=== PATIENT | female | born 1935 | race Caucasian/White ===

== ENCOUNTER → 2018-02-01 09:54 | Outpatient (CLI) | payer MEDICARE, SELFPAY ==
[2018-02-01 12:18] LABS: Absolute Lymphocyte Count 1.26 X10^3/ul (0.83-4.51); Absolute Neutrophil Count 5.6 X10^3/uL (2.0-7.7); Basophil# 0.04 X10^3/uL; Basophil% 0.5 % (0-1); Eosinophil# 0.16 X10^3/uL; Eosinophils% 2.1 % (0-5); Hematocrit 34.8 % (37-47); Hemoglobin 11.1 g/dl (12.0-15.0); Lymphocyte # 1.26 X10^3/ul (4.0); Lymphocyte % 16.5 % (19-41); Mean Corp Hgb Conc 31.9 g/gl (32-36); Mean Corpuscular Hgb 28.1 pg (27.0-32.0); Mean Corpuscular Volume 88.1 fL (81-99); Mean Platelet Vol. 11.4 fl (6.2-12.0); Monocyte# 0.61 X10^3/uL; Neutrophil # 5.56 X10^3/uL (2.7-7.7); Neutrophil % 72.8 % (47-70); Platelet Count 260 K/mm3 (150-450); RBC Distribution Width CV 15.4 % (11.6-14.6); RBC Distribution Width SD 49.4 fl (35.1-43.9); Red Blood Count 3.95 M/mm3 (4.2-5.4); White Blood Count 7.6 K/mm3 (4.4-11.0)
[2018-02-01 12:28] LABS: Hemoglobin A1c 6.8 % (4.2-6.3)
[2018-02-01 12:30] LABS: POSITIVE COUNT NO; POSITIVE DIFFERENTIAL NO; POSITIVE MORPHOLOGY NO
[2018-02-01 12:32] LABS: ALB/GLOB Ratio 0.7 RATIO (0.9-2.4); AST(SGOT) 15 U/L (15-37); Alanine Aminotransfer ALT/SGPT 14 U/L (13-56); Albumin, Serum 2.9 g/dL (3.2-5.0); Alkaline Phosphatase 54 U/L (45-117); Anion Gap 12 (5-15); BUN 26 mg/dL (7-18); BUN/Creat Ratio 14.4 RATIO (10-20); Calcium,Total 10.1 mg/dL (8.5-10.1); Chloride 107 mmol/L (98-107); Cholesterol 421 mg/dL (200); Creatinine, Serum 1.81 mg/dL (0.55-1.02); EST Glomerular Filtration Rate 28 mL/min (>60); Est Glom Filt Rate - Afr Amer 34 mL/min (>60); Globulin 4.2 g/dL (2.2-4.2); Glucose 172 mg/dL (74-106); High Density Lipoprotein 38 mg/dL; Potassium 4.7 mmol/L (3.5-5.1); Protein, Total 7.1 g/dL (6.4-8.2); Sodium Level 140 mmol/L (136-145); T4 Free Direct 1.21 ng/dL (0.76-1.46); Thyroid Stim Hormone (TSH) 1.32 uIU/mL (0.358-3.74); Triglycerides 917 mg/dL
[2018-02-02 12:20] LABS: Vitamin B12 401 pg/mL (211-911); Vitamin D,25 Hydroxy 10.2 ng/mL (29.95-100.01)
[2018-02-02 14:07] LABS: Thyroid Peroxidase AB 25 IU/mL (0-34)
[2018-02-03 14:57] LABS: Thyroglobulin Antibody < 1.0 IU/mL (0.0-0.9)
== END ==
PROVIDERS: Family Provider Family Medicine; PCP Family Medicine; Visit Provider Family Medicine
DX: E01.0 Iodine-deficiency related diffuse (endemic) goiter (principal); E83.52 Hypercalcemia; N18.3 Chronic kidney disease, stage 3 (moderate); E55.9 Vitamin D deficiency, unspecified; E11.9 Type 2 diabetes mellitus without complications; R53.83 Other fatigue
CPT/HCPCS: 36415; 80053; 80061; 82306; 82607; 83036; 84439; 84443; 85025; 86376; 86800

== ENCOUNTER 2018-07-28 16:58 | Inpatient (IN) | payer MEDICARE, SELFPAY ==
[2018-07-28] VITALS (11 sets, daily range): BP systolic 153–193; BP diastolic 59–82; PULSE 71–80; RESP 17–27; TEMP 36.4–37.1; O2SAT 92–98; BMI 23.6; BMI 23.7
--- NOTE | 2018-07-28 18:00 | EKG12_ITS ---
Test Reason : SOB Blood Pressure : / mmHG Vent. Rate : 073 BPM Atrial Rate : 073 BPM P-R Int : 158 ms QRS Dur : 088 ms QT Int : 370 ms P-R-T Axes : 063 036 113 degrees QTc Int : 407 ms Normal sinus rhythm ST & T wave abnormality, consider lateral ischemia Abnormal ECG Confirmed by JASON CLOUD, KISHOR ([id number]), social media editor MARCY PAYTON ([id number]) on 07/30/2018 2:18:32 PM Referred By: CHADWICK Confirmed By:KISHOR GOMEZ MD
--- NOTE | 2018-07-28 18:01 | ED.VISSUMM ---
- ER Visit Summary Date of Service: 07/28/18 Chief Complaint: Dyspnea History of Present Illness: The patient is a 83 F who presents for 4 days of shortness of breath and bilateral ankle swelling. Patient states she has had a moist cough for the last 2 weeks, and took part of an amoxicillin prescription prescribed by her primary care doctor. She then became short of breath worse with exertion, laying flat and keeping her from sleeping. She denies any history of congestive heart failure, COPD or any other lung disease, smoking, coronary artery disease, or DVT/PE. Patient denies any chest pain currently but states she did have some chest discomfort one day during this period of time. Physical Examination: Vital signs: afebrile, hemodynamically stable, 92% on room air, 96% on nasal cannula General: well nourished, well developed, in no distress Skin: warm, dry, no rash, no pallor HEENT: normocephalic and atraumatic; PERRL, EOMI, moist mucous membranes Cardiovascular: regular rate and rhythm without murmurs, symmetric nonpitting peripheral edema, 2+ pulses all distal extremities Respiratory: Mild increased work of breathing, lungs are clear to auscultation bilaterally, no rales, rhonchi or wheezing Abdominal: Abdomen is soft, nontender with normoactive bowel sounds, no guarding or rebound, no masses MSK: Moves all extremities, no deformities, normal strength Neuro: Awake and alert, oriented ?4. No facial droop, sensation and motor function intact and symmetric Test Results: Abnormal Lab Results 07/28/18 07/28/18 07/28/18 16:19 16:19 16:19 WBC 10.0 RBC 3.30 L Hgb 9.4 L Hct 29.2 L MCV 88.5 MCH 28.5 MCHC 32.2 RDW 15.5 H RDW Differential 49.9 H Plt Count 262 MPV 9.8 Immature Gran % (Auto) 0.400 Neut % (Auto) 78.0 H Lymph % (Auto) 11.7 L [place] % (Auto) 7.7 Eos % (Auto) 1.9 Baso % (Auto) 0.3 Absolute Neuts (auto) 7.8 H Absolute Lymphs (auto) 1.17 Total Counted Not Reportable PT 14.0 INR 1.1 APTT 35.6 Sodium 140 Potassium 5.3 H Chloride 112 H Carbon Dioxide 19.0 L Anion Gap 9 BUN 40 H Creatinine 1.76 H Estim Creat Clear Calc 17.09 Est GFR (MDRD) Af Amer 35 L Est GFR (MDRD) Non-Af 29 L BUN/Creatinine Ratio 22.7 H Glucose 247 H Calcium 10.5 H Troponin I 0.082 H B-Natriuretic Peptide 07/28/18 16:19 WBC RBC Hgb Hct MCV MCH MCHC RDW RDW Differential Plt Count MPV Immature Gran % (Auto) Neut % (Auto) Lymph % (Auto) [place] % (Auto) Eos % (Auto) Baso % (Auto) Absolute Neuts (auto) Absolute Lymphs (auto) Total Counted PT INR APTT Sodium Potassium Chloride Carbon Dioxide Anion Gap BUN Creatinine Estim Creat Clear Calc Est GFR (MDRD) Af Amer Est GFR (MDRD) Non-Af BUN/Creatinine Ratio Glucose Calcium Troponin I B-Natriuretic Peptide 2071.7 H Clinical Impression(s) from Imaging Studies Chest X-Ray 07/28/18 19:25 IMPRESSION: Bilateral pleural effusion and pneumonia. Electronically Signed: Wendy Castro MD at 20:25 EST Tel , Service support , Medications Given Discontinued Medications Azithromycin 500 mg/ Dextrose 255 mls @ 250 mls/hr IV X1 ONE Stop: 07/28/18 21:28 Last Admin: 07/28/18 21:48 Dose: 250 mls/hr Ceftriaxone Sodium (Rocephin) 1 gm in 50 mls @ 100 mls/hr IV X1 ONE Stop: 07/28/18 20:56 Last Admin: 07/28/18 20:42 Dose: 100 mls/hr Nitroglycerin (Nitrostat) 0.4 mg SUBLINGUAL X1 ONE Stop: 07/28/18 19:28 Last Admin: 07/28/18 19:33 Dose: 0.4 mg Emergency Department Course and Treatment: Patient presents with history and exam concerning for just of heart failure. Workup was performed, with an EKG showing a sinus rhythm with no ischemic changes. Patient had no leukocytosis. Potassium was mildly elevated at 5.3 without any associated EKG changes. Creatinine elevated at 1.76, consistent with patient's baseline. Troponin was elevated at 0.08, also consistent with prior readings. BNP elevated at 2071, with no baseline for comparison. Patient has no diagnosed history of CHF. Chest x-ray showed a left lobe infiltrate and bilateral pleural effusions. It did not show any sign of vascular congestion or pulmonary edema. Patient had an oxygen requirement in the emergency department and was on nasal cannula. Because of the concern for CHF and patient being consistently hypertensive, she was given sublingual nitroglycerin to reduce afterload. After determining patient had pneumonia, she was started on Rocephin and azithromycin. Lasix held in the emergency department due to no evidence of pulmonary vascular congestion at this time. Patient admitted for further workup and management of her dyspnea, hypoxia on room air, and pneumonia. Treatment Plan: [] Disposition: [] Impression: Pneumonia, hypoxia on room air, dyspnea This note was generated with [employer] dictation software. It may contain incorrect words, spelling, and punctuation that were not noted in review of the chart prior to signing ED Disposition - Plan for ED Patient: Disposition: Acute Care Hospital [facility] Chief Complaint: Shortness of Breath
[2018-07-28 18:45] LABS: Absolute Lymphocyte Count 1.17 X10^3/ul (0.83-4.51); Absolute Neutrophil Count 7.8 X10^3/uL (2.0-7.7); Basophil# 0.03 X10^3/uL; Basophil% 0.3 % (0-1); Eosinophil# 0.19 X10^3/uL; Eosinophils% 1.9 % (0-5); Hematocrit 29.2 % (37-47); Hemoglobin 9.4 g/dl (12.0-15.0); Lymphocyte # 1.17 X10^3/ul (4.0); Lymphocyte % 11.7 % (19-41); Mean Corp Hgb Conc 32.2 g/gl (32-36); Mean Corpuscular Hgb 28.5 pg (27.0-32.0); Mean Corpuscular Volume 88.5 fL (81-99); Mean Platelet Vol. 9.8 fl (6.2-12.0); Monocyte# 0.77 X10^3/uL; Monocyte% 7.7 % (0-10); Neutrophil # 7.81 X10^3/uL (2.7-7.7); Platelet Count 262 K/mm3 (150-450); RBC Distribution Width CV 15.5 % (11.6-14.6); RBC Distribution Width SD 49.9 fl (35.1-43.9)
[2018-07-28 18:49] LABS: International Normalized Ratio 1.1
[2018-07-28 18:50] LABS: POSITIVE COUNT NO; POSITIVE DIFFERENTIAL NO; POSITIVE MORPHOLOGY NO; Partial Thromboplast Time 35.6 Seconds (24.1-36.2)
[2018-07-28 18:59] LABS: Anion Gap 9 (5-15); BUN 40 mg/dL (7-18); BUN/Creat Ratio 22.7 RATIO (10-20); Calcium,Total 10.5 mg/dL (8.5-10.1); Chloride 112 mmol/L (98-107); Creatinine, Serum 1.76 mg/dL (0.55-1.02); EST Glomerular Filtration Rate 29 mL/min (>60); Est Glom Filt Rate - Afr Amer 35 mL/min (>60); Estimated Creatinine Clearance 17.09 ml/min; Glucose 247 mg/dL (74-106); Potassium 5.3 mmol/L (3.5-5.1); Sodium Level 140 mmol/L (136-145)
--- NOTE | 2018-07-28 19:25 | RAD_ITS ---
STUDY: X-RAY CHEST REASON FOR EXAM: Female, 83 years old. Unproductive cough SOB. TECHNIQUE: PA and lateral. COMPARISON:11/24/15 FINDINGS: Small bilateral pleural effusions. Bilateral opacities in the lung bases. Airspace disease on the left. Findings consistent with pneumonia. Upper lung zones are clear. Normal size heart. Normal mediastinum and vilma. Normal visualized pulmonary arteries. Atherosclerotic calcification of the aortic arch. Normal visualized thoracic spine. Normal visualized ribs, clavicles, and shoulders. There is no demonstrated abnormality of the visualized soft tissue structures of the upper abdomen. RAD/Chest PA and Lateral IMPRESSION: Bilateral pleural effusion and pneumonia. Electronically Signed: Wendy Castro MD at 20:25 EST Tel , Service support ,
--- NOTE | 2018-07-28 20:31 | PCM.HP.STD ---
Problem List (1) Acute respiratory failure with hypoxia Status: Acute (2) PNA (pneumonia) Status: Acute Qualifiers: Pneumonia type: due to unspecified organism Laterality: bilateral Lung location: unspecified part of lung Qualified Code(s): J18.9 - Pneumonia, unspecified organism (3) TIA (transient ischemic attack) Status: Chronic (4) Cardiac enzymes elevated Status: Chronic (5) Carotid disease, bilateral Status: Chronic Qualifiers: Carotid artery disease type: unspecified Qualified Code(s): I77.9 - Disorder of arteries and arterioles, unspecified (6) CKD (chronic kidney disease) stage 3, GFR 30-59 ml/min Status: Chronic (7) Hypertension Status: Chronic Qualifiers: Hypertension type: essential hypertension Qualified Code(s): I10 - Essential (primary) hypertension (8) Hyperlipidemia Status: Chronic Qualifiers: Hyperlipidemia type: unspecified Qualified Code(s): E78.5 - Hyperlipidemia, unspecified (9) Type II diabetes mellitus Status: Chronic Qualifiers: Diabetes mellitus penitentiary insulin use: without roadway engineer use Diabetes mellitus complication status: with unspecified complications Qualified Code(s): E11.8 - Type 2 diabetes mellitus with unspecified complications History of Present Illness Date of Admission: 07/28/18 Chief Complaint: Dysnea, cough The patient is a 83 y/o F w/ PMHx: Diabetes mellitus type II, TIA, HTN, HLD, Carotid disease, PVD, History of Tobacco use, Chronic Normocytic anemia (baseline Hgb 11), 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 She noted needing to transition to arm chair for sleeping from bed secondary to worsened dyspnea with laying flat attempts. In the ED work-up included CBC with WBC 10, hemoglobin 9.4, platelet 262 with left shift, unremarkable coags, BMP with potassium 5.3, chloride 112, carbon dioxide 19, BUN/creatinine 40/1.76, glucose 247, calcium 10.5, troponin 0.082, BNP 2071.7 chest x-ray with bilateral pleural effusions and evidence of pneumonia bilateral opacities in the lung bases. In the ED patient administered Rocephin, ceftriaxone, nitroglycerin sublingual x1. 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 Carotid artery stenosis I65.29 Contact dermatitis L25.9 Diabetes type 2, controlled E11.9 Fatigue R53.83 Hemangioma D18.00 Hyperlipidemia E78.5 Peripheral vascular disease I73.9 Postmenopausal state Z78.0 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 TIA (transient ischemic attack) G45.9 Vertigo R42 Allergies metformin Allergy (Verified 07/28/18 17:03) Other BODY ACHES epinephrine Adverse Reaction (Verified 07/28/18 17:03) Other SHAKING Gadolinium-MRI Contrast Medium [CONTRAST] Adverse Reaction (Verified 07/28/18 17:03) Other SHAKING Home Medications: Ambulatory Orders Medication Instructions Recorded Benazepril HCl 40 mg PO DAILY 11/24/15 Glimepiride [Amaryl] 4 mg PO DAILY 11/24/15 Metoprolol(XL)Succ [Toprol Xl 50 mg PO DAILY 11/24/15 (Beta Bobby)] Pioglitazone [Actos] 30 mg PO DAILY 11/24/15 Amlodipine [Norvasc] 10 mg PO DAILY #0 11/26/15 lactobacillus combination no.8 3 3,000 mmu cells PO QDAY 10/10/17 billion cell capsule Doxazosin Mesylate [Cardura] 2 mg PO BID 07/28/18 Surgical History: Surgical History (Last Updated 10/10/17 @ 14:28 by Taryn Galindo) H/O total hysterectomy Z98.890, Z90.710 Status post carotid surgery Z98.890 Surgical History: - - BL carotid artery surgery x 2, hysterectemy, rectal surgery for benign growth. Psychiatric History: No pertinent psych hx BILLPOSTER History: No pertinent BILLPOSTER history Lives: Spouse/ Significant Other Smoking Status: Former smoker - Quit 40 years prior, smoked for 40 years, 1 ppd prior to cessation. Tobacco Use: Non-smoker Alcohol: None Drugs: None - *Family History Maternal Family History: Family History (Last Updated 10/10/17 @ 14:30 by Taryn Galindo) Mother Diabetes Hypertension CVA (cerebral vascular accident) Cancer Brother Diabetes Hypertension Sister Diabetes Hypertension History Items: Diabetes, High Cholesterol Paternal Family History: Family History (Last Updated 10/10/17 @ 14:30 by Taryn Galindo) Mother Diabetes Hypertension CVA (cerebral vascular accident) Cancer Brother Diabetes Hypertension Sister Diabetes Hypertension History Items: Unknown Sibling Family History: Family History (Last Updated 10/10/17 @ 14:30 by Taryn Galindo) Mother Diabetes Hypertension CVA (cerebral vascular accident) Cancer Brother Diabetes Hypertension Sister Diabetes Hypertension History Items: Diabetes, Hypertension Review of Systems Constitutional: Reports: Anorexia, Malaise, Weakness, Fatigue. Denies: Chills, Fever, Weight Change HEENT: Reports: Nasal Congestion, Post Nasal Drip, Sinus Congestion, Sinus Drainage. Denies: Head Aches Cardiovascular: Reports: Edema, Orthopnea. Denies: Chest Pain, Palpitations Respiratory: Reports: Cough, Shortness of Breath, Shortness of breath at rest, Shortness of breath upon exertion. Denies: Sputum production, Wheezing Gastrointestinal: Denies: Abdominal Pain, Nausea, Vomiting Genitourinary: Denies: Dysuria Musculoskeletal: Reports: Back Pain. Denies: Joint Pain, Joint Tenderness Skin: Denies: Rash, Wounds Neurological: Denies: Numbness, Tingling, Focal weakness Psychiatric: Denies: Anxiety, Depression, Homicidal Ideations, Suicidal Ideations Hematologic/ Lymphatic: Reports: Anemia. Denies: Easy Bruising, Easy Bleeding VTE Information - Inpt Only VTE Present on Admission: No VTE Mechan Device Prophylaxis: SCD's VTE Pharm Prophylaxis ordered?: Yes Patient Problems: Active and Suspected Problems (Last Updated 10/10/17 @ 14:27 by Taryn Galindo) Acute respiratory failure with hypoxia (Acute) PNA (pneumonia) (Acute) Subjective: Seated upright in the ED bed, fatigued appearance, conversational dyspnea present, increased work of breathing. Objective: Physical Examination: General: awake, alert, oriented x 3 and cooperative, seated upright in the ED bed, fatigued appearance, obvious conversational dyspnea and increased work of breathing with some accessory muscle usage noted. Skin: normal color, turgor, no icterus, cyanosis. HEENT: AT/NC, EOMI, PERRLA, MMM, no carotid bruits, no market JVD noted. Lungs: Bilaterally diminished, greater bases, rales noted, no wheezing, increased work of breathing, accessory muscle usage and conversational dyspnea noted. Heart: Regular rate and rhythm; no gallop, rub audible. Abdomen: soft, NTTP, ND, normal BS, no HSM. Extremities: no cyanosis, clubbing, BL ankle edema. Neurological: patient awake, alert, oriented x 3; cognitive function intact; pupils equally reactive to light and accomodation; cranial nerves II-XII grossly normal, moving all 4 extremities, no focal deficits, strength severely globally decreased secondary to acute presentation. Psychiatric: affect appears fatigued, mildly flat, no acute evidence of depressive or anxiety feelings. - Physical Exam Vital Signs Temp Pulse Resp BP Pulse Ox 98.8 F 78 27 H 174/62 H 98 07/28/18 16:59 07/28/18 19:33 07/28/18 19:02 07/28/18 19:33 07/28/18 19:03 Oxygen Delivery Method Room Air Weight: 121 lb Body Mass Index (BMI) 23.6 Finger Stick Blood Glucose 252 Laboratory Tests Past 24 Hrs 07/28/18 07/28/18 07/28/18 16:19 16:19 16:19 WBC 10.0 RBC 3.30 L Hgb 9.4 L Hct 29.2 L MCV 88.5 MCH 28.5 MCHC 32.2 RDW 15.5 H RDW Differential 49.9 H Plt Count 262 MPV 9.8 Immature Gran % (Auto) 0.400 Neut % (Auto) 78.0 H Lymph % (Auto) 11.[address] [place] % (Auto) 7.7 Eos % (Auto) 1.9 Baso % (Auto) 0.3 Absolute Neuts (auto) 7.8 H Absolute Lymphs (auto) 1.17 Total Counted Not Reportable PT 14.0 INR 1.1 APTT 35.6 Sodium 140 Potassium 5.3 H Chloride 112 H Carbon Dioxide 19.0 L Anion Gap 9 BUN 40 H Creatinine 1.76 H Estim Creat Clear Calc 17.09 Est GFR (MDRD) Af Amer 35 L Est GFR (MDRD) Non-Af 29 L BUN/Creatinine Ratio 22.7 H Glucose 247 H Calcium 10.5 H Troponin I 0.082 H B-Natriuretic Peptide 07/28/18 16:19 WBC RBC Hgb Hct MCV MCH MCHC RDW RDW Differential Plt Count MPV Immature Gran % (Auto) Neut % (Auto) Lymph % (Auto) [place] % (Auto) Eos % (Auto) Baso % (Auto) Absolute Neuts (auto) Absolute Lymphs (auto) Total Counted PT INR APTT Sodium Potassium Chloride Carbon Dioxide Anion Gap BUN Creatinine Estim Creat Clear Calc Est GFR (MDRD) Af Amer Est GFR (MDRD) Non-Af BUN/Creatinine Ratio Glucose Calcium Troponin I B-Natriuretic Peptide 2071.7 H Assessment/Plan All Active Problems (Last Updated 10/10/17 @ 14:27 by Taryn Galindo) Acute respiratory failure with hypoxia (Acute) PNA (pneumonia) (Acute) Left sided numbness (Acute) The patient is a 83 y/o F w/ PMHx: Diabetes mellitus type II, TIA, HTN, HLD, Carotid disease, PVD, History of Tobacco use, Chronic Normocytic anemia (baseline Hgb 11), 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 She noted needing to transition to arm chair for sleeping from bed secondary to worsened dyspnea with laying flat attempts. (1) Acute Hypoxic Respiratory Failure secondary to Community Acquired Pneumonia: ED work-up included CBC with WBC 10, hemoglobin 9.4, platelet 262 with left shift, unremarkable coags, BMP with potassium 5.3, chloride 112, carbon dioxide 19, BUN/creatinine 40/1.76, glucose 247, calcium 10.5, troponin 0.082, BNP 2071.7 chest x-ray with bilateral pleural effusions and evidence of pneumonia bilateral opacities in the lung bases. Increased work of breathing, accessory muscle usage, some conversational dyspnea, noted hypoxia with any exertion while in the ED. Will admit to PCU, maintain on oxygen with wean as tolerated to room air, continue ATC duonebs, PRN albuterol, maintained on Rocephin and Azithromycin, HOB, IS parameters w/ pending sputum cultures and urine antigens. (2) ? Possibility of Concurrent Underlying CHF: Lower suspicion, feel likely her BL LE edema secondary to transitioning to chair w/ dependent edema, not marked on examination. CXR w/ small effusions, no marked congestion, BNP elevated, chronically elevated trop. History is also notable for lower extremity edema, orthopnea, dyspnea on exertion; however, in the setting of concurrent PNA, will defer lasix aggressive administration given acute presentation #1 initially, will administer lasix 40 mg IV x 1 only, defer IVFs given this concern, will repeat ECHO, last noted 2015, cycle cardiac enzymes, obtain mag, repeat AM EKG, BL snug UNIQUE wraps, was previously on plavix secondary to GI upset with ASA, will restart, obtain AM FLP, maintain on home regimen metoprolol, ACEI. (3) Chronic Elevated Cardiac Enzyme: ED EKG without acute evidence of ischemia, trop 0.082, similar to prior, maintain on telemetry, cycle cardiac enzymes to assure not increasing, repeat EKG in AM. 2015 ECHO noted w/ mild concentric LVH, EF 65%, stage I diastolic dysfunction. (4) Hypertension: Continue home regimen including metoprolol, doxazosin, Benzapril, Norvasc, PRN hydralazine. (5) Hyperlipidemia: Not on agent, FLP in AM. (6) Diabetes mellitus type II: Hold oral home regimen, ADA diet, accu checks w/ ISS. (7) Carotid artery disease: Status post endarterectomy bilaterally x 2. (8) Chronic normocytic anemia: Admission hemoglobin 9.4, prior baseline noted 11, repeat CBC in a.m. (9) Chronic Kidney Disease Stage III/IV: Admission BUN/Cr 40/1.76, baseline renal function 1.4-1.8, appears baseline, repeat BMP in AM. (10) DVT Prophylaxis: SCDs, heparin. (11) CODE status: Discussed CODE status at length including difference between FULL code, DNR-CCA and DNR-CC status. Following discussions about the differences in these status, requested Full Code Status. Notes primarily HCPOA and Daughter 2nd. She does have living will in place. Advanced Care Planning Face to Face Time: 16 minutes. Code Visit Inpatient E&M: 63347 Init Hosp L3 Procedures: 10384 Advncd Care Plan 30 Min
--- NOTE | 2018-07-28 20:36 | HP.PCM_ITS ---
Problem List (1) Acute respiratory failure with hypoxia Status: Acute (2) PNA (pneumonia) Status: Acute Qualifiers: Pneumonia type: due to unspecified organism Laterality: bilateral Lung location: unspecified part of lung Qualified Code(s): J18.9 - Pneumonia, unspecified organism (3) TIA (transient ischemic attack) Status: Chronic (4) Cardiac enzymes elevated Status: Chronic (5) Carotid disease, bilateral Status: Chronic Qualifiers: Carotid artery disease type: unspecified Qualified Code(s): I77.9 - Disorder of arteries and arterioles, unspecified (6) CKD (chronic kidney disease) stage 3, GFR 30-59 ml/min Status: Chronic (7) Hypertension Status: Chronic Qualifiers: Hypertension type: essential hypertension Qualified Code(s): I10 - Essential (primary) hypertension (8) Hyperlipidemia Status: Chronic Qualifiers: Hyperlipidemia type: unspecified Qualified Code(s): E78.5 - Hyperlipidemia, unspecified (9) Type II diabetes mellitus Status: Chronic Qualifiers: Diabetes mellitus long-term insulin use: without oysterman use Diabetes mellitus complication status: with unspecified complications Qualified Code(s): E11.8 - Type 2 diabetes mellitus with unspecified complications History of Present Illness Date of Admission: 07/28/18 Chief Complaint: Dysnea, cough The patient is a 83 y/o F w/ PMHx: Diabetes mellitus type II, TIA, HTN, HLD, Carotid disease, PVD, History of Tobacco use, Chronic Normocytic anemia (baseline Hgb 11), CKD stage III/IV (baseline Cr 1.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 She noted needing to transition to arm chair for sleeping from bed secondary to worsened dyspnea with laying flat attempts. In the ED work-up included CBC with WBC 10, hemoglobin 9.4, platelet 262 with left shift, unremarkable coags, BMP with potassium 5.3, chloride 112, carbon dioxide 19, BUN/creatinine 40/1.76, glucose 247, calcium 10.5, troponin 0.082, BNP 2071.7 chest x-ray with bilateral pleural effusions and evidence of pneumonia bilateral opacities in the lung bases. In the ED patient administered Rocephin, ceftriaxone, nitroglycerin sublingual x1. 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 Carotid artery stenosis I65.29 Contact dermatitis L25.9 Diabetes type 2, controlled E11.9 Fatigue R53.83 Hemangioma D18.00 Hyperlipidemia E78.5 Peripheral vascular disease I73.9 Postmenopausal state Z78.0 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 TIA (transient ischemic attack) G45.9 Vertigo R42 Allergies metformin Allergy (Verified 07/28/18 17:03) Other BODY ACHES epinephrine Adverse Reaction (Verified 07/28/18 17:03) Other SHAKING Gadolinium-MRI Contrast Medium [CONTRAST] Adverse Reaction (Verified 07/28/18 17:03) Other SHAKING Home Medications: Ambulatory Orders Medication Instructions Recorded Benazepril HCl 40 mg PO DAILY 11/24/15 Glimepiride [Amaryl] 4 mg PO DAILY 11/24/15 Metoprolol(XL)Succ [Toprol Xl 50 mg PO DAILY 11/24/15 (Beta Bobby)] Pioglitazone [Actos] 30 mg PO DAILY 11/24/15 Amlodipine [Norvasc] 10 mg PO DAILY #0 11/26/15 lactobacillus combination no.8 3 3,000 mmu cells PO QDAY 10/10/17 billion cell capsule Doxazosin Mesylate [Cardura] 2 mg PO BID 07/28/18 Surgical History: Surgical History (Last Updated 10/10/17 @ 14:28 by Taryn Galindo) H/O total hysterectomy Z98.890, Z90.710 Status post carotid surgery Z98.890 Surgical History: - - BL carotid artery surgery x 2, hysterectemy, rectal surgery for benign growth. Psychiatric History: No pertinent psych hx HATCHERY MAN History: No pertinent HATCHERY MAN history Lives: Spouse/ Significant Other Smoking Status: Former smoker - Quit 40 years prior, smoked for 40 years, 1 ppd prior to cessation. Tobacco Use: Non-smoker Alcohol: None Drugs: None - *Family History Maternal Family History: Family History (Last Updated 10/10/17 @ 14:30 by Taryn Galindo) Mother Diabetes Hypertension CVA (cerebral vascular accident) Cancer Brother Diabetes Hypertension Sister Diabetes Hypertension History Items: Diabetes, High Cholesterol Paternal Family History: Family History (Last Updated 10/10/17 @ 14:30 by Taryn Galindo) Mother Diabetes Hypertension CVA (cerebral vascular accident) Cancer Brother Diabetes Hypertension Sister Diabetes Hypertension History Items: Unknown Sibling Family History: Family History (Last Updated 10/10/17 @ 14:30 by Taryn Galindo) Mother Diabetes Hypertension CVA (cerebral vascular accident) Cancer Brother Diabetes Hypertension Sister Diabetes Hypertension History Items: Diabetes, Hypertension Review of Systems Constitutional: Reports: Anorexia, Malaise, Weakness, Fatigue. Denies: Chills, Fever, Weight Change HEENT: Reports: Nasal Congestion, Post Nasal Drip, Sinus Congestion, Sinus Drainage. Denies: Head Aches Cardiovascular: Reports: Edema, Orthopnea. Denies: Chest Pain, Palpitations Respiratory: Reports: Cough, Shortness of Breath, Shortness of breath at rest, Shortness of breath upon exertion. Denies: Sputum production, Wheezing Gastrointestinal: Denies: Abdominal Pain, Nausea, Vomiting Genitourinary: Denies: Dysuria Musculoskeletal: Reports: Back Pain. Denies: Joint Pain, Joint Tenderness Skin: Denies: Rash, Wounds Neurological: Denies: Numbness, Tingling, Focal weakness Psychiatric: Denies: Anxiety, Depression, Homicidal Ideations, Suicidal Ideations Hematologic/ Lymphatic: Reports: Anemia. Denies: Easy Bruising, Easy Bleeding VTE Information - Inpt Only VTE Present on Admission: No VTE Mechan Device Prophylaxis: SCD's VTE Pharm Prophylaxis ordered?: Yes Patient Problems: Active and Suspected Problems (Last Updated 10/10/17 @ 14:27 by Taryn Galindo) Acute respiratory failure with hypoxia (Acute) PNA (pneumonia) (Acute) Subjective: Seated upright in the ED bed, fatigued appearance, conversational dyspnea present, increased work of breathing. Objective: Physical Examination: General: awake, alert, oriented x 3 and cooperative, seated upright in the ED bed, fatigued appearance, obvious conversational dyspnea and increased work of breathing with some accessory muscle usage noted. Skin: normal color, turgor, no icterus, cyanosis. HEENT: AT/NC, EOMI, PERRLA, MMM, no carotid bruits, no market JVD noted. Lungs: Bilaterally diminished, greater bases, rales noted, no wheezing, increased work of breathing, accessory muscle usage and conversational dyspnea noted. Heart: Regular rate and rhythm; no gallop, rub audible. Abdomen: soft, NTTP, ND, normal BS, no HSM. Extremities: no cyanosis, clubbing, BL ankle edema. Neurological: patient awake, alert, oriented x 3; cognitive function intact; pupils equally reactive to light and accomodation; cranial nerves II-XII grossly normal, moving all 4 extremities, no focal deficits, strength severely globally decreased secondary to acute presentation. Psychiatric: affect appears fatigued, mildly flat, no acute evidence of depressive or anxiety feelings. - Physical Exam Vital Signs Temp Pulse Resp BP Pulse Ox 98.8 F 78 27 H 174/62 H 98 07/28/18 16:59 07/28/18 19:33 07/28/18 19:02 07/28/18 19:33 07/28/18 19:03 Oxygen Delivery Method Room Air Weight: 121 lb Body Mass Index (BMI) 23.6 Finger Stick Blood Glucose 252 Laboratory Tests Past 24 Hrs 07/28/18 07/28/18 07/28/18 16:19 16:19 16:19 WBC 10.0 RBC 3.30 L Hgb 9.4 L Hct 29.2 L MCV 88.5 MCH 28.5 MCHC 32.2 RDW 15.5 H RDW Differential 49.9 H Plt Count 262 MPV 9.8 Immature Gran % (Auto) 0.400 Neut % (Auto) 78.0 H Lymph % (Auto) 11.7 L [place] % (Auto) 7.7 Eos % (Auto) 1.9 Baso % (Auto) 0.3 Absolute Neuts (auto) 7.8 H Absolute Lymphs (auto) 1.17 Total Counted Not Reportable PT 14.0 INR 1.1 APTT 35.6 Sodium 140 Potassium 5.3 H Chloride 112 H Carbon Dioxide 19.0 L Anion Gap 9 BUN 40 H Creatinine 1.76 H Estim Creat Clear Calc 17.09 Est GFR (MDRD) Af Amer 35 L Est GFR (MDRD) Non-Af 29 L BUN/Creatinine Ratio 22.7 H Glucose 247 H Calcium 10.5 H Troponin I 0.082 H B-Natriuretic Peptide 07/28/18 16:19 WBC RBC Hgb Hct MCV MCH MCHC RDW RDW Differential Plt Count MPV Immature Gran % (Auto) Neut % (Auto) Lymph % (Auto) [place] % (Auto) Eos % (Auto) Baso % (Auto) Absolute Neuts (auto) Absolute Lymphs (auto) Total Counted PT INR APTT Sodium Potassium Chloride Carbon Dioxide Anion Gap BUN Creatinine Estim Creat Clear Calc Est GFR (MDRD) Af Amer Est GFR (MDRD) Non-Af BUN/Creatinine Ratio Glucose Calcium Troponin I B-Natriuretic Peptide 2071.7 H Assessment/Plan All Active Problems (Last Updated 10/10/17 @ 14:27 by Taryn Galindo) Acute respiratory failure with hypoxia (Acute) PNA (pneumonia) (Acute) Left sided numbness (Acute) The patient is a 83 y/o F w/ PMHx: Diabetes mellitus type II, TIA, HTN, HLD, Carotid disease, PVD, History of Tobacco use, Chronic Normocytic anemia (baseline Hgb 11), CKD stage III/IV (baseline Cr 1.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 She noted needing to transition to arm chair for sleeping from bed secondary to worsened dyspnea with laying flat attempts. (1) Acute Hypoxic Respiratory Failure secondary to Community Acquired Pneumonia: ED work-up included CBC with WBC 10, hemoglobin 9.4, platelet 262 with left shift, unremarkable coags, BMP with potassium 5.3, chloride 112, carbon dioxide 19, BUN/creatinine 40/1.76, glucose 247, calcium 10.5, troponin 0.082, BNP 2071 .7 chest x-ray with bilateral pleural effusions and evidence of pneumonia bilateral opacities in the lung bases. Increased work of breathing, accessory muscle usage, some conversational dyspnea, noted hypoxia with any exertion while in the ED. Will admit to PCU, maintain on oxygen with wean as tolerated to room air, continue ATC duonebs, PRN albuterol, maintained on Rocephin and Azithromycin, HOB, IS parameters w/ pending sputum cultures and urine antigens. (2) ? Possibility of Concurrent Underlying CHF: Lower suspicion, feel likely her BL LE edema secondary to transitioning to chair w/ dependent edema, not marked on examination. CXR w/ small effusions, no marked congestion, BNP elevated, chronically elevated trop. History is also notable for lower extremity edema, orthopnea, dyspnea on exertion; however, in the setting of concurrent PNA, will defer lasix aggressive administration given acute presentation #1 initially, will administer lasix 40 mg IV x 1 only, defer IVFs given this concern, will repeat ECHO, last noted 2015, cycle cardiac enzymes, obtain mag, repeat AM EKG, BL snug UNIQUE wraps, was previously on plavix secondary to GI upset with ASA, will restart, obtain AM FLP, maintain on home regimen metoprolol, ACEI. (3) Chronic Elevated Cardiac Enzyme: ED EKG without acute evidence of ischemia, trop 0.082, similar to prior, maintain on telemetry, cycle cardiac enzymes to a ssure not increasing, repeat EKG in AM. 2015 ECHO noted w/ mild concentric LVH, EF 65%, stage I diastolic dysfunction. (4) Hypertension: Continue home regimen including metoprolol, doxazosin, Benzapr il, Norvasc, PRN hydralazine. (5) Hyperlipidemia: Not on agent, FLP in AM. (6) Diabetes mellitus type II: Hold oral home regimen, ADA diet, accu checks w/ ISS. (7) Carotid artery disease: Status post endarterectomy bilaterally x 2. (8) Chronic normocytic anemia: Admission hemoglobin 9.4, prior baseline noted 11, repeat CBC in a.m. (9) Chronic Kidney Disease Stage III/IV: Admission BUN/Cr 40/1.76, baseline renal function 1.4-1.8, appears baseline, repeat BMP in AM. (10) DVT Prophylaxis: SCDs, heparin. (11) CODE status: Discussed CODE status at length including difference between FULL code, DNR-CCA and DNR-CC status. Following discussions about the differences in these status, requested Full Code Status. Notes primarily HCPOA and Daughter 2nd. She does have living will in place. Advanced Care Planning Face to Face Time: 16 minutes. Code Visit Inpatient E&M: 87249 Init Hosp L3 Procedures: 25548 Advncd Care Plan 30 Min
[2018-07-28] MEDS: Ceftriaxone 1 GM/50 ML BAG IV (20:42)
--- NOTE | 2018-07-28 21:13 | ED.RN ---
second antibiotic sent to floor with patient. first antibiotic infusing during transport. josé manuel li rn [id number]
--- NOTE | 2018-07-28 21:15 | ECHOD_ITS ---
Reason For Study: CHF Procedure This was a 2D Doppler, Color Flow transthoracic echocardiogram. Exam performed portable in patient room. Left Ventricle Normal LV size. Left ventricular systolic function is normal. The estimated ejection fraction is 55 %. Stage 2 diastolic dysfunction. No regional wall motion abnormalities noted. Right Ventricle Normal RV size. Normal systolic function. Atria Normal left atrium. Normal right atrium. Mitral Valve Normal mitral valve. Mild-Moderate (1-2+) eccentric mitral valve insufficiency. Tricuspid Valve Normal tricuspid valve. Mild tricuspid valve insufficiency. Pulmonary artery systolic pressure is 26 mmHg. Aortic Valve Trisinus/trileaflet aortic valve. Mild focal aortic valve calcification. Mild focal aortic valve thickening. Pulmonic Valve Normal pulmonic valve. Great Vessels Normal aortic root. The pulmonary artery is normal size. Inferior vena cava collapse with respiration. Pericardium/Pleural No pericardial effusion. MMode/2D Measurements & Calculations LVIDd: 5.1 cm IVSd: 1.2 cm Ao root diam: 2.8 cm LVIDs: 3.7 cm LVPWd: 0.72 cm RVDd: 2.7 cm FS: 28.2 % LAV(MOD-bp): 53.2 ml EDV(MOD-sp4): 98.6 ml SV(MOD-sp4): 51.8 ml LAV(MOD-bp) Indexed: 35.3 ml/m2 ESV(MOD-sp4): 46.7 ml LAV(MOD-sp2): 41.2 ml EF(MOD-sp4): 52.6 % LAV(MOD-sp4): 61.5 ml LA dimension(2D): 4.2 cm LA A4 area: 20.1 cm2 RA A4 area: 10.9 cm2 Time Measurements MV dec time: 0.12 sec Doppler Measurements & Calculations MV E max harvey: 132.9 cm/sec Lat Peak E' Harvey: 6.5 cm/sec Med Peak E' Harvey: 3.4 cm/sec MV A max harvey: 97.9 cm/sec E/E' lat: 20.4 E/E' med: 38.8 MV E/A: 1.4 Ao V2 max: 142.8 cm/sec LV V1 max: 100.5 cm/sec PA V2 max: 96.1 cm/sec Ao max P.2 mmHg LV V1 max P.0 mmHg PI end-d harvey: 148.9 cm/sec TR max harvey: 239.5 cm/sec TR max P.9 mmHg Interpretation Summary Normal LV size. Left ventricular systolic function is normal. The estimated ejection fraction is 55 %. Stage 2 diastolic dysfunction. Mild-Moderate (1-2+) eccentric mitral valve insufficiency. Mild tricuspid valve insufficiency. Ordering Physician: Clara Nguyen Referring Physician: Jenni Cornell Performed By: Franchesca Grullon, RENEE, RVT
--- NOTE | 2018-07-28 21:22 | EKG12_ITS ---
Test Reason : [facility] Blood Pressure : / mmHG Vent. Rate : 078 BPM Atrial Rate : 078 BPM P-R Int : 158 ms QRS Dur : 088 ms QT Int : 368 ms P-R-T Axes : 057 017 112 degrees QTc Int : 419 ms Normal sinus rhythm ST & T wave abnormality, consider lateral ischemia Abnormal ECG When compared with ECG of 28-JUL-2018 18:10, MANUAL COMPARISON REQUIRED, DATA IS UNCONFIRMED Confirmed by JASON CLOUD, KISHOR ([id number]), index editor MARCY PAYTON ([id number]) on 07/31/2018 4:08:14 PM Referred By: AJAY Confirmed By:KISHOR GOMEZ MD
[2018-07-28] MEDS: Furosemide 40 MG/4 ML Vial IV (21:48)
[2018-07-28] MEDS: Heparin Injection (Vial) 5,000 UNIT/ML VIAL 5000 UNIT SC (21:48)
[2018-07-28] MEDS: Insulin Lispro 100 UNIT/ML INSULN.PEN SC (21:49)
[2018-07-28] MEDS: Doxazosin 1 MG Tablet 2 MG PO (21:50)
[2018-07-28] MEDS: guaiFENesin 1,200 MG Tablet 1200 MG PO (21:50)
[2018-07-28] MEDS: 0.9% NaCl Peripheral Flush Adult/Peds IV (21:55)
[2018-07-28] MEDS: Ipratropium/Albuterol Sulfate 3 ML AMPUL.NEB INHALATION (22:00)
[2018-07-28 22:14] LABS: Thyroid Stim Hormone (TSH) 1.26 uIU/mL (0.358-3.74)
[2018-07-28 22:46] LABS: Bedside Glucose 220 mg/dL (70-110)
[2018-07-28 22:46] LABS: Bedside Glucose 278 mg/dL (70-110)
[2018-07-29] VITALS (20 sets, daily range): BP systolic 142–169; BP diastolic 44–69; PULSE 80–105; RESP 14–28; TEMP 36.3–36.7; O2SAT 93–97
[2018-07-29] MEDS: hydrALAZINE 20 MG/ML Vial 10 MG IV (02:23)
[2018-07-29] MEDS: 0.9% NaCl Peripheral Flush Adult/Peds IV (02:23)
[2018-07-29] MEDS: Ipratropium/Albuterol Sulfate 3 ML AMPUL.NEB INHALATION (02:34)
--- NOTE | 2018-07-29 03:52 | NURSING ---
Addendum entered by Patsy Noguera 07/29/18 04:05: ~0330: Patient called out d/t SOB and shakiness. Scheduled breathing treatment last given around 0300. States symptoms are similar to how she describes her shakiness reaction to some medications she claims an allergy to. Vitals taken, HR 105. Satting 91% on 3L, increased NC to 5L/m, satting 95%. BP 162/63. BGT 213. Lung sounds are similar to previous assessments, diminished with crackles to posterior bases. Denies taking any medications for anxiety. RT called to assess. AM EKG taken. Similar to previous. Patient calmed down after awhile and claims to feel better, returned NC to original setting of 3L/m, satting 97%. A similar episode occurred after a breathing treatment earlier in this shift. Original Note: Patient called out d/t SOB and shakiness. Scheduled breathing treatment last given around 0300. States symptoms are similar to how she describes her shakiness reaction to some medications she claims an allergy to. Vitals taken, HR 105. Increased NC to 5L/m, satting 95%. BP 162/63. BGT 213. Lung sounds are similar to previous assessments, diminished with crackles to posterior bases. RT called to assess. AM EKG taken.
[2018-07-29 04:06] LABS: Bedside Glucose 213 mg/dL (70-110)
--- NOTE | 2018-07-29 04:08 | CPS ---
RT CALLED TO PATIENTS ROOM DUE TO SOB AND SHAKINESS. AT TIME OF ARRIVAL NURSING INFORMED RT THAT PATIENT WAS INCREASED TO 5 LPM DUE TO SOB. PATIENT WEANED BACK TO 3 LPM VIA NURSING. LUNG SOUNDS WERE DISTANT WITH FAINT CRACKLES NOTED IN BASES. PATIENT SITTING UP TALKING. RT OBTAINED AM EKG AND PATIENTS NURSE REVIEWED.
[2018-07-29 04:39] LABS: Absolute Lymphocyte Count 1.31 X10^3/ul (0.83-4.51); Absolute Neutrophil Count 7.5 X10^3/uL (2.0-7.7); Basophil# 0.02 X10^3/uL; Basophil% 0.2 % (0-1); Eosinophil# 0.14 X10^3/uL; Eosinophils% 1.4 % (0-5); Hematocrit 26.7 % (37-47); Hemoglobin 8.9 g/dl (12.0-15.0); Lymphocyte # 1.31 X10^3/ul (4.0); Lymphocyte % 13.4 % (19-41); Mean Corp Hgb Conc 33.3 g/gl (32-36); Mean Corpuscular Hgb 29.8 pg (27.0-32.0); Mean Corpuscular Volume 89.3 fL (81-99); Mean Platelet Vol. 10.6 fl (6.2-12.0); Monocyte# 0.73 X10^3/uL; Monocyte% 7.5 % (0-10); Neutrophil # 7.53 X10^3/uL (2.7-7.7); POSITIVE COUNT NO; POSITIVE DIFFERENTIAL NO; POSITIVE MORPHOLOGY NO; Platelet Count 230 K/mm3 (150-450); RBC Distribution Width SD 47.5 fl (35.1-43.9); Red Blood Count 2.99 M/mm3 (4.2-5.4); White Blood Count 9.8 K/mm3 (4.4-11.0)
[2018-07-29 05:19] LABS: Anion Gap 14 (5-15); BUN 40 mg/dL (7-18); BUN/Creat Ratio 22.9 RATIO (10-20); Calcium,Total 10.2 mg/dL (8.5-10.1); Chloride 110 mmol/L (98-107); Cholesterol 270 mg/dL (200); Creatinine, Serum 1.75 mg/dL (0.55-1.02); EST Glomerular Filtration Rate 29 mL/min (>60); Est Glom Filt Rate - Afr Amer 36 mL/min (>60); Estimated Creatinine Clearance 17.19 ml/min; Glucose 214 mg/dL (74-106); High Density Lipoprotein 49 mg/dL; Potassium 4.4 mmol/L (3.5-5.1); Sodium Level 139 mmol/L (136-145); Triglycerides 410 mg/dL
--- NOTE | 2018-07-29 05:55 | EKG12_ITS ---
Test Reason : AM EKG Blood Pressure : / mmHG Vent. Rate : 102 BPM Atrial Rate : 102 BPM P-R Int : 142 ms QRS Dur : 096 ms QT Int : 338 ms P-R-T Axes : 065 009 096 degrees QTc Int : [address] & T wave abnormality, consider lateral ischemia Abnormal ECG When compared with ECG of 28-JUL-2018 21:51, MANUAL COMPARISON REQUIRED, DATA IS UNCONFIRMED Confirmed by JASON CLOUD, KISHOR ([id number]), society editor MARCY PAYTON ([id number]) on 07/31/2018 4:08:24 PM Referred By: AJAY Confirmed By:KISHOR GOMEZ MD
[2018-07-29 07:01] LABS: Bedside Glucose 207 mg/dL (70-110)
[2018-07-29] MEDS: Insulin Lispro 100 UNIT/ML INSULN.PEN SC ×3 (08:25→22:08)
[2018-07-29] MEDS: Doxazosin 1 MG Tablet 2 MG PO ×2 (08:26→22:07)
[2018-07-29] MEDS: Heparin Injection (Vial) 5,000 UNIT/ML VIAL 5000 UNIT SC ×2 (08:26→22:08)
[2018-07-29] MEDS: Clopidogrel Bisulfate 75 MG Tablet PO (08:27)
[2018-07-29] MEDS: amLODIPine 10 MG Tablet PO (08:27)
[2018-07-29] MEDS: Lisinopril 40 MG Tablet PO (08:27)
[2018-07-29] MEDS: guaiFENesin 1,200 MG Tablet 1200 MG PO ×2 (08:27→22:07)
[2018-07-29] MEDS: Metoprolol(XL)Succ 50 MG Tablet PO (08:27)
--- NOTE | 2018-07-29 09:30 | EKG12_ITS ---
Test Reason : CP Blood Pressure : / mmHG Vent. Rate : 107 BPM Atrial Rate : 107 BPM P-R Int : 154 ms QRS Dur : 094 ms QT Int : 336 ms P-R-T Axes : 076 018 140 degrees QTc Int : [address] & T wave abnormality, consider lateral ischemia Abnormal ECG When compared with ECG of 29-JUL-2018 03:56, MANUAL COMPARISON REQUIRED, DATA IS UNCONFIRMED Confirmed by JASON CLOUD, KISHOR ([id number]), field map editor MARCY PAYTON ([id number]) on 07/31/2018 4:07:48 PM Referred By: CHRISTA Confirmed By:KISHOR GOMEZ MD
[2018-07-29] MEDS: Ceftriaxone 1 GM/50 ML BAG IV (10:01)
[2018-07-29 11:46] LABS: Bedside Glucose 292 mg/dL (70-110)
--- NOTE | 2018-07-29 12:33 | PCM.PROGNOTE ---
<Sangeeta Araujo - Last Filed: 07/29/18 12:51> Patient Problems: Active and Suspected Problems (Last Updated 10/10/17 @ 14:27 by Taryn Galindo) Acute respiratory failure with hypoxia (Acute) PNA (pneumonia) (Acute) Subjective: Patient seen and examined. Complains of increased shortness of breath this morning and chest discomfort which resolved quickly. Patient feels she may be anxious. EKG completed which showed no acute changes. She denies fever, chills. - Physical Exam General: Alert, Oriented x3, Cooperative HEENT: Atraumatic, PERRLA, EOMI, Normocephalic Oral: Moist Mucosa Neck: Supple, No JVD, Negative Carotid Bruits Lungs: Diminished, Rales Cardiovascular: Regular Rhythm, Normal S1, Normal S2, No murmurs, Tachycardic Abdomen: Bowel Sounds Present, Soft, Non Tender, Non-Distended Extremities: No clubbing, No cyanosis, No edema, Capillary Refill Less than 3 Seconds Skin: No rashes, No breakdown Musculoskeletal: No Tenderness to Palpation of Joints or Extremities Neurological: Cranial nerves II-XII grossly intact, Neuro grossly intact Psych/Mental Status: Anxious Vital Signs Temp Pulse Resp BP Pulse Ox 97.4 F L 90 20 H 142/59 H 96 07/29/18 10:03 07/29/18 10:58 07/29/18 10:33 07/29/18 10:03 07/29/18 10:03 Oxygen Flow Rate (L/min) 4 Oxygen Delivery Method Nasal Cannula Weight: 121 lb 0.54 oz Body Mass Index (BMI) 23.7 Finger Stick Blood Glucose 252 Intake and Output for Last 24 Hours 07/27/18 07/28/18 07/29/18 23:59 23:59 23:59 Intake Total 384 / 384 905 / 905 Balance 384 / 384 905 / 905 Microbiology Past 72 Hours 07/28/18 22:20 Streptococcus pneumoniae Antigen (M - Final Urine, Clean Catch 07/28/18 22:20 Legionella Antigen - Final Urine, Clean Catch Laboratory Tests Past 24 Hrs 07/28/18 07/28/18 07/28/18 16:19 16:19 16:19 WBC 10.0 RBC 3.30 L Hgb 9.4 L Hct 29.2 L MCV 88.5 MCH 28.5 MCHC 32.2 RDW 15.5 H RDW Differential 49.9 H Plt Count 262 MPV 9.8 Immature Gran % (Auto) 0.400 Neut % (Auto) 78.0 H Lymph % (Auto) 11.7 L [place] % (Auto) 7.7 Eos % (Auto) 1.9 Baso % (Auto) 0.3 Absolute Neuts (auto) 7.8 H Absolute Lymphs (auto) 1.17 Total Counted Not Reportable PT 14.0 INR 1.1 APTT 35.6 Sodium 140 Potassium 5.3 H Chloride 112 H Carbon Dioxide 19.0 L Anion Gap 9 BUN 40 H Creatinine 1.76 H Estim Creat Clear Calc 17.09 Est GFR (MDRD) Af Amer 35 L Est GFR (MDRD) Non-Af 29 L BUN/Creatinine Ratio 22.7 H Glucose 247 H Calcium 10.5 H Magnesium Troponin I 0.082 H B-Natriuretic Peptide Triglycerides Cholesterol LDL Cholesterol VLDL Cholesterol HDL Cholesterol TSH 07/28/18 07/28/18 07/29/18 16:19 21:40 00:31 WBC RBC Hgb Hct MCV MCH MCHC RDW RDW Differential Plt Count MPV Immature Gran % (Auto) Neut % (Auto) Lymph % (Auto) [place] % (Auto) Eos % (Auto) Baso % (Auto) Absolute Neuts (auto) Absolute Lymphs (auto) Total Counted PT INR APTT Sodium Potassium Chloride Carbon Dioxide Anion Gap BUN Creatinine Estim Creat Clear Calc Est GFR (MDRD) Af Amer Est GFR (MDRD) Non-Af BUN/Creatinine Ratio Glucose Calcium Magnesium 2.0 Troponin I 0.082 H 0.078 H B-Natriuretic Peptide 2071.7 H Triglycerides Cholesterol LDL Cholesterol VLDL Cholesterol HDL Cholesterol TSH 1.26 07/29/18 07/29/18 07/29/18 04:31 04:31 04:31 WBC 9.8 RBC 2.99 L Hgb 8.9 L Hct 26.7 L MCV 89.3 MCH 29.8 MCHC 33.3 RDW 15.0 H RDW Differential 47.5 H Plt Count 230 MPV 10.6 Immature Gran % (Auto) 0.500 Neut % (Auto) 77.0 H Lymph % (Auto) 13.4 L [place] % (Auto) 7.5 Eos % (Auto) 1.4 Baso % (Auto) 0.2 Absolute Neuts (auto) 7.5 Absolute Lymphs (auto) 1.31 Total Counted Not Reportable PT INR APTT Sodium 139 Potassium 4.4 Chloride 110 H Carbon Dioxide 15.0 L Anion Gap 14 BUN 40 H Creatinine 1.75 H Estim Creat Clear Calc 17.19 Est GFR (MDRD) Af Amer 36 L Est GFR (MDRD) Non-Af 29 L BUN/Creatinine Ratio 22.9 H Glucose 214 H Calcium 10.2 H Magnesium Troponin I 0.059 H B-Natriuretic Peptide Triglycerides 410 H Cholesterol 270 H LDL Cholesterol TNP VLDL Cholesterol TNP HDL Cholesterol 49 TSH POC Glucose 07/29/18 07/29/18 07/29/18 11:36 06:45 03:52 POC Glucose 292 H 207 H 213 H 07/28/18 07/28/18 22:22 21:41 POC Glucose 278 H 220 H Medical Necessity - Tobacco Use Smoking Status: Former smoker - Quit 40 years prior, smoked for 40 years, 1 ppd prior to cessation. Tobacco Use: Non-smoker Assessment/Plan All Active Problems (Last Updated 10/10/17 @ 14:27 by Taryn Galindo) Acute respiratory failure with hypoxia (Acute) PNA (pneumonia) (Acute) Left sided numbness (Acute) 1. Acute hypoxic respiratory failure secondary to community-acquired pneumonia and acute on chronic diastolic CHF-chest x-ray on admission with evidence of pneumonia. Urine negative for strep and Legionella. Continue IV azithromycin and IV Rocephin. Mucinex. Albuterol and DuoNeb aerosols. Send sputum for culture. Continue supplement oxygen to maintain O2 at or above 90%. 2. Acute on chronic diastolic CHF-Echo in 2015 with EF 65%, stage I diastolic dysfunction. BNP on admission 2070. Chest x-ray with pleural effusion and pneumonia. Repeat echocardiogram pending. Patient received IV Lasix x1. Will continue IV Lasix 40 mg daily. Repeat echocardiogram pending. Strict I&O. Daily weight. Continue home UNIQUE inhibitor regimen. 3. Chronic elevated troponin-stable, troponin did not trend. Repeat EKG without ST-T changes. 4. Hypertension-mildly elevated. Continue home amlodipine, UNIQUE inhibitor, metoprolol, doxazosin regimen. PRN hydralazine. 5. Hyperlipidemia-not on statin. Lipid panel with elevated triglycerides and total cholesterol. Add atorvastatin nightly. 6. Type 2 diabetes mellitus-hold home oral regimen. Accu-Cheks before meals at bedtime with sliding scale insulin. Increase sliding scale to high dose. 7. Carotid artery disease status post endarterectomy bilaterally x2 8. Chronic normocytic anemia-Baseline hemoglobin appears to be 11. Hemoglobin currently 8.9. Trend CBC. Check stool for occult blood. 9. Chronic kidney disease stage III-stable, trend BMP. DVT prophylaxis-heparin subcu This patient was seen by VARUN Doshi under the supervision of Dr. Nichols. <Miquel Nichols - Last Filed: 07/29/18 13:50> - Physical Exam Vital Signs Temp Pulse Resp BP Pulse Ox 97.4 F L 90 20 H 142/59 H 96 07/29/18 10:03 07/29/18 10:58 07/29/18 10:33 07/29/18 10:03 07/29/18 10:03 Oxygen Flow Rate (L/min) 4 Oxygen Delivery Method Nasal Cannula Weight: 54.9 kg Body Mass Index (BMI) 23.7 Finger Stick Blood Glucose 252 Intake and Output for Last 24 Hours 07/27/18 07/28/18 07/29/18 23:59 23:59 23:59 Intake Total 384 / 384 905 / 905 Balance 384 / 384 905 / 905 Microbiology Past 72 Hours 07/28/18 22:20 Streptococcus pneumoniae Antigen (M - Final Urine, Clean Catch 07/28/18 22:20 Legionella Antigen - Final Urine, Clean Catch Laboratory Tests Past 24 Hrs 07/28/18 07/28/18 07/28/18 16:19 16:19 16:19 WBC 10.0 RBC 3.30 L Hgb 9.4 L Hct 29.2 L MCV 88.5 MCH 28.5 MCHC 32.2 RDW 15.5 H RDW Differential 49.9 H Plt Count 262 MPV 9.8 Immature Gran % (Auto) 0.400 Neut % (Auto) 78.0 H Lymph % (Auto) 11.7 L [place] % (Auto) 7.7 Eos % (Auto) 1.9 Baso % (Auto) 0.3 Absolute Neuts (auto) 7.8 H Absolute Lymphs (auto) 1.17 Total Counted Not Reportable PT 14.0 INR 1.1 APTT 35.6 Sodium 140 Potassium 5.3 H Chloride 112 H Carbon Dioxide 19.0 L Anion Gap 9 BUN 40 H Creatinine 1.76 H Estim Creat Clear Calc 17.09 Est GFR (MDRD) Af Amer 35 L Est GFR (MDRD) Non-Af 29 L BUN/Creatinine Ratio 22.7 H Glucose 247 H Calcium 10.5 H Magnesium Troponin I 0.082 H B-Natriuretic Peptide Triglycerides Cholesterol LDL Cholesterol VLDL Cholesterol HDL Cholesterol TSH 07/28/18 07/28/18 07/29/18 16:19 21:40 00:31 WBC RBC Hgb Hct MCV MCH MCHC RDW RDW Differential Plt Count MPV Immature Gran % (Auto) Neut % (Auto) Lymph % (Auto) [place] % (Auto) Eos % (Auto) Baso % (Auto) Absolute Neuts (auto) Absolute Lymphs (auto) Total Counted PT INR APTT Sodium Potassium Chloride Carbon Dioxide Anion Gap BUN Creatinine Estim Creat Clear Calc Est GFR (MDRD) Af Amer Est GFR (MDRD) Non-Af BUN/Creatinine Ratio Glucose Calcium Magnesium 2.0 Troponin I 0.082 H 0.078 H B-Natriuretic Peptide 2071.7 H Triglycerides Cholesterol LDL Cholesterol VLDL Cholesterol HDL Cholesterol TSH 1.26 07/29/18 07/29/18 07/29/18 04:31 04:31 04:31 WBC 9.8 RBC 2.99 L Hgb 8.9 L Hct 26.7 L MCV 89.3 MCH 29.8 MCHC 33.3 RDW 15.0 H RDW Differential 47.5 H Plt Count 230 MPV 10.6 Immature Gran % (Auto) 0.500 Neut % (Auto) 77.0 H Lymph % (Auto) 13.4 L [place] % (Auto) 7.5 Eos % (Auto) 1.4 Baso % (Auto) 0.2 Absolute Neuts (auto) 7.5 Absolute Lymphs (auto) 1.31 Total Counted Not Reportable PT INR APTT Sodium 139 Potassium 4.4 Chloride 110 H Carbon Dioxide 15.0 L Anion Gap 14 BUN 40 H Creatinine 1.75 H Estim Creat Clear Calc 17.19 Est GFR (MDRD) Af Amer 36 L Est GFR (MDRD) Non-Af 29 L BUN/Creatinine Ratio 22.9 H Glucose 214 H Calcium 10.2 H Magnesium Troponin I 0.059 H B-Natriuretic Peptide Triglycerides 410 H Cholesterol 270 H LDL Cholesterol TNP VLDL Cholesterol TNP HDL Cholesterol 49 TSH POC Glucose 07/29/18 07/29/18 07/29/18 11:36 06:45 03:52 POC Glucose 292 H 207 H 213 H 07/28/18 07/28/18 22:22 21:41 POC Glucose 278 H 220 H Assessment/Plan This patient was seen in conjunction with VARUN Doshi . I have independently interviewed and examined the patient and reviewed pertinent historical, laboratory, and other data. Please refer to VARUN Doshi note for details of this patient's presentation, findings, and recommendations. I have reviewed VARUN Doshi note and concur with documented findings. In brief, patient is a 83-year-old lady with multiple comorbidities including hypertension, diabetes mellitus type 2 chronic diastolic congestive heart failure who presented with progressive shortness of breath and assessment of acute hypoxic respiratory failure secondary to combination of community-acquired pneumonia as well as acute on chronic CHF made admitted to a monitored bed for subsequent management Physical Examination: GENERAL: cooperative HEENT: Atraumatic; EYES; Anicteric, Normal Conjunctiva NECK; supple, normal thyroid, RESPIRATORY: Diminished to auscultation bilaterally, CARDIOVASCULAR: Regular S1 S2, no audible murmurs GI: soft, non-tender, normoactive bowel sounds, : No Renal angle tenderness; EXTREMITIES: No clubbing, no cyanosis. NEURO: Awake; no lateralizing signs. SKIN: No Rash PSYCH; Normal affect Assessment: 1. Acute hypoxic respiratory failure 2. Community-acquired pneumonia 3. Acute on chronic CHF 4. Essential hypertension 5. Diabetes mellitus type II 6. Chronic kidney disease stage III . DVT prophylaxis SC heparin Recommendations: 1. I have discussed the results of my overview and impressions with the patient 2. Options for management were reviewed Code Visit Inpatient E&M: 68791 Subs Hosp L3
[2018-07-29 16:30] LABS: Bedside Glucose 93 mg/dL (70-110)
[2018-07-29] MEDS: Atorvastatin Calcium 40 MG Tablet PO (22:08)
[2018-07-29 22:20] LABS: Bedside Glucose 206 mg/dL (70-110)
[2018-07-30] VITALS (12 sets, daily range): BP systolic 136–157; BP diastolic 45–63; PULSE 80–95; RESP 16–18; TEMP 36.4–36.8; O2SAT 94–100
[2018-07-30] MEDS: Albuterol 2.5 MG/3 ML VIAL.NEB. INHALATION (00:52)
--- NOTE | 2018-07-30 00:55 | NURSING ---
Called in to pts room by conveyor line battery charger as patient was calling out and tossing and turning in bed c/o SOB. She was disoriented and did not allow RN to obtain Pox and she was flailing her arms and hands. RN turned up O2 from 2L to 5L, pt began to calm down, blood glucose was checked as she felt diaphoretic, was disoriented and stuporous. BG=69, obtained orders from physician to give 1amp D50. After patient received amp she began to awaken and become more oriented/cooperative. Blood glucose was rechecked 15min later and was 235. Pt now sating 95% on 3L NC, sitting up in bed, calm and cooperative now just c/o productive cough.
[2018-07-30 00:56] LABS: Bedside Glucose 69 mg/dL (70-110)
[2018-07-30] MEDS: Dextrose 50%-Water 25 GM/50 ML DISP.SYRIN IV (01:09)
[2018-07-30] MEDS: 0.9% NaCl Peripheral Flush Adult/Peds IV ×2 (01:22→09:05)
[2018-07-30 01:40] LABS: Bedside Glucose 235 mg/dL (70-110)
[2018-07-30 05:58] LABS: Hematocrit 24.9 % (37-47); Hemoglobin 8.2 g/dl (12.0-15.0); Mean Corp Hgb Conc 32.9 g/gl (32-36); Mean Corpuscular Hgb 29.2 pg (27.0-32.0); Mean Corpuscular Volume 88.6 fL (81-99); Mean Platelet Vol. 10.3 fl (6.2-12.0); Platelet Count 234 K/mm3 (150-450); RBC Distribution Width CV 15.6 % (11.6-14.6); RBC Distribution Width SD 50.7 fl (35.1-43.9); Red Blood Count 2.81 M/mm3 (4.2-5.4); White Blood Count 8.5 K/mm3 (4.4-11.0)
[2018-07-30 06:33] LABS: Anion Gap 12 (5-15); BUN 44 mg/dL (7-18); BUN/Creat Ratio 22.3 RATIO (10-20); Calcium,Total 10.2 mg/dL (8.5-10.1); Chloride 112 mmol/L (98-107); Creatinine, Serum 1.97 mg/dL (0.55-1.02); EST Glomerular Filtration Rate 26 mL/min (>60); Est Glom Filt Rate - Afr Amer 31 mL/min (>60); Estimated Creatinine Clearance 15.27 ml/min; Glucose 171 mg/dL (74-106); Scan Indicated on CBC? Y/N NO; Sodium Level 142 mmol/L (136-145)
[2018-07-30 07:01] LABS: Bedside Glucose 159 mg/dL (70-110)
[2018-07-30] MEDS: Ceftriaxone 1 GM/50 ML BAG IV (08:54)
[2018-07-30] MEDS: guaiFENesin 1,200 MG Tablet 1200 MG PO ×2 (09:03→20:37)
[2018-07-30] MEDS: Metoprolol(XL)Succ 50 MG Tablet PO (09:03)
[2018-07-30] MEDS: Lisinopril 40 MG Tablet PO (09:03)
[2018-07-30] MEDS: Heparin Injection (Vial) 5,000 UNIT/ML VIAL 5000 UNIT SC ×2 (09:04→20:36)
[2018-07-30] MEDS: amLODIPine 10 MG Tablet PO (09:04)
[2018-07-30] MEDS: Doxazosin 1 MG Tablet 2 MG PO ×2 (09:04→20:37)
[2018-07-30] MEDS: Furosemide 40 MG/4 ML Vial IV (09:05)
--- NOTE | 2018-07-30 11:21 | CASEMGMT ---
Face to Face with patient for initial transition planning/care coordination assessment. RN CM introduced self and role at [facility], voices understanding. Care providers, pharmacy, and demographics verified. PCP: Dr. Cornell Preferred Pharmacy: [facility] Insurance: [facility] Living Will/HPOA: Yes, has both at home. Pt's states her sAa is listed as her HPOA. Living Arrangements: Pt states she lives in a one story condo without entry steps. States there is a ramp into the home from the garage. Pt states she is independent with her ADLS, was driving without difficulty, and able to cook and complete laundry independently prior to admission. Transportation: Pt driving prior to admission. DME/HHC: Currently has a shower chair, raised toilet seat and grab bars. Ambulates without assistive devices. Plan: Pt plans to return home at discharge. States she has her and children available to assist her as needed. PT/OT therapies pending. Pt currently on O2 (does not wear O2 at home). Will continue to monitor to identify any discharge needs.
[2018-07-30] MEDS: Insulin Lispro 100 UNIT/ML INSULN.PEN SC (11:39)
[2018-07-30 11:51] LABS: Bedside Glucose 342 mg/dL (70-110)
--- NOTE | 2018-07-30 12:36 | PN_ITS ---
<Sangeeta Araujo - Last Filed: 07/30/18 12:36> Patient Problems: Active and Suspected Problems (Last Updated 10/10/17 @ 14:27 by Taryn Galindo) Acute respiratory failure with hypoxia (Acute) PNA (pneumonia) (Acute) Subjective: Patient seen and examined. Notes improvement in breathing. Denies fever, chills. Denies significant cough. Overall feeling improved from yesterday. - Physical Exam General: Alert, Oriented x3, Cooperative HEENT: Atraumatic, PERRLA, EOMI, Normocephalic Oral: Moist Mucosa Neck: Supple, No JVD, Negative Carotid Bruits Lungs: Diminished, - - Few crackles bases Cardiovascular: Regular rate, Regular Rhythm, Normal S1, Normal S2, No murmurs Abdomen: Bowel Sounds Present, Soft, Non Tender, Non-Distended Extremities: No clubbing, No cyanosis, No edema, Capillary Refill Less than 3 Seconds Skin: No rashes, No breakdown Musculoskeletal: No Tenderness to Palpation of Joints or Extremities Neurological: Cranial nerves II-XII grossly intact, Neuro grossly intact Psych/Mental Status: Normal Affect, Appropriate Vital Signs Temp Pulse Resp BP Pulse Ox 98.3 F 87 18 152/63 H 96 07/30/18 08:00 07/30/18 09:03 07/30/18 08:00 07/30/18 09:03 07/30/18 08:00 Oxygen Flow Rate (L/min) 3 Oxygen Delivery Method Nasal Cannula Weight: 121 lb 11.123 oz Body Mass Index (BMI) 23.7 Finger Stick Blood Glucose 252 Intake and Output for Last 24 Hours 07/28/18 07/29/18 07/30/18 23:59 23:59 23:59 Intake Total 384 / 384 1505 / 1505 100 / 100 Output Total 400 / 400 Balance 384 / 384 1105 / 1105 100 / 100 Microbiology Past 72 Hours 07/28/18 22:20 Streptococcus pneumoniae Antigen (M - Final Urine, Clean Catch 07/28/18 22:20 Legionella Antigen - Final Urine, Clean Catch Laboratory Tests Past 24 Hrs 07/30/18 07/30/18 05:25 05:25 WBC 8.5 RBC 2.81 L Hgb 8.2 L Hct 24.9 L MCV 88.6 MCH 29.2 MCHC 32.9 RDW 15.6 H RDW Differential 50.7 H Plt Count 234 MPV 10.3 Sodium 142 Potassium 5.0 Chloride 112 H Carbon Dioxide 18.0 L Anion Gap 12 BUN 44 H Creatinine 1.97 H Estim Creat Clear Calc 15.27 Est GFR (MDRD) Af Amer 31 L Est GFR (MDRD) Non-Af 26 L BUN/Creatinine Ratio 22.3 H Glucose 171 H Calcium 10.2 H POC Glucose 07/30/18 07/30/18 07/30/18 11:36 06:50 01:34 POC Glucose 342 H 159 H 235 H 07/30/18 07/29/18 07/29/18 00:50 22:04 16:18 POC Glucose 69 L 206 H 93 Medical Necessity - Tobacco Use Smoking Status: Former smoker - Quit 40 years prior, smoked for 40 years, 1 ppd prior to cessation. Tobacco Use: Non-smoker Assessment/Plan All Active Problems (Last Updated 10/10/17 @ 14:27 by Taryn Galindo) Acute respiratory failure with hypoxia (Acute) PNA (pneumonia) (Acute) Left sided numbness (Acute) 1. Acute hypoxic respiratory failure secondary to community-acquired pneumonia and acute on chronic diastolic CHF-chest x-ray on admission with evidence of pneumonia. Urine negative for strep and Legionella. Continue IV azithromycin and IV Rocephin. Mucinex. Albuterol and DuoNeb aerosols. Send sputum for culture. Continue supplement oxygen to maintain O2 at or above 90%. 2. Acute on chronic diastolic CHF-Echo in 2015 with EF 65%, stage I diastolic dysfunction. BNP on admission 2070. Chest x-ray with pleural effusion and pneumonia. Repeat echocardiogram pending. Patient received IV Lasix x1. Will continue IV Lasix 40 mg daily. Repeat echocardiogram pending. Strict I&O. Daily weight. Continue home UNIQUE inhibitor regimen. 3. Chronic elevated troponin-stable, troponin did not trend. Repeat EKG without ST-T changes. 4. Hypertension-mildly elevated. Continue home amlodipine, UNIQUE inhibitor, metoprolol, doxazosin regimen. PRN hydralazine. 5. Hyperlipidemia-not on statin. Lipid panel with elevated triglycerides and total cholesterol. Add atorvastatin nightly. 6. Type 2 diabetes mellitus-hold home oral regimen. Accu-Cheks before meals at bedtime with sliding scale insulin. Increase sliding scale to high dose. 7. Carotid artery disease status post endarterectomy bilaterally x2 8. Chronic normocytic anemia-Baseline hemoglobin appears to be 11. Hemoglobin currently 8.9. Trend CBC. Check stool for occult blood. Check iron studies. 9. Chronic kidney disease stage III-stable, trend BMP. DVT prophylaxis-heparin subcu This patient was seen by VARUN Doshi under the supervision of Dr. Gan. <MalikCastillo E - Last Filed: 07/30/18 14:04> - Physical Exam Vital Signs Temp Pulse Resp BP Pulse Ox 98.3 F 87 18 152/63 H 96 07/30/18 08:00 07/30/18 09:03 07/30/18 08:00 07/30/18 09:03 07/30/18 08:00 Oxygen Flow Rate (L/min) 3 Oxygen Delivery Method Nasal Cannula Weight: 121 lb 11.123 oz Body Mass Index (BMI) 23.7 Finger Stick Blood Glucose 252 Intake and Output for Last 24 Hours 07/28/18 07/29/18 07/30/18 23:59 23:59 23:59 Intake Total 384 / 384 1505 / 1505 100 / 100 Output Total 400 / 400 Balance 384 / 384 1105 / 1105 100 / 100 Microbiology Past 72 Hours 07/28/18 22:20 Streptococcus pneumoniae Antigen (M - Final Urine, Clean Catch 07/28/18 22:20 Legionella Antigen - Final Urine, Clean Catch Laboratory Tests Past 24 Hrs 07/30/18 07/30/18 07/30/18 05:25 05:25 05:25 WBC 8.5 RBC 2.81 L Hgb 8.2 L Hct 24.9 L MCV 88.6 MCH 29.2 MCHC 32.9 RDW 15.6 H RDW Differential 50.7 H Plt Count 234 MPV 10.3 Sodium 142 Potassium 5.0 Chloride 112 H Carbon Dioxide 18.0 L Anion Gap 12 BUN 44 H Creatinine 1.97 H Estim Creat Clear Calc 15.27 Est GFR (MDRD) Af Amer 31 L Est GFR (MDRD) Non-Af 26 L BUN/Creatinine Ratio 22.3 H Glucose 171 H Calcium 10.2 H Iron Pending TIBC Pending Iron Saturation Pending Ferritin Pending POC Glucose 07/30/18 07/30/18 07/30/18 11:36 06:50 01:34 POC Glucose 342 H 159 H 235 H 11/26/18 11/25/18 11/25/18 00:50 22:04 16:18 POC Glucose 69 L 206 H 93 Assessment/Plan Hospitalist note: I am seeing this patient in conjunction with Sangeeta Araujo. I independently seen and examined the patient. Progress note above, laboratory data and imaging studies reviewed and I concur with the above treatment plan. Patient seen and examined. She is just that her breathing is getting better, still complaining of mild dry cough. Denies chest pain or palpitations. She has been afebrile, blood pressure and heart rate are stable, pulse ox is 96% on 3 L. - Physical Exam General: Alert, Oriented x3, Cooperative, No apparent distress. HEENT: Atraumatic, PERRLA, EOMI. Neck: Supple, No JVD, Negative Carotid Bruits, Trachea Midline, Thyroid Normal. Lungs: Decreased breath sounds bilateral, more at the bases, no rhonchi, No wheeze, No rales. Cardiovascular: Regular rate, Regular Rhythm, Normal S1, Normal S2, PMI Normal. Abdomen: Bowel Sounds Present, Soft, Non Tender, Non-Distended, No Hepato- splenomegaly. Extremities: No clubbing, No cyanosis, No edema Skin: No rashes, No breakdown Neurological: Neuro grossly intact Vital Signs are stable. Assessment and plan: #1 community-acquired pneumonia: On IV Rocephin and Zithromax. Symptoms are improving, still requiring oxygen. Pneumococcal and Legionella antigen were negative. Plan to continue same treatment, wean off oxygen as tolerated. #2 acute on chronic diastolic CHF: On IV Lasix. Chest x-ray revealed bilateral pleural effusion with pneumonia. 2D echocardiogram revealed ejection fraction 55%, stage II diastolic dysfunction. Plan to continue same treatment. #3 acute hypoxic respiratory failure: Secondary to above both pneumonia and CHF. Patient never been oxygen at home. She is on IV antibiotics and IV diuretics. Plan to potassium treatment, encourage incentive spirometer, chest physiotherap y. #4 other chronic medical problems: Stable, continue current medications as above. This note was generated with [employer] software. It may contain incorrect words, spelling, and punctuation that were not noted in checking the note before signing. Code Visit Inpatient E&M: 28580 Subs Hosp L2
[2018-07-30 14:15] LABS: Ferritin 159 ng/mL (8-252); Iron 71 ug/dL (50-170); Iron Binding Capacity,Total 229 ug/dL (250-450)
[2018-07-30 17:26] LABS: Bedside Glucose 138 mg/dL (70-110)
[2018-07-30] MEDS: Atorvastatin Calcium 40 MG Tablet PO (20:37)
[2018-07-30 20:46] LABS: Bedside Glucose 220 mg/dL (70-110)
[2018-07-31] VITALS (8 sets, daily range): BP systolic 136–155; BP diastolic 41–58; PULSE 81–86; RESP 14–16; TEMP 36.6; O2SAT 94–97
[2018-07-31 06:28] LABS: Hematocrit 25.8 % (37-47); Hemoglobin 8.3 g/dl (12.0-15.0); Mean Corp Hgb Conc 32.2 g/gl (32-36); Mean Corpuscular Hgb 28.7 pg (27.0-32.0); Mean Corpuscular Volume 89.3 fL (81-99); Mean Platelet Vol. 10.5 fl (6.2-12.0); Platelet Count 233 K/mm3 (150-450); RBC Distribution Width SD 51.8 fl (35.1-43.9); Red Blood Count 2.89 M/mm3 (4.2-5.4); White Blood Count 7.8 K/mm3 (4.4-11.0)
[2018-07-31 06:46] LABS: Anion Gap 12 (5-15); BUN 50 mg/dL (7-18); BUN/Creat Ratio 22.5 RATIO (10-20); Chloride 112 mmol/L (98-107); Creatinine, Serum 2.22 mg/dL (0.55-1.02); EST Glomerular Filtration Rate 22 mL/min (>60); Est Glom Filt Rate - Afr Amer 27 mL/min (>60); Estimated Creatinine Clearance 13.55 ml/min; Glucose 138 mg/dL (74-106); Potassium 4.6 mmol/L (3.5-5.1); Sodium Level 142 mmol/L (136-145)
[2018-07-31 07:02] LABS: Scan Indicated on CBC? Y/N NO
[2018-07-31 07:06] LABS: Bedside Glucose 160 mg/dL (70-110)
--- NOTE | 2018-07-31 10:16 | DCINST_ITS ---
- Discharge Diagnoses Current Active Problems: Current Active and Chronic Problems (Last Updated 10/10/17 @ 14:27 by Taryn Galindo) Acute respiratory failure with hypoxia (Acute) PNA (pneumonia) (Acute) Cardiac enzymes elevated (Chronic) Carotid disease, bilateral (Chronic) CKD (chronic kidney disease) stage 3, GFR 30-59 ml/min (Chronic) You will use the following diet at home:: Cardiac Discharge Activity: Return to Normal Activity Call your doctor if you observe: Shortness of breath, Dizziness, Fainting spells Allergies/Adverse Reactions: Allergies metformin Allergy (Verified 07/28/18 17:03) Other BODY ACHES epinephrine Adverse Reaction (Verified 07/28/18 17:03) Other SHAKING Gadolinium-MRI Contrast Medium [CONTRAST] Adverse Reaction (Verified 07/28/18 17:03) Other SHAKING Medications to take at Discharge Benazepril HCl 40 mg PO BID 11/24/15 Glimepiride [Amaryl] 2 mg PO DAILY PRN 11/24/15 Pioglitazone [Actos] 30 mg PO DAILY PRN 11/24/15 Amlodipine [Norvasc] 10 mg PO DAILY #0 11/26/15 lactobacillus combination no.8 3 billion cell capsule 3,000 mmu cells PO QDAY 10/10/17 Doxazosin Mesylate [Cardura] 2 mg PO DAILY 07/28/18 Gemfibrozil [Lopid] 600 mg PO DAILY 07/29/18 Lorazepam [Ativan] 0.5 mg PO QHS PRN PRN 07/29/18 Metoprolol Tartrate 50 mg PO BID 07/29/18 Amox/Clavulanate Tablet [Augmentin Tablet] 875 mg PO Q12H #10 tablet 07/31/18 Atorvastatin Calcium [Lipitor] 40 mg PO QHS #30 tablet 07/31/18 The following prescriptions were given: Amox/Clavulanate Tablet [Augmentin Tablet] 875 mg PO Q12H #10 tablet Atorvastatin Calcium [Lipitor] 40 mg PO QHS #30 tablet Orders to be completed after discharge: Basic Metabolic Profile (BMP) Time Frame: 3 Days, Location: Laboratory Primary Care Physician: Jenni Cornell DO [Primary Care Provider] - Please follow up with your Primary Care Physician in: 3-5 Days Test Results: Test results from this visit will be discussed in further detail at your follow- up appointment, if applicable. Proposed Discharge Date: 07/31/18
--- NOTE | 2018-07-31 10:23 | DS.PCM_ITS ---
<Sangeeta Araujo - Last Filed: 07/31/18 10:33> Discharge Date and Diagnosis Date of Admission: 07/28/18 Date of Discharge: 07/31/18 - Primary Discharge Diagnosis Active and Suspected Problems (Last Updated 10/10/17 @ 14:27 by Taryn Galindo) 1. Acute hypoxic respiratory failure secondary to community-acquired pneumonia and acute on chronic diastolic CHF 2. Acute on chronic diastolic CHF 3. Chronic elevated troponin 4. Acute kidney injury on chronic kidney disease stage III, secondary to diuretic 5. Chronic normocytic anemia 6. Type 2 diabetes mellitus 7. Hyperlipidemia 8. Hypertension 9. Carotid artery disease status post endarterectomy bilaterally x2 - Secondary Discharge Diagnosis Chronic Problems (Last Updated 10/10/17 @ 14:27 by Taryn Galindo) TIA (transient ischemic attack) (Chronic) Cardiac enzymes elevated (Chronic) Carotid disease, bilateral (Chronic) CKD (chronic kidney disease) stage 3, GFR 30-59 ml/min (Chronic) Hypertension (Chronic) Hyperlipidemia (Chronic) Type II diabetes mellitus (Chronic) Hospital Course and Treatment Imaging Results: Diagnostic Data Chest X-Ray 07/28/18 19:25 IMPRESSION: Bilateral pleural effusion and pneumonia. Electronically Signed: Wendy Castro MD at 20:25 EST Tel , Service support , Operations: None Procedures: 2-D Echocardiogram Summary of Care Provided: The patient is a 83 year old F admitted 07/24/2014 due to dyspnea, cough. 1. Acute hypoxic respiratory failure secondary to community-acquired pneumonia and acute on chronic diastolic CHF-chest x-ray on admission with evidence of pneumonia. Urine negative for strep and Legionella. Patient received IV azithromycin and IV Rocephin. Patient stable on room air. Discharge on oral Augmentin twice daily for 5 days. 2. Acute on chronic diastolic CHF-Echo in 2015 with EF 65%, stage I diastolic dysfunction. BNP on admission 2070. Chest x-ray with pleural effusion and pneumonia. Repeat echocardiogram showed an EF of 55%, stage II diastolic dysfunction, mild to moderate mitral valve insufficiency, mild tricuspid valve insufficiency. Patient received IV Lasix during admission with significant improvement in breathing. No further Lasix at discharge due to acute kidney injury. Continue home UNIQUE inhibitor regimen. 3. Chronic elevated troponin-stable, troponin did not trend. Repeat EKG without ST-T changes. 4. Hypertension-Continue home amlodipine, UNIQUE inhibitor, metoprolol, doxazosin regimen. 5. Hyperlipidemia-not on statin. Lipid panel with elevated triglycerides and total cholesterol. Add atorvastatin 40mg nightly. 6. Type 2 diabetes mellitus-continue home oral regimen. 7. Carotid artery disease status post endarterectomy bilaterally x2 8. Chronic normocytic anemia-Baseline hemoglobin appears to be 11. Hemoglobin currently 8.3. Iron studies within normal limits. Stool for occult blood ordered, not able to be completed during admission due to no bowel movement. Repeat CBC in 3 days. Further evaluation by primary care physician. 9. Acute kidney injury on chronic kidney disease stage III-JUVENTINO due to IV diuretic. Lasix discontinued. Repeat BMP in 3 days, to be followed by primary care physician. General: Alert, Oriented x3, Cooperative HEENT: Atraumatic, PERRLA, EOMI, Normocephalic Oral: Moist Mucosa Neck: Supple, No JVD, Negative Carotid Bruits Lungs: Diminished, clear to auscultation Cardiovascular: Regular rate, Regular Rhythm, Normal S1, Normal S2, No murmurs Abdomen: Bowel Sounds Present, Soft, Non Tender, Non-Distended Extremities: No clubbing, No cyanosis, No edema, Capillary Refill Less than 3 Se conds Skin: No rashes, No breakdown Musculoskeletal: No Tenderness to Palpation of Joints or Extremities Neurological: Cranial nerves II-XII grossly intact, Neuro grossly intact Psych/Mental Status: Normal Affect, Appropriate Patient seen and examined prior to discharge. Physical assessment as noted above. Patient is stable for discharge home with a follow-up recommendations as noted above. This patient was seen by VARUN Doshi under the supervision of Dr. Gan. - Physical Exam Vital Signs Temp Pulse Resp BP Pulse Ox 97.8 F 86 16 155/58 H 94 07/31/18 08:30 07/31/18 08:30 07/31/18 08:30 07/31/18 08:30 07/31/18 08:30 Oxygen Flow Rate (L/min) 2 Oxygen Delivery Method Room Air Weight: 123 lb 3.814 oz Body Mass Index (BMI) 23.7 Finger Stick Blood Glucose 252 Intake and Output for Last 24 Hours 07/29/18 07/30/18 07/31/18 23:59 23:59 23:59 Intake Total 1505 / 1505 100 / 100 Output Total 400 / 400 250 / 250 200 / 200 Balance 1105 / 1105 -150 / -150 -200 / -200 Microbiology Past 72 Hours 07/30/18 18:30 Gram Stain - Final Sputum, Expectorated/Coughed 07/28/18 22:20 Streptococcus pneumoniae Antigen (M - Final Urine, Clean Catch 07/28/18 22:20 Legionella Antigen - Final Urine, Clean Catch Laboratory Tests Past 24 Hrs 07/30/18 07/31/18 07/31/18 05:25 05:10 05:10 WBC 7.8 RBC 2.89 L Hgb 8.3 L Hct 25.8 L MCV 89.3 MCH 28.7 MCHC 32.2 RDW 16.0 H RDW Differential 51.8 H Plt Count 233 MPV 10.5 Sodium 142 Potassium 4.6 Chloride 112 H Carbon Dioxide 18.0 L Anion Gap 12 BUN 50 H Creatinine 2.22 H Estim Creat Clear Calc 13.55 Est GFR (MDRD) Af Amer 27 L Est GFR (MDRD) Non-Af 22 L BUN/Creatinine Ratio 22.5 H Glucose 138 H Calcium 10.0 Iron 71 TIBC 229 L Iron Saturation 31.0 Ferritin 159 POC Glucose 07/31/18 07/30/18 07/30/18 06:52 20:35 17:13 POC Glucose 160 H 220 H 138 H 07/30/18 11:36 POC Glucose 342 H Discharge Diet: Low fat/ Low Cholesterol Discharge Activity: Return to Normal Activity Call your doctor if you observe: Shortness of breath, Dizziness, Fainting spells Home Medications: Medications to take at Discharge Benazepril HCl 40 mg PO BID 11/24/15 Glimepiride [Amaryl] 2 mg PO DAILY PRN 11/24/15 Pioglitazone [Actos] 30 mg PO DAILY PRN 11/24/15 Amlodipine [Norvasc] 10 mg PO DAILY #0 11/26/15 lactobacillus combination no.8 3 billion cell capsule 3,000 mmu cells PO QDAY 10/10/17 Doxazosin Mesylate [Cardura] 2 mg PO DAILY 07/28/18 Gemfibrozil [Lopid] 600 mg PO DAILY 07/29/18 Lorazepam [Ativan] 0.5 mg PO QHS PRN PRN 07/29/18 Metoprolol Tartrate 50 mg PO BID 07/29/18 Amox/Clavulanate Tablet [Augmentin Tablet] 875 mg PO Q12H #10 tablet 07/31/18 Atorvastatin Calcium [Lipitor] 40 mg PO QHS #30 tablet 07/31/18 Following Prescrptions Were Given to Patient: Amox/Clavulanate Tablet [Augmentin Tablet] 875 mg PO Q12H #10 tablet Atorvastatin Calcium [Lipitor] 40 mg PO QHS #30 tablet Other Amb Orders: Basic Metabolic Profile (BMP) Time Frame: 3 Days, Location: Laboratory CBC-Complete Blood Cnt No Diff Time Frame: 3 Days, Location: Laboratory Primary Care Physician: Jenni Cornell DO [Primary Care Provider] - Please follow up with your Primary Care Physician in: 3-5 Days Disposition: Home Minutes spent on discharge:: 35 Patient Condition:: Stable Medical Necessity - Tobacco Use Smoking Status: Former smoker - Quit 40 years prior, smoked for 40 years, 1 ppd prior to cessation. Tobacco Use: Non-smoker Meaningful Use Info Meaningful Use Diagnoses (Choose all that apply): CHF - CHF UNIQUE/ARB ordered at discharge?: Yes Documented LVEF (%): 55 <Castillo Gan E - Last Filed: 07/31/18 16:33> Discharge Date and Diagnosis - Secondary Discharge Diagnosis Chronic Problems (Last Updated 10/10/17 @ 14:27 by Taryn Galindo) TIA (transient ischemic attack) (Chronic) Cardiac enzymes elevated (Chronic) Carotid disease, bilateral (Chronic) CKD (chronic kidney disease) stage 3, GFR 30-59 ml/min (Chronic) Hypertension (Chronic) Hyperlipidemia (Chronic) Type II diabetes mellitus (Chronic) Hospital Course and Treatment Summary of Care Provided: Hospitalist note: Discharge summary above as well as physical examination reviewed and I concur with the above discharge and treatment plan. Patient was admitted for shortness of breath and dry cough and she was found to have findings consistent with community-acquired pneumonia complicated by acute hypoxic respiratory failure. Also, she was found to have acute on chronic diastolic CHF. She was treated with IV Rocephin and Zithromax for pneumonia as well as IV Lasix for diuresis for congestive heart failure. Her pneumococcal and Legionella antigen were negative. Initially, patient requiring up to 4 L of oxygen and with IV antibiotic therapy, bronchodilators and IV Lasix, she was able to come off oxygen and on the day of discharge, she maintained her pulse ox at 95% on room air. She remained afebrile for more than 48 hours. Her other vital signs were stable. She did have chronic anemia and chronic kidney disease and her kidney function and hemoglobin was stable at her baseline. 2D echocardiogram revealed normal LV size and function, ejection fraction was 55%, showed stage II diastolic dysfunction and mild tricuspid insufficiency. She had chronically elevated troponin and has been stable. Her EKG revealed no evidence of acute ischemic changes. Patient discharged home in a stable medical condition, she did not require oxygen upon discharge, discharged on Augmentin to complete 7 days of treatment, continued on her other chronic home medications without any changes, recommended follow-up with PCP in 3-5 days. - Physical Exam General: Alert, Oriented x3, Cooperative, No apparent distress. HEENT: Atraumatic, PERRLA, EOMI. Neck: Supple, No JVD, Negative Carotid Bruits, Trachea Midline, Thyroid Normal. Lungs: Diminished breath sounds bilateral, otherwise clear, No rhonchi, No wheeze, No rales. Cardiovascular: Regular rate, Regular Rhythm, Normal S1, Normal S2, PMI Normal. Abdomen: Bowel Sounds Present, Soft, Non Tender, Non-Distended, No Hepato- splenomegaly. Extremities: No clubbing, No cyanosis, No edema Skin: No rashes, No breakdown Neurological: Neuro grossly intact Vital Signs are stable. This note was generated with [employer] dictation software. It may contain incorrect words, spelling, and punctuation that were not noted in checking the note before signing. - Physical Exam Vital Signs Temp Pulse Resp BP Pulse Ox 97.8 F 86 16 155/58 H 94 07/31/18 10:30 07/31/18 10:36 07/31/18 10:30 07/31/18 10:36 07/31/18 10:30 Oxygen Flow Rate (L/min) 2 Oxygen Delivery Method Room Air Weight: 123 lb 3.814 oz Body Mass Index (BMI) 23.7 Finger Stick Blood Glucose 252 Intake and Output for Last 24 Hours 07/29/18 07/30/18 07/31/18 23:59 23:59 23:59 Intake Total 1505 / 1505 100 / 100 Output Total 400 / 400 250 / 250 200 / 200 Balance 1105 / 1105 -150 / -150 -200 / -200 Microbiology Past 72 Hours 07/30/18 18:30 Gram Stain - Final Sputum, Expectorated/Coughed 07/28/18 22:20 Streptococcus pneumoniae Antigen (M - Final Urine, Clean Catch 07/28/18 22:20 Legionella Antigen - Final Urine, Clean Catch Laboratory Tests Past 24 Hrs 07/31/18 07/31/18 05:10 05:10 WBC 7.8 RBC 2.89 L Hgb 8.3 L Hct 25.8 L MCV 89.3 MCH 28.7 MCHC 32.2 RDW 16.0 H RDW Differential 51.8 H Plt Count 233 MPV 10.5 Sodium 142 Potassium 4.6 Chloride 112 H Carbon Dioxide 18.0 L Anion Gap 12 BUN 50 H Creatinine 2.22 H Estim Creat Clear Calc 13.55 Est GFR (MDRD) Af Amer 27 L Est GFR (MDRD) Non-Af 22 L BUN/Creatinine Ratio 22.5 H Glucose 138 H Calcium 10.0 POC Glucose 07/31/18 07/30/18 07/30/18 06:52 20:35 17:13 POC Glucose 160 H 220 H 138 H Disposition: Home Minutes spent on discharge:: 32 Patient Condition:: Stable Meaningful Use Info Meaningful Use Diagnoses (Choose all that apply): CHF - CHF UNIQUE/ARB ordered at discharge?: Yes Documented LVEF (%): 55 Code Visit Inpatient E&M: 95527 Disch Hosp
[2018-07-31] MEDS: Doxazosin 1 MG Tablet 2 MG PO (10:35)
[2018-07-31] MEDS: amLODIPine 10 MG Tablet PO (10:36)
[2018-07-31] MEDS: Metoprolol(XL)Succ 50 MG Tablet PO (10:36)
[2018-07-31] MEDS: Lisinopril 40 MG Tablet PO (10:36)
[2018-07-31] MEDS: guaiFENesin 1,200 MG Tablet 1200 MG PO (10:36)
--- NOTE | 2018-08-01 16:52 | CASEMGMT ---
CECELIA ALEGRE Discharge Follow-up Phone Call: FOREST: Deuce Strata: 3 Call Date: 08/01/18 Discharge Date: 07/31/18 Time of Call: 1650 Duration: 5 minutes ? Admitting Diagnosis: Acute respiratory failure secondary to pneumonia and a/c CHF This CECELIA ALEGRE contacted pt via telephone in regard to discharge follow-up. Pt stated that she has not been feeling well and remains short of breath. Pt was audibly short of breath with conversation but able to speak in full sentences. Pt states she does not feel her SOB has not gotten worse since discharge but her SOB has not improved. Pt states she was SOB at discharge. Pt states she did obtain her antibiotic and has been taking it. Also states she has an appointment with her PCP tomorrow at 1:30pm if I can make it. This RN encouraged patient to return to the ED if she begins to feel worse or if she is unable to make her PCP appointment. Pt states her is able to assist her and stated her children also visited today. Leanne Ramirez RN
--- NOTE | 2018-08-02 17:46 | CASEMGMT ---
This RN CM attempted to follow-up with pt after her appointment with her PCP this afternoon. Voicemail received and message left to contact me if pt needed any additional assistance or had further concerns. Leanne Ramirez RN
== END 2018-07-31 11:00 | disposition home or self-care (01) | DRG 291 ==
LOC: ED 18:31 → PCU 20:48
PROVIDERS: Internal Medicine; Nurse Practitioner Family; Admitting Provider Family Medicine; Emergency Provider Emergency Medicine; Family Provider Family Medicine; PCP Family Medicine; Visit Provider Hospitalist
DX: I13.0 Hypertensive heart and chronic kidney disease with heart failure and stage 1 through stage 4 chronic kidney disease, or unspecified chronic kidney disease (principal); J96.01 Acute respiratory failure with hypoxia; I50.33 Acute on chronic diastolic (congestive) heart failure; J18.9 Pneumonia, unspecified organism; N17.9 Acute kidney failure, unspecified; Z79.899 Other long term (current) drug therapy; Z79.84 Long term (current) use of oral hypoglycemic drugs; Z87.891 Personal history of nicotine dependence; E11.22 Type 2 diabetes mellitus with diabetic chronic kidney disease; D64.9 Anemia, unspecified; R74.8 Abnormal levels of other serum enzymes; N18.3 Chronic kidney disease, stage 3 (moderate); T50.2X5A Adverse effect of carbonic-anhydrase inhibitors, benzothiadiazides and other diuretics, initial encounter; E78.5 Hyperlipidemia, unspecified; Z86.73 Personal history of transient ischemic attack (TIA), and cerebral infarction without residual deficits
CPT/HCPCS: 36415; 71046; 80048; 80061; 82728; 82962; 83540; 83550; 83735; 83880; 84443; 84484; 85025; 85027; 85610; 85730; 87070; 87205; 87449; 93005; 93306; 94640; 94667; 97110; 97116; 97162; 97165; 97802; 99283; J7030; A4216; J1940

== ENCOUNTER → 2018-08-02 14:22 | Outpatient (CLI) | payer MEDICARE, SELFPAY ==
[2018-07-28 21:28] VITALS: BMI 23.7
[2018-08-02 15:32] LABS: Absolute Lymphocyte Count 0.97 X10^3/ul (0.83-4.51); Basophil# 0.02 X10^3/uL; Basophil% 0.2 % (0-1); Hematocrit 28.7 % (37-47); Hemoglobin 9.4 g/dl (12.0-15.0); Lymphocyte # 0.97 X10^3/ul (4.0); Lymphocyte % 10.1 % (19-41); Mean Corp Hgb Conc 32.8 g/gl (32-36); Mean Corpuscular Hgb 29.9 pg (27.0-32.0); Mean Corpuscular Volume 91.4 fL (81-99); Mean Platelet Vol. 11.6 fl (6.2-12.0); Monocyte% 5.2 % (0-10); Neutrophil # 7.98 X10^3/uL (2.7-7.7); Neutrophil % 82.8 % (47-70); Platelet Count 267 K/mm3 (150-450); RBC Distribution Width CV 15.9 % (11.6-14.6); RBC Distribution Width SD 51.3 fl (35.1-43.9); Red Blood Count 3.14 M/mm3 (4.2-5.4); White Blood Count 9.6 K/mm3 (4.4-11.0)
[2018-08-02 15:34] LABS: POSITIVE COUNT NO; POSITIVE DIFFERENTIAL NO; POSITIVE MORPHOLOGY NO; Scan Indicated on CBC? Y/N NO
[2018-08-02 17:54] LABS: Anion Gap 9 (5-15); BUN 52 mg/dL (7-18); BUN/Creat Ratio 25.5 RATIO (10-20); Calcium,Total 10.7 mg/dL (8.5-10.1); Chloride 112 mmol/L (98-107); Creatinine, Serum 2.04 mg/dL (0.55-1.02); EST Glomerular Filtration Rate 25 mL/min (>60); Est Glom Filt Rate - Afr Amer 30 mL/min (>60); Glucose 245 mg/dL (74-106); Potassium 5.6 mmol/L (3.5-5.1); Sodium Level 139 mmol/L (136-145)
--- OUTSIDE RECORDS SUMMARY | 2018-09-27 19:55 | XMS RPT_ITS ---
:1935 Author Organization OHIP Support Name Relationship Address Phone JAREDANDRIA SUAREZ Unavailable [address] + [place] [address] R Unavailable Unavailable Unavailable STARCHER, FELIPE Unavailable [address] + [place] [address] ANDRIA COLEMAN Unavailable [address] + [place] [address] R Unavailable Unavailable Unavailable STARCHER, FELIPE Unavailable [address] + [place] [address] ANDRIA COLEMAN Unavailable [address] + [place] [address] R Unavailable Unavailable Unavailable STARCHER, FELIPE Unavailable [address] + [place] [address] ANDRIA COLEMAN Unavailable [address] + [place] [address] R Unavailable Unavailable Unavailable STARCHER, FELIPE Unavailable [address] + [place] [address] ANDRIA COLEMAN Unavailable [address] + [place] [address] R Unavailable Unavailable Unavailable STARCHER, FELIPE Unavailable [address] + [place] [address] ANDRIA COLEMAN Unavailable [address] + [place] [address] R Unavailable Unavailable Unavailable STARCHER, FELIPE Unavailable [address] + [place] [address] ANDRIA COLEMAN Unavailable [address] + [place] [address] R Unavailable Unavailable Unavailable STARCHER, FELIPE Unavailable [address] + [place] [address] JARED, ANDRIA Unavailable [address] + [place] [address] R Unavailable Unavailable Unavailable STARCHER, FELIPE Unavailable [address] + [place] [address] JARED NADRIA Unavailable [address] + [place] [address] R Unavailable Unavailable Unavailable STARCHER, FELIPE Unavailable [address] + [place] [address] JARED ANDRIA Unavailable [address] + [place] [address] R Unavailable Unavailable Unavailable STARCHER, FELIPE Unavailable [address] + [place] [address] JARED ANDRIA Unavailable [address] + [place] [address] R Unavailable Unavailable Unavailable STARCHER, FELIPE Unavailable [address] + [place] [address] JARED ANDRIA Unavailable [address] + [place] [address] R Unavailable Unavailable Unavailable STARCHER, FELIPE Unavailable [address] + [place] [address] JARED ANDRIA Unavailable [address] + [place] [address] R Unavailable Unavailable Unavailable STARCHER, FELIPE Unavailable [address] + [place] [address] Care Team Providers Name Role Phone Rolando Beyer Attending Unavailable White, Clara Referring Unavailable Rolando Beyer Attending Unavailable White, Clara Referring Unavailable Jose Manuel Vera Attending Unavailable Malys, Jenni Primary Care Unavailable Flora Gary TURN SEWER-C Attending Unavailable Malys, Jenni Referring Unavailable Taryn Galindo Attending Unavailable Kb Redmond Attending Unavailable Malys, Jenni Primary Care Unavailable Malys, Jenni Primary Care Unavailable White, Clara Admitting Unavailable Castillo Gan Attending Unavailable White, Clara Admitting Unavailable White, Clara Attending Unavailable Malys, Jenni Primary Care Unavailable White, Clara Consulting Unavailable White, Clara Admitting Unavailable Malys, Jenni Primary Care Unavailable Miquel Nichols Consulting Unavailable Miquel Nichols Attending Unavailable White, Clara Admitting Unavailable Malys, Jenni Primary Care Unavailable Ashelfah, Ghasem Consulting Unavailable Ashelfah, Ghasem Attending Unavailable White, Clara Admitting Unavailable Malys, Jenni Primary Care Unavailable Ashelfah, Ghasem Consulting Unavailable Ashelfah, Ghasem Attending Unavailable Malys, Jenni Attending Unavailable Malys, Jenni Primary Care Unavailable Malys, Jenni Attending Unavailable Malys, Jenni Primary Care Unavailable PROBLEMS PROBLEMS DATE TYPE CONDITION / CODE ATTENDING STATUS SOURCE Unknown N18.4 - Chronic kidney Malys, Jenni Active [facility] disease, stage 4 Community (severe) / Hospital N18.4(ICD-10) Repository Unknown E87.5 - Hyperkalemia / Malys, Jenni Active [facility] E87.5(ICD-10) [facility] Repository Unknown I50.9 - Heart failure, Malys, Jenni Active [place] [facility] unspecified / Community I50.9(ICD-10) Hospital Repository Unknown N17.9 - Acute kidney Malys, Jenni Active [facility] failure, unspecified / Community N17.9(ICD-10) Hospital Repository Unknown R06.00 - Dyspnea, Malys, Jenni Active [facility] unspecified / Community R06.00(ICD-10) Hospital Repository Unknown R06.02 - Shortness of Kayleen, Rolando Active [facility] breath / Community R06.02(ICD-10) Hospital Repository Unknown R00.0 - Tachycardia, Kayleen, Rolando Active [place] [facility] unspecified / Community R00.0(ICD-10) Hospital Repository Unknown R94.31 - Abnormal Kayleen, Rolando Active [place] 8 electrocardiogram Community [ECG] [EKG] / Hospital R94.31(ICD-10) Repository Unknown I13.0 - Hypertensive Kayleen, Rolando Active [facility] 8 heart and chronic Community kidney disease with Hospital heart failure and Repository stage 1 through stage 4 chronic kidney disease, or unspecified chronic kidney disease / I13.0(ICD-10) Unknown R53.83 - Other fatigue Kb Redmond Active [facility] / R53.83(ICD-10) [facility] Repository Unknown 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 / Repository E01.0(ICD-10) Unknown E83.52 - Hypercalcemia Kb Redmond Active [facility] / E83.52(ICD-10) [facility] Repository Unknown N18.3 - Chronic kidney Kb Redmond Active [place] 8 disease, stage 3 [facility] (moderate) / Hospital N18.3(ICD-10) Repository Unknown E55.9 - Vitamin D Kb Redmond Active [facility] 8 deficiency, [facility] unspecified / Hospital E55.9(ICD-10) Repository Unknown E11.9 - Type 2 Kb Redmond Active [place] 8 diabetes mellitus [facility] without complications Hospital / E11.9(ICD-10) Repository Unknown I10 - Essential Chuy, Active [place] [facility] (primary) hypertension [facility] / I10(ICD-10) Hospital Repository PROCEDURES PROCEDURES No Procedure Records FoundRESULTS RESULTS CBC W/DIFF, AUTOMATED Collected: 08/07/2018 Status: F Source: [place] 10:40 AM [facility] HOSPITAL REPOSITORY TYPE CODE TESTS RESULT OUT OF RANGE REFERENCE UNITS LAB L100.1000 4.4-11.0 K/mm3 Normal WBC 6.3 LAB L100.1200 4.2-5.4 M/mm3 Low RBC 3.46 LAB L100.1300 12.0-15.0 g/dl Low HGB 10.0 LAB L100.1400 37-47 % Low HCT 31.7 LAB L100.1500 81-99 fL Normal MCV 91.6 LAB L100.1600 27.0-32.0 pg Normal MCH 28.9 LAB L100.1700 32-36 g/gl Low MCHC 31.5 LAB L100.1810 11.6-14.6 % High RDW CV 16.6 LAB L100.1820 35.1-43.9 fl High RDW SD 55.3 LAB L100.1900 150-450 K/mm3 Normal PLT 277 LAB L100.2000 6.2-12.0 fl Normal MPV 11.5 LAB L100.2100 47-70 % Normal NEUT% 64.4 LAB L100.2200 19-41 % Normal LY% 23.4 LAB L100.2300 0-10 % Normal MONO% 8.6 LAB L100.2400 0-5 % Normal EO% 2.9 LAB L100.2500 0-1 % Normal BASO% 0.5 LAB L100.2550 0.0-0.9 % Normal IM GRAN % 0.200 Result Comment: IG% - Immature Granulocytes (promyelocytes, myelocytes and metamyelocytes) > 1% indicates that a LEFT SHIFT is Present. LAB L100.2620 2.0-7.7 X10 3/uL Normal Absolute Neut 4.1 LAB L100.2720 0.83-4.51 X10 3/ul Normal Absolute Lymph 1.47 Performed By: #### L100.0100 #### [facility] [address] [place], [address] BASIC METABOLIC Collected: 08/07/2018 Status: F Source: [place] PROFILE (BMP) 10:40 AM [facility] REPOSITORY TYPE CODE TESTS RESULT OUT OF RANGE REFERENCE UNITS LAB L501.0100 74-106 mg/dL High GLU 168 Result Comment: Fasting Glucose result greater than or equal to 126 mg/dL suggests DIABETES MELLITUS per A.D.A. criteria. Please note revised GLUCOSE reference range effective 2017. LAB L501.1000 7-18 mg/dL High BUN 46 LAB L501.1100 0.55-1.02 mg/dL High CREAT,SERUM 2.02 Result Comment: The validity of the calculated GFR AND GFRAA in patients over 70 years has not been determined. Clinical correlation is essential. LAB L501.1110 >60 mL/min Low EST GFR 25 Result Comment: Non- GFR Calc LAB L501.1115 >60 mL/min Low EST GFR - AA 30 Result Comment: GFR Calc LAB L501.1300 10-20 RATIO High BUN/CRE 22.8 LAB L501.2200 8.5-10.1 mg/dL High CA 10.4 LAB L501.5300 136-145 mmol/L NA Normal 143 LAB L501.5600 3.5-5.1 mmol/L K Normal 4.9 LAB L501.5900 98-107 mmol/L High CL 113 LAB L501.6100 21.0-32.0 mmol/L Low CO2 18.0 LAB L501.6200 5-15 Normal GAP 12 Performed By: #### L500.2500 #### [facility] [address] [place], [address] BNP,B-TYPE NATRIURETIC Collected: 08/07/2018 Status: F Source: [place] 10:40 AM [facility] REPOSITORY TYPE CODE TESTS RESULT OUT OF RANGE REFERENCE UNITS LAB L503.6620 0-100 pg/mL High B-TYPE 1696.9 DONNA PEP Performed By: #### L503.6620 #### [facility] [address] [place], [address] 12 LEAD ELECTROCARDIOGRAM Observed: 08/03/2018 Status: F Source: [place] 9:24 AM [facility] REPOSITORY [facility] Cardiovascular Services [address] [place] [address] 12 Lead EKG 07/29/18 0943 MR#: [id number] Acct: [id number] Name: DEMETRIS COLEMAN Rep #: [id number] : 1935 83 From: Rolando Beyer MD Attending Dr: Castillo Gan Status: DIS IN Ordering Dr: Miquel Nichols MD Date: 07/29/18 Location: [facility] Sex: F C Admitted: 07/28/18 Test Reason : CP Blood Pressure : / mmHG Vent. Rate : 107 BPM Atrial Rate : 107 BPM P-R Int : 154 ms QRS Dur : 094 ms QT Int : 336 ms P-R-T Axes : 076 018 140 degrees QTc Int : [address] AND T wave abnormality, consider lateral ischemia Abnormal ECG When compared with ECG of 29-JUL-2018 03:56, MANUAL COMPARISON REQUIRED, DATA IS UNCONFIRMED Confirmed by KAYLEEN CLOUD, ROLANDO ([id number]), staff editor MARCY PAYTON ([id number]) on 07/31/2018 4:07:48 PM Referred By: CHRISTA Confirmed By:ROLANDO BEYER MD 07/31/18 1602 Date Rolando Beyer MD CC: Miquel Nichols MD; Castillo Cornell DO Signed 12 LEAD ELECTROCARDIOGRAM Observed: 08/03/2018 Status: F Source: [place] 9:24 AM [facility] REPOSITORY [facility] [address] [place] [address] 12 Lead EKG 07/28/18 2151 MR#: [id number] Acct: [id number] Name: DEMETRIS COLEMAN Rep #: [id number] : 1935 83 From: Rolando Beyer MD Attending Dr: Castillo Gan Status: DIS IN Ordering Dr: Clara Nguyen Date: 07/28/18 Location: [facility] Sex: F C Admitted: 07/28/18 Test Reason : [facility] Blood Pressure : / mmHG Vent. Rate : 078 BPM Atrial Rate : 078 BPM P-R Int : 158 ms QRS Dur : 088 ms QT Int : 368 ms P-R-T Axes : 057 017 112 degrees QTc Int : 419 ms Normal sinus rhythm ST AND T wave abnormality, consider lateral ischemia Abnormal ECG When compared with ECG of 28-JUL-2018 18:10, MANUAL COMPARISON REQUIRED, DATA IS UNCONFIRMED Confirmed by KAYLEEN CLOUD, ROLANDO ([id number]), staff editor MARCY PAYTON ([id number]) on 07/31/2018 4:08:14 PM Referred By: AJAY Confirmed By:ROLANDO BEYER MD 07/31/18 1608 Date Rolando Beyer MD CC: Clara Cornell DO Signed 12 LEAD ELECTROCARDIOGRAM Observed: 08/03/2018 Status: F Source: [place] 9:24 AM [facility] REPOSITORY [facility] [address] [place] [address] 12 Lead EKG 07/29/18 0356 MR#: [id number] Acct: [id number] Name: DEMETRIS COLEMAN Rep #: [id number] : 1935 83 From: Rolando Beyer MD Attending Dr: Castillo Gan Status: DIS IN Ordering Dr: Clara Nguyen Date: 07/29/18 Location: [facility] Sex: F C Admitted: 07/28/18 Test Reason : AM EKG Blood Pressure : / mmHG Vent. Rate : 102 BPM Atrial Rate : 102 BPM P-R Int : 142 ms QRS Dur : 096 ms QT Int : 338 ms P-R-T Axes : 065 009 096 degrees QTc Int : [address] AND T wave abnormality, consider lateral ischemia Abnormal ECG When compared with ECG of 28-JUL-2018 21:51, MANUAL COMPARISON REQUIRED, DATA IS UNCONFIRMED Confirmed by KAYLEEN CLOUD, ROLANDO ([id number]), staff editor MARCY PAYTON ([id number]) on 07/31/2018 4:08:24 PM Referred By: AJAY Confirmed By:ROLANDO BEYER MD 07/31/18 1608 Date Rolando Beyer MD CC: Clara Nguyen; Castillo Gan; Jenni Cornell DO Signed 12 LEAD ELECTROCARDIOGRAM Observed: 08/03/2018 Status: F Source: [place] 9:23 AM [facility] REPOSITORY [facility] Cardi[facility] Services [address] [place] [address] 12 Lead EKG 07/28/18 1810 MR#: [id number] Acct: [id number] Name: DEMETRIS COLEMAN Rep #: [id number] : 1935 83 From: Rolando Beyer MD Attending Dr: Castillo Gan Status: DIS IN Ordering Dr: Jenni Olivo MD Date: 07/28/18 Location: [facility] Sex: F C Admitted: 07/28/18 Test Reason : SOB Blood Pressure : / mmHG Vent. Rate : 073 BPM Atrial Rate : 073 BPM P-R Int : 158 ms QRS Dur : 088 ms QT Int : 370 ms P-R-T Axes : 063 036 113 degrees QTc Int : 407 ms Normal sinus rhythm ST AND T wave abnormality, consider lateral ischemia Abnormal ECG Confirmed by ROLANDO BEYER MD ([id number]), staff editor MARCY PAYTON ([id number]) on 07/30/2018 2:18:32 PM Referred By: CHADWICK Confirmed By:ROLANDO BEYER MD 07/30/18 1418 Date Rolando Beyer MD CC: Castillo Gan; Jenni Olivo MD; Jenni Cornell DO Signed BNP,B-TYPE NATRIURETIC Collected: 08/02/2018 Status: F Source: [place] 2:35 PM [facility] REPOSITORY TYPE CODE TESTS RESULT OUT OF RANGE REFERENCE UNITS LAB L503.6620 0-100 pg/mL High B-TYPE 1799.6 DONNA PEP Performed By: #### L503.6620 #### [facility] [address] [place], [address] CBC W/DIFF, AUTOMATED Collected: 08/02/2018 Status: F Source: [place] 2:24 PM [facility] REPOSITORY Order Comment: Send Results To: Dr. Jenni Cornell Reason for Laboratory Test Anemia TYPE CODE TESTS RESULT OUT OF RANGE REFERENCE UNITS LAB L100.1000 4.4-11.0 K/mm3 Normal WBC 9.6 LAB L100.1200 4.2-5.4 M/mm3 Low RBC 3.14 LAB L100.1300 12.0-15.0 g/dl Low HGB 9.4 LAB L100.1400 37-47 % Low HCT 28.7 LAB L100.1500 81-99 fL Normal MCV 91.4 LAB L100.1600 27.0-32.0 pg Normal MCH 29.9 LAB L100.1700 32-36 g/gl Normal MCHC 32.8 LAB L100.1810 11.6-14.6 % High RDW CV 15.9 LAB L100.1820 35.1-43.9 fl High RDW SD 51.3 LAB L100.1900 150-450 K/mm3 Normal PLT 267 LAB L100.2000 6.2-12.0 fl Normal MPV 11.6 LAB L100.2100 47-70 % High NEUT% 82.8 LAB L100.2200 19-41 % Low LY% 10.1 LAB L100.2300 0-10 % Normal MONO% 5.2 LAB L100.2400 0-5 % Normal EO% 1.0 LAB L100.2500 0-1 % Normal BASO% 0.2 LAB L100.2550 0.0-0.9 % Normal IM GRAN % 0.700 Result Comment: IG% - Immature Granulocytes (promyelocytes, myelocytes and metamyelocytes) > 1% indicates that a LEFT SHIFT is Present. LAB L100.2620 2.0-7.7 X10 3/uL High Absolute Neut 8.0 LAB L100.2720 0.83-4.51 X10 3/ul Normal Absolute Lymph 0.97 Performed By: #### L100.0100 #### [facility] [address] [place], [address] BASIC METABOLIC Collected: 08/02/2018 Status: F Source: [place] PROFILE (BMP) 2:24 PM [facility] REPOSITORY Order Comment: Send Results To: Dr. Jenni Cornell Reason for Laboratory Test Acute Kidney Injury TYPE CODE TESTS RESULT OUT OF RANGE REFERENCE UNITS LAB L501.0100 74-106 mg/dL High GLU 245 Result Comment: Glucose result greater than or equal to 200 mg/dL suggests DIABETES MELLITUS per A.D.A. criteria. Please note revised GLUCOSE reference range effective 2017. LAB L501.1000 7-18 mg/dL High BUN 52 LAB L501.1100 0.55-1.02 mg/dL High CREAT,SERUM 2.04 Result Comment: The validity of the calculated GFR AND GFRAA in patients over 70 years has not been determined. Clinical correlation is essential. LAB L501.1110 >60 mL/min Low EST GFR 25 Result Comment: Non- GFR Calc LAB L501.1115 >60 mL/min Low EST GFR - AA 30 Result Comment: GFR Calc LAB L501.1300 10-20 RATIO High BUN/CRE 25.5 LAB L501.2200 8.5-10.1 mg/dL High CA 10.7 LAB L501.5300 136-145 mmol/L NA Normal 139 LAB L501.5600 3.5-5.1 mmol/L High K 5.6 LAB L501.5900 98-107 mmol/L High CL 112 LAB L501.6100 21.0-32.0 mmol/L Low CO2 18.0 LAB L501.6200 5-15 Normal GAP 9 Performed By: #### L500.2500 #### [facility] [address] [facility] [place], [address] DISCHARGE SUMMARY Observed: 07/31/2018 Status: F Source: [place] 4:33 PM [facility] REPOSITORY [facility] Medical Records Department [address] [place] [address] Discharge Summary 07/31/18 1019 MR#: [id number] Acct: [id number] Name: DEMETRIS COLEMAN Rep #: [id number] : 1935 83 From: Sangeeta Araujo TURN SEWERBladimir PCP: Jenni Cornell DO Status: DIS IN Y Location: [place] [address]-1 <Sangeeta Araujo - Last Filed: 07/31/18 10:33> Discharge Date and Diagnosis Date of Admission: 07/28/18 Date of Discharge: 07/31/18 - Primary Discharge Diagnosis Active and Suspected Problems (Last Updated 10/10/17 @ 14:27 by Taryn Galindo) 1. Acute hypoxic respiratory failure secondary to community- acquired pneumonia and acute on chronic diastolic CHF 2. Acute on chronic diastolic CHF 3. Chronic elevated troponin 4. Acute kidney injury on chronic kidney disease stage III, secondary to diuretic 5. Chronic normocytic anemia 6. Type 2 diabetes mellitus 7. Hyperlipidemia 8. Hypertension 9. Carotid artery disease status post endarterectomy bilaterally x2 - Secondary Discharge Diagnosis Chronic Problems (Last Updated 10/10/17 @ 14:27 by Taryn Galindo) TIA (transient ischemic attack) (Chronic) Cardiac enzymes elevated (Chronic) Carotid disease, bilateral (Chronic) CKD (chronic kidney disease) stage 3, GFR 30-59 ml/min (Chronic) Hypertension (Chronic) Hyperlipidemia (Chronic) Type II diabetes mellitus (Chronic) Hospital Course and Treatment Imaging Results: Diagnostic Data Chest X-Ray 07/28/18 19:25 IMPRESSION: Bilateral pleural effusion and pneumonia. Electronically Signed: Wendy Castro MD at 20:25 EST Tel , Service support , Operations: None Procedures: 2-D Echocardiogram Summary of Care Provided: The patient is a 83 year old F admitted 07/24/2014 due to dyspnea, cough. 1. Acute hypoxic respiratory failure secondary to community- acquired pneumonia and acute on chronic diastolic CHF-chest x-ray on admission with evidence of pneumonia. Urine negative for strep and Legionella. Patient received IV azithromycin and IV Rocephin. Patient stable on room air. Discharge on oral Augmentin twice daily for 5 days. 2. Acute on chronic diastolic CHF-Echo in 2015 with EF 65%, stage I diastolic dysfunction. BNP on admission 2070. Chest x-ray with pleural effusion and pneumonia. Repeat echocardiogram showed an EF of 55%, stage II diastolic dysfunction, mild to moderate mitral valve insufficiency, mild tricuspid valve insufficiency. Patient received IV Lasix during admission with significant improvement in breathing. No further Lasix at discharge due to acute kidney injury. Continue home UNIQUE inhibitor regimen. 3. Chronic elevated troponin-stable, troponin did not trend. Repeat EKG without ST-T changes. 4. Hypertension-Continue home amlodipine, UNIQUE inhibitor, metoprolol, doxazosin regimen. 5. Hyperlipidemia-not on statin. Lipid panel with elevated triglycerides and total cholesterol. Add atorvastatin 40mg nightly. 6. Type 2 diabetes mellitus-continue home oral regimen. 7. Carotid artery disease status post endarterectomy bilaterally x2 8. Chronic normocytic anemia-Baseline hemoglobin appears to be 11. Hemoglobin currently 8.3. Iron studies within normal limits. Stool for occult blood ordered, not able to be completed during admission due to no bowel movement. Repeat CBC in 3 days. Further evaluation by primary care physician. 9. Acute kidney injury on chronic kidney disease stage III- JUVENTINO due to IV diuretic. Lasix discontinued. Repeat BMP in 3 days, to be followed by primary care physician. General: Alert, Oriented x3, Cooperative HEENT: Atraumatic, PERRLA, EOMI, Normocephalic Oral: Moist Mucosa Neck: Supple, No JVD, Negative Carotid Bruits Lungs: Diminished, clear to auscultation Cardiovascular: Regular rate, Regular Rhythm, Normal S1, Normal S2, No murmurs Abdomen: Bowel Sounds Present, Soft, Non Tender, Non-Distended Extremities: No clubbing, No cyanosis, No edema, Capillary Refill Less than 3 Seconds Skin: No rashes, No breakdown Musculoskeletal: No Tenderness to Palpation of Joints or Extremities Neurological: Cranial nerves II-XII grossly intact, Neuro grossly intact Psych/Mental Status: Normal Affect, Appropriate Patient seen and examined prior to discharge. Physical assessment as noted above. Patient is stable for discharge home with a follow-up recommendations as noted above. This patient was seen by VARUN Doshi under the supervision of Dr. Gan. - Physical Exam Vital Signs Temp Pulse Resp BP Pulse Ox 97.8 F 86 16 155/58 H 94 07/31/18 08:30 07/31/18 08:30 07/31/18 08:30 07/31/18 08:30 07/31/18 08:30 Oxygen Flow Rate (L/min) 2 Oxygen Delivery Method Room Air Weight: 123 lb 3.814 oz Body Mass Index (BMI) 23.7 Finger Stick Blood Glucose 252 Intake and Output for Last 24 Hours Intake Total 1505 / 1505 100 / 100 Output Total 400 / 400 250 / 250 200 / 200 Balance 1105 / 1105 -150 / -150 -200 / -200 Microbiology Past 72 Hours 07/30/18 18:30 Gram Stain - Final Laboratory Tests Past 24 Hrs POC Glucose POC Glucose 160 H 220 H 138 H POC Glucose 342 H Discharge Diet: Low fat/ Low Cholesterol Discharge Activity: Return to Normal Activity Call your doctor if you observe: Shortness of breath, Dizziness, Fainting spells Home Medications: Medications to take at Discharge Benazepril HCl 40 mg PO BID 11/24/15 Glimepiride [Amaryl] 2 mg PO DAILY PRN 11/24/15 Pioglitazone [Actos] 30 mg PO DAILY PRN 11/24/15 Amlodipine [Norvasc] 10 mg PO DAILY #0 11/26/15 lactobacillus combination no.8 3 billion cell capsule 3,000 mmu cells PO QDAY 10/10/17 Doxazosin Mesylate [Cardura] 2 mg PO DAILY 07/28/18 Gemfibrozil [Lopid] 600 mg PO DAILY 07/29/18 Lorazepam [Ativan] 0.5 mg PO QHS PRN PRN 07/29/18 Metoprolol Tartrate 50 mg PO BID 07/29/18 Amox/Clavulanate Tablet [Augmentin Tablet] 875 mg PO Q12H #10 tablet 07/31/18 Atorvastatin Calcium [Lipitor] 40 mg PO QHS #30 tablet 07/31/18 Following Prescrptions Were Given to Patient: Amox/Clavulanate Tablet [Augmentin Tablet] 875 mg PO Q12H #10 tablet Atorvastatin Calcium [Lipitor] 40 mg PO QHS #30 tablet Other Amb Orders: Basic Metabolic Profile (BMP) Time Frame: 3 Days, Location: Laboratory CBC-Complete Blood Cnt No Diff Time Frame: 3 Days, Location: Laboratory Primary Care Physician: Jenni Cornell DO [Primary Care Provider] - Please follow up with your Primary Care Physician in: 3-5 Days Disposition: Home Minutes spent on discharge:: 35 Patient Condition:: Stable Medical Necessity - Tobacco Use Smoking Status: Former smoker - Quit 40 years prior, smoked for 40 years, 1 ppd prior to cessation. Tobacco Use: Non-smoker Meaningful Use Info Meaningful Use Diagnoses (Choose all that apply): CHF - CHF UNIQUE/ARB ordered at discharge?: Yes Documented LVEF (%): 55 <Castillo Gan E - Last Filed: 07/31/18 16:33> Discharge Date and Diagnosis - Secondary Discharge Diagnosis Chronic Problems (Last Updated 10/10/17 @ 14:27 by Taryn Galindo) TIA (transient ischemic attack) (Chronic) Cardiac enzymes elevated (Chronic) Carotid disease, bilateral (Chronic) CKD (chronic kidney disease) stage 3, GFR 30-59 ml/min (Chronic) Hypertension (Chronic) Hyperlipidemia (Chronic) Type II diabetes mellitus (Chronic) Hospital Course and Treatment Summary of Care Provided: Hospitalist note: Discharge summary above as well as physical examination reviewed and I concur with the above discharge and treatment plan. Patient was admitted for shortness of breath and dry cough and she was found to have findings consistent with community-acquired pneumonia complicated by acute hypoxic respiratory failure. Also, she was found to have acute on chronic diastolic CHF. She was treated with IV Rocephin and Zithromax for pneumonia as well as IV Lasix for diuresis for congestive heart failure. Her pneumococcal and Legionella antigen were negative. Initially, patient requiring up to 4 L of oxygen and with IV antibiotic therapy, bronchodilators and IV Lasix, she was able to come off oxygen and on the day of discharge, she maintained her pulse ox at 95% on room air. She remained afebrile for more than 48 hours. Her other vital signs were stable. She did have chronic anemia and chronic kidney disease and her kidney function and hemoglobin was stable at her baseline. 2D echocardiogram revealed normal LV size and function, ejection fraction was 55%, showed stage II diastolic dysfunction and mild tricuspid insufficiency. She had chronically elevated troponin and has been stable. Her EKG revealed no evidence of acute ischemic changes. Patient discharged home in a stable medical condition, she did not require oxygen upon discharge, discharged on Augmentin to complete 7 days of treatment, continued on her other chronic home medications without any changes, recommended follow-up with PCP in 3-5 days. - Physical Exam General: Alert, Oriented x3, Cooperative, No apparent distress. HEENT: Atraumatic, PERRLA, EOMI. Neck: Supple, No JVD, Negative Carotid Bruits, Trachea Midline, Thyroid Normal. Lungs: Diminished breath sounds bilateral, otherwise clear, No rhonchi, No wheeze, No rales. Cardiovascular: Regular rate, Regular Rhythm, Normal S1, Normal S2, PMI Normal. Abdomen: Bowel Sounds Present, Soft, Non Tender, Non-Distended, No Hepato-splenomegaly. Extremities: No clubbing, No cyanosis, No edema Skin: No rashes, No breakdown Neurological: Neuro grossly intact Vital Signs are stable. This note was generated with [employer] dictation software. It may contain incorrect words, spelling, and punctuation that were not noted in checking the note before signing. - Physical Exam Vital Signs Temp Pulse Resp BP Pulse Ox 97.8 F 86 16 155/58 H 94 07/31/18 10:30 07/31/18 10:36 07/31/18 10:30 07/31/18 10:36 07/31/18 10:30 Oxygen Flow Rate (L/min) 2 Oxygen Delivery Method Room Air Weight: 123 lb 3.814 oz Body Mass Index (BMI) 23.7 Finger Stick Blood Glucose 252 Intake and Output for Last 24 Hours Intake Total 1505 / 1505 100 / 100 Output Total 400 / 400 250 / 250 200 / 200 Balance 1105 / 1105 -150 / -150 -200 / -200 Microbiology Past 72 Hours 07/30/18 18:30 Gram Stain - Final Laboratory Tests Past 24 Hrs WBC 7.8 RBC 2.89 L Hgb 8.3 L Hct 25.8 L MCV 89.3 POC Glucose POC Glucose 160 H 220 H 138 H Disposition: Home Minutes spent on discharge:: 32 Patient Condition:: Stable Meaningful Use Info Meaningful Use Diagnoses (Choose all that apply): CHF - CHF UNIQUE/ARB ordered at discharge?: Yes Documented LVEF (%): 55 Code Visit Inpatient E AND M: 25364 Disch Hosp 07/31/18 1033 <Electronically signed by Sangeeta CLARKC> Date Sangeeta CLARKC 07/31/18 1633<Electronically signed by Castillo Gan MD> Cosigner Signature (if applicable): Date Castillo Gan MD CC: VARUN Araujo; Castillo Gan; Jenni Cornell DO Signed DISCHARGE INSTRUCTION Observed: 07/31/2018 Status: F Source: [place] 10:18 AM [facility] REPOSITORY [facility] Medical Records Department [address] [place] [id number] Instructions for Home/Discharge Instructions 07/31/18 1012 MR#: [id number] Acct: [id number] Name: DEMETRIS COLEMAN Rep #: [id number] : 1935 83 From: Sangeeta BOND PCP: Jenni Cornell DO Status: ADM IN - Discharge Diagnoses Current Active Problems: Current Active and Chronic Problems (Last Updated 10/10/17 @ 14:27 by Taryn Galindo) Acute respiratory failure with hypoxia (Acute) PNA (pneumonia) (Acute) Cardiac enzymes elevated (Chronic) Carotid disease, bilateral (Chronic) CKD (chronic kidney disease) stage 3, GFR 30-59 ml/min (Chronic) You will use the following diet at home:: Cardiac Discharge Activity: Return to Normal Activity Call your doctor if you observe: Shortness of breath, Dizziness, Fainting spells Allergies/Adverse Reactions: Allergies metformin Allergy (Verified 07/28/18 17:03) Other BODY ACHES epinephrine Adverse Reaction (Verified 07/28/18 17:03) Other SHAKING Gadolinium-MRI Contrast Medium [CONTRAST] Adverse Reaction (Verified 07/28/18 17:03) Other SHAKING Medications to take at Discharge Benazepril HCl 40 mg PO BID 11/24/15 Glimepiride [Amaryl] 2 mg PO DAILY PRN 11/24/15 Pioglitazone [Actos] 30 mg PO DAILY PRN 11/24/15 Amlodipine [Norvasc] 10 mg PO DAILY #0 11/26/15 lactobacillus combination no.8 3 billion cell capsule 3,000 mmu cells PO QDAY 10/10/17 Doxazosin Mesylate [Cardura] 2 mg PO DAILY 07/28/18 Gemfibrozil [Lopid] 600 mg PO DAILY 07/29/18 Lorazepam [Ativan] 0.5 mg PO QHS PRN PRN 07/29/18 Metoprolol Tartrate 50 mg PO BID 07/29/18 Amox/Clavulanate Tablet [Augmentin Tablet] 875 mg PO Q12H #10 tablet 07/31/18 Atorvastatin Calcium [Lipitor] 40 mg PO QHS #30 tablet 07/31/18 The following prescriptions were given: Amox/Clavulanate Tablet [Augmentin Tablet] 875 mg PO Q12H #10 tablet Atorvastatin Calcium [Lipitor] 40 mg PO QHS #30 tablet Orders to be completed after discharge: Basic Metabolic Profile (BMP) Time Frame: 3 Days, Location: Laboratory Primary Care Physician: Jenni Cornell DO [Primary Care Provider] - Please follow up with your Primary Care Physician in: 3-5 Days Test Results: Test results from this visit will be discussed in further detail at your follow-up appointment, if applicable. Proposed Discharge Date: 07/31/18 07/31/18 1018 <Electronically signed by Sangeeta BOND> Date Sangeeta BOND CC: Jenni Cornell DO BEDSIDE GLUCOSE Collected: 07/31/2018 Status: F Source: [place] 6:52 AM [facility] REPOSITORY TYPE CODE TESTS RESULT OUT OF REFERENCE UNITS RANGE LAB L501.080 70-110 mg/dL High BEDSIDE GLU 160 Result Comment: MANAGEMENT OF PATIENT CARE PER NURSING PROTOCOL Performed By: #### L501.080 #### [facility] Point of Care [address] [place] [address] BASIC METABOLIC Collected: 07/31/2018 Status: F Source: [place] PRO[place] (BMP) 5:10 AM [facility] REPOSITORY TYPE CODE TESTS RESULT OUT OF RANGE REFERENCE UNITS LAB L501.0100 74-106 mg/dL High GLU 138 Result Comment: Fasting Glucose result greater than or equal to 126 mg/dL suggests DIABETES MELLITUS per A.D.A. criteria. Please note revised GLUCOSE reference range effective 2017. LAB L501.1000 7-18 mg/dL High BUN 50 LAB L501.1100 0.55-1.02 mg/dL High CREAT,SERUM 2.22 Result Comment: The validity of the calculated GFR AND GFRAA in patients over 70 years has not been determined. Clinical correlation is essential. LAB L501.1110 >60 mL/min Low EST GFR 22 Result Comment: Non- GFR Calc LAB L501.1115 >60 mL/min Low EST GFR - AA 27 Result Comment: GFR Calc LAB L501.1255 ml/min Normal Estimated CRCL 13.55 LAB L501.1300 10-20 RATIO High BUN/CRE 22.5 LAB L501.2200 8.5-10 mg/dL Normal .1 CA 10.0 LAB L501.5300 136-14 mmol/L Normal 5 NA 142 LAB L501.5600 3.5-5. mmol/L Normal 1 K 4.6 LAB L501.5900 98-107 mmol/L High CL 112 LAB L501.6100 21.0-3 mmol/L Low 2.0 CO2 18.0 LAB L501.6200 5-15 Normal GAP 12 Performed By: #### L500.2500 #### [facility] [address] [place], [address] CBC-COMPLETE BLOOD CNT Collected: 07/31/2018 Status: F Source: [place] NO DIFF 5:10 AM [facility] REPOSITORY TYPE CODE TESTS RESULT OUT OF RANGE REFERENCE UNITS LAB L100.1000 4.4-11.0 K/mm3 Normal WBC 7.8 LAB L100.1200 4.2-5.4 M/mm3 Low RBC 2.89 LAB L100.1300 12.0-15.0 g/dl Low HGB 8.3 LAB L100.1400 37-47 % Low HCT 25.8 LAB L100.1500 81-99 fL Normal MCV 89.3 LAB L100.1600 27.0-32.0 pg Normal MCH 28.7 LAB L100.1700 32-36 g/gl Normal MCHC 32.2 LAB L100.1810 11.6-14.6 % High RDW CV 16.0 LAB L100.1820 35.1-43.9 fl High RDW SD 51.8 LAB L100.1900 150-450 K/mm3 Normal PLT 233 LAB L100.2000 6.2-12.0 fl Normal MPV 10.5 Performed By: #### L100.0500 #### [facility] [address] [place], [address] BEDSIDE GLUCOSE Collected: 07/30/2018 Status: F Source: [place] 8:35 PM [facility] REPOSITORY TYPE CODE TESTS RESULT OUT OF REFERENCE UNITS RANGE LAB L501.080 70-110 mg/dL High BEDSIDE GLU 220 Result Comment: MANAGEMENT OF PATIENT CARE PER NURSING PROTOCOL Performed By: #### L501.080 #### [facility] Point of Care [address] [place], [place] [address] Observed: 07/30/2018 Status: F Source: [place] CULTURE, [place]UT[place] 6:30 PM [facility] REPOSITORY Order Date: 07/30/18 Gram Stain Acceptable Specimen? Yes (<25 Epithelial cells per/lpf) Gram Stain 2+ White Blood Cells Rare Gram positive cocci Resp. Culture Mixed normal respiratory mina. No Streptococcus pneumoniae, beta-hemolytic Streptococcus or Staphylococcus aureus isolated. Performed By: #### M100.0800 #### [facility] [address] [facility] [place], [address] BEDSIDE GLUCOSE Collected: 07/30/2018 Status: F Source: [place] 5:13 PM [facility] REPOSITORY TYPE CODE TESTS RESULT OUT OF REFERENCE UNITS RANGE LAB L501.080 70-110 mg/dL High BEDSIDE GLU 138 Result Comment: MANAGEMENT OF PATIENT CARE PER NURSING PROTOCOL Performed By: #### L501.080 #### [facility] Point of Care [address] [place] [address] ECHOCARDIOGRAM COMPLETE Observed: 07/30/2018 Status: F Source: [place] 1:49 PM [facility] REPOSITORY [facility] Cardiovascular Services [address] [place] [address] Echo Complete 07/30/18 0911 MR#: [id number] Acct: [id number] Name: DEMETRIS COLEMAN Rep #: [id number] : 1935 83 From: Rolando Beyer MD Attending Dr: Castillo Gan Status: ADM IN Ordering Dr: Clara Nguyen Date: 07/28/18 Location: PCU Sex: F C Admitted: 07/28/18 Reason For Study: CHF Procedure This was a 2D Doppler, Color Flow transthoracic echocardiogram. Exam performed portable in patient room. Left Ventricle Normal LV size. Left ventricular systolic function is normal. The estimated ejection fraction is 55 %. Stage 2 diastolic dysfunction. No regional wall motion abnormalities noted. Right Ventricle Normal RV size. Normal systolic function. Atria Normal left atrium. Normal right atrium. Mitral Valve Normal mitral valve. Mild-Moderate (1-2+) eccentric mitral valve insufficiency. Tricuspid Valve Normal tricuspid valve. Mild tricuspid valve insufficiency. Pulmonary artery systolic pressure is 26 mmHg. Aortic Valve Trisinus/trileaflet aortic valve. Mild focal aortic valve calcification. Mild focal aortic valve thickening. Pulmonic Valve Normal pulmonic valve. Great Vessels Normal aortic root. The pulmonary artery is normal size. Inferior vena cava collapse with respiration. Pericardium/Pleural No pericardial effusion. MMode/2D Measurements AND Calculations LVIDd: 5.1 cm IVSd: 1.2 cm Ao root diam: 2.8 cm LVIDs: 3.7 cm LVPWd: 0.72 cm RVDd: 2.7 cm FS: 28.2 % LAV(MOD-bp): 53.2 ml EDV(MOD-sp4): 98.6 ml SV(MOD-sp4): 51.8 ml LAV(MOD-bp) Indexed: 35.3 ml/m2 ESV(MOD-sp4): 46.7 ml LAV(MOD-sp2): 41.2 ml EF(MOD-sp4): 52.6 % LAV(MOD-sp4): 61.5 ml LA dimension(2D): 4.2 cm LA A4 area: 20.1 cm2 RA A4 area: 10.9 cm2 Time Measurements MV dec time: 0.12 sec Doppler Measurements AND Calculations MV E max harvey: 132.9 cm/sec Lat Peak E' Harvey: 6.5 cm/sec Med Peak E' Harvey: 3.4 cm/sec MV A max harvey: 97.9 cm/sec E/E' lat: 20.4 E/E' med: 38.8 MV E/A: 1.4 Ao V2 max: 142.8 cm/sec LV V1 max: 100.5 cm/sec PA V2 max: 96.1 cm/sec Ao max P.2 mmHg LV V1 max P.0 mmHg PI end-d harvey: 148.9 cm/sec TR max harvey: 239.5 cm/sec TR max P.9 mmHg Interpretation Summary Normal LV size. Left ventricular systolic function is normal. The estimated ejection fraction is 55 %. Stage 2 diastolic dysfunction. Mild-Moderate (1-2+) eccentric mitral valve insufficiency. Mild tricuspid valve insufficiency. Ordering Physician: Clara Nguyen Referring Physician: Jenni Cornell Performed By: Franchesca Grullon, RENEE, RVT 07/30/18 1348 Date Rolando Beyer MD CC: Clara Nguyen; Castillo Cornell DO Date Dictated: 07/30/1811 Date Transcribed: 07/30/181347 Labor Relations Consultant: Signed BEDSIDE GLUCOSE Collected: 07/30/2018 Status: F Source: [place] 11:36 AM [facility] REPOSITORY TYPE CODE TESTS RESULT OUT OF REFERENCE UNITS RANGE LAB L501.080 70-110 mg/dL High BEDSIDE GLU 342 Result Comment: MANAGEMENT OF PATIENT CARE PER NURSING PROTOCOL Performed By: #### L501.080 #### [facility] Point of Care [address] [place] [address] BEDSIDE GLUCOSE Collected: 07/30/2018 Status: F Source: [place] 6:50 AM [facility] REPOSITORY TYPE CODE TESTS RESULT OUT OF REFERENCE UNITS RANGE LAB L501.080 70-110 mg/dL High BEDSIDE GLU 159 Result Comment: MANAGEMENT OF PATIENT CARE PER NURSING PROTOCOL Performed By: #### L501.080 #### [facility] Point of Care [address] [place] [address] CBC-COMPLETE BLOOD CNT Collected: 07/30/2018 Status: F Source: [place] NO DIFF 5:25 AM [facility] REPOSITORY TYPE CODE TESTS RESULT OUT OF RANGE REFERENCE UNITS LAB L100.1000 4.4-11.0 K/mm3 Normal WBC 8.5 LAB L100.1200 4.2-5.4 M/mm3 Low RBC 2.81 LAB L100.1300 12.0-15.0 g/dl Low HGB 8.2 LAB L100.1400 37-47 % Low HCT 24.9 LAB L100.1500 81-99 fL Normal MCV 88.6 LAB L100.1600 27.0-32.0 pg Normal MCH 29.2 LAB L100.1700 32-36 g/gl Normal MCHC 32.9 LAB L100.1810 11.6-14.6 % High RDW CV 15.6 LAB L100.1820 35.1-43.9 fl High RDW SD 50.7 LAB L100.1900 150-450 K/mm3 Normal PLT 234 LAB L100.2000 6.2-12.0 fl Normal MPV 10.3 Performed By: #### L100.0500 #### [facility] [address] [place], [place], [address] BASIC METABOLIC Collected: 07/30/2018 Status: F Source: [place] PROFILE (BMP) 5:25 AM [facility] REPOSITORY TYPE CODE TESTS RESULT OUT OF RANGE REFERENCE UNITS LAB L501.0100 74-106 mg/dL High GLU 171 Result Comment: Fasting Glucose result greater than or equal to 126 mg/dL suggests DIABETES MELLITUS per A.D.A. criteria. Please note revised GLUCOSE reference range effective 2017. LAB L501.1000 7-18 mg/dL High BUN 44 LAB L501.1100 0.55-1.02 mg/dL High CREAT,SERUM 1.97 Result Comment: The validity of the calculated GFR AND GFRAA in patients over 70 years has not been determined. Clinical correlation is essential. LAB L501.1110 >60 mL/min Low EST GFR 26 Result Comment: Non- GFR Calc LAB L501.1115 >60 mL/min Low EST GFR - AA 31 Result Comment: GFR Calc LAB L501.1255 ml/min Normal Estimated CRCL 15.27 LAB L501.1300 10-20 RATIO High BUN/CRE 22.3 LAB L501.2200 8.5-10 mg/dL High .1 CA 10.2 LAB L501.5300 136-14 mmol/L Normal 5 NA 142 LAB L501.5600 3.5-5. mmol/L Normal 1 K 5.0 Result Comment: Moderate Hemolysis, Result may be falsely increased. LAB L501.5900 98-107 mmol/L High CL 112 LAB L501.6100 21.0-32.0 mmol/L Low CO2 18.0 LAB L501.6200 5-15 Normal GAP 12 Performed By: #### L500.2500 #### [facility] [address] [facility] [id number] IRON+IRON BINDING Collected: 07/30/2018 Status: F Source: [facility] 5:25 AM [facility] REPOSITORY TYPE CODE TESTS RESULT OUT OF RANGE REFERENCE UNITS LAB L503.6075 250-450 ug/dL Low TIBC 229 Result Comment: Moderate Hemolysis, Result may be falsely increased. LAB L503.6150 50-170 ug/dL Normal IRON 71 Result Comment: Moderate Hemolysis, Result may be falsely increased. LAB L503.6250 15.0-55.0 % IRON Normal SATURATION 31.0 Performed By: #### L503.6030, L503.6550 #### [facility] [address] [facility] [place], [place], [address] FERRITIN Collected: 07/30/2018 Status: F Source: [place] 5:25 AM [facility] REPOSITORY TYPE CODE TESTS RESULT OUT OF RANGE REFERENCE UNITS LAB L503.6550 8-252 ng/mL Normal FERRITIN 159 Performed By: #### L503.6030, L503.6550 #### [facility] [address] [place], [address] BEDSIDE GLUCOSE Collected: 07/30/2018 Status: F Source: [place] 1:34 AM [facility] REPOSITORY TYPE CODE TESTS RESULT OUT OF REFERENCE UNITS RANGE LAB L501.080 70-110 mg/dL High BEDSIDE GLU 235 Result Comment: MANAGEMENT OF PATIENT CARE PER NURSING PROTOCOL Performed By: #### L501.080 #### [facility] Point of Care [address] [place] [address] BEDSIDE GLUCOSE Collected: 07/30/2018 Status: F Source: [place] 12:50 AM [facility] REPOSITORY TYPE CODE TESTS RESULT OUT OF REFERENCE UNITS RANGE LAB L501.080 70-110 mg/dL Low BEDSIDE GLU 69 Result Comment: MANAGEMENT OF PATIENT CARE PER NURSING PROTOCOL Performed By: #### L501.080 #### [facility] Point of Care [address] [place] [address] BEDSIDE GLUCOSE Collected: 07/29/2018 Status: F Source: [place] 10:04 PM [facility] REPOSITORY TYPE CODE TESTS RESULT OUT OF REFERENCE UNITS RANGE LAB L501.080 70-110 mg/dL High BEDSIDE GLU 206 Result Comment: MANAGEMENT OF PATIENT CARE PER NURSING PROTOCOL Performed By: #### L501.080 #### [facility] Point of Care [address] [place] [address] BEDSIDE GLUCOSE Collected: 07/29/2018 Status: F Source: [place] 4:18 PM [facility] REPOSITORY TYPE CODE TESTS RESULT OUT OF RANGE REFERENCE UNITS LAB L501.080 70-110 mg/dL Normal BEDSIDE GLU 93 Result Comment: MANAGEMENT OF PATIENT CARE PER NURSING PROTOCOL Performed By: #### L501.080 #### [facility] Point of Care [address] [place] [address] BEDSIDE GLUCOSE Collected: 07/29/2018 Status: F Source: [place] 11:36 AM [facility] REPOSITORY TYPE CODE TESTS RESULT OUT OF REFERENCE UNITS RANGE LAB L501.080 70-110 mg/dL High BEDSIDE GLU 292 Result Comment: MANAGEMENT OF PATIENT CARE PER NURSING PROTOCOL Performed By: #### L501.080 #### [facility] Point of Care [address] [place], [place] [address] BEDSIDE GLUCOSE Collected: 07/29/2018 Status: F Source: [place] 6:45 AM [facility] REPOSITORY TYPE CODE TESTS RESULT OUT OF REFERENCE UNITS RANGE LAB L501.080 70-110 mg/dL High BEDSIDE GLU 207 Result Comment: MANAGEMENT OF PATIENT CARE PER NURSING PROTOCOL Performed By: #### L501.080 #### [facility] Point of Care [address] [place] [address] TROPONIN-I Collected: 07/29/2018 Status: F Source: [place] 4:31 AM [facility] REPOSITORY Order Comment: 'TROP' Serial specimen #1, #2 or #3: 3 WENT TO DRAW SPECIMEN AND PT WAS ANXIOUS/SHORT OF BREATH. WAS ASKED TO COME BACK PER JAYNA RAI, WILL CALL WHEN READY TYPE CODE TESTS RESULT OUT OF RANGE REFERENCE UNITS LAB L501.4010 <0.045 ng/mL High 0.059 TROPONIN-I Result Comment: TROPONIN-I EXPECTED VALUES <0.045 Negative 0.045 - 0.590 Consistent with Cardiac Damage > OR = 0.600 Critical Value Not every elevated troponin is indicative of IL. These values should be used with clinical judgement in examining the patient's clinical picture for diagnosis. To establish a diagnosis of IL versus myocardial injury, there must be a demonstrated rise and/or fall in the troponin values, in addition to ischemic symptoms, EKG changes, new regional wall motion abnormality, and/or angiographical evidence. PLEASE NOTE: REFERENCE RANGES EDITED 18 Performed By: #### L501.4010 #### [facility] [address] [facility] [address] [place], [place], [address] CBC W/DIFF, AUTOMATED Collected: 07/29/2018 Status: F Source: [place] 4:31 AM [facility] REPOSITORY TYPE CODE TESTS RESULT OUT OF RANGE REFERENCE UNITS LAB L100.1000 4.4-11.0 K/mm3 Normal WBC 9.8 LAB L100.1200 4.2-5.4 M/mm3 Low RBC 2.99 LAB L100.1300 12.0-15.0 g/dl Low HGB 8.9 LAB L100.1400 37-47 % Low HCT 26.7 LAB L100.1500 81-99 fL Normal MCV 89.3 LAB L100.1600 27.0-32.0 pg Normal MCH 29.8 LAB L100.1700 32-36 g/gl Normal MCHC 33.3 LAB L100.1810 11.6-14.6 % High RDW CV 15.0 LAB L100.1820 35.1-43.9 fl High RDW SD 47.5 LAB L100.1900 150-450 K/mm3 Normal PLT 230 LAB L100.2000 6.2-12.0 fl Normal MPV 10.6 LAB L100.2100 47-70 % High NEUT% 77.0 LAB L100.2200 19-41 % Low LY% 13.4 LAB L100.2300 0-10 % Normal MONO% 7.5 LAB L100.2400 0-5 % Normal EO% 1.4 LAB L100.2500 0-1 % Normal BASO% 0.2 LAB L100.2550 0.0-0.9 % Normal IM GRAN % 0.500 Result Comment: IG% - Immature Granulocytes (promyelocytes, myelocytes and metamyelocytes) > 1% indicates that a LEFT SHIFT is Present. LAB L100.2620 2.0-7.7 X10 3/uL Normal Absolute Neut 7.5 LAB L100.2720 0.83-4.51 X10 3/ul Normal Absolute Lymph 1.31 Performed By: #### L100.0100 #### [facility] [address] [place], [address] BASIC METABOLIC Collected: 07/29/2018 Status: F Source: [place] PROFILE ([facility]) 4:31 AM [facility] REPOSITORY TYPE CODE TESTS RESULT OUT OF RANGE REFERENCE UNITS LAB L501.0100 74-106 mg/dL High GLU 214 Result Comment: Glucose result greater than or equal to 200 mg/dL suggests DIABETES MELLITUS per A.D.A. criteria. Please note revised GLUCOSE reference range effective 2017. LAB L501.1000 7-18 mg/dL High BUN 40 LAB L501.1100 0.55-1.02 mg/dL High CREAT,SERUM 1.75 Result Comment: The validity of the calculated GFR AND GFRAA in patients over 70 years has not been determined. Clinical correlation is essential. LAB L501.1110 >60 mL/min Low EST GFR 29 Result Comment: Non- GFR Calc LAB L501.1115 >60 mL/min Low EST GFR - AA 36 Result Comment: GFR Calc LAB L501.1255 ml/min Normal Estimated CRCL 17.19 LAB L501.1300 10-20 RATIO High BUN/CRE 22.9 LAB L501.2200 8.5-10 mg/dL High .1 CA 10.2 LAB L501.5300 136-14 mmol/L Normal 5 NA 139 LAB L501.5600 3.5-5. mmol/L Normal 1 K 4.4 LAB L501.5900 98-107 mmol/L High CL 110 LAB L501.6100 21.0-3 mmol/L Low 2.0 CO2 15.0 LAB L501.6200 5-15 Normal GAP 14 Performed By: #### L500.2500, L500.4100 #### [facility] [address] [place], [address] LIPID PROFILE Collected: 07/29/2018 Status: F Source: [place] 4:31 AM [facility] REPOSITORY TYPE CODE TESTS RESULT OUT OF RANGE REFERENCE UNITS LAB L501.4900 200 mg/dL High CHOL 270 Result Comment: <200 mg/dL Desirable 200-240 mg/dL Borderline >240 mg/dL High Risk LAB L501.5000 mg/dL High TRIG 410 Result Comment: The drugs N-Acetylcysteine and Metamizole may falsely depress this assay. TRIGLYCERIDE IS GREATER THAN 400 mg/dL. LDL RESULT IS INVALID AND WILL NOT BE REPORTED. Serum Triglycerides Reference Interval Normal <150 mg/dL Borderline high 150 - 199 mg/dL High 200 - 499 mg/dL Very High > or = 500 mg/dL LAB L501.6400 mg/dL Normal HDL 49 Result Comment: The drugs N-Acetylcysteine and Metamizole may falsely depress this assay. Reference Range HDL <40 mg/dL Low HDL Cholesterol HDL >or= 60 mg/dL High HDL Cholesterol LAB L501.6500 0-130 mg/dL Test Normal not performed LDL LAB L501.6600 5-40 mg/dL Test Normal not performed VLDL Performed By: #### L500.2500, L500.4100 #### [facility] [address] [place], [address] BEDSIDE GLUCOSE Collected: 07/29/2018 Status: F Source: [place] 3:52 AM [facility] REPOSITORY TYPE CODE TESTS RESULT OUT OF REFERENCE UNITS RANGE LAB L501.080 70-110 mg/dL High BEDSIDE GLU 213 Result Comment: MANAGEMENT OF PATIENT CARE PER NURSING PROTOCOL Performed By: #### L501.080 #### [facility] Point of Care [address] [facility] [place] [address] EMERGENCY DEPARTMENT Observed: 07/29/2018 Status: F Source: [place] SUMMARY 1:52 AM [facility] REPOSITORY [facility] Medical Records Department [address] [facility] [place] [address] Emergency Department Summary 07/28/18 1801 MR#: [id number] Acct: [id number] Name: DEMETRIS COLEMAN Rep #: [id number] : 1935 83 From: Jenni Olivo MD PCP: Jenni Cornell DO Status: ADM IN - ER Visit Summary Date of Service: 07/28/18 Chief Complaint: Dyspnea History of Present Illness: The patient is a 83 F who presents for 4 days of shortness of breath and bilateral ankle swelling. Patient states she has had a moist cough for the last 2 weeks, and took part of an amoxicillin prescription prescribed by her primary care doctor. She then became short of breath worse with exertion, laying flat and keeping her from sleeping. She denies any history of congestive heart failure, COPD or any other lung disease, smoking, coronary artery disease, or DVT/PE. Patient denies any chest pain currently but states she did have some chest discomfort one day during this period of time. Physical Examination: Vital signs: afebrile, hemodynamically stable, 92% on room air, 96% on nasal cannula General: well nourished, well developed, in no distress Skin: warm, dry, no rash, no pallor HEENT: normocephalic and atraumatic; PERRL, EOMI, moist mucous membranes Cardiovascular: regular rate and rhythm without murmurs, symmetric nonpitting peripheral edema, 2+ pulses all distal extremities Respiratory: Mild increased work of breathing, lungs are clear to auscultation bilaterally, no rales, rhonchi or wheezing Abdominal: Abdomen is soft, nontender with normoactive bowel sounds, no guarding or rebound, no masses MSK: Moves all extremities, no deformities, normal strength Neuro: Awake and alert, oriented 4. No facial droop, sensation and motor function intact and symmetric Test Results: Abnormal Lab Results WBC 10.0 RBC 3.30 L Hgb 9.4 L WBC RBC Hgb Hct MCV MCH MCHC RDW RDW Differential Plt Count MPV Immature Gran % (Auto) Neut % (Auto) Lymph % (Auto) Clinical Impression(s) from Imaging Studies Chest X-Ray 07/28/18 19:25 IMPRESSION: Bilateral pleural effusion and pneumonia. Electronically Signed: Wendy Castro MD at 20:25 EST Tel , Service support , Medications Given Discontinued Medications Azithromycin 500 mg/ Dextrose 255 mls @ 250 mls/hr IV X1 ONE Stop: 07/28/18 21:28 Last Admin: 07/28/18 21:48 Dose: 250 mls/hr Ceftriaxone Sodium (Rocephin) 1 gm in 50 mls @ 100 mls/hr IV X1 ONE Stop: 07/28/18 20:56 Last Admin: 07/28/18 20:42 Dose: 100 mls/hr Nitroglycerin (Nitrostat) 0.4 mg SUBLINGUAL X1 ONE Stop: 07/28/18 19:28 Last Admin: 07/28/18 19:33 Dose: 0.4 mg Emergency Department Course and Treatment: Patient presents with history and exam concerning for just of heart failure. Workup was performed, with an EKG showing a sinus rhythm with no ischemic changes. Patient had no leukocytosis. Potassium was mildly elevated at 5.3 without any associated EKG changes. Creatinine elevated at 1.76, consistent with patient's baseline. Troponin was elevated at 0.08, also consistent with prior readings. BNP elevated at 2071, with no baseline for comparison. Patient has no diagnosed history of CHF. Chest x-ray showed a left lobe infiltrate and bilateral pleural effusions. It did not show any sign of vascular congestion or pulmonary edema. Patient had an oxygen requirement in the emergency department and was on nasal cannula. Because of the concern for CHF and patient being consistently hypertensive, she was given sublingual nitroglycerin to reduce afterload. After determining patient had pneumonia, she was started on Rocephin and azithromycin. Lasix held in the emergency department due to no evidence of pulmonary vascular congestion at this time. Patient admitted for further workup and management of her dyspnea, hypoxia on room air, and pneumonia. Treatment Plan: [] Disposition: [] Impression: Pneumonia, hypoxia on room air, dyspnea This note was generated with [employer] dictation software. It may contain incorrect words, spelling, and punctuation that were not noted in review of the chart prior to signing ED Disposition - Plan for ED Patient: Disposition: Acute Care [facility] Chief Complaint: Shortness of Breath What to do if you have Problems For any increased pain, shortness of breath, bleeding, nausea or vomiting, chest pain, or any unexpected problems, contact your Primary Care Provider. Call [facility] ([phone]) or report to the closest Emergency Room. Call 911 if necessary. 07/29/18 0152 <Electronically signed by Jenni Olivo MD> Date Jenni Olivo MD Cosigner Signature (If Indicated): Date CC: Jenni Cornell DO BEDSIDE GLUCOSE Collected: 07/28/2018 Status: F Source: [place] 10:22 PM [facility] REPOSITORY TYPE CODE TESTS RESULT OUT OF REFERENCE UNITS RANGE LAB L501.080 70-110 mg/dL High BEDSIDE GLU 278 Result Comment: MANAGEMENT OF PATIENT CARE PER NURSING PROTOCOL Performed By: #### L501.080 #### [facility] Point of Care [address] [place] [address] Observed: 07/28/2018 Status: F Source: [place] LEGIONELLA ANTIGEN 10:20 PM [facility] URINE REPOSITORY Order Date: 07/28/18 Specimen Source: URINE, CLEAN CATCH Legionella, UR Legionella Antigen result interpretation: Negative Presumptive negative for Legionella pneumophila serogroup 1 antigen in urine, suggesting no recent or current infection. Legionella Ag, Urine Negative (See interpretation below) Performed By: #### M300.4500 #### [facility] [address] [place], [address] STREP Observed: 07/28/2018 Status: F Source: [place] PNEUMONIAE ANTIG(UR,CSF) 10:20 PM [facility] REPOSITORY Order Date: 07/28/18 S pneumo Ag [] Negative Urine Presumptive negative for pneumococcal pneumonia, suggesting no current or recent pneumococcal infection. Infection due to S pneumoniae cannot be ruled out since the antigen present in the sample may be below the detection limit of the test. Strep pneumo Test Negative URINE (See interpretation below) Performed By: #### M300.4600 #### [facility] [address] [place], [address] BEDSIDE GLUCOSE Collected: 07/28/2018 Status: F Source: [place] 9:41 PM [facility] REPOSITORY TYPE CODE TESTS RESULT OUT OF REFERENCE UNITS RANGE LAB L501.080 70-110 mg/dL High BEDSIDE GLU 220 Result Comment: MANAGEMENT OF PATIENT CARE PER NURSING PROTOCOL Performed By: #### L501.080 #### [facility] Point of Care [address] [facility] [place] [address] TROPONIN-I Collected: 07/28/2018 Status: F Source: [place] 9:40 PM [facility] REPOSITORY Order Comment: 'TROP' Serial specimen #1, #2 or #3: 1 TYPE CODE TESTS RESULT OUT OF RANGE REFERENCE UNITS LAB L501.4010 <0.045 ng/mL High 0.082 TROPONIN-I Result Comment: TROPONIN-I EXPECTED VALUES <0.045 Negative 0.045 - 0.590 Consistent with Cardiac Damage > OR = 0.600 Critical Value Not every elevated troponin is indicative of IL. These values should be used with clinical judgement in examining the patient's clinical picture for diagnosis. To establish a diagnosis of IL versus myocardial injury, there must be a demonstrated rise and/or fall in the troponin values, in addition to ischemic symptoms, EKG changes, new regional wall motion abnormality, and/or angiographical evidence. PLEASE NOTE: REFERENCE RANGES EDITED 18 Performed By: #### L501.4010, L501.5200, L501.9520 #### [facility] [address] [place], [address] MAGNESIUM Collected: 07/28/2018 Status: F Source: [place] 9:40 PM [facility] REPOSITORY Order Comment: 'TROP' Serial specimen #1, #2 or #3: 1 TYPE CODE TESTS RESULT OUT OF RANGE REFERENCE UNITS LAB L501.5200 1.6-2.6 mg/dL Normal MG 2.0 Performed By: #### L501.4010, L501.5200, L501.9520 #### [facility] [address] [place], [address] THYROID STIM HORMONE Collected: 07/28/2018 Status: F Source: [place] (TSH) 9:40 PM [facility] REPOSITORY Order Comment: 'TROP' Serial specimen #1, #2 or #3: 1 TYPE CODE TESTS RESULT OUT OF RANGE REFERENCE UNITS LAB L501.9520 0.358-3.74 uIU/mL Normal TSH 1.26 Performed By: #### L501.4010, L501.5200, L501.9520 #### [facility] [address] [place], [address] HISTORY AND PHYSICAL Observed: 07/28/2018 Status: F Source: [place] EXAM 9:35 PM [facility] REPOSITORY [facility] Medical Records Department [address] [place] [address] History and Physical 07/28/182030 MR#: [id number] Acct: [id number] Name: DEMETRIS COLEMAN Rep #: [id number] : 1935 83 From: Clara Nguyen PCP: Jenni Cornell DO Status: ADM IN Location: [address] Problem List (1) Acute respiratory failure with hypoxia Status: Acute (2) PNA (pneumonia) Status: Acute Qualifiers: Pneumonia type: due to unspecified organism Laterality: bilateral Lung location: unspecified part of lung Qualified Code(s): J18.9 - Pneumonia, unspecified organism (3) TIA (transient ischemic attack) Status: Chronic (4) Cardiac enzymes elevated Status: Chronic (5) Carotid disease, bilateral Status: Chronic Qualifiers: Carotid artery disease type: unspecified Qualified Code(s): I77.9 - Disorder of arteries and arterioles, unspecified (6) CKD (chronic kidney disease) stage 3, GFR 30-59 ml/min Status: Chronic (7) Hypertension Status: Chronic Qualifiers: Hypertension type: essential hypertension Qualified Code(s): I10 - Essential (primary) hypertension (8) Hyperlipidemia Status: Chronic Qualifiers: Hyperlipidemia type: unspecified Qualified Code(s): E78.5 - Hyperlipidemia, unspecified (9) Type II diabetes mellitus Status: Chronic Qualifiers: Diabetes mellitus retirement insulin use: without termite technician use Diabetes mellitus complication status: with unspecified complications Qualified Code(s): E11.8 - Type 2 diabetes mellitus with unspecified complications History of Present Illness Date of Admission: 07/28/18 Chief Complaint: Dysnea, cough The patient is a 83 y/o F w/ PMHx: Diabetes mellitus type II, TIA, HTN, HLD, Carotid disease, PVD, History of Tobacco use, Chronic Normocytic anemia (baseline Hgb 11), 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 She noted needing to transition to arm chair for sleeping from bed secondary to worsened dyspnea with laying flat attempts. In the ED work-up included CBC with WBC 10, hemoglobin 9.4, platelet 262 with left shift, unremarkable coags, BMP with potassium 5.3, chloride 112, carbon dioxide 19, BUN/creatinine 40/1.76, glucose 247, calcium 10.5, troponin 0.082, BNP 2071.7 chest x-ray with bilateral pleural effusions and evidence of pneumonia bilateral opacities in the lung bases. In the ED patient administered Rocephin, ceftriaxone, nitroglycerin sublingual x1. 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 Carotid artery stenosis I65.29 Contact dermatitis L25.9 Diabetes type 2, controlled E11.9 Fatigue R53.83 Hemangioma D18.00 Hyperlipidemia E78.5 Peripheral vascular disease I73.9 Postmenopausal state Z78.0 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 TIA (transient ischemic attack) G45.9 Vertigo R42 Allergies metformin Allergy (Verified 07/28/18 17:03) Other BODY ACHES epinephrine Adverse Reaction (Verified 07/28/18 17:03) Other SHAKING Gadolinium-MRI Contrast Medium [CONTRAST] Adverse Reaction (Verified 07/28/18 17:03) Other SHAKING Home Medications: Ambulatory Orders Medication Instructions Recorded Benazepril HCl 40 mg PO DAILY 11/24/15 Surgical History: Surgical History (Last Updated 10/10/17 @ 14:28 by Taryn Galindo) H/O total hysterectomy Z98.890, Z90.710 Status post carotid surgery Z98.890 Surgical History: - - BL carotid artery surgery x 2, hysterectemy, rectal surgery for benign growth. Psychiatric History: No pertinent psych hx SOLUTION CONSULTANT History: No pertinent SOLUTION CONSULTANT history Lives: Spouse/ Significant Other Smoking Status: Former smoker - Quit 40 years prior, smoked for 40 years, 1 ppd prior to cessation. Tobacco Use: Non-smoker Alcohol: None Drugs: None - *Family History Maternal Family History: Family History (Last Updated 10/10/17 @ 14:30 by Taryn Galindo) Mother Diabetes Hypertension CVA (cerebral vascular accident) Cancer Brother Diabetes Hypertension Sister Diabetes Hypertension History Items: Diabetes, High Cholesterol Paternal Family History: Family History (Last Updated 10/10/17 @ 14:30 by Taryn Galindo) Mother Diabetes Hypertension CVA (cerebral vascular accident) Cancer Brother Diabetes Hypertension Sister Diabetes Hypertension History Items: Unknown Sibling Family History: Family History (Last Updated 10/10/17 @ 14:30 by Taryn aGlindo) Mother Diabetes Hypertension CVA (cerebral vascular accident) Cancer Brother Diabetes Hypertension Sister Diabetes Hypertension History Items: Diabetes, Hypertension Review of Systems Constitutional: Reports: Anorexia, Malaise, Weakness, Fatigue. Denies: Chills, Fever, Weight Change HEENT: Reports: Nasal Congestion, Post Nasal Drip, Sinus Congestion, Sinus Drainage. Denies: Head Aches Cardiovascular: Reports: Edema, Orthopnea. Denies: Chest Pain, Palpitations Respiratory: Reports: Cough, Shortness of Breath, Shortness of breath at rest, Shortness of breath upon exertion. Denies: Sputum production, Wheezing Gastrointestinal: Denies: Abdominal Pain, Nausea, Vomiting Genitourinary: Denies: Dysuria Musculoskeletal: Reports: Back Pain. Denies: Joint Pain, Joint Tenderness Skin: Denies: Rash, Wounds Neurological: Denies: Numbness, Tingling, Focal weakness Psychiatric: Denies: Anxiety, Depression, Homicidal Ideations, Suicidal Ideations Hematologic/ Lymphatic: Reports: Anemia. Denies: Easy Bruising, Easy Bleeding VTE Information - Inpt Only VTE Present on Admission: No VTE Mechan Device Prophylaxis: SCD's VTE Pharm Prophylaxis ordered?: Yes Patient Problems: Active and Suspected Problems (Last Updated 10/10/17 @ 14:27 by Taryn Galindo) Acute respiratory failure with hypoxia (Acute) PNA (pneumonia) (Acute) Subjective: Seated upright in the ED bed, fatigued appearance, conversational dyspnea present, increased work of breathing. Objective: Physical Examination: General: awake, alert, oriented x 3 and cooperative, seated upright in the ED bed, fatigued appearance, obvious conversational dyspnea and increased work of breathing with some accessory muscle usage noted. Skin: normal color, turgor, no icterus, cyanosis. HEENT: AT/NC, EOMI, PERRLA, MMM, no carotid bruits, no market JVD noted. Lungs: Bilaterally diminished, greater bases, rales noted, no wheezing, increased work of breathing, accessory muscle usage and conversational dyspnea noted. Heart: Regular rate and rhythm; no gallop, rub audible. Abdomen: soft, NTTP, ND, normal BS, no HSM. Extremities: no cyanosis, clubbing, BL ankle edema. Neurological: patient awake, alert, oriented x 3; cognitive function intact; pupils equally reactive to light and accomodation; cranial nerves II-XII grossly normal, moving all 4 extremities, no focal deficits, strength severely globally decreased secondary to acute presentation. Psychiatric: affect appears fatigued, mildly flat, no acute evidence of depressive or anxiety feelings. - Physical Exam Vital Signs Temp Pulse Resp BP Pulse Ox 98.8 F 78 27 H 174/62 H 98 07/28/18 16:59 07/28/18 19:33 07/28/18 19:02 07/28/18 19:33 07/28/18 19:03 Oxygen Delivery Method Room Air Weight: 121 lb Body Mass Index (BMI) 23.6 Finger Stick Blood Glucose 252 Laboratory Tests Past 24 Hrs WBC 10.0 RBC 3.30 L Hgb 9.4 L WBC RBC Hgb Hct MCV MCH MCHC RDW RDW Differential Plt Count MPV Immature Gran % (Auto) Neut % (Auto) Lymph % (Auto) Assessment/Plan All Active Problems (Last Updated 10/10/17 @ 14:27 by Taryn Galindo) Acute respiratory failure with hypoxia (Acute) PNA (pneumonia) (Acute) Left sided numbness (Acute) The patient is a 83 y/o F w/ PMHx: Diabetes mellitus type II, TIA, HTN, HLD, Carotid disease, PVD, History of Tobacco use, Chronic Normocytic anemia (baseline Hgb 11), 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 She noted needing to transition to arm chair for sleeping from bed secondary to worsened dyspnea with laying flat attempts. (1) Acute Hypoxic Respiratory Failure secondary to Community Acquired Pneumonia: ED work-up included CBC with WBC 10, hemoglobin 9.4, platelet 262 with left shift, unremarkable coags, BMP with potassium 5.3, chloride 112, carbon dioxide 19, BUN/creatinine 40/1.76, glucose 247, calcium 10.5, troponin 0.082, BNP 2071.7 chest x-ray with bilateral pleural effusions and evidence of pneumonia bilateral opacities in the lung bases. Increased work of breathing, accessory muscle usage, some conversational dyspnea, noted hypoxia with any exertion while in the ED. Will admit to PCU, maintain on oxygen with wean as tolerated to room air, continue ATC duonebs, PRN albuterol, maintained on Rocephin and Azithromycin, HOB, IS parameters w/ pending sputum cultures and urine antigens. (2) ? Possibility of Concurrent Underlying CHF: Lower suspicion, feel likely her BL LE edema secondary to transitioning to chair w/ dependent edema, not marked on examination. CXR w/ small effusions, no marked congestion, BNP elevated, chronically elevated trop. History is also notable for lower extremity edema, orthopnea, dyspnea on exertion; however, in the setting of concurrent PNA, will defer lasix aggressive administration given acute presentation #1 initially, will administer lasix 40 mg IV x 1 only, defer IVFs given this concern, will repeat ECHO, last noted 2015, cycle cardiac enzymes, obtain mag, repeat AM EKG, BL snug UNIQUE wraps, was previously on plavix secondary to GI upset with ASA, will restart, obtain AM FLP, maintain on home regimen metoprolol, ACEI. (3) Chronic Elevated Cardiac Enzyme: ED EKG without acute evidence of ischemia, trop 0.082, similar to prior, maintain on telemetry, cycle cardiac enzymes to assure not increasing, repeat EKG in AM. 2016 ECHO noted w/ mild concentric LVH, EF 65%, stage I diastolic dysfunction. (4) Hypertension: Continue home regimen including metoprolol, doxazosin, Benzapril, Norvasc, PRN hydralazine. (5) Hyperlipidemia: Not on agent, FLP in AM. (6) Diabetes mellitus type II: Hold oral home regimen, ADA diet, accu checks w/ ISS. (7) Carotid artery disease: Status post endarterectomy bilaterally x 2. (8) Chronic normocytic anemia: Admission hemoglobin 9.4, prior baseline noted 11, repeat CBC in a.m. (9) Chronic Kidney Disease Stage III/IV: Admission BUN/Cr 40/1.76, baseline renal function 1.4-1.8, appears baseline, repeat BMP in AM. (10) DVT Prophylaxis: SCDs, heparin. (11) CODE status: Discussed CODE status at length including difference between FULL code, DNR-CCA and DNR-CC status. Following discussions about the differences in these status, requested Full Code Status. Notes primarily HCPOA and Daughter 2nd. She does have living will in place. Advanced Care Planning Face to Face Time: 16 minutes. Code Visit Inpatient E AND M: 48532 Init Hosp L3 Procedures: 65740 Advncd Care Plan 30 Min 07/28/185 <Electronically signed by Clara Nguyen > Date Clara Nguyen Cosigner Signature: Date (if applicable) CC: Clara Nguyen; Jenni Cornell DO Signed CHEST PA AND LATERAL Observed: 07/28/2018 Status: F Source: [place] 6:01 PM [facility] REPOSITORY [facility] Imaging Services [address] [place] [address] Chest PA and Lateral MR#: [id number] Acct: [id number] Name: JAREDDEMETRIS Rep #: [id number] : 1935 F 83 From: Wendy Castro MD PCP: Jenni Cornell DO Status: REG ER Study: Chest PA and Lateral Date of Exam: 07/28/18 Exam# [id number] Ordering Dr: Jenni Olivo MD STUDY: X-RAY CHEST REASON FOR EXAM: Female, 83 years old. Unproductive cough SOB. TECHNIQUE: PA and lateral. COMPARISON:11/24/15 FINDINGS: Small bilateral pleural effusions. Bilateral opacities in the lung bases. Airspace disease on the left. Findings consistent with pneumonia. Upper lung zones are clear. Normal size heart. Normal mediastinum and vilma. Normal visualized pulmonary arteries. Atherosclerotic calcification of the aortic arch. Normal visualized thoracic spine. Normal visualized ribs, clavicles, and shoulders. There is no demonstrated abnormality of the visualized soft tissue structures of the upper abdomen. RAD/Chest PA and Lateral IMPRESSION: Bilateral pleural effusion and pneumonia. Electronically Signed: Wendy Castro MD at 20:25 EST Tel , Service support , CC: Jenni Olivo MD; Jenni Cornell DO Labor Relations Consultant: Signed PROTHROMBIN TIME W/INR Collected: 07/28/2018 Status: F Source: [place] 4:19 PM [facility] REPOSITORY TYPE CODE TESTS RESULT OUT OF RANGE REFERENCE UNITS LAB L300.4150 11.7-14.9 SECONDS Normal PROTIME 14.0 LAB L300.4200 Normal INR 1.1 Performed By: #### L300.3900, L300.4310 #### [facility] [address] [facility] [place], [place], [id number] PARTIAL THROMBOPLAST Collected: 07/28/2018 Status: F Source: [place] TIME 4:19 PM [facility] REPOSITORY TYPE CODE TESTS RESULT OUT OF RANGE REFERENCE UNITS LAB L300.4310 24.1-36.2 Seconds Normal PTT 35.6 Performed By: #### L300.3900, L300.4310 #### [facility] [address] [place], [place], [address] CBC W/DIFF, AUTOMATED Collected: 07/28/2018 Status: F Source: [place] 4:19 PM [facility] REPOSITORY TYPE CODE TESTS RESULT OUT OF RANGE REFERENCE UNITS LAB L100.1000 4.4-11.0 K/mm3 Normal WBC 10.0 LAB L100.1200 4.2-5.4 M/mm3 Low RBC 3.30 LAB L100.1300 12.0-15.0 g/dl Low HGB 9.4 LAB L100.1400 37-47 % Low HCT 29.2 LAB L100.1500 81-99 fL Normal MCV 88.5 LAB L100.1600 27.0-32.0 pg Normal MCH 28.5 LAB L100.1700 32-36 g/gl Normal MCHC 32.2 LAB L100.1810 11.6-14.6 % High RDW CV 15.5 LAB L100.1820 35.1-43.9 fl High RDW SD 49.9 LAB L100.1900 150-450 K/mm3 Normal PLT 262 LAB L100.2000 6.2-12.0 fl Normal MPV 9.8 LAB L100.2100 47-70 % High NEUT% 78.0 LAB L100.2200 19-41 % Low LY% 11.7 LAB L100.2300 0-10 % Normal MONO% 7.7 LAB L100.2400 0-5 % Normal EO% 1.9 LAB L100.2500 0-1 % Normal BASO% 0.3 LAB L100.2550 0.0-0.9 % Normal IM GRAN % 0.400 Result Comment: IG% - Immature Granulocytes (promyelocytes, myelocytes and metamyelocytes) > 1% indicates that a LEFT SHIFT is Present. LAB L100.2620 2.0-7.7 X10 3/uL High Absolute Neut 7.8 LAB L100.2720 0.83-4.51 X10 3/ul Normal Absolute Lymph 1.17 Performed By: #### L100.0100 #### [facility] [address] [place], [address] BASIC METABOLIC Collected: 07/28/2018 Status: F Source: [place] PROFILE ([facility]) 4:19 PM [facility] REPOSITORY TYPE CODE TESTS RESULT OUT OF RANGE REFERENCE UNITS LAB L501.0100 74-106 mg/dL High GLU 247 Result Comment: Glucose result greater than or equal to 200 mg/dL suggests DIABETES MELLITUS per A.D.A. criteria. Please note revised GLUCOSE reference range effective 2017. LAB L501.1000 7-18 mg/dL High BUN 40 LAB L501.1100 0.55-1.02 mg/dL High CREAT,SERUM 1.76 Result Comment: The validity of the calculated GFR AND GFRAA in patients over 70 years has not been determined. Clinical correlation is essential. LAB L501.1110 >60 mL/min Low EST GFR 29 Result Comment: Non- GFR Calc LAB L501.1115 >60 mL/min Low EST GFR - AA 35 Result Comment: GFR Calc LAB L501.1255 ml/min Normal Estimated CRCL 17.09 LAB L501.1300 10-20 RATIO High BUN/CRE 22.7 LAB L501.2200 8.5-10 mg/dL High .1 CA 10.5 LAB L501.5300 136-14 mmol/L Normal 5 NA 140 LAB L501.5600 3.5-5. mmol/L High 1 K 5.3 LAB L501.5900 98-107 mmol/L High CL 112 LAB L501.6100 21.0-3 mmol/L Low 2.0 CO2 19.0 LAB L501.6200 5-15 Normal GAP 9 Performed By: #### L500.2500, L501.4010 #### [facility] [address] [facility] [place], [place], [address] TROPONIN-I Collected: 07/28/2018 Status: F Source: [place] 4:19 PM [facility] REPOSITORY TYPE CODE TESTS RESULT OUT OF RANGE REFERENCE UNITS LAB L501.4010 <0.045 ng/mL High 0.082 TROPONIN-I Result Comment: TROPONIN-I EXPECTED VALUES <0.045 Negative 0.045 - 0.590 Consistent with Cardiac Damage > OR = 0.600 Critical Value Not every elevated troponin is indicative of IL. These values should be used with clinical judgement in examining the patient's clinical picture for diagnosis. To establish a diagnosis of IL versus myocardial injury, there must be a demonstrated rise and/or fall in the troponin values, in addition to ischemic symptoms, EKG changes, new regional wall motion abnormality, and/or angiographical evidence. PLEASE NOTE: REFERENCE RANGES EDITED 18 Performed By: #### L500.2500, L501.4010 #### [facility] [address] [place], [address] BNP,B-TYPE NATRIURETIC Collected: 07/28/2018 Status: F Source: [place] 4:19 PM [facility] REPOSITORY TYPE CODE TESTS RESULT OUT OF RANGE REFERENCE UNITS LAB L503.6620 0-100 pg/mL High B-TYPE 2071.7 DONNA PEP Performed By: #### L503.6620 #### [facility] [address] [place], [address] HEMOGLOBIN A1C Collected: 02/01/2018 Status: F Source: [place] 9:56 AM [facility] REPOSITORY TYPE CODE TESTS RESULT OUT OF RANGE REFERENCE UNITS LAB L501.9985 4.2-6.3 % High HGB A1C 6.8 Performed By: #### L501.9985 #### [facility] [address] [place] [place], [address] CBC W/DIFF, AUTOMATED Collected: 02/01/2018 Status: F Source: [place] 9:56 AM [facility] REPOSITORY TYPE CODE TESTS RESULT OUT OF RANGE REFERENCE UNITS LAB L100.1000 4.4-11.0 K/mm3 Normal WBC 7.6 LAB L100.1200 4.2-5.4 M/mm3 Low RBC 3.95 LAB L100.1300 12.0-15.0 g/dl Low HGB 11.1 LAB L100.1400 37-47 % Low HCT 34.8 LAB L100.1500 81-99 fL Normal MCV 88.1 LAB L100.1600 27.0-32.0 pg Normal MCH 28.1 LAB L100.1700 32-36 g/gl Low MCHC 31.9 LAB L100.1810 11.6-14.6 % High RDW CV 15.4 LAB L100.1820 35.1-43.9 fl High RDW SD 49.4 LAB L100.1900 150-450 K/mm3 Normal PLT 260 LAB L100.2000 6.2-12.0 fl Normal MPV 11.4 LAB L100.2100 47-70 % High NEUT% 72.8 LAB L100.2200 19-41 % Low LY% 16.5 LAB L100.2300 0-10 % Normal MONO% 8.0 LAB L100.2400 0-5 % Normal EO% 2.1 LAB L100.2500 0-1 % Normal BASO% 0.5 LAB L100.2550 0.0-0.9 % Normal IM GRAN % 0.100 Result Comment: IG% - Immature Granulocytes (promyelocytes, myelocytes and metamyelocytes) > 1% indicates that a LEFT SHIFT is Present. LAB L100.2620 2.0-7.7 X10 3/uL Normal Absolute Neut 5.6 LAB L100.2720 0.83-4.51 X10 3/ul Normal Absolute Lymph 1.26 Performed By: #### L100.0100 #### [facility] [address] [place], [place], [address] COMPREHENSIVE METABOLIC Collected: 02/01/2018 Status: F Source: [facility] 9:56 AM [facility] REPOSITORY TYPE CODE TESTS RESULT OUT OF RANGE REFERENCE UNITS LAB L501.0100 74-106 mg/dL High GLU 172 Result Comment: Fasting Glucose result greater than or equal to 126 mg/dL suggests DIABETES MELLITUS per A.D.A. criteria. Please note revised GLUCOSE reference range effective 2017. LAB L501.1000 7-18 mg/dL High BUN 26 LAB L501.1100 0.55-1.02 mg/dL High CREAT,SERUM 1.81 Result Comment: The validity of the calculated GFR AND GFRAA in patients over 70 years has not been determined. Clinical correlation is essential. LAB L501.1110 >60 mL/min Low EST GFR 28 Result Comment: Non- GFR Calc LAB L501.1115 >60 mL/min Low EST GFR - AA 34 Result Comment: GFR Calc LAB L501.1300 10-20 RATIO Normal BUN/CRE 14.4 LAB L501.1500 6.4-8.2 g/dL T Normal PROT 7.1 LAB L501.1800 3.2-5.0 g/dL Low ALB 2.9 LAB L501.1950 2.2-4.2 g/dL Normal GLOB 4.2 LAB L501.2000 0.9-2.4 RATIO Low A/G 0.7 LAB L501.2200 8.5-10.1 mg/dL CA Normal 10.1 LAB L501.4100 15-37 U/L Normal AST 15 LAB L501.4305 45-117 U/L Normal ALK P 54 LAB L501.4405 13-56 U/L Normal ALT 14 LAB L501.4600 0.20-1.00 mg/dL T Normal BILI 0.30 LAB L501.5300 136-145 mmol/L NA Normal 140 LAB L501.5600 3.5-5.1 mmol/L K Normal 4.7 LAB L501.5900 98-107 mmol/L CL Normal 107 LAB L501.6100 21.0-32.0 mmol/L Normal CO2 21.0 LAB L501.6200 5-15 Normal GAP 12 Performed By: #### L500.4050, L500.4100, L501.9520, L506.0400 #### [facility] [address] [facility] [place], [place], [id number] LIPID PROFILE Collected: 02/01/2018 Status: F Source: [place] 9:56 AM [facility] REPOSITORY TYPE CODE TESTS RESULT OUT OF RANGE REFERENCE UNITS LAB L501.4900 200 mg/dL High CHOL 421 Result Comment: <200 mg/dL Desirable 200-240 mg/dL Borderline >240 mg/dL High Risk LAB L501.5000 mg/dL High TRIG 917 Result Comment: The drugs N-Acetylcysteine and Metamizole may falsely depress this assay. TRIGLYCERIDE IS GREATER THAN 400 mg/dL. LDL RESULT IS INVALID AND WILL NOT BE REPORTED. Serum Triglycerides Reference Interval Normal <150 mg/dL Borderline high 150 - 199 mg/dL High 200 - 499 mg/dL Very High > or = 500 mg/dL LAB L501.6400 mg/dL Low HDL 38 Result Comment: The drugs N-Acetylcysteine and Metamizole may falsely depress this assay. Reference Range HDL <40 mg/dL Low HDL Cholesterol HDL >or= 60 mg/dL High HDL Cholesterol LAB L501.6500 0-130 mg/dL Test Normal not performed LDL LAB L501.6600 5-40 mg/dL Test Normal not performed VLDL Performed By: #### L500.4050, L500.4100, L501.9520, L506.0400 #### [facility] [address] [place], [place], [id number] THYROID STIM HORMONE Collected: 02/01/2018 Status: F Source: [place] (TSH) 9:56 AM [facility] REPOSITORY TYPE CODE TESTS RESULT OUT OF RANGE REFERENCE UNITS LAB L501.9520 0.358-3.74 uIU/mL Normal TSH 1.32 Performed By: #### L500.4050, L500.4100, L501.9520, L506.0400 #### [facility] [address] [place], [address] T4 FREE DIRECT Collected: 02/01/2018 Status: F Source: [place] 9:56 AM [facility] REPOSITORY TYPE CODE TESTS RESULT OUT OF RANGE REFERENCE UNITS LAB L506.0400 0.76-1.46 ng/dL Normal T4 FREE 1.21 DIRECT Performed By: #### L500.4050, L500.4100, L501.9520, L506.0400 #### [facility] [address] [place], [address] VITAMIN B12 Collected: 02/01/2018 Status: F Source: [place] 9:56 AM [facility] REPOSITORY TYPE CODE TESTS RESULT OUT OF RANGE REFERENCE UNITS LAB L503.0105 211-911 pg/mL Normal Vitamin B12 401 Performed By: #### L503.0105, L506.1000 #### [facility] [address] [place], [address] VITAMIN D,25 HYDROXY Collected: 02/01/2018 Status: F Source: [place] 9:56 AM [facility] REPOSITORY TYPE CODE TESTS RESULT OUT OF REFERENCE UNITS RANGE LAB L506.1000 29.95-100.01 ng/mL Low Vitamin D 10.2 25-OH Result Comment: Vitamin D 25(OH) Status Range Deficiency <20 ng/mL (50nmol/L) Insuffciency 20 - 30 ng/mL (50 - 75 nmol/L) Sufficiency 30 - 100 ng/mL (75 - 250 nmol/L) Toxicity >100 ng/mL (>250 nmol/L) Performed By: #### L503.0105, L506.1000 #### [facility] [address] [place], [address] THYROID ANTIBODIES Collected: 02/01/2018 Status: F Source: [place] 9:56 AM [facility] REPOSITORY TYPE CODE TESTS RESULT OUT OF RANGE REFERENCE UNITS LAB L3300.6900 0-34 IU/mL Normal TPO AB 25 6676 LAB L3300.7027 0.0-0.9 IU/mL Normal TG AB < 1.0 Result Comment: Thyroglobulin Antibody measured by nap- Naturally Attached Parents Methodology Performed at: - [facility] [id number] Shock Absorption Floor Layer: Gigi Umanzor PhD, Phone: [phone] Performed By: #### L3300.7011 #### [facility] (refer to report for specific site) refer to report for address and phone number BASIC METABOLIC Collected: 08/30/2017 Status: F Source: [place] PROFILE (BMP) 10:48 AM [facility] REPOSITORY TYPE CODE TESTS RESULT OUT OF RANGE REFERENCE UNITS LAB L501.0100 70-110 mg/dL High GLU 208 Result Comment: Glucose result greater than or equal to 200 mg/dL suggests DIABETES MELLITUS per A.D.A. criteria. LAB L501.1000 7-18 mg/dL High BUN 33 LAB L501.1100 0.55-1.02 mg/dL High CREAT,SERUM 1.60 Result Comment: The validity of the calculated GFR AND GFRAA in patients over 70 years has not been determined. Clinical correlation is essential. LAB L501.1110 >60 mL/min Low EST GFR 33 Result Comment: Non- GFR Calc LAB L501.1115 >60 mL/min Low EST GFR - AA 40 Result Comment: GFR Calc LAB L501.1300 10-20 RATIO High BUN/CRE 20.6 LAB L501.2200 8.5-10.1 mg/dL High CA 10.4 LAB L501.5300 136-145 mmol/L NA Normal 141 LAB L501.5600 3.5-5.1 mmol/L K Normal 5.0 LAB L501.5900 98-107 mmol/L High CL 112 LAB L501.6100 21.0-32.0 mmol/L Low CO2 19.0 LAB L501.6200 5-15 Normal GAP 10 Performed By: #### L500.2500 #### [facility] [address] [place], [address] PTHIN Collected: 08/30/2017 Status: F Source: [place] 10:48 AM [facility] REPOSITORY TYPE CODE TESTS RESULT OUT OF RANGE REFERENCE UNITS LAB L509.1000 18.4-80.1 pg/mL High PTHIN 250.0 Result Comment: Please Note: PTH INTACT METHOD AND REFERENCE RANGE CHANGE Effective 08/23/2017. Performed By: #### L509.1000 #### [place] [facility] [address] [place], [address] VITAMIN D 1,25-DIHYDROXY Collected: 08/30/2017 Status: F Source: [place] 10:48 AM [facility] REPOSITORY TYPE CODE TESTS RESULT OUT OF RANGE REFERENCE UNITS LAB L3300.0960 19.9-79.3 pg/mL Low VITD 1,25 10.6 63218 Result Comment: Performed at: [address] [id number] Shock Absorption Floor Layer: Chandan Rosario MD, Phone: [phone] Performed By: #### L3300.0960 #### [facility] ([facility]er to [facility] for specific site) refer to report for address and phone number MISCELLANEOUS LAB Collected: 08/30/2017 Status: F Source: [place] PROC[place]URE 10:48 AM [facility] REPOSITORY Order Comment: Test(s) Ordered: #[id number] TYPE CODE TESTS RESULT OUT OF RANGE REFERENCE UNITS LAB L801.1541 Normal [facility] TEST Result Comment: TEST RESULT LIMITS PTHrP (PTH-Related Peptide) <1.1 pmol/L Reference Range: All Ages: <2.0 The PTHrP assay should not be used to exclude cancer or screen tumor patients for humoral hypercalcemia of malignancy (HHM). The results should always be assessed in conjunction with the patient's medical history, clinical examination, and other findings. If test results are clinically discordant, please contact the laboratory. [facility] AT [facility]. ORIGINAL REPORT ON FILE IN LAB CONTAINS ADDITIONAL TEST SITE INFORMATION. Performed By: #### L801.1541 #### [facility] [address], [address] ALLERGIES ALLERGIES DATE TYPE / CODE NAME / CODE REACTION SEVERITY SOURCE 07/28/2018 Drug Gadolinium-MRI Other Unknown [place] Allergy/416 Contrast [facility] 457261([facility] Medium/[id number]([facility] ED CT) XNORM) Repository 07/28/2018 Drug epinephrine/[id number] Other Unknown [place] Allergy/416 774(RXNORM) [facility] 439178([facility] ED CT) Repository 07/28/2018 Drug metformin/[id number] Other Unknown [place] Allergy/416 4(RXNORM) [facility] 608044([facility] ED CT) Repository 11/25/2015 Drug atorvastatin Other Unknown [place] Allergy/416 calcium/[id number]( [facility] 606433([facility] RXNO) [facility] ED CT) Repository ENCOUNTERS ENCOUNTERS ADMIT/DISCHARGE ACCOUNT ADMITTING ENCOUNTER LOCATION SOURCE NUMBER CLASS 08/07/2018 [id number] Ambulatory [place] 0 [facility] ing:LAB.FUTUR Repository E 08/02/2018 [id number] Ambulatory [place] 1 [facility] ing:BFHLAB Repository 07/28/2018/ [id number] Ambulatory BMSBuilding:W [place] 8 6 [facility] Repository 07/28/2018 [id number] Ambulatory BMSBuilding:W [place] 4 [facility] Repository 07/28/2018/ [id number] Clara Nguyen Inpatient [place] 8 9 Encounter [facility] ing:PCURoom: Repository [id number]: 1 07/28/2018 [id number] Clara Nguyen Ambulatory BMSBuilding:B [place] 1 [facility] Repository 07/28/2018 [id number] Clara Nguyen Ambulatory BMSBuilding:B [place] 7 [facility] Repository 07/28/2018 [id number] White, Clara Ambulatory BMSBuilding:B [place] 4 [facility] Repository 07/28/2018 [id number] White, Clara Ambulatory BMSBuilding:B [place] 5 [facility] Repository 02/01/2018 [id number] Ambulatory [place] 6 [facility] ing:BFHLAB Repository 10/11/2017 [id number] Ambulatory BMSBuilding:B [place] 9 [facility] Repository 10/10/2017 [id number] Ambulatory BMSBuilding:B [place] 3 [facility] Repository 08/30/2017 [id number] Ambulatory [place] 9 [facility] ing:LAB.DUY Repository E PAYERS PAYERS ENCOUNTER GUARANTOR PAYER SUBSCRIBER SOURCE 08/07/2018 DEMETRIS A Primary DEMETRIS A [place] [id number] [facility] Community [place] MEDICARE[id number] Number: Repository [address]Mgq: 330 [id number] [phone] () Date:3918-97-97MB [address] [place] [address] 00891VY: 08/07/2018 Secondary NOT GIVENUNK [place] Insurance:SELF PAY [facility] Number: Effective Repository Date:2018-08-03 08/02/2018 DEMETRIS A Primary DEMETRIS A [place] [id number] Insurance:[employer] [employer] CARTERDOB: Community [place] [employer] MEDICAREPolicy [id number] Number: Repository [address]Ini: 330 [id number] [phone] () Date:2323-63-99AM [address] [place] [address] 46947VG: 08/02/2018 Secondary NOT GIVENUNK [place] Insurance:SELF PAY [facility] Number: Effective Repository Date:2018-08-02 07/28/2018 DEMETRIS A Primary DEMETRIS A [place] [id number] Insurance:[employer] CARTERDOB: Community [employer] MED[place] [id number] Number: Repository [phone]: (330) [id number] [phone] (HP) Date:1336-68-13AD [facility] [place] [address]MF: 07/28/2018 Secondary NOT GIVENUNK [place] Insurance:SELF PAY [facility] Number: Effective Repository Date:2018-07-28 07/28/2018 DEMETRIS A Primary DEMETRIS A [place] [id number] Insurance:[facility] Community [employer] MEDICAREPolicy [id number] Number: Repository [address]Mlo: (330) [id number] [phone] (HP) Date:7345-98-61TZ [address] [place] [address] 13196HF: 07/28/2018 Secondary NOT GIVENUNK [place] Insurance:SELF PAY [facility] Number: Effective Repository Date:2018-07-28 07/28/2018 DEMETRIS A Primary DEMETRIS A [place] [id number] Insurance:[facility] Community [employer] [employer]Policy [id number], [place] Number: Repository [phone]: (330) [id number] [phone] (HP) Date:4532-60-86BJ [address] [place] [address] 76184LK: 07/28/2018 Secondary NOT GIVENUNK [place] Insurance:SELF PAY [facility] Number: Effective Repository Date:2018-07-28 07/28/2018 Demetris A Primary Demetris A [place] [id number] Insurance:[facility]ARE [facility] Community [place] MEDIC[place] [id number] Number: Repository [address]Wvq: (330) [id number] [phone] (HP) Date:2450-99-21LL [address] [place] [address] 51490UV: 07/28/2018 Secondary NOT GIVENUNK [place] Insurance:SELF PAY [facility] Number: Effective Repository Date:2018-07-28 07/28/2018 DEMETRIS A Primary DEMETRIS A [place] [id number] Insurance:[facility] [employer] CARTERDOB: Community [employer] [employer] [id number] Number: Repository [address]Hlp: 330 [id number] [phone] (HP) Date:9993-54-50YY [address] [place] [address] 17815QO: 07/28/2018 Secondary NOT GIVENUNK [place] Insurance:SELF PAY [facility] Number: Effective Repository Date:2018-07-28 07/28/2018 DEMETRIS A Primary DEMETRIS A [place] [id number] Insurance:[facility] Community [place] [employer]Policy [id number] Number: Repository [phone]: (330 [id number] [phone] (HP) Date:5812-27-16UU [address] [place] [address] 69483EM: 07/28/2018 Secondary NOT GIVENUNK [place] Insurance:SELF PAY [facility] Number: Effective Repository Date:2018-07-28 07/28/2018 DEMETRIS A Primary DEMETRIS A [place] [id number] Insurance:[facility] CARE BASKINDOB: Community [employer] MEDIC[employer]Policy [id number], [place] Number: Repository [phone]: 330 [id number] [phone] (HP) Date:0029-55-12WT [address] [place] [address] 63173FG: 07/28/2018 Secondary NOT GIVENUNK [place] Insurance:SELF PAY [facility] Number: Effective Repository Date:2018-07-28 02/01/2018 Demetris A Primary Demetris A [place] [id number] Insurance:[employer] CartDOB: Community [place] MEDICARE[place] [id number], [place] Number: Repository [phone]: (330) [id number] [phone] (HP) Date:5193-57-63FR [address] [place] [address] 55993YN: 02/01/2018 Secondary NOT GIVENUNK [place] Insurance:SELF PAY [facility] Number: Effective Repository Date:2018-02-01 10/11/2017 Demetris A Primary Demetris A [place] [id number] Insurance:[facility] C[employer] CarterDOB: Community [place] MEDICARE[place] [id number], [place] Number: Repository [address]Bvi: (330) [id number] [phone] (HP) Date:7150-40-84YW [address] [address]EN: 10/11/2017 Secondary NOT GIVENUNK [place] Insurance:SELF PAY [facility] Number: Effective Repository Date:2017-09-14 10/10/2017 Demetris A Primary Demetris A [place] [id number] Insurance:[employer] CarterDOB: Community [place] MEDICARE[place] [id number], [place] Number: Repository [address]Wdl: (330) [id number] [phone] (HP) Date:8034-81-90YJ [address] [address]HI: 10/10/2017 Secondary NOT GIVENUNK [place] Insurance:SELF PAY [facility] Number: Effective Repository Date:2017-10-10 08/30/2017 Demetris A Primary Demetris A [place] [id number] Insurance:[facility] [employer] CarterDOB: Community [place] MEDICARE[place] [id number], [place] Number: Repository [address]Lqv: (330) [id number] [phone] (HP) Date:7976-43-85DR [address] [place] [address] 29947MS: 08/30/2017 Secondary NOT GIVENUNK [place] Insurance:SELF PAY [facility] Effective Repository Date:2017-08-24
== END ==
PROVIDERS: Family Provider Family Medicine; PCP Family Medicine; Visit Provider Family Medicine
DX: N18.4 Chronic kidney disease, stage 4 (severe) (principal); N17.9 Acute kidney failure, unspecified; R06.00 Dyspnea, unspecified
CPT/HCPCS: 36415; 80048; 83880; 85025; 85027

== ENCOUNTER → 2018-08-07 10:39 | Outpatient (CLI) | payer MEDICARE, SELFPAY ==
[2018-07-28 21:28] VITALS: BMI 23.7
[2018-08-07 12:04] LABS: Absolute Lymphocyte Count 1.47 X10^3/ul (0.83-4.51); Absolute Neutrophil Count 4.1 X10^3/uL (2.0-7.7); Basophil# 0.03 X10^3/uL; Basophil% 0.5 % (0-1); Eosinophil# 0.18 X10^3/uL; Eosinophils% 2.9 % (0-5); Hematocrit 31.7 % (37-47); Lymphocyte # 1.47 X10^3/ul (4.0); Lymphocyte % 23.4 % (19-41); Mean Corp Hgb Conc 31.5 g/gl (32-36); Mean Corpuscular Hgb 28.9 pg (27.0-32.0); Mean Corpuscular Volume 91.6 fL (81-99); Mean Platelet Vol. 11.5 fl (6.2-12.0); Monocyte# 0.54 X10^3/uL; Monocyte% 8.6 % (0-10); Neutrophil # 4.05 X10^3/uL (2.7-7.7); Neutrophil % 64.4 % (47-70); Platelet Count 277 K/mm3 (150-450); RBC Distribution Width CV 16.6 % (11.6-14.6); RBC Distribution Width SD 55.3 fl (35.1-43.9); Red Blood Count 3.46 M/mm3 (4.2-5.4); White Blood Count 6.3 K/mm3 (4.4-11.0)
[2018-08-07 12:06] LABS: POSITIVE COUNT NO; POSITIVE DIFFERENTIAL NO; POSITIVE MORPHOLOGY NO
[2018-08-07 12:48] LABS: Anion Gap 12 (5-15); BUN 46 mg/dL (7-18); BUN/Creat Ratio 22.8 RATIO (10-20); Calcium,Total 10.4 mg/dL (8.5-10.1); Chloride 113 mmol/L (98-107); Creatinine, Serum 2.02 mg/dL (0.55-1.02); EST Glomerular Filtration Rate 25 mL/min (>60); Est Glom Filt Rate - Afr Amer 30 mL/min (>60); Glucose 168 mg/dL (74-106); Potassium 4.9 mmol/L (3.5-5.1); Sodium Level 143 mmol/L (136-145)
[2018-08-07 12:51] LABS: BNP,B-Type NATRIURETIC PEPTIDE 1696.9 pg/mL (0-100)
== END ==
PROVIDERS: Family Provider Family Medicine; PCP Family Medicine; Visit Provider Family Medicine
DX: N18.4 Chronic kidney disease, stage 4 (severe) (principal); E87.5 Hyperkalemia; I50.9 Heart failure, unspecified
CPT/HCPCS: 36415; 80048; 83880; 85025

== ENCOUNTER → 2018-08-22 11:44 | Outpatient (CLI) | payer MEDICARE, SELFPAY ==
[2018-07-28 21:28] VITALS: BMI 23.7
[2018-08-22 15:57] LABS: Absolute Lymphocyte Count 0.92 X10^3/ul (0.83-4.51); Absolute Neutrophil Count 2.7 X10^3/uL (2.0-7.7); Basophil# 0.01 X10^3/uL; Basophil% 0.2 % (0-1); Eosinophil# 0.22 X10^3/uL; Eosinophils% 5.2 % (0-5); Hematocrit 32.8 % (37-47); Hemoglobin 10.5 g/dl (12.0-15.0); Lymphocyte # 0.92 X10^3/ul (4.0); Lymphocyte % 21.7 % (19-41); Mean Corpuscular Hgb 29.2 pg (27.0-32.0); Mean Corpuscular Volume 91.4 fL (81-99); Mean Platelet Vol. 11.5 fl (6.2-12.0); Monocyte% 9.4 % (0-10); Neutrophil # 2.68 X10^3/uL (2.7-7.7); Neutrophil % 63.3 % (47-70); Platelet Count 176 K/mm3 (150-450); RBC Distribution Width CV 16.1 % (11.6-14.6); RBC Distribution Width SD 54.1 fl (35.1-43.9); Red Blood Count 3.59 M/mm3 (4.2-5.4); White Blood Count 4.2 K/mm3 (4.4-11.0)
[2018-08-22 16:15] LABS: ALB/GLOB Ratio 0.8 RATIO (0.9-2.4); AST(SGOT) 13 U/L (15-37); Alanine Aminotransfer ALT/SGPT 11 U/L (13-56); Albumin, Serum 2.8 g/dL (3.2-5.0); Alkaline Phosphatase 44 U/L (45-117); Anion Gap 10 (5-15); BUN 41 mg/dL (7-18); BUN/Creat Ratio 21.6 RATIO (10-20); Calcium,Total 10.5 mg/dL (8.5-10.1); Chloride 114 mmol/L (98-107); EST Glomerular Filtration Rate 27 mL/min (>60); Est Glom Filt Rate - Afr Amer 32 mL/min (>60); Globulin 3.7 g/dL (2.2-4.2); Glucose 154 mg/dL (74-106); Potassium 4.5 mmol/L (3.5-5.1); Protein, Total 6.5 g/dL (6.4-8.2); Sodium Level 141 mmol/L (136-145)
[2018-08-22 16:17] LABS: POSITIVE COUNT NO; POSITIVE DIFFERENTIAL NO; POSITIVE MORPHOLOGY NO
[2018-08-22 16:45] LABS: BNP,B-Type NATRIURETIC PEPTIDE 1555.9 pg/mL (0-100)
--- OUTSIDE RECORDS SUMMARY | 2018-11-23 16:01 | XMS RPT_ITS ---
:1935 Author Organization OHIP Support Name Relationship Address Phone JAREDANDRIA SUAREZ Unavailable [address] + [place] [address] R Unavailable Unavailable Unavailable STARCHER, FELIPE Unavailable [address] + [place] [address] ANDRIA COLEMAN Unavailable [address] + [place] [address] R Unavailable Unavailable Unavailable STARCHER, FELIPE Unavailable [address] + [place] [address] ANDRIA COLEMAN Unavailable [address] + [place] [address] R Unavailable Unavailable Unavailable STARCHER, FELIPE Unavailable [address] + [place] [address] ANDRIA COLEMAN Unavailable [address] + [place] [address] R Unavailable Unavailable Unavailable STARCHER, FELIPE Unavailable [address] + [place] [address] ANDRIA COLEMAN Unavailable [address] + [place] [address] R Unavailable Unavailable Unavailable STARCHER, FELIPE Unavailable [address] + [place] [address] ANDRIA COLEMAN Unavailable [address] + [place] [address] R Unavailable Unavailable Unavailable STARCHER, FELIPE Unavailable [address] + [place] [address] ANDRIA COLEMAN Unavailable [address] + [place] [address] R Unavailable Unavailable Unavailable STARCHER, FELIPE Unavailable [address] + [place] [address] ANDRIA COLEMAN Unavailable [address] + [place] [address] R Unavailable Unavailable Unavailable STARCHER, FELIPE Unavailable [address] + [place] [address] JARED ANDRIA Unavailable [address] + [place] [address] R Unavailable Unavailable Unavailable STARCHER, FELIPE Unavailable [address] + [place] [address] ANDRIA COLEMAN Unavailable [address] + [place] [address] R Unavailable Unavailable Unavailable STARCHER, FELIPE Unavailable [address] + [place] [address] ANDRIA COLEMAN Unavailable [address] + [place] [address] R Unavailable Unavailable Unavailable STARCHER, FELIPE Unavailable [address] + [place] [address] ANDRIA COLEMAN Unavailable [facility] [address] + [place] [address] R Unavailable Unavailable Unavailable STARCHER, FELIPE Unavailable [address] + [place] [address] ANDRIA COLEMAN Unavailable [facility] + [place] [address] R Unavailable Unavailable Unavailable STARCHER, FELIPE Unavailable [address] + [place] [address] ANDRIA COLEMAN Unavailable [facility] + [place] [address] R Unavailable Unavailable Unavailable STARCHER, FELIPE Unavailable [address] + [place] [address] ANDRIA COLEMAN Unavailable [facility] [address] + [place] [address] R Unavailable Unavailable Unavailable STARCHER, FELIPE Unavailable [address] + [place] [address] Care Team Providers Name Role Phone Rolando Beyer Attending Unavailable Clara Nguyen Referring Unavailable Rolando Beyer Attending Unavailable Clara Nguyen Referring Unavailable Flora Gary SUPERVISOR ELECTRON[employer] COILS-C Attending Unavailable Malys, Jenni Referring Unavailable Malys, Jenni Attending Unavailable Malys, Jenni Primary Care Unavailable Malys, Jenni Attending Unavailable Malys, Jenni Referring Unavailable Malys, Jenni Primary Care Unavailable Malys, Jenni Attending Unavailable Malys, Jenni Primary Care Unavailable Taryn Galindo Attending Unavailable Kb Redmond Attending Unavailable Malys, Jenni Primary Care Unavailable Malys, Jenni Primary Care Unavailable White, Clara Admitting Unavailable Ashelfah, Ghasem Attending Unavailable White, Clara Admitting Unavailable White, Clara Attending Unavailable Malys, Jenni Primary Care Unavailable White, Clara Consulting Unavailable White, Clara Admitting Unavailable Malys, Jenni Primary Care Unavailable Kittoe, Miquel Consulting Unavailable Kittoe, Miquel Attending Unavailable White, Clara Admitting Unavailable Malys, [...] TYPE CONDITION / CODE ATTENDING STATUS SOURCE 09/18/2018 Unknown R06.00 - Dyspnea, Malys, Jenni Active [place] unspecified / Community R06.00(ICD-10) Hospital Repository 09/18/2018 Unknown J18.9 - Pneumonia, Malys, Jenni Active [place] unspecified organism / Community J18.9(ICD-10) Hospital Repository 09/07/2018 Unknown R19.7 - Diarrhea, Malys, Jenni Active [place] unspecified / Community R19.7(ICD-10) Hospital Repository 08/22/2018 Unknown N18.4 - Chronic kidney Malys, Jenni Active [place] disease, stage 4 Community (severe) / Hospital N18.4(ICD-10) Repository 08/22/2018 Unknown N17.9 - Acute kidney Malys, Jenni Active [place] failure, unspecified / Community N17.9(ICD-10) Hospital Repository 08/07/2018 Unknown E87.5 - Hyperkalemia / Malys, Jenni Active [place] E87.5(ICD-10) [facility] Repository 08/07/2018 Unknown I50.9 - Heart failure, Malys, Jenni Active [place] unspecified / Community I50.9(ICD-10) Hospital Repository 08/17/2018 Unknown R06.02 - Shortness of Kayleen, Rolando Active [place] breath / Community R06.02(ICD-10) Hospital Repository 08/17/2018 Unknown R00.0 - Tachycardia, Kayleen, Rolando Active [place] unspecified / Community R00.0(ICD-10) Hospital Repository 08/17/2018 Unknown R94.31 - Abnormal Kayleen, Rolando Active [place] electrocardiogram Community [ECG] [EKG] / Hospital R94.31(ICD-10) Repository 08/17/2018 Unknown I13.0 - Hypertensive Kayleen, Cuney Active [place] heart and chronic Community kidney disease with Hospital heart failure and Repository stage 1 through stage 4 chronic kidney disease, or unspecified chronic kidney disease / I13.0(ICD-10) 02/01/2018 Unknown R53.83 - Other fatigue Kb Redmond Active [place] / R53.83(ICD-10) [facility] Repository 02/01/2018 Unknown 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 / Repository E01.0(ICD-10) 02/01/2018 Unknown E83.52 - Hypercalcemia Kb Redmond Active [place] / E83.52(ICD-10) [facility] Repository 02/01/2018 Unknown N18.3 - Chronic kidney Kb Redmond Active [place] disease, stage 3 Community (moderate) / Hospital N18.3(ICD-10) Repository 02/01/2018 Unknown E55.9 - Vitamin D Kb Redmond Active [place] deficiency, Community unspecified / Hospital E55.9(ICD-10) Repository 02/01/2018 Unknown E11.9 - Type 2 RuyKb vargas Active [place] diabetes mellitus [facility] without complications Hospital / E11.9(ICD-10) Repository PROCEDURES PROCEDURES No Procedure Records FoundRESULTS RESULTS CHEST PA AND LATERAL Observed: 09/18/2018 Status: F Source: [place] 1:30 PM [facility] REPOSITORY [facility] Imaging Services [address] [place] [address] Chest PA and Lateral MR#: [id number] Acct: [id number] Name: DEMETRIS COLEMAN Rep #: [id number] : 1935 F 83 From: Jase Mralow MD PCP: Jenni Cornell DO Status: REG CLI Study: Chest PA and Lateral Date of Exam: 09/18/18 Exam# [id number] Ordering Dr: Jenni Cornell DO STUDY: X-RAY CHEST REASON FOR EXAM: Female, 83 years old. Pneumonia 6 weeks ago TECHNIQUE: 2 views COMPARISON: July 28, 2018. FINDINGS: The heart is normal in size. Small pleural effusions are noted bilaterally. No failure. No pneumonia. Normal visualized thoracic spine. Normal visualized ribs, clavicles, and shoulders. There is no demonstrated abnormality of the visualized soft tissue structures of the upper abdomen. RAD/Chest PA and Lateral IMPRESSION: Bilateral small pleural effusions. No acute findings in the lungs Electronically Signed: Jase Marlow MD at 7:30 EST Tel , Service support , CC: Jenni Cornell DO Steam Pan Sponger: Signed STOOL Observed: 09/07/2018 Status: F Source: [place] LACTOFERRIN/WBC 2:39 PM [facility] REPOSITORY Stool Lacto/WBC Normal Reference Range = Negative Fecal WBC Lactoferrin Negative: No Fecal WBC Lactoferrin present Performed By: #### M100.0605, M100.7900, M100.6796, M100.637 #### [facility] [address] [place], [place], [address] Observed: 09/07/2018 Status: F Source: [place] STOOL OCCULT BLOOD 2:39 PM [facility] IFOB REPOSITORY STOB iFOB Occult Blood Negative Performed By: #### M100.0605, M100.7900, M100.6796, M100.637 #### [facility] [address] [place], [address] Observed: 09/07/2018 Status: F Source: [place] CDIFF (MOLECULAR) 2:39 PM [facility] REPOSITORY Cdiff-Molecular Normal Reference Range = Negative C. Diff DNA Negative- No toxigenic C. Diff DNA Detected NAAT METHOD Testing was performed using nucleic acid amplification Performed By: #### M100.0605, M100.7900, M100.6796, M100.637 #### [facility] [address] [place], [address] Observed: 09/07/2018 Status: F Source: [place] ENTERIC PATHOGEN 2:39 PM [facility] PANEL STOOL REPOSITORY EP PANEL STOOL Not detected for Campylobacter group, Salmonella species, Shigella species, Vibrio Group, Yersinia enterocolitica, EHEC (Shiga Toxin 1, Shiga Toxin 2), Norovirus Gl/Gll, and Rotavirus A. Other common stool pathogens are not detected on this panel include: Aeromonas/Plesiomonas or parasites. Order testing for these organisms separately if suspected. This is an amplified DNA test which makes it both specific and sensitive. Normal Reference Range = Not Detected CAMPYLOBACTER Not Detected Salmonella Not Detected Shigella sp. Not Detected Shiga Toxin Not Detected Yersinia Not Detected VIBRIO Not Detected Norovirus Not Detected Rotavirus Not Detected Performed By: #### M100.0605, M100.7900, M100.6796, M100.637 #### [facility] [address] [facility] [place], [address] COMPREHENSIVE METABOLIC Collected: 08/22/2018 Status: F Source: [place] PROFIL 11:48 AM [facility] REPOSITORY TYPE CODE TESTS RESULT OUT OF RANGE REFERENCE UNITS LAB L501.0100 74-106 mg/dL High GLU 154 Result Comment: Fasting Glucose result greater than or equal to 126 mg/dL suggests DIABETES MELLITUS per A.D.A. criteria. Please note revised GLUCOSE reference range effective 2017. LAB L501.1000 7-18 mg/dL High BUN 41 LAB L501.1100 0.55-1.02 mg/dL High CREAT,SERUM 1.90 Result Comment: The validity of the calculated GFR AND GFRAA in patients over 70 years has not been determined. Clinical correlation is essential. LAB L501.1110 >60 mL/min Low EST GFR 27 Result Comment: Non- GFR Calc LAB L501.1115 >60 mL/min Low EST GFR - AA 32 Result Comment: GFR Calc LAB L501.1300 10-20 RATIO High BUN/CRE 21.6 LAB L501.1500 6.4-8.2 g/dL T Normal PROT 6.5 LAB L501.1800 3.2-5.0 g/dL Low ALB 2.8 LAB L501.1950 2.2-4.2 g/dL Normal GLOB 3.7 LAB L501.2000 0.9-2.4 RATIO Low A/G 0.8 LAB L501.2200 8.5-10.1 mg/dL High CA 10.5 LAB L501.4100 15-37 U/L Low AST 13 LAB L501.4305 45-117 U/L Low ALK P 44 LAB L501.4405 13-56 U/L Low ALT 11 LAB L501.4600 0.20-1.00 mg/dL T Normal BILI 0.30 LAB L501.5300 136-145 mmol/L NA Normal 141 LAB L501.5600 3.5-5.1 mmol/L K Normal 4.5 LAB L501.5900 98-107 mmol/L High CL 114 LAB L501.6100 21.0-32.0 mmol/L Low CO2 17.0 LAB L501.6200 5-15 Normal GAP 10 Performed By: #### L500.4050 #### [facility] [address] [place], [address] CBC W/DIFF, AUTOMATED Collected: 08/22/2018 Status: F Source: [place] 11:48 AM [facility] REPOSITORY TYPE CODE TESTS RESULT OUT OF RANGE REFERENCE UNITS LAB L100.1000 4.4-11.0 K/mm3 Low WBC 4.2 LAB L100.1200 4.2-5.4 M/mm3 Low RBC 3.59 LAB L100.1300 12.0-15.0 g/dl Low HGB 10.5 LAB L100.1400 37-47 % Low HCT 32.8 LAB L100.1500 81-99 fL Normal MCV 91.4 LAB L100.1600 27.0-32.0 pg Normal MCH 29.2 LAB L100.1700 32-36 g/gl Normal MCHC 32.0 LAB L100.1810 11.6-14.6 % High RDW CV 16.1 LAB L100.1820 35.1-43.9 fl High RDW SD 54.1 LAB L100.1900 150-450 K/mm3 Normal PLT 176 LAB L100.2000 6.2-12.0 fl Normal MPV 11.5 LAB L100.2100 47-70 % Normal NEUT% 63.3 LAB L100.2200 19-41 % Normal LY% 21.7 LAB L100.2300 0-10 % Normal MONO% 9.4 LAB L100.2400 0-5 % High EO% 5.2 LAB L100.2500 0-1 % Normal BASO% 0.2 LAB L100.2550 0.0-0.9 % Normal IM GRAN % 0.200 Result Comment: IG% - Immature Granulocytes (promyelocytes, myelocytes and metamyelocytes) > 1% indicates that a LEFT SHIFT is Present. LAB L100.2620 2.0-7.7 X10 3/uL Normal Absolute Neut 2.7 LAB L100.2720 0.83-4.51 X10 3/ul Normal Absolute Lymph 0.92 Performed By: #### L100.0100 #### [facility] [address] [place], [place], [address] BNP,B-TYPE NATRIURETIC Collected: 08/22/2018 Status: F Source: [place] PEPTIDE 11:48 AM [facility] REPOSITORY TYPE CODE TESTS RESULT OUT OF RANGE REFERENCE UNITS LAB L503.6620 0-100 pg/mL High B-TYPE 1555.9 DONNA PEP Performed By: #### L503.6620 #### [facility] [address] [place], [place], [address] CBC W/DIFF, AUTOMATED Collected: 08/07/2018 Status: F Source: [place] 10:40 AM [facility] REPOSITORY TYPE CODE TESTS RESULT OUT OF [...] Lymph 1.47 Performed By: #### L100.0100 #### [facility] [address] [place], [place], [address] BASIC METABOLIC Collected: 08/07/2018 Status: F Source: [place] PROFILE ([facility]) 10:40 AM [facility] REPOSITORY TYPE CODE TESTS RESULT OUT OF [...] GAP 12 Performed By: #### L500.2500 #### [facility] [address] [facility] [place], [address] BNP,B-TYPE NATRIURETIC Collected: 08/07/2018 Status: F Source: [place] PEPTIDE 10:40 AM [facility] REPOSITORY TYPE CODE TESTS RESULT OUT OF RANGE REFERENCE UNITS LAB L503.6620 0-100 pg/mL High B-TYPE 1696.9 DONNA PEP Performed By: #### L503.6620 #### [facility] [address] [facility] [place], [address] 12 LEAD ELECTROCARDIOGRAM Observed: 08/03/2018 Status: F Source: [place] 9:24 AM [facility] REPOSITORY [facility] Cardiovascular Services [address] [place] [address] 12 Lead EKG 07/29/18 0943 MR#: [id number] Acct: [id number] Name: DEMETRIS COLEMAN Rep #: [id number] : 1935 83 From: Rolando Beyer MD Attending Dr: Castillo Gan Status: DIS IN Ordering Dr: Miquel Nichols MD Date: 07/29/18 Location: [facility] Sex: F C Admitted: 07/28/18 Test Reason : Blood Pressure : / mmHG Vent. Rate [...] UNCONFIRMED Confirmed by KAYLEEN CLOUD, ROLANDO ([id number]), script editor MARCY PAYTON ([id number]) on 07/31/2018 4:07:48 PM Referred By: CHRISTA Confirmed By:ROLANDO BEYER MD 07/31/18 1607 Date Rolando Beyer MD CC: Miquel Nichols MD; Castillo Gan; Jenni Cornell DO Signed 12 LEAD ELECTROCARDIOGRAM Observed: 08/03/2018 Status: F Source: [place] 9:24 AM [facility] REPOSITORY [facility] Cardiovascular Services [address] [place] [address] 12 Lead EKG 07/28/18 2151 MR#: [id number] Acct: [id number] Name: DEMETRIS COLEMAN Rep #: [id number] : 1935 83 From: Rolando Beyer MD Attending Dr: Castillo Gan Status: DIS IN Ordering Dr: Clara Nguyen Date: 07/28/18 Location: [facility] Sex: F C Admitted: 07/28/18 Test Reason : [facility] Blood Pressure : / mmHG Vent. Rate [...] COMPARISON REQUIRED, DATA IS UNCONFIRMED Confirmed by ROLANDO BEYER MD ([id number]), script editor MARCY PAYTON ([id number]) on 07/31/2018 4:08:14 PM Referred By: AJAY Confirmed By:ROLANDO BEYER MD 07/31/18 1608 Date Rolando Beyer MD CC: Clara Cornell DO Signed 12 LEAD ELECTROCARDIOGRAM Observed: 08/03/2018 Status: F Source: [place] 9:24 AM [facility] REPOSITORY [facility] Cardiovascular Services [address] [place] [address] 12 Lead EKG 07/29/18 0356 MR#: [id number] Acct: [id number] Name: DEMETRIS COLEMAN Rep #: [id number] : 1935 83 From: Rolando Beyer MD Attending Dr: Castillo Gan Status: DIS IN Ordering Dr: Clara Nguyen Date: 07/29/18 Location: [facility] Sex: F C Admitted: 07/28/18 Test Reason [...] COMPARISON REQUIRED, DATA IS UNCONFIRMED Confirmed by ROLANDO BEYER MD ([id number]), script editor MARCY PAYTON ([id number]) on 07/31/2018 4:08:24 PM Referred By: AJAY Confirmed By:ROLANDO BEYER MD 07/31/18 0991 Date Rolando Beyer MD CC: Clara Cornell DO Signed 12 LEAD ELECTROCARDIOGRAM Observed: 08/03/2018 Status: F Source: [place] 9:23 AM [facility] REPOSITORY [facility] Cardiovascular Services [address] [place] [address] 12 Lead EKG 07/28/18 1810 MR#: [id number] Acct: [id number] Name: DEMETRIS COLEMAN Rep #: [id number] : 1935 83 From: Rolando Beyer MD Attending Dr: Castillo Gan Status: DIS IN Ordering Dr: Jenni Olivo MD Date: 07/28/18 Location: [facility] Sex: F C Admitted: 07/28/18 Test Reason [...] Abnormal ECG Confirmed by ROLANDO BEYER MD ([id number]), script editor MARCY PAYTON ([id number]) on 07/30/2018 2:18:32 PM Referred By: CHADWICK Confirmed By:ROLANDO BEYER MD 07/30/18 1418 Date Rolando Beyer MD CC: Castillo Gan; Jenni Olivo MD; Jenni Cornell DO Signed BNP,B-TYPE NATRIURETIC Collected: 08/02/2018 Status: F Source: [place] PEPTIDE 2:35 PM [facility] REPOSITORY TYPE CODE TESTS RESULT OUT OF RANGE REFERENCE UNITS LAB L503.6620 0-100 pg/mL High B-TYPE 1799.6 DONNA PEP Performed By: #### L503.6620 #### [facility] [address] [place], [address] CBC W/DIFF, AUTOMATED Collected: 08/02/2018 Status: F Source: [place] 2:24 PM [facility] REPOSITORY Order Comment: Send Results To: Dr. [...] Lymph 0.97 Performed By: #### L100.0100 #### [facility] [address] [place], [place], [address] BASIC METABOLIC Collected: 08/02/2018 Status: F Source: [place] PROFILE (BMP) 2:24 PM [facility] REPOSITORY Order Comment: Send Results To: Dr. [...] GAP 9 Performed By: #### L500.2500 #### [facility] [address] [facility] [place], [address] DISCHARGE SUMMARY Observed: 07/31/2018 Status: F Source: [place] 4:33 PM [facility] REPOSITORY [facility] Medical Records Department [address] [place] [address] Discharge Summary 07/31/18 1019 MR#: [id number] Acct: [id number] Name: DEMETRIS COLEMAN En Rep #: [id number] : 1935 83 From: Sangeeta BOND PCP: Jenni Cornell DO Status: DIS IN Y [id number] <Sangeeta Araujo - Last Filed: 07/31/18 10:33> [...] VARUN Doshi under the supervision of Dr. Gna. - Physical Exam Vital Signs Temp Pulse [...] are stable. This note was generated with Ramen dictation software. It may contain incorrect words, [...] 55 Code Visit Inpatient E AND M: 03840 Disch Hosp 07/31/18 1033 <Electronically signed by Sangeeta CLARKC> Date Sangeeta CLARKC 07/31/18 1633<Electronically signed by Castillo Gan MD> Cosigner Signature (if applicable): Date Castillo Gan MD CC: SUPERVISOR [employer]-Efren Araujo; Castillo Gan; Jenni Cornell DO Signed DISCHARGE INSTRUCTION Observed: 07/31/2018 Status: F Source: [place] 10:18 AM [facility] REPOSITORY [facility] Medical Records Department [address] [place] [address] Instructions for Home/Discharge Instructions 07/31/18 1012 MR#: [id number] Acct: [id number] Name: DEMETRIS COLEMAN Rep #: [id number] : 1935 83 From: Sangeeta Araujo SUPERVISOR ELECTRONIC COILSKourtneyC PCP: Jenni Cornell DO Status: ADM IN [...] BEDSIDE GLUCOSE Collected: 07/31/2018 Status: F Source: [place] 6:52 AM [facility] REPOSITORY TYPE CODE TESTS RESULT OUT OF REFERENCE UNITS RANGE LAB L501.080 70-110 mg/dL High BEDSIDE GLU 160 Result Comment: MANAGEMENT OF PATIENT CARE PER NURSING PROTOCOL Performed By: #### L501.080 #### [facility] Point of Care [facility] [place] [address] BASIC METABOLIC Collected: 07/31/2018 Status: F Source: [place] PROFILE (BMP) 5:10 AM [facility] REPOSITORY TYPE CODE TESTS RESULT OUT OF [...] GAP 12 Performed By: #### L500.2500 #### [facility] [address] [facility] [place], [place], [address] CBC-COMPLETE BLOOD CNT Collected: 07/31/2018 Status: F Source: [place] NO DIFF 5:10 AM [facility] REPOSITORY TYPE CODE TESTS RESULT OUT OF [...] MPV 10.5 Performed By: #### L100.0500 #### [facility] [address] [facility] [place], [place], [address] BEDSIDE GLUCOSE Collected: 07/30/2018 Status: F Source: [place] 8:35 PM [facility] REPOSITORY TYPE CODE TESTS RESULT OUT OF REFERENCE UNITS RANGE LAB L501.080 70-110 mg/dL High BEDSIDE GLU 220 Result Comment: MANAGEMENT OF PATIENT CARE PER NURSING PROTOCOL Performed By: #### L501.080 #### [facility] Point of Care [address] [place] [address] Observed: 07/30/2018 Status: F Source: [place] CULTURE, SPUTUM 6:30 PM [facility] REPOSITORY Order Date: 07/30/18 Gram Stain Acceptable Specimen? Yes (<25 Epithelial cells per/lpf) Gram Stain 2+ White Blood Cells Rare Gram positive cocci Resp. Culture Mixed normal respiratory mina. No Streptococcus pneumoniae, beta-hemolytic Streptococcus or Staphylococcus aureus isolated. Performed By: #### M100.0800 #### [facility] [address] [place], [address] BEDSIDE GLUCOSE Collected: 07/30/2018 Status: F Source: [place] 5:13 PM [facility] REPOSITORY TYPE CODE TESTS RESULT OUT OF REFERENCE UNITS RANGE LAB L501.080 70-110 mg/dL High BEDSIDE GLU 138 Result Comment: MANAGEMENT OF PATIENT CARE PER NURSING PROTOCOL Performed By: #### L501.080 #### [facility] Point of Care [address] [place] [address] ECHOCARDIOGRAM COMPLETE Observed: 07/30/2018 Status: F Source: [place] 1:49 PM [facility] REPOSITORY [facility] Cardiovascular Services [address] [place] [address] Echo Complete 07/30/18 0911 MR#: [id number] Acct: [id number] Name: DEMETRIS COLEMAN Rep #: [id number] : 1935 83 From: Rolando Beyer MD [...] Cornell Performed By: Franchesca Grullon, RENEE, RVT 07/30/181347 Date Rolando Beyer MD CC: Clara Nguyen; Castillo Gan; Jenni Cornell DO Date Dictated: 07/30/18910 Date Transcribed: 07/30/181347 Steam Pan Sponger: Signed BEDSIDE GLUCOSE Collected: 07/30/2018 Status: F Source: [place] 11:36 AM [facility] REPOSITORY TYPE CODE TESTS RESULT OUT OF REFERENCE UNITS RANGE LAB L501.080 70-110 mg/dL High BEDSIDE GLU 342 Result Comment: MANAGEMENT OF PATIENT CARE PER NURSING PROTOCOL Performed By: #### L501.080 #### [facility] Point of Care [address] [place], [place] [address] BEDSIDE GLUCOSE Collected: 07/30/2018 Status: F Source: [place] 6:50 AM [facility] REPOSITORY TYPE CODE TESTS RESULT OUT OF REFERENCE UNITS RANGE LAB L501.080 70-110 mg/dL High BEDSIDE GLU 159 Result Comment: MANAGEMENT OF PATIENT CARE PER NURSING PROTOCOL Performed By: #### L501.080 #### [facility] Point of Care [address] [place], [place] [address] CBC-COMPLETE BLOOD CNT Collected: 07/30/2018 Status: F Source: [place] NO DIFF 5:25 AM [facility] REPOSITORY TYPE CODE TESTS RESULT OUT OF [...] MPV 10.3 Performed By: #### L100.0500 #### [facility] [address] [place], [address] BASIC METABOLIC Collected: 07/30/2018 Status: F Source: [place] PROFILE (BMP) 5:25 AM [facility] REPOSITORY TYPE CODE TESTS RESULT OUT OF [...] GAP 12 Performed By: #### L500.2500 #### [facility] [facility] [address] [place], [place], [address] IRON+IRON BINDING Collected: 07/30/2018 Status: F Source: URMILA CAPACITY 5:25 AM [facility] REPOSITORY TYPE CODE TESTS RESULT OUT OF RANGE REFERENCE UNITS LAB L503.6075 250-450 ug/dL Low TIBC 229 Result Comment: Moderate Hemolysis, Result may be falsely increased. LAB L503.6150 50-170 ug/dL Normal IRON 71 Result Comment: Moderate Hemolysis, Result may be falsely increased. LAB L503.6250 15.0-55.0 % IRON Normal SATURATION 31.0 Performed By: #### L503.6030, L503.6550 #### [facility] [address] [facility] [address] FERRITIN Collected: 07/30/2018 Status: F Source: URMILA 5:25 AM [facility] REPOSITORY TYPE CODE TESTS RESULT OUT OF RANGE REFERENCE UNITS LAB L503.6550 8-252 ng/mL Normal FERRITIN 159 Performed By: #### L503.6030, L503.6550 #### [facility] [address] [facility] [address] BEDSIDE GLUCOSE Collected: 07/30/2018 Status: F Source: URM[place]A 1:34 AM [facility] REPOSITORY TYPE CODE TESTS RESULT OUT OF REFERENCE UNITS RANGE LAB L501.080 70-110 mg/dL High BEDSIDE GLU 235 Result Comment: MANAGEMENT OF PATIENT CARE PER NURSING PROTOCOL Performed By: #### L501.080 #### [facility] Point of Care [address] [place] [address] BEDSIDE GLUCOSE Collected: 07/30/2018 Status: F Source: U[place] 12:50 AM [facility] REPOSITORY TYPE CODE TESTS RESULT OUT OF REFERENCE UNITS RANGE LAB L501.080 70-110 mg/dL Low BEDSIDE GLU 69 Result Comment: MANAGEMENT OF PATIENT CARE PER NURSING PROTOCOL Performed By: #### L501.080 #### [facility] Point of Care [address] [place] [address] BEDSIDE GLUCOSE Collected: 07/29/2018 Status: F Source: URMILA 10:04 PM [facility] REPOSITORY TYPE CODE TESTS RESULT OUT OF REFERENCE UNITS RANGE LAB L501.080 70-110 mg/dL High BEDSIDE GLU 206 Result Comment: MANAGEMENT OF PATIENT CARE PER NURSING PROTOCOL Performed By: #### L501.080 #### [facility] Point of Care [address] [place] [address] BEDSIDE GLUCOSE Collected: 07/29/2018 Status: F Source: URM[place]A 4:18 PM [facility] REPOSITORY TYPE CODE TESTS RESULT OUT OF RANGE REFERENCE UNITS LAB L501.080 70-110 mg/dL Normal BEDSIDE GLU 93 Result Comment: MANAGEMENT OF PATIENT CARE PER NURSING PROTOCOL Performed By: #### L501.080 #### [facility] Point of Care [address] [place] [address] BEDSIDE GLUCOSE Collected: 07/29/2018 Status: F Source: [place] 11:36 AM [facility] REPOSITORY TYPE CODE TESTS RESULT OUT OF REFERENCE UNITS RANGE LAB L501.080 70-110 mg/dL High BEDSIDE GLU 292 Result Comment: MANAGEMENT OF PATIENT CARE PER NURSING PROTOCOL Performed By: #### L501.080 #### [facility] Point of Care [address] [place] [address] BEDSIDE GLUCOSE Collected: 07/29/2018 Status: F Source: [place] 6:45 AM [facility] REPOSITORY TYPE CODE TESTS RESULT OUT OF REFERENCE UNITS RANGE LAB L501.080 70-110 mg/dL High BEDSIDE GLU 207 Result Comment: MANAGEMENT OF PATIENT CARE PER NURSING PROTOCOL Performed By: #### L501.080 #### [facility] Point of Care [address] [place] [address] TROPONIN-I Collected: 07/29/2018 Status: F Source: U[place] 4:31 AM [facility] REPOSITORY Order Comment: 'TROP' Serial specimen #1, [...] Not every elevated troponin is indicative of MA. These values should be used with clinical judgement in examining the patient's clinical picture for diagnosis. To establish a diagnosis of MA versus myocardial injury, there must be a demonstrated rise and/or fall in the troponin values, in addition to ischemic symptoms, EKG changes, new regional wall motion abnormality, and/or angiographical evidence. PLEASE NOTE: REFERENCE RANGES EDITED 18 Performed By: #### L501.4010 #### [facility] [place], [address] CBC W/DIFF, AUTOMATED Collected: 07/29/2018 Status: F Source: [place] 4:31 AM [facility] REPOSITORY TYPE CODE TESTS RESULT OUT OF [...] Lymph 1.31 Performed By: #### L100.0100 #### [facility] [address] [place], [address] BASIC METABOLIC Collected: 07/29/2018 Status: F Source: [place] PROFILE (BMP) 4:31 AM [facility] REPOSITORY TYPE CODE TESTS RESULT OUT OF [...] 14 Performed By: #### L500.2500, L500.4100 #### [facility] [address] [facility] [address] [place], [place], [address] LIPID PROFILE Collected: 07/29/2018 Status: F Source: [place] 4:31 AM [facility] REPOSITORY TYPE CODE TESTS RESULT OUT OF [...] VLDL Performed By: #### L500.2500, L500.4100 #### [facility] [address] [facility] [place], [address] BEDSIDE GLUCOSE Collected: 07/29/2018 Status: F Source: [place] 3:52 AM [facility] REPOSITORY TYPE CODE TESTS RESULT OUT OF REFERENCE UNITS RANGE LAB L501.080 70-110 mg/dL High BEDSIDE GLU 213 Result Comment: MANAGEMENT OF PATIENT CARE PER NURSING PROTOCOL Performed By: #### L501.080 #### [facility] Point of Care [address] [facility] [place] [address] EMERGENCY DEPARTMENT Observed: 07/29/2018 Status: F Source: [place] SUMMARY 1:52 AM [facility] REPOSITORY [facility] Medical Records Department [address] [place] [address] Emergency Department Summary 07/28/18 1801 MR#: [id number] Acct: [id number] Name: DEMETRIS COLEMAN Rep #: [id number] : 1935 83 From: Jenni Olivo MD [...] air, dyspnea This note was generated with Ramen dictation software. It may contain incorrect words, spelling, and punctuation that were not noted in review of the chart prior to signing ED Disposition - Plan for ED Patient: Disposition: Acute Care Hospital [facility] Chief Complaint: Shortness of Breath What to do if you have Problems For any increased pain, shortness of breath, bleeding, nausea or vomiting, chest pain, or any unexpected problems, contact your Primary Care Provider. Call [facility] ([phone]) or report to the closest Emergency Room. Call 911 if necessary. 07/29/18 0152 <Electronically signed by Jenni Olivo MD> Date Jenni Bloom Signature (If Indicated): Date CC: Jenni Cornell DO BEDSIDE GLUCOSE Collected: 07/28/2018 Status: F Source: URM[place]A 10:22 PM [facility] REPOSITORY TYPE CODE TESTS RESULT OUT OF REFERENCE UNITS RANGE LAB L501.080 70-110 mg/dL High BEDSIDE GLU 278 Result Comment: MANAGEMENT OF PATIENT CARE PER NURSING PROTOCOL Performed By: #### L501.080 #### [facility] Point of Care [address] [place] [address]. [place], [place] [address] Observed: 07/28/2018 Status: F Source: U[place] LEGIONELLA ANTIGEN 10:20 PM [facility] URINE REPOSITORY Order Date: 07/28/18 Specimen Source: URINE, CLEAN CATCH Legionella, UR Legionella Antigen result interpretation: Negative Presumptive negative for Legionella pneumophila serogroup 1 antigen in urine, suggesting no recent or current infection. Legionella Ag, Urine Negative (See interpretation below) Performed By: #### M300.4500 #### [facility] [address] [place] [address]. [place], [place], [id number] STREP Observed: 07/28/2018 Status: F Source: [place] PNEUMONIAE ANTIG(UR,CSF) 10:20 PM [facility] REPOSITORY Order Date: 07/28/18 S pneumo Ag [] Negative Urine Presumptive negative for pneumococcal pneumonia, suggesting no current or recent pneumococcal infection. Infection due to S pneumoniae cannot be ruled out since the antigen present in the sample may be below the detection limit of the test. Strep pneumo Test Negative URINE (See interpretation below) Performed By: #### M300.4600 #### [facility] [address] [place] [address]. [place], [place], [id number] BEDSIDE GLUCOSE Collected: 07/28/2018 Status: F Source: U[place] 9:41 PM [facility] REPOSITORY TYPE CODE TESTS RESULT OUT OF REFERENCE UNITS RANGE LAB L501.080 70-110 mg/dL High BEDSIDE GLU 220 Result Comment: MANAGEMENT OF PATIENT CARE PER NURSING PROTOCOL Performed By: #### L501.080 #### [facility] Point of Care [address] [facility] [place], [place] [address] TROPONIN-I Collected: 07/28/2018 Status: F Source: U[place] 9:40 PM [facility] REPOSITORY Order Comment: 'TROP' Serial specimen #1, #2 or #3: 1 TYPE CODE TESTS RESULT OUT OF RANGE REFERENCE UNITS LAB L501.4010 <0.045 ng/mL High 0.082 TROPONIN-I Result Comment: TROPONIN-I EXPECTED VALUES <0.045 Negative 0.045 - 0.590 Consistent with Cardiac Damage > OR = 0.600 Critical Value Not every elevated troponin is indicative of MA. These values should be used with clinical judgement in examining the patient's clinical picture for diagnosis. To establish a diagnosis of MA versus myocardial injury, there must be a demonstrated rise and/or fall in the troponin values, in addition to ischemic symptoms, EKG changes, new regional wall motion abnormality, and/or angiographical evidence. PLEASE NOTE: REFERENCE RANGES EDITED 18 Performed By: #### L501.4010, L501.5200, L501.9520 #### [facility] [address] [facility] [place], [place], [id number] MAGNESIUM Collected: 07/28/2018 Status: F Source: URM[place] 9:40 PM [facility] REPOSITORY Order Comment: 'TROP' Serial specimen #1, #2 or #3: 1 TYPE CODE TESTS RESULT OUT OF RANGE REFERENCE UNITS LAB L501.5200 1.6-2.6 mg/dL Normal MG 2.0 Performed By: #### L501.4010, L501.5200, L501.9520 #### [facility] [address] [place], [address] THYROID STIM HORMONE Collected: 07/28/2018 Status: F Source: [place] (TSH) 9:40 PM [facility] REPOSITORY Order Comment: 'TROP' Serial specimen #1, #2 or #3: 1 TYPE CODE TESTS RESULT OUT OF RANGE REFERENCE UNITS LAB L501.9520 0.358-3.74 uIU/mL Normal TSH 1.26 Performed By: #### L501.4010, L501.5200, L501.9520 #### [facility] [address] [place], [address] HISTORY AND PHYSICAL Observed: 07/28/2018 Status: F Source: [place] EXAM 9:35 PM [facility] REPOSITORY [facility] Medical Records Department [address] [place] [address] History and Physical 07/28/182030 MR#: [id number] Acct: [id number] Name: DEMETRIS COLEMAN Rep #: [id number] : 1935 83 From: Clara Nguyen PCP: Jenni Cornell DO Status: ADM IN Y Location: [place] [id number] Problem List (1) Acute respiratory failure with [...] diabetes mellitus Status: Chronic Qualifiers: Diabetes mellitus intermediate teacher insulin use: without intermediate teacher use Diabetes mellitus complication status: with unspecified [...] Cardiac Enzymes (0.09-0.1) who presents to the [facility] ED on 07/28/18 with history of [...] growth. Psychiatric History: No pertinent psych hx TRAP SETTER History: No pertinent TRAP SETTER history Lives: Spouse/ Significant Other Smoking Status: [...] Cardiac Enzymes (0.09-0.1) who presents to the [facility] ED on 07/28/18 with history of [...] assure not increasing, repeat EKG in AM. 2015 ECHO noted w/ mild concentric LVH, EF [...] minutes. Code Visit Inpatient E AND M: 84858 Init Hosp L3 Procedures: 14502 Advncd Care Plan 30 Min 07/28/18 0344 <Electronically signed by Clara Nguyen > Date Clara Nguyen Cosigner Signature: Date (if applicable) CC: Clara Nguyen; Jenni Cornell DO Signed CHEST PA AND LATERAL Observed: 07/28/2018 Status: F Source: [place] 6:01 PM [facility] Imaging Services [address] [place] [address] Chest PA and Lateral MR#: [id number] Acct: [id number] Name: DEMETRIS COLEMAN Rep #: [id number] : 1935 F 83 From: Wendy Castro MD PCP: Jenni Cornell DO Status: REG ER Study: Chest PA and Lateral Date of Exam: 07/28/18 Exam# [id number] Ordering Dr: Jenni Olivo MD STUDY: X-RAY [...] CC: Jenni Olivo MD; Jenni Cornell DO Steam Pan Sponger: Signed PROTHROMBIN TIME W/INR Collected: 07/28/2018 Status: F Source: [place] 4:19 PM [facility] REPOSITORY TYPE CODE TESTS RESULT OUT OF RANGE REFERENCE UNITS LAB L300.4150 11.7-14.9 SECONDS Normal PROTIME 14.0 LAB L300.4200 Normal INR 1.1 Performed By: #### L300.3900, L300.4310 #### [facility] [address] [place], [address] PARTIAL THROMBOPLAST Collected: 07/28/2018 Status: F Source: [place] TIME 4:19 PM [facility] REPOSITORY TYPE CODE TESTS RESULT OUT OF RANGE REFERENCE UNITS LAB L300.4310 24.1-36.2 Seconds Normal PTT 35.6 Performed By: #### L300.3900, L300.4310 #### [facility] [address] [place], [address] CBC W/DIFF, AUTOMATED Collected: 07/28/2018 Status: F Source: [place] 4:19 PM [facility] REPOSITORY TYPE CODE TESTS RESULT OUT OF [...] Lymph 1.17 Performed By: #### L100.0100 #### [facility] [address] [facility] [place], [address] BASIC METABOLIC Collected: 07/28/2018 Status: F Source: [place] PROFILE ([facility]) 4:19 PM [facility] REPOSITORY TYPE CODE TESTS RESULT OUT OF [...] 9 Performed By: #### L500.2500, L501.4010 #### [facility] [address] [facility] [place], [place], [address] TROPONIN-I Collected: 07/28/2018 Status: F Source: [place] 4:19 PM [facility] REPOSITORY TYPE CODE TESTS RESULT OUT OF RANGE REFERENCE UNITS LAB L501.4010 <0.045 ng/mL High 0.082 TROPONIN-I Result Comment: TROPONIN-I EXPECTED VALUES <0.045 Negative 0.045 - 0.590 Consistent with Cardiac Damage > OR = 0.600 Critical Value Not every elevated troponin is indicative of MA. These values should be used with clinical judgement in examining the patient's clinical picture for diagnosis. To establish a diagnosis of MA versus myocardial injury, there must be a demonstrated rise and/or fall in the troponin values, in addition to ischemic symptoms, EKG changes, new regional wall motion abnormality, and/or angiographical evidence. PLEASE NOTE: REFERENCE RANGES EDITED 18 Performed By: #### L500.2500, L501.4010 #### [facility] [address] [facility] [place], [address] BNP,B-TYPE NATRIURETIC Collected: 07/28/2018 Status: F Source: [place] PEPTIDE 4:19 PM [facility] REPOSITORY TYPE CODE TESTS RESULT OUT OF RANGE REFERENCE UNITS LAB L503.6620 0-100 pg/mL High B-TYPE 2071.7 DONNA PEP Performed By: #### L503.6620 #### [facility] [address] [place], [address] HEMOGLOBIN A1C Collected: 02/01/2018 Status: F Source: [place] 9:56 AM [facility] REPOSITORY TYPE CODE TESTS RESULT OUT OF RANGE REFERENCE UNITS LAB L501.9985 4.2-6.3 % High HGB A1C 6.8 Performed By: #### L501.9985 #### [facility] [address] [place], [address] CBC W/DIFF, AUTOMATED Collected: 02/01/2018 Status: F Source: [place] 9:56 AM [facility] REPOSITORY TYPE CODE TESTS RESULT OUT OF [...] Lymph 1.26 Performed By: #### L100.0100 #### [facility] [address] [facility] [place], [address] COMPREHENSIVE METABOLIC Collected: 02/01/2018 Status: F Source: [facility] 9:56 AM [facility] REPOSITORY TYPE CODE TESTS RESULT OUT OF [...] By: #### L500.4050, L500.4100, L501.9520, L506.0400 #### [facility] [address] [place], [address] LIPID PROFILE Collected: 02/01/2018 Status: F Source: [place] 9:56 AM [facility] REPOSITORY TYPE CODE TESTS RESULT OUT OF [...] By: #### L500.4050, L500.4100, L501.9520, L506.0400 #### [facility] [address] [facility] [place], [address] THYROID STIM HORMONE Collected: 02/01/2018 Status: F Source: [place] (TSH) 9:56 AM [facility] REPOSITORY TYPE CODE TESTS RESULT OUT OF RANGE REFERENCE UNITS LAB L501.9520 0.358-3.74 uIU/mL Normal TSH 1.32 Performed By: #### L500.4050, L500.4100, L501.9520, L506.0400 #### [facility] [address] [facility] [place], [place], [address] T4 FREE DIRECT Collected: 02/01/2018 Status: F Source: [place] 9:56 AM [facility] REPOSITORY TYPE CODE TESTS RESULT OUT OF RANGE REFERENCE UNITS LAB L506.0400 0.76-1.46 ng/dL Normal T4 FREE 1.21 DIRECT Performed By: #### L500.4050, L500.4100, L501.9520, L506.0400 #### [facility] [address] [place], [address] VITAMIN B12 Collected: 02/01/2018 Status: F Source: [place] 9:56 AM [facility] REPOSITORY TYPE CODE TESTS RESULT OUT OF RANGE REFERENCE UNITS LAB L503.0105 211-911 pg/mL Normal Vitamin B12 401 Performed By: #### L503.0105, L506.1000 #### [facility] [address] [place], [address] VITAMIN D,25 HYDROXY Collected: 02/01/2018 Status: F Source: [place] 9:56 AM [facility] REPOSITORY TYPE CODE TESTS RESULT OUT OF REFERENCE UNITS RANGE LAB L506.1000 29.95-100.01 ng/mL Low Vitamin D 10.2 25-OH Result Comment: Vitamin D 25(OH) Status Range Deficiency <20 ng/mL (50nmol/L) Insuffciency 20 - 30 ng/mL (50 - 75 nmol/L) Sufficiency 30 - 100 ng/mL (75 - 250 nmol/L) Toxicity >100 ng/mL (>250 nmol/L) Performed By: #### L503.0105, L506.1000 #### [facility] [address] [place], [address] THYROID ANTIBODIES Collected: 02/01/2018 Status: F Source: [place] 9:56 AM [facility] REPOSITORY TYPE CODE TESTS RESULT OUT OF RANGE REFERENCE UNITS LAB L3300.6900 0-34 IU/mL Normal TPO AB 25 6676 LAB L3300.7027 0.0-0.9 IU/mL Normal TG AB < 1.0 Result Comment: Thyroglobulin Antibody measured by [employer] Methodology Performed at: - [facility] [address] [id number] Metal Casket Assembler: Gigi Umanzor PhD, Phone: [phone] Performed By: #### L3300.6750 #### [facility] (refer to report for specific site) refer to report for address and phone number ALLERGIES ALLERGIES DATE TYPE / CODE NAME / CODE REACTION SEVERITY SOURCE 07/28/2018 Drug Gadolinium-MRI Other Unknown [place] Allergy/416 Contrast [facility] 798294([facility] Medium/[id number]([facility] ED CT) XNORM) Repository 07/28/2018 Drug epinephrine/[id number] Other Unknown [place] Allergy/416 774(RXNORM) Community 473284([facility] ED CT) Repository 07/28/2018 Drug metformin/[id number] Other Unknown [place] Allergy/416 4(RXNORM) Community 140652([facility] ED CT) Repository 11/25/2015 Drug atorvastatin Other Unknown [place] Allergy/416 calcium/[id number]( [facility] 802144([facility]) Repository ENCOUNTERS ENCOUNTERS ADMIT/DISCHARGE ACCOUNT ADMITTING ENCOUNTER LOCATION SOURCE NUMBER CLASS 09/18/2018 [id number] Ambulatory [place]ora [place] 5 [facility] ing:MTRAD Repository 09/07/2018 [id number] Ambulatory [place] 0 [facility] ing:BFHLAB Repository 08/22/2018 [id number] Ambulatory [place] 4 [facility] ing:BFHLAB Repository 08/07/2018 [id number] Ambulatory [place] Nora 0 [facility] ing:LAB.FUTUR Repository E 08/02/2018 [id number] Ambulatory [place] 1 [facility] ing:BFHLAB Repository 07/28/2018/ [id number] Ambulatory BMSBuilding:W Nora 8 6 [facility] Repository 07/28/2018 [id number] Ambulatory BMSBuilding:W N[place] 4 [facility] Repository 07/28/2018/ [id number] White, Clara Inpatient [place] 8 9 Encounter [facility] ing:PCURoom: Repository [id number]: 1 07/28/2018 [id number] White, Clara Ambulatory BMSBuilding:B Nora 1 [facility] Repository 07/28/2018 [id number] White, Clara Ambulatory BMSBuilding:B [place] 7 [facility] Repository 07/28/2018 [id number] White, Clara Ambulatory BMSBuilding:B [place] 4 [facility] Repository 07/28/2018 [id number] White, Clara Ambulatory BMSBuilding:B [place] 5 [facility] Repository 02/01/2018 [id number] Ambulatory [place] Nora 6 [facility] ing:BFHLAB Repository 10/11/2017 [id number] Ambulatory BMSBuilding:B [place] 9 [facility] Repository 10/10/2017 [id number] Ambulatory BMSBuilding:B [place] 3 [facility] Repository PAYERS PAYERS ENCOUNTER GUARANTOR PAYER SUBSCRIBER SOURCE 09/18/2018 DEMETRIS A Primary DEMETRIS A [place] [id number] [facility] CARTER[facility]: Community [employer] MED[id number] Number: Repository [id number]: (330) [id number] [phone] (HP) Date:8456-15-88ZX [address] [facility] [address]TV: 09/18/2018 Secondary NOT GIVENUNK [place] Insurance:SELF PAY [facility] Number: Effective Repository Date:2018-08-24 09/07/2018 DEMETRIS A Primary DEMETRIS A [place] [id number] [facility] CARTERD[facility]: Community [employer] MED[employer]AREPolicy [id number] Number: Repository [id number]: (330) [id number] [phone] (HP) Date:8233-30-58KV [address] [place] [address]OJ: 09/07/2018 Secondary NOT GIVENUNK [place] Insurance:SELF PAY [facility] Number: Effective Repository Date:2018-09-07 08/22/2018 DEMETRIS A Primary DEMETRIS A [place] [id number] Insurance:[employer] CARE CARTERDOB: Community [employer] MED[employer] [id number] Number: Repository [id number]: (330 [id number] [phone] (HP) Date:1079-20-61CX [address] [place] [address]RW: 08/22/2018 Secondary NOT GIVENUNK [place] Insurance:SELF PAY [facility] Number: Effective Repository Date:2018-08-22 08/07/2018 DEMETRIS A Primary DEMETRIS A [place] [id number] [facility] CARTERD[facility]: Community [employer] [id number] Number: Repository [phone]: (330 [id number] [phone] (HP) Date:7882-85-27LL [address] [address]PF: 08/07/2018 Secondary NOT GIVENUNK [place] Insurance:SELF PAY [facility] Number: Effective Repository Date:2018-08-03 08/02/2018 DEMETRIS A Primary DEMETRIS A [place] [id number] [facility] CAR[facility]: Community [employer]Policy [id number], [place] Number: Repository [phone]: (330 [id number] [phone] (HP) Date:2965-79-33EZ [address] [place] [address]NE: 08/02/2018 Secondary NOT GIVENUNK [place] Insurance:SELF PAY [facility] Number: Effective Repository Date:2018-08-02 07/28/2018 DEMETRIS A Primary DEMETRIS A [place] [id number] Insurance:[employer] CARE CARTERDOB: Community [employer] MEDICARE[place] [id number] Number: Repository [phone]: (330 [id number] [phone] Date:7319-16-67HV [address] [address]KK: 07/28/2018 Secondary NOT GIVENUNK Nora Insurance:SELF PAY [facility] Number: Effective Repository Date:2018-07-28 07/28/2018 DEMETRIS A Primary DEMETRIS A Nora [id number] Insurance:[employer] CARE CARTERDOB: Community [place] MED[id number] Number: Repository [id number]: 330 [id number] [phone] (HP) Date:8442-82-37HJ [address] [facility] [address]ZH: 07/28/2018 Secondary NOT GIVENUNK Nora Insurance:SELF PAY [facility] Number: Effective Repository Date:2018-07-28 07/28/2018 DEMETRIS A Primary DEMETRIS A Nora [id number] Insurance:[employer] CARE CARTERDOB: Community [place] MED[place] [id number] Number: Repository [id number]: (330) [id number] [phone] (HP) Date:4039-71-10JY BOX [facility] Health[facility]AN[facility]EL de [address]KO: 07/28/2018 Secondary NOT GIVENUNK Urmila Insurance:SELF PAY [facility] Number: Effective Repository Date:2018-07-28 07/28/2018 Demetris A Primary Demetris A Urmila [id number] [facility] CarterDOB: Community [place] MED[place] [id number] Number: Repository [id number]: (330) [id number] [phone] (HP) Date:3908-22-46XR [address] [place] [address]CU: 07/28/2018 Secondary NOT GIVENUNK Urmila Insurance:SELF PAY [facility] Number: Effective Repository Date:2018-07-28 07/28/2018 DEMETRIS A Primary DEMETRIS A Nora [id number] Insurance:[employer] CARE CARTERDOB: Community [place] [id number] Number: Repository [id number]: (330) [id number] [phone] (HP) Date:4444-71-80IB [address] [facility], [place] [address]KA: 07/28/2018 Secondary NOT GIVENUNK Urmila Insurance:SELF PAY [facility] Number: Effective Repository Date:2018-07-28 07/28/2018 DEMETRIS A Primary DEMETRIS A Nora [id number] Insurance[facility] Community [place] [employer] [id number], [place] Number: Repository [id number]: (330) [id number] [phone] (HP) Date:6909-40-46HI [address] [place] [address]VI: 07/28/2018 Secondary NOT GIVENUNK Nora Insurance:SELF PAY [facility] Number: Effective Repository Date:2018-07-28 07/28/2018 DEMETRIS A Primary DEMETRIS A Nora [id number] Insurance:[employer] CARE CARTERDOB: Community [place] MED[place] [id number][place] Number: Repository [id number]: 330 [id number] [phone] (HP) Date:5302-78-77NB [address] [place] [address]AY: 07/28/2018 Secondary NOT GIVENUNK Nora Insurance:SELF PAY [facility] Number: Effective Repository Date:2018-07-28 02/01/2018 Demetris A Primary Demetris A Nora [id number] Insurance:SUMMA CARE CartTuba City Regional Health Care CorporationB: Community [place] MEDICAREPolicy [id number], [place] Number: Repository [id number]: (330 [id number] [phone] (HP) Date:5963-72-27UW [address] [place] [address] 19504RN: 02/01/2018 Secondary NOT GIVENUNK Nora Insurance:SELF PAY [facility] Number: Effective Repository Date:2018-02-01 10/11/2017 Demetris A Primary Demetris A Urmila [id number] Insurance:[employer] CARE CarterDOB: Community [place] MEDICARE[place] [id number], [place] Number: Repository [id number]: 330 [id number] [phone] (HP) Date:9405-21-54AK [address] [place] [address]PC: 10/11/2017 Secondary NOT GIVENUNK Urmila Insurance:SELF PAY [facility] Number: Effective Repository Date:2017-09-14 10/10/2017 Demetris A Primary Demetris A Nora [id number] Insurance:[employer] CARE CarterDOB: Community [place] MEDICAREPolicy [id number] Santa Fe Medical CenterAnkushoomackenzie de Number: Repository [id number]: (685) [id number] [phone] (HP) Date:7217-68-32MI [address] [place] [address] 418[address]NH: 10/10/2017 Secondary NOT GIVENUNK Nora Insurance:SELF PAY [facility] Number: Effective Repository Date:2017-10-10
== END ==
PROVIDERS: Family Provider Family Medicine; PCP Family Medicine; Visit Provider Family Medicine
DX: N18.4 Chronic kidney disease, stage 4 (severe) (principal); N17.9 Acute kidney failure, unspecified; R06.00 Dyspnea, unspecified
CPT/HCPCS: 36415; 80053; 83880; 85025

== ENCOUNTER → 2018-09-07 14:36 | Outpatient (CLI) | payer MEDICARE, SELFPAY ==
[2018-07-28 21:28] VITALS: BMI 23.7
== END ==
PROVIDERS: Family Provider Family Medicine; PCP Family Medicine; Visit Provider Family Medicine
DX: R19.7 Diarrhea, unspecified (principal)
CPT/HCPCS: 82274; 83630; 87070; 87205; 87493; 87506

== ENCOUNTER → 2018-09-18 13:27 | Outpatient (CLI) | payer MEDICARE, SELFPAY ==
[2018-07-28 21:28] VITALS: BMI 23.7
--- NOTE | 2018-09-18 13:30 | RAD_ITS ---
STUDY: X-RAY CHEST REASON FOR EXAM: Female, 83 years old. Pneumonia 6 weeks ago TECHNIQUE: 2 views COMPARISON: July 28, 2018. FINDINGS: The heart is normal in size. Small pleural effusions are noted bilaterally. No failure. No pneumonia. Normal visualized thoracic spine. Normal visualized ribs, clavicles, and shoulders. There is no demonstrated abnormality of the visualized soft tissue structures of the upper abdomen. RAD/Chest PA and Lateral IMPRESSION: Bilateral small pleural effusions. No acute findings in the lungs Electronically Signed: Jase Marlow MD at 7:30 EST Tel , Service support ,
== END ==
PROVIDERS: Family Provider Family Medicine; PCP Family Medicine; Referring Provider Family Medicine; Visit Provider Family Medicine
DX: J18.9 Pneumonia, unspecified organism (principal); R06.00 Dyspnea, unspecified
CPT/HCPCS: 71046

== ENCOUNTER → 2018-11-28 10:34 | Outpatient (CLI) | payer MEDICARE, SELFPAY ==
[2018-07-28 21:28] VITALS: BMI 23.7
[2018-11-28 12:55] LABS: Absolute Lymphocyte Count 2.01 X10^3/ul (0.83-4.51); Absolute Neutrophil Count 4.4 X10^3/uL (2.0-7.7); Basophil# 0.02 X10^3/uL; Basophil% 0.3 % (0-1); Eosinophil# 0.16 X10^3/uL; Eosinophils% 2.2 % (0-5); Hematocrit 37.9 % (37-47); Hemoglobin 12.5 g/dl (12.0-15.0); Lymphocyte # 2.01 X10^3/ul (4.0); Lymphocyte % 27.7 % (19-41); Mean Corpuscular Hgb 28.3 pg (27.0-32.0); Mean Corpuscular Volume 85.9 fL (81-99); Mean Platelet Vol. 11.6 fl (6.2-12.0); Monocyte# 0.64 X10^3/uL; Monocyte% 8.8 % (0-10); Neutrophil % 60.7 % (47-70); POSITIVE COUNT NO; POSITIVE DIFFERENTIAL NO; POSITIVE MORPHOLOGY NO; Platelet Count 199 K/mm3 (150-450); RBC Distribution Width CV 14.5 % (11.6-14.6); RBC Distribution Width SD 45.5 fl (35.1-43.9); Red Blood Count 4.41 M/mm3 (4.2-5.4); White Blood Count 7.3 K/mm3 (4.4-11.0)
[2018-11-28 13:13] LABS: T3 Total - Triiodothyronine 0.77 ng/mL (0.6-1.81); Vitamin D,25 Hydroxy 33.2 ng/mL (29.95-100.01)
[2018-11-28 13:38] LABS: ALB/GLOB Ratio 0.8 RATIO (0.9-2.4); AST(SGOT) 12 U/L (15-37); Alanine Aminotransfer ALT/SGPT 11 U/L (13-56); Albumin, Serum 3.3 g/dL (3.2-5.0); Alkaline Phosphatase 65 U/L (45-117); Anion Gap 10 (5-15); BUN 34 mg/dL (7-18); BUN/Creat Ratio 18.3 RATIO (10-20); Calcium,Total 11.1 mg/dL (8.5-10.1); Chloride 105 mmol/L (98-107); Cholesterol 479 mg/dL (200); Creatinine, Serum 1.86 mg/dL (0.55-1.02); EST Glomerular Filtration Rate 27 mL/min (>60); Est Glom Filt Rate - Afr Amer 33 mL/min (>60); Globulin 3.9 g/dL (2.2-4.2); Glucose 373 mg/dL (74-106); High Density Lipoprotein 59 mg/dL; Potassium 4.5 mmol/L (3.5-5.1); Protein, Total 7.2 g/dL (6.4-8.2); Sodium Level 135 mmol/L (136-145); T4 Free Direct 0.93 ng/dL (0.76-1.46); Thyroid Stim Hormone (TSH) 0.88 uIU/mL (0.358-3.74); Triglycerides 688 mg/dL
== END ==
PROVIDERS: Family Provider Family Medicine; PCP Family Medicine; Visit Provider Family Medicine
DX: E11.9 Type 2 diabetes mellitus without complications (principal); N18.4 Chronic kidney disease, stage 4 (severe); E78.5 Hyperlipidemia, unspecified; E87.5 Hyperkalemia; E55.9 Vitamin D deficiency, unspecified; R53.83 Other fatigue
CPT/HCPCS: 36415; 80053; 80061; 82306; 84439; 84443; 84480; 85025

== ENCOUNTER 2019-01-28 20:56 | Inpatient (IN) | payer MEDICARE, SELFPAY ==
[2018-07-28 21:28] VITALS: BMI 23.7
[2019-01-28 20:58] VITALS: BP 169/75; PULSE 110; RESP 20; TEMP 36.7; O2SAT 91; BMI 22.4
--- NOTE | 2019-01-28 21:13 | RAD_ITS ---
STUDY: X-RAY CHEST REASON FOR EXAM: Female, 83 years old. Chest pain TECHNIQUE: PA and lateral views of the chest. COMPARISON: 09/18/2018 FINDINGS: EKG leads overlie the chest Lungs are expanded with superimposed interstitial edema and bilateral pleural effusions. Findings are consistent with CHF Stable cardiomegaly. Normal mediastinum and vilma. Normal visualized pulmonary arteries. Normal visualized aortic arch and descending thoracic aorta. There are diffuse degenerative changes of the visualized thoracic spine. Normal visualized ribs, clavicles, and shoulders. There is no demonstrated abnormality of the visualized soft tissue structures of the upper abdomen. RAD/Chest PA and Lateral IMPRESSION: CHF with bilateral pleural effusions, follow-up recommended to assure resolution Electronically Signed: Sylvester Roberto MD at 22:07 EDT , Service support ,
--- NOTE | 2019-01-28 21:13 | EKG12_ITS ---
Test Reason : SOB Blood Pressure : / mmHG Vent. Rate : 103 BPM Atrial Rate : 103 BPM P-R Int : 152 ms QRS Dur : 092 ms QT Int : 312 ms P-R-T Axes : 047 018 139 degrees QTc Int : [address] & T wave abnormality, consider lateral ischemia Abnormal ECG Confirmed by JAYJAY CLOUD, DEVIN ([id number]), technical editor EZEKIEL ROE ([id number]) on 01/30/2019 10:38:55 AM Referred By: Kb Grider Confirmed By:DEVIN RO MD
--- NOTE | 2019-01-28 21:21 | ED.VISSUMM ---
- ER Visit Summary Date of Service: 01/28/19 Chief Complaint: Shortness of breath History of Present Illness: The patient is a [address] Cornell. She reports she has shortness of breath began 3 days ago. States that it is worsened by exertion. States that she is unable to lay flat for the past 6 months. Patient reports that she has an aching chest pain Zeta 10 hours and 5-10 currently. Is worsened by nothing exertion. Is also relieved by nothing. She has a chronic cough that is unchanged. She has had chills, but denies any fever. She does complain of generalized weakness. Physical Examination: Vitals: Stable. Afebrile. General: Well-nourished and well-developed. Head: Normocephalic atraumatic. Neck: Supple, no lymphadenopathy. No JVD. Nontender. Cardiovascular: Regular rate and rhythm. 2 out of 6 systolic murmur. Respiratory: Mild respiratory distress. Crackles at the left base. Abdominal: Soft, nontender, nondistended, normal bowel sounds. No guarding, rebound, or peritoneal signs. Back: Nontender. Extremities: Nontender, 2+ edema lower extremities bilaterally. Skin: Normal color, no rash. Neurologic: Alert and oriented ?3. Cranial nerves II through XII are intact. Normal strength and sensation. Psych: Normal affect. Test Results: EKG is sinus tachycardia 103 with T wave inversions laterally. This is unchanged from July 2018. Troponin is 0.147. However, her troponin has been 0.059-0.1 since 2016. Chem-7 shows a chloride of 109, CO2 17, BUN 41, creatinine 2.21, glucose 267, calcium 10.4. CBC shows an H&H 9.8 20.5, segmented for 71, monocytes 15, monocytes 12. Clinical Impression(s) from Imaging Studies Chest X-Ray 01/28/19 21:13 IMPRESSION: CHF with bilateral pleural effusions, follow-up recommended to assure resolution Electronically Signed: Sylvester Roberto MD at 22:07 EDT , Service support , Emergency Department Course and Treatment: Patient was given a dose of aspirin p.o. She was given Lasix IV. Her pulse ox is 96% on 2 L nasal cannula. Treatment Plan: Patient was discussed with Dr. Grider. She will be admitted to the hospital for further evaluation and treatment. Disposition: Admitted in improved condition. Impression: 1. CHF. 2. Elevated troponin. 3. Chronic renal insufficiency. This note was generated with Enpirion dictation software. It may contain incorrect words, spelling, and punctuation that were not noted in review of the chart prior to signing ED Disposition - Plan for ED Patient: Referrals: Jenni Cornell DO [Primary Care Provider] -
[2019-01-28 21:42] VITALS: BP 196/83; PULSE 102; RESP 20; O2SAT 96
[2019-01-28 21:48] LABS: Absolute Lymphocyte Count 1.44 X10^3/ul (0.83-4.51); Absolute Neutrophil Count 6.7 X10^3/uL (2.0-7.7); Basophil# 0.02 X10^3/uL; Basophil% 0.2 % (0-1); Eosinophil# 0.17 X10^3/uL; Eosinophils% 1.8 % (0-5); Hematocrit 28.5 % (37-47); Hemoglobin 9.5 g/dl (12.0-15.0); Lymphocyte # 1.44 X10^3/ul (4.0); Lymphocyte % 15.3 % (19-41); Mean Corp Hgb Conc 33.3 g/gl (32-36); Mean Corpuscular Hgb 28.9 pg (27.0-32.0); Mean Corpuscular Volume 86.6 fL (81-99); Mean Platelet Vol. 10.3 fl (6.2-12.0); Monocyte# 1.08 X10^3/uL; Monocyte% 11.5 % (0-10); Neutrophil # 6.69 X10^3/uL (2.7-7.7); POSITIVE COUNT NO; POSITIVE DIFFERENTIAL NO; POSITIVE MORPHOLOGY NO; Platelet Count 210 K/mm3 (150-450); RBC Distribution Width CV 15.3 % (11.6-14.6); RBC Distribution Width SD 48.8 fl (35.1-43.9); Red Blood Count 3.29 M/mm3 (4.2-5.4); White Blood Count 9.4 K/mm3 (4.4-11.0)
[2019-01-28 22:03] LABS: Anion Gap 10 (5-15); BUN 41 mg/dL (7-18); BUN/Creat Ratio 18.6 RATIO (10-20); Calcium,Total 10.4 mg/dL (8.5-10.1); Chloride 109 mmol/L (98-107); Creatinine, Serum 2.21 mg/dL (0.55-1.02); EST Glomerular Filtration Rate 23 mL/min (>60); Est Glom Filt Rate - Afr Amer 27 mL/min (>60); Estimated Creatinine Clearance 13.61 ml/min; Glucose 267 mg/dL (74-106); Potassium 4.8 mmol/L (3.5-5.1); Sodium Level 136 mmol/L (136-145)
[2019-01-28 22:09] LABS: Lactic Acid 0.9 mmol/L (0.4-2.0)
[2019-01-28] MEDS: Aspirin 81 MG TAB.CHEW 324 MG PO (22:15)
[2019-01-28] MEDS: Furosemide 40 MG/4 ML Vial IV (22:15)
[2019-01-28 23:15] VITALS: BMI 23.1
[2019-01-28 23:25] VITALS: BP 168/72; BP 197/72; PULSE 102; RESP 20; TEMP 36.5; O2SAT 97
--- NOTE | 2019-01-28 23:28 | PCM.HP.STD ---
Problem List (1) Shortness of breath Status: Acute History of Present Illness Date of Admission: 01/28/19 Chief Complaint: Shortness of breath The patient is a 83 year old F who was seen in the emergency room at [facility] after coming in for evaluation of increasing shortness of breath over the last 48 hours. Patient also complained of some chest discomfort which she was vague in describing, she denies any chest discomfort at this time. Patient had been admitted at this hospital in July 2018 for pneumonia and acute on chronic diastolic congestive heart failure, and talking with the patient, she was unaware that she was given a diagnosis of congestive heart failure in the past. Patient is accompanied by her daughter. Patient lives with her . Evaluation in the emergency room included a chest x-ray which showed bilateral pleural effusions with evidence of congestive heart failure, patient's pulse ox on room air was 91%, labs were remarkable for a creatinine of 2.21, BUN of 41, glucose of 267, a beta natruretic peptide of 3256, hemoglobin of 9.5, and a troponin of 0.147. EKG showed no evidence of ischemic changes. Patient was given IV Lasix in the emergency room, I had a long conversation with the patient and her daughter, it appears the patient has stopped going to her teamsite developer and has stopped her diuretics-she states she just ran out of the medications and did not get it refilled. Patient will be admitted to PCU for acute on chronic diastolic CHF, I will repeat her echocardiogram, she will be given IV Lasix, labs will be monitored, blood pressure medications will be adjusted, I will get iron studies on the patient. Patient had a stress test done last year which was negative for reversible ischemia. 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 Carotid artery stenosis I65.29 Contact dermatitis L25.9 Diabetes type 2, controlled E11.9 Fatigue R53.83 Hemangioma D18.00 Hyperlipidemia E78.5 Peripheral vascular disease I73.9 Postmenopausal state Z78.0 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 TIA (transient ischemic attack) G45.9 Vertigo R42 Allergies metformin Allergy (Verified 01/28/19 21:00) Other BODY ACHES epinephrine Adverse Reaction (Verified 01/28/19 21:00) Other SHAKING Gadolinium-MRI Contrast Medium [CONTRAST] Adverse Reaction (Verified 01/28/19 21:00) Other SHAKING Home Medications: Ambulatory Orders Medication Instructions Recorded Benazepril HCl 40 mg PO BID 11/24/15 Glimepiride [Amaryl] 2 mg PO DAILY PRN 11/24/15 Pioglitazone [Actos] 30 mg PO DAILY PRN 11/24/15 Amlodipine [Norvasc] 10 mg PO DAILY #0 11/26/15 lactobacillus combination no.8 3 3,000 mmu cells PO QDAY 10/10/17 billion cell capsule Doxazosin Mesylate [Cardura] 2 mg PO DAILY 07/28/18 Gemfibrozil [Lopid] 600 mg PO DAILY 07/29/18 Lorazepam [Ativan] 0.5 mg PO QHS PRN PRN 07/29/18 Metoprolol Tartrate 50 mg PO BID 07/29/18 Amox/Clavulanate Tablet [Augmentin 875 mg PO Q12H #10 tablet 07/31/18 Tablet] Atorvastatin Calcium [Lipitor] 40 mg PO QHS #30 tablet 07/31/18 Surgical History: Surgical History (Last Updated 10/10/17 @ 14:28 by Taryn Galindo) H/O total hysterectomy Z98.890, Z90.710 Status post carotid surgery Z98.890 Surgical History: cataract, - - BL carotid artery surgery x 2, hysterectemy, rectal surgery for benign growth. Psychiatric History: No pertinent psych hx PERSONAL FINANCIAL COUNSELOR History: No pertinent PERSONAL FINANCIAL COUNSELOR history Lives: Spouse/ Significant Other Smoking Status: Never smoker Tobacco Use: Non-smoker Alcohol: None Drugs: None - *Family History Maternal Family History: Family History (Last Updated 10/10/17 @ 14:30 by Taryn Galindo) Mother Diabetes Hypertension CVA (cerebral vascular accident) Cancer Brother Diabetes Hypertension Sister Diabetes Hypertension History Items: Diabetes, High Cholesterol Paternal Family History: Family History (Last Updated 10/10/17 @ 14:30 by Taryn Galindo) Mother Diabetes Hypertension CVA (cerebral vascular accident) Cancer Brother Diabetes Hypertension Sister Diabetes Hypertension History Items: Unknown Sibling Family History: Family History (Last Updated 10/10/17 @ 14:30 by Taryn Galindo) Mother Diabetes Hypertension CVA (cerebral vascular accident) Cancer Brother Diabetes Hypertension Sister Diabetes Hypertension History Items: Diabetes, Hypertension Review of Systems Constitutional: Denies: Anorexia, Chills, Fever, Night Sweats, Malaise, Weakness, Weight Change Eyes: Denies: Cataracts, Conjunctivae Inflammation, Double vision, Drainage HEENT: Denies: Difficulty Swallowing, Dysphasia, Ear Pain, Eye Pain, Hearing Changes, Nasal bleeding, Nasal Congestion, Post Nasal Drip Cardiovascular: Reports: Chest Pain - Patient describes chest discomfort over the past 2 days off and on, she is not able to describe it fully however, Edema, Orthopnea, Paroxysmal Noc. Dyspnea. Denies: Claudication, Chest Pressure, Chest Tightness, Heaviness, Palpitations Respiratory: Reports: Shortness of Breath, Shortness of breath at rest, Shortness of breath upon exertion. Denies: Cough, Hemoptysis, Pleuritic Pain, Sputum production, Wheezing Gastrointestinal: Denies: Abdominal Pain, Constipation, Diarrhea, Hematemesis, Hematochezia, Nausea, Melena, Vomiting Genitourinary: Denies: Dysuria, Frequency, Hematuria, Hesitancy, Incontinence, Nocturia, Retention, Urgency Gynecological: Denies: Breast symptoms Musculoskeletal: Denies: Back Pain, Foot Pain, Hand Pain, Joint Pain, Joint stiffness, Joint swelling, Joint Tenderness, Leg Pain Skin: Denies: Dryness, Pruritis, Rash Neurological: Denies: Blurred vision, Double vision, Change in Speech, Slurred speech, Difficulty swallowing, Focal weakness, Headaches, Incoordination, Numbness, Tingling Psychiatric: Denies: Anxiety, Depression, Homicidal Ideations, Suicidal Ideations Endocrine: Denies: Change in Body Habitus, Heat/ Cold Intolerance, Polydipsia, Polyuria Hematologic/ Lymphatic: Denies: Adenopathy, Anemia, Easy Bruising, Easy Bleeding, Petechiae, Purpura VTE Information - Inpt Only VTE Present on Admission: No VTE Mechan Device Prophylaxis: None VTE Pharm Prophylaxis ordered?: Yes Patient Problems: Active and Suspected Problems (Last Updated 10/10/17 @ 14:27 by Taryn Galindo) Shortness of breath (Acute) - Physical Exam General: Alert, Oriented x3, Cooperative, No apparent distress, Well developed, Well nourished HEENT: Atraumatic, PERRLA, EOMI, Normocephalic Oral: Moist Mucosa Neck: Supple, No JVD, No Nuchal Rigidity, Trachea Midline, Thyroid Normal Size and Texture, Carotid Bruit, Left Lungs: No rhonchi, No wheeze, Diminished - There is diminished breath sounds noted at the lung bases, Rales - Inspiratory rales are noted over the lower lung rogers bilaterally Cardiovascular: Regular rate, Regular Rhythm, Normal S1, Normal S2, No murmurs, No Ectopic Activity, PMI Normal, No rub noted, No Gallop, Tachycardic Abdomen: Bowel Sounds Present, Soft, Non Tender, Non-Distended, No hernias noted Extremities: Capillary Refill Less than 3 Seconds, Edema - There is +4 mm edema noted over both lower legs Skin: No rashes, No breakdown Musculoskeletal: No Tenderness to Palpation of Joints or Extremities Neurological: Cranial nerves II-XII grossly intact, Neuro grossly intact, Sensory exam intact to light touch and pain, Coordination normal Psych/Mental Status: Normal Affect, Appropriate, Alert and oriented to time, place, person, mood and affect Vital Signs Temp Pulse Resp BP Pulse Ox 98.0 F 102 H 20 H 196/83 H 96 01/28/19 20:58 01/28/19 21:42 01/28/19 21:42 01/28/19 21:42 01/28/19 21:42 Oxygen Flow Rate (L/min) 2 Oxygen Delivery Method Nasal Cannula Weight: 53.8 kg Body Mass Index (BMI) 23.1 Finger Stick Blood Glucose 252 Laboratory Tests Past 24 Hrs 01/28/19 01/28/19 01/28/19 21:35 21:35 21:35 WBC 9.4 RBC 3.29 L Hgb 9.5 L Hct 28.5 L MCV 86.6 MCH 28.9 MCHC 33.3 RDW 15.3 H RDW Differential 48.8 H Plt Count 210 MPV 10.3 Immature Gran % (Auto) 0.200 Neut % (Auto) 71.0 H Lymph % (Auto) 15.3 L [place] % (Auto) 11.5 H Eos % (Auto) 1.8 Baso % (Auto) 0.2 Absolute Neuts (auto) 6.7 Absolute Lymphs (auto) 1.44 Total Counted Not Reportable Sodium 136 Potassium 4.8 Chloride 109 H Carbon Dioxide 17.0 L Anion Gap 10 BUN 41 H Creatinine 2.21 H Estim Creat Clear Calc 13.61 Est GFR (MDRD) Af Amer 27 L Est GFR (MDRD) Non-Af 23 L BUN/Creatinine Ratio 18.6 Glucose 267 H Lactic Acid 0.9 Calcium 10.4 H Troponin I 0.147 H B-Natriuretic Peptide 01/28/19 21:35 WBC RBC Hgb Hct MCV MCH MCHC RDW RDW Differential Plt Count MPV Immature Gran % (Auto) Neut % (Auto) Lymph % (Auto) [place] % (Auto) Eos % (Auto) Baso % (Auto) Absolute Neuts (auto) Absolute Lymphs (auto) Total Counted Sodium Potassium Chloride Carbon Dioxide Anion Gap BUN Creatinine Estim Creat Clear Calc Est GFR (MDRD) Af Amer Est GFR (MDRD) Non-Af BUN/Creatinine Ratio Glucose Lactic Acid Calcium Troponin I B-Natriuretic Peptide 3256.5 H Assessment/Plan All Active Problems (Last Updated 10/10/17 @ 14:27 by Taryn Galindo) Shortness of breath (Acute) Acute respiratory failure with hypoxia (Resolved) PNA (pneumonia) (Resolved) Left sided numbness (Resolved) #1 acute on chronic diastolic congestive heart failure-patient will be admitted to PCU, she will be given IV Lasix, home medications will need to be adjusted, labs will be obtained and monitored. Patient will have a repeat echocardiogram performed #2 hypoxia secondary to #1-oxygen will be weaned if possible #3 elevated troponin-etiology unclear, patient has had elevated troponin in the past, enzymes will be cycled #4 uncontrolled hypertension-patient has been noncompliant following up with her teamsite developer, her medications will be adjusted during her hospitalization #5 noncompliance with medical regimen-I discussed this with the patient and the patient's daughter, I told her that it is crucial that she follows up with nephrology on a continuous basis #6 stage IV chronic kidney disease-secondary to type 2 diabetes and hypertension, labs will be monitored #7 type 2 diabetes-I will admit the patient's Actos as it can exacerbate CHF, patient will be kept on glimepiride and she will be given insulin via sliding scale protocol #8 anemia-probably secondary to chronic anemia from chronic kidney disease-serum iron and TIBC will be ordered #9 carotid occlusive disease Code Visit Inpatient E&M: 01668 Init Hosp L3
[2019-01-28 23:36] VITALS: BMI 23.2
[2019-01-28 23:51] VITALS: PULSE 95
[2019-01-28 23:53] VITALS: BP 160/64; PULSE 95
[2019-01-29] VITALS (14 sets, daily range): BP systolic 151–193; BP diastolic 54–89; PULSE 71–107; RESP 18–24; TEMP 36.4–37; O2SAT 94–98
[2019-01-29 04:02] LABS: Anion Gap 10 (5-15); BUN 43 mg/dL (7-18); BUN/Creat Ratio 19.2 RATIO (10-20); Calcium,Total 10.4 mg/dL (8.5-10.1); Chloride 111 mmol/L (98-107); Creatinine, Serum 2.24 mg/dL (0.55-1.02); EST Glomerular Filtration Rate 22 mL/min (>60); Est Glom Filt Rate - Afr Amer 27 mL/min (>60); Estimated Creatinine Clearance 13.43 ml/min; Glucose 222 mg/dL (74-106); Iron Binding Capacity,Total 215 ug/dL (250-450); Potassium 4.8 mmol/L (3.5-5.1); Sodium Level 140 mmol/L (136-145)
[2019-01-29] MEDS: Heparin Injection (Vial) 5,000 UNIT/ML VIAL 5000 UNIT SC ×3 (05:18→21:16)
[2019-01-29] MEDS: Furosemide 40 MG/4 ML Vial IV ×3 (05:18→21:16)
[2019-01-29] MEDS: 0.9% NaCl Peripheral Flush Adult/Peds IV ×3 (05:18→13:31)
--- NOTE | 2019-01-29 05:55 | ECHOD_ITS ---
Reason For Study: CHF Procedure This was a 2D Doppler, Color Flow transthoracic echocardiogram. The exam was of adequate technical quality. Exam performed portable in patient room. Left Ventricle Normal LV size. Mild concentric left ventricular hypertrophy. Moderate segmental systolic dysfunction (see wall motion). The estimated ejection fraction is 35 %. Diastolic function is indeterminate. Posterior-Basal: Hypokinetic. Infero-Basal: Hypokinetic. Mid-Lateral : Akinetic. Mid- Posterior: Akinetic. Mid-Inferior: Akinetic. Mid-inferoseptal : Hypokinetic. Mid-anteroseptal : Hypokinetic. Inferior Bascom : Akinetic. Lateral Bascom : Akinetic. Right Ventricle Normal RV size. Normal systolic function. Atria The left atrium is mildly enlarged. Normal right atrium. No doppler evidence for ASD. Mitral Valve There is no mitral annular calcification. Mild diffuse mitral valve thickening. Mild-Moderate (1-2+) eccentric mitral valve insufficiency. Tricuspid Valve Normal tricuspid valve. Trivial tricuspid valve insufficiency. Aortic Valve Trisinus/trileaflet aortic valve. Mild focal aortic valve calcification. Pulmonic Valve The pulmonic valve is not well visualized. Trivial pulmonic valve insufficiency. Great Vessels Normal sized aortic root. Pericardium/Pleural Trivial pericardial effusion. There are no echocardiographic indications of cardiac tamponade. Echolucency c/w a pleural effusion. MMode/2D Measurements & Calculations LVIDd: 4.7 cm IVSd: 1.6 cm LA dimension: 4.3 cm LVIDs: 4.0 cm LVPWd: 1.3 cm FS: 14.8 % LAV(MOD-bp): 44.2 ml LVAd ap4: 29.7 cm2 SV(MOD-sp4): 43.1 ml LAV(MOD-bp) Indexed: 29.6 ml/m2 EDV(MOD-sp4): 94.6 ml LAV(MOD-sp2): 35.5 ml EDV(sp4-el): 94.6 ml LAV(MOD-sp4): 49.0 ml LVAs ap4: 19.6 cm2 ESV(MOD-sp4): 51.5 ml ESV(sp4-el): 50.6 ml EF(MOD-sp4): 45.5 % EF(sp4-el): 46.5 % SV(sp4-el): 44.0 ml LA A4 area: 18.3 cm2 RA A4 area: 13.6 cm2 Time Measurements MV dec time: 0.13 sec Doppler Measurements & Calculations MV E max harvey: 90.1 cm/sec Lat Peak E' Harvey: 7.9 cm/sec MV V2 max: 143.5 cm/sec MV A max harvey: 112.7 cm/sec E/E' lat: 11.3 MV max P.2 mmHg MV E/A: 0.80 MV V2 mean: 85.6 cm/sec MV mean P.5 mmHg MV V2 VTI: 27.9 cm MV P1/2t max harvey: 119.4 cm/sec Ao V2 max: 141.1 cm/sec LV V1 max: 107.5 cm/sec MV P1/2t: 67.2 msec Ao max P.0 mmHg LV V1 max P.6 mmHg Ao V2 mean: 90.2 cm/sec LV V1 mean P.2 mmHg MV dec slope: 520.6 cm/sec2 Ao mean P.7 mmHg LV V1 mean: 67.4 cm/sec MVA(P1/2t): 3.3 cm2 Ao V2 VTI: 24.1 cm LV V1 VTI: 20.1 cm MR max harvey: 629.2 cm/sec PA V2 max: 109.8 cm/sec PI end-d harvey: 183.9 cm/sec MR max P.4 mmHg MR mean harvey: 489.3 cm/sec MR mean P.8 mmHg MR VTI: 181.9 cm Interpretation Summary Moderate segmental systolic dysfunction (see wall motion). The estimated ejection fraction is 35 %. Mild concentric left ventricular hypertrophy. The left atrium is mildly enlarged. Mild diffuse mitral valve thickening. Mild-Moderate (1-2+) eccentric mitral valve insufficiency. Trivial tricuspid valve insufficiency. Mild focal aortic valve calcification. Trivial pulmonic valve insufficiency. Trivial pericardial effusion. There are no echocardiographic indications of cardiac tamponade. Echolucency c/w a pleural effusion. Diastolic function is indeterminate. Ordering Physician: Kb Grider Referring Physician: Kb Grider Performed By: Damien Frazier RCS
--- NOTE | 2019-01-29 05:55 | EKG12_ITS ---
Test Reason : AM EKG Blood Pressure : / mmHG Vent. Rate : 090 BPM Atrial Rate : 091 BPM P-R Int : 156 ms QRS Dur : 096 ms QT Int : 350 ms P-R-T Axes : 063 040 163 degrees QTc Int : 428 ms Normal sinus rhythm ST & T wave abnormality, consider lateral ischemia Abnormal ECG When compared with ECG of 28-JAN-2019 21:21, MANUAL COMPARISON REQUIRED, DATA IS UNCONFIRMED Confirmed by JASON CLOUD, KISHOR ([id number]), tape editor CHUY TREVIZO ([id number]) on 02/04/2019 2:37:24 PM Referred By: Kb Grider Confirmed By:KISHOR GOMEZ MD
[2019-01-29 06:20] LABS: Iron 20 ug/dL (50-170); PERCENT IRON SATURATION 9.3 % (15.0-55.0)
[2019-01-29 07:06] LABS: Bedside Glucose 168 mg/dL (70-110)
[2019-01-29 07:11] LABS: Bedside Glucose 256 mg/dL (70-110)
[2019-01-29 07:11] LABS: Bedside Glucose 240 mg/dL (70-110)
[2019-01-29] MEDS: Losartan Potassium 50 MG Tablet PO (09:45)
[2019-01-29] MEDS: Metoprolol Tartrate 50 MG Tablet PO ×2 (09:45→21:16)
[2019-01-29] MEDS: amLODIPine 10 MG Tablet PO (09:45)
[2019-01-29] MEDS: Aspirin 81 MG TAB.CHEW PO (10:23)
[2019-01-29] MEDS: Clopidogrel Bisulfate 300 MG Tablet PO (10:23)
--- NOTE | 2019-01-29 10:49 | PCM.PN.HOSP ---
Patient Problems: Active and Suspected Problems (Last Updated 10/10/17 @ 14:27 by Taryn Galindo) Shortness of breath (Acute) Subjective: Patient seen and examined. He was admitted with a complaint of shortness of breath for the past 48 hours prior to admission as well as associated chest discomfort. Chest x-ray showed bilateral pleural effusions with evidence of CHF and BNP was 3256 with initial troponin of 0.147. EKG showed no acute ST changes. She has been started on IV Lasix for acute diastolic heart failure is also being managed for non-STEMI. Patient had no complaints this morning and says shortness of breath that improved significantly with initiation of Lasix. She was on room air and felt very well. She denied any palpitations or dizziness, chest pain, diarrhea vomiting. Review of systems otherwise negative. Labs and vitals reviewed. Vitals/I&O's: Vital Signs Temp Pulse Resp BP Pulse Ox 97.5 F L 105 H 24 H 186/65 H 96 01/29/19 09:51 01/29/19 09:51 01/29/19 09:51 01/29/19 09:51 01/29/19 09:51 Oxygen Flow Rate (L/min) 2 Oxygen Delivery Method Room Air Weight: 118 lb 9.739 oz Body Mass Index (BMI) 23.1 Finger Stick Blood Glucose 252 Intake and Output for Last 24 Hours 01/27/19 01/28/19 01/29/19 23:59 23:59 23:59 Output Total 200 / 200 900 / 900 Balance -200 / -200 -900 / -900 General: Alert, Oriented x3, Cooperative, No apparent distress HEENT: Atraumatic, PERRLA, EOMI, Normocephalic Oral: Moist Mucosa Neck: Supple, No JVD, Negative Carotid Bruits Lungs: Clear to auscultation, Normal air movement, No rhonchi, No wheeze, No rales Cardiovascular: Regular rate, Regular Rhythm, Normal S1, Normal S2, No murmurs Abdomen: Bowel Sounds Present, Soft, Non Tender, Non-Distended, No Hepato-splenomegaly Extremities: No clubbing, No cyanosis, Capillary Refill Less than 3 Seconds, - - 1+ bipedal pitting edema Skin: No rashes, No breakdown Musculoskeletal: No Tenderness to Palpation of Joints or Extremities Lymphatic: No Cervical, Supraclavicular, or Inguinal Adenopathy Neurological: Cranial nerves II-XII grossly intact, Neuro grossly intact, Motor Exam 5/5 strength throughout Psych/Mental Status: Normal Affect, Appropriate, Alert and oriented to time, place, person, mood and affect Laboratory Results 01/28/19 21:35: WBC 9.4, RBC 3.29 L, Hgb 9.5 L, Hct 28.5 L, MCV 86.6, MCH 28.9, MCHC 33.3, RDW 15.3 H, RDW Differential 48.8 H, Plt Count 210, MPV 10.3, Immature Gran % (Auto) 0.200, Neut % (Auto) 71.0 H, Lymph % (Auto) 15.3 L, [place] % (Auto) 11.5 H, Eos % (Auto) 1.8, Baso % (Auto) 0.2, Absolute Neuts (auto) 6.7, Absolute Lymphs (auto) 1.44, Total Counted Not Reportable 01/28/19 21:35: Sodium 136, Potassium 4.8, Chloride 109 H, Carbon Dioxide 17.0 L, Anion Gap 10, BUN 41 H, Creatinine 2.21 H, Estim Creat Clear Calc 13.61, Est GFR (MDRD) Af Amer 27 L, Est GFR (MDRD) Non-Af 23 L, BUN/Creatinine Ratio 18.6, Glucose 267 H, Calcium 10.4 H, Troponin I 0.147 H 01/28/19 21:35: Lactic Acid 0.9 01/28/19 21:35: B-Natriuretic Peptide 3256.5 H 01/29/19 00:01: POC Glucose 240 H 01/29/19 00:02: POC Glucose 256 H 01/29/19 00:26: Troponin I 1.990 H* 01/29/19 03:26: Sodium 140, Potassium 4.8, Chloride 111 H, Carbon Dioxide 19.0 L, Anion Gap 10, BUN 43 H, Creatinine 2.24 H, Estim Creat Clear Calc 13.43, Est GFR (MDRD) Af Amer 27 L, Est GFR (MDRD) Non-Af 22 L, BUN/Creatinine Ratio 19.2, Glucose 222 H, Calcium 10.4 H, Iron 20 L, TIBC 215 L, Iron Saturation 9.3 L, Troponin I 5.660 H* 01/29/19 06:39: POC Glucose 168 H 01/29/19 07:04: Troponin I 5.760 H* 01/29/19 10:10: Troponin I Pending Diagnostic Data Chest X-Ray 01/28/19 21:13 IMPRESSION: CHF with bilateral pleural effusions, follow-up recommended to assure resolution Electronically Signed: Sylvester Roberto MD at 22:07 EDT , Service support , Current Medications Acetaminophen (Tylenol) 650 mg PO Q6H PRN PRN PRN Reason: Mild pain 1-3/Temp > 100.7 F Amlodipine Besylate (Norvasc) 10 mg PO DAILY [facility] Last Admin: 01/29/19 09:45 Dose: 10 mg Aspirin (Aspirin, Baby) 81 mg PO DAILY@0800 [facility] Atorvastatin Calcium (Lipitor) 40 mg PO QHS [facility] Dextrose (D50w Syringe) 0 gm IV X1 PRN; Protocol PRN Reason: Hypoglycemia Doxazosin Mesylate (Cardura) 4 mg PO QHS BOO Furosemide (Lasix) 40 mg IV Q8 [facility] Last Admin: 01/29/19 05:18 Dose: 40 mg Glimepiride (Amaryl) 2 mg PO DAILY PRN PRN Reason: for blood glucose >160 Glucagon () 1 mg IM .X1 PRN PRN Reason: Hypoglycemia Heparin Sodium (Porcine) (Heparin Na) 5,000 unit SC Q8 [facility] Last Admin: 01/29/19 05:18 Dose: 5,000 unit Insulin Human Lispro (Humalog Kwikpen (Bkc)) 0 unit SQ ACHS [facility]; Protocol Last Admin: 01/29/19 06:41 Dose: Not Given Lorazepam (Ativan) 0.5 mg PO QHS PRN PRN PRN Reason: sleep Losartan Potassium (Cozaar) 50 mg PO BID [facility] Last Admin: 01/29/19 09:45 Dose: 50 mg Metoprolol Tartrate (Lopressor (Beta Bobby)) 50 mg PO BID [facility] Last Admin: 01/29/19 09:45 Dose: 50 mg Nutritional Formula (Lactose Free) (Glucerna Shake) 120 ml PO 4X/DAY [facility] Last Admin: 01/29/19 09:45 Dose: Not Given Sodium Chloride () 5 - 15 ml IV UD PRN PRN Reason: SALINE FLUSH Last Admin: 01/29/19 05:19 Dose: 10 ml Medical Necessity - Tobacco Use Smoking Status: Never smoker Tobacco Use: Non-smoker Assessment/Plan All Active Problems (Last Updated 10/10/17 @ 14:27 by Taryn Galindo) Shortness of breath (Acute) Acute respiratory failure with hypoxia (Resolved) PNA (pneumonia) (Resolved) Left sided numbness (Resolved) 1. Acute on chronic heart failure with preserved EF BNP was >3000 on admission being diuresed with IV lasix. It appears patient wasnt aware of the diagnosis of CHF at time of her last discharge, though that is what she was managed for during that admission continue diuresis with IV lasix 40mg bid monitor input output; restrict IVF to 1500cc daily. 2D echo pending: EF was 55% at last echo (07/22) it must be noted that at her last admission, she wasnt discharged home with lasix due to JUVENTINO. It doesnt appear patient has been taking lasix at home 2. Nonstemi troponin was initially 0.147, and trended up to 5.760 cardiology on board on aspiirn, high intensity statin. given loadiing dose of plavix per cardiology; per cardio, not to start heparin drip, and to continue on current sq heparin dose. also on metoprolol 3. CKD IV: Cr is 2.24. has no t been following up with nephrology. will monitor 4. TYpe 2 diabetes mellitus: on actos and amaryl at home. These are on hold now. Actos will be dc;d o/a of heart failure. ISS. Accuchecks ACHS 5. Hypertension: Poorly controlled. Has not been compliant. On amlodipine and metoprolol. Also on Cardura. Losartan on hold. 6. Anemia: Hemoglobin is 9.5. Has been as low as 8.2 in the past. Likely due to CKD. Will monitor. DVT prophylaxis:heparin Code Visit Inpatient E&M: 89890 Subs Hosp L3
--- NOTE | 2019-01-29 10:52 | NURSING ---
pt's daughter brought in pt's home medication bottles. one of the medications is Ativan 0.5mg tablets. Tablets counted with Chago Romero RN with count of 40. Medications locked in med room. pt aware and signed release form. pt given copy.
--- NOTE | 2019-01-29 11:05 | PN_ITS ---
Patient Problems: Active and Suspected Problems (Last Updated 10/10/17 @ 14:27 by Taryn Galindo) Shortness of breath (Acute) Subjective: Patient seen and examined. He was admitted with a complaint of shortness of breath for the past 48 hours prior to admission as well as associated chest discomfort. Chest x-ray showed bilateral pleural effusions with evidence of CHF and BNP was 3256 with initial troponin of 0.147. EKG showed no acute ST changes. She has been started on IV Lasix for acute diastolic heart failure is also being managed for non-STEMI. Patient had no complaints this morning and says shortness of breath that improved significantly with initiation of Lasix. She was on room air and felt very well. She denied any palpitations or dizziness, chest pain, diarrhea vomiting. Review of systems otherwise negative. Labs and vitals reviewed. Vitals/I&O's: Vital Signs Temp Pulse Resp BP Pulse Ox 97.5 F L 105 H 24 H 186/65 H 96 01/29/19 09:51 01/29/19 09:51 01/29/19 09:51 01/29/19 09:51 01/29/19 09:51 Oxygen Flow Rate (L/min) 2 Oxygen Delivery Method Room Air Weight: 118 lb 9.739 oz Body Mass Index (BMI) 23.1 Finger Stick Blood Glucose 252 Intake and Output for Last 24 Hours 01/27/19 01/28/19 01/29/19 23:59 23:59 23:59 Output Total 200 / 200 900 / 900 Balance -200 / -200 -900 / -900 General: Alert, Oriented x3, Cooperative, No apparent distress HEENT: Atraumatic, PERRLA, EOMI, Normocephalic Oral: Moist Mucosa Neck: Supple, No JVD, Negative Carotid Bruits Lungs: Clear to auscultation, Normal air movement, No rhonchi, No wheeze, No rales Cardiovascular: Regular rate, Regular Rhythm, Normal S1, Normal S2, No murmurs Abdomen: Bowel Sounds Present, Soft, Non Tender, Non-Distended, No Hepato- splenomegaly Extremities: No clubbing, No cyanosis, Capillary Refill Less than 3 Seconds, - - 1+ bipedal pitting edema Skin: No rashes, No breakdown Musculoskeletal: No Tenderness to Palpation of Joints or Extremities Lymphatic: No Cervical, Supraclavicular, or Inguinal Adenopathy Neurological: Cranial nerves II-XII grossly intact, Neuro grossly intact, Motor Exam 5/5 strength throughout Psych/Mental Status: Normal Affect, Appropriate, Alert and oriented to time, place, person, mood and affect Laboratory Results 01/28/19 21:35: WBC 9.4, RBC 3.29 L, Hgb 9.5 L, Hct 28.5 L, MCV 86.6, MCH 28.9, MCHC 33.3, RDW 15.3 H, RDW Differential 48.8 H, Plt Count 210, MPV 10.3, Immature Gran % (Auto) 0.200, Neut % (Auto) 71.0 H, Lymph % (Auto) 15.3 L, [place] % (Auto) 11.5 H, Eos % (Auto) 1.8, Baso % (Auto) 0.2, Absolute Neuts (auto) 6.7, Absolute Lymphs (auto) 1.44, Total Counted Not Reportable 01/28/19 21:35: Sodium 136, Potassium 4.8, Chloride 109 H, Carbon Dioxide 17.0 L , Anion Gap 10, BUN 41 H, Creatinine 2.21 H, Estim Creat Clear Calc 13.61, Est GFR (MDRD) Af Amer 27 L, Est GFR (MDRD) Non-Af 23 L, BUN/Creatinine Ratio 18.6, Glucose 267 H, Calcium 10.4 H, Troponin I 0.147 H 01/28/19 21:35: Lactic Acid 0.9 01/28/19 21:35: B-Natriuretic Peptide 3256.5 H 01/29/19 00:01: POC Glucose 240 H 01/29/19 00:02: POC Glucose 256 H 01/29/19 00:26: Troponin I 1.990 H* 01/29/19 03:26: Sodium 140, Potassium 4.8, Chloride 111 H, Carbon Dioxide 19.0 L , Anion Gap 10, BUN 43 H, Creatinine 2.24 H, Estim Creat Clear Calc 13.43, Est GFR (MDRD) Af Amer 27 L, Est GFR (MDRD) Non-Af 22 L, BUN/Creatinine Ratio 19.2, Glucose 222 H, Calcium 10.4 H, Iron 20 L, TIBC 215 L, Iron Saturation 9.3 L, Troponin I 5.660 H* 01/29/19 06:39: POC Glucose 168 H 01/29/19 07:04: Troponin I 5.760 H* 01/29/19 10:10: Troponin I Pending Diagnostic Data Chest X-Ray 01/28/19 21:13 IMPRESSION: CHF with bilateral pleural effusions, follow-up recommended to assure resolution Electronically Signed: Sylvester Roberto MD at 22:07 EDT , Service support , Current Medications Acetaminophen (Tylenol) 650 mg PO Q6H PRN PRN PRN Reason: Mild pain 1-3/Temp > 100.7 F Amlodipine Besylate (Norvasc) 10 mg PO DAILY [facility] Last Admin: 01/29/19 09:45 Dose: 10 mg Aspirin (Aspirin, Baby) 81 mg PO DAILY@0800 [facility] Atorvastatin Calcium (Lipitor) 40 mg PO QHS [facility] Dextrose (D50w Syringe) 0 gm IV X1 PRN; Protocol PRN Reason: Hypoglycemia Doxazosin Mesylate (Cardura) 4 mg PO QHS BOO Furosemide (Lasix) 40 mg IV Q8 [facility] Last Admin: 01/29/19 05:18 Dose: 40 mg Glimepiride (Amaryl) 2 mg PO DAILY PRN PRN Reason: for blood glucose >160 Glucagon () 1 mg IM .X1 PRN PRN Reason: Hypoglycemia Heparin Sodium (Porcine) (Heparin Na) 5,000 unit SC Q8 [facility] Last Admin: 01/29/19 05:18 Dose: 5,000 unit Insulin Human Lispro (Humalog Kwikpen (Bkc)) 0 unit SQ ACHS [facility]; Protocol Last Admin: 01/29/19 06:41 Dose: Not Given Lorazepam (Ativan) 0.5 mg PO QHS PRN PRN PRN Reason: sleep Losartan Potassium (Cozaar) 50 mg PO BID [facility] Last Admin: 01/29/19 09:45 Dose: 50 mg Metoprolol Tartrate (Lopressor (Beta Bobby)) 50 mg PO BID [facility] Last Admin: 01/29/19 09:45 Dose: 50 mg Nutritional Formula (Lactose Free) (Glucerna Shake) 120 ml PO 4X/DAY [facility] Last Admin: 01/29/19 09:45 Dose: Not Given Sodium Chloride () 5 - 15 ml IV UD PRN PRN Reason: SALINE FLUSH Last Admin: 01/29/19 05:19 Dose: 10 ml Medical Necessity - Tobacco Use Smoking Status: Never smoker Tobacco Use: Non-smoker Assessment/Plan All Active Problems (Last Updated 10/10/17 @ 14:27 by Taryn Galindo) Shortness of breath (Acute) Acute respiratory failure with hypoxia (Resolved) PNA (pneumonia) (Resolved) Left sided numbness (Resolved) 1. Acute on chronic heart failure with preserved EF * BNP was >3000 on admission * being diuresed with IV lasix. It appears patient wasnt aware of the diagnosis of CHF at time of her last discharge, though that is what she was managed for during that admission * continue diuresis with IV lasix 40mg bid * monitor input output; restrict IVF to 1500cc daily. * 2D echo pending: EF was 55% at last echo (07/22) * it must be noted that at her last admission, she wasnt discharged home with lasix due to JUVENTINO. It doesnt appear patient has been taking lasix at home * 2. Nonstemi * troponin was initially 0.147, and trended up to 5.760 * cardiology on board * on aspiirn, high intensity statin. given loadiing dose of plavix per cardiology; per cardio, not to start heparin drip, and to continue on current sq heparin dose. 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 has no t been following up with nephrology. will monitor 4. TYpe 2 diabetes mellitus: on actos and amaryl at home. These are on hold now. Actos will be dc;d o/a of heart failure. ISS. Accuchecks ACHS 5. Hypertension: Poorly controlled. Has not been compliant. On amlodipine and metoprolol. Also on Cardura. Losartan on hold. 6. Anemia: Hemoglobin is 9.5. Has been as low as 8.2 in the past. Likely due to CKD. Will monitor. DVT prophylaxis:heparin Code Visit Inpatient E&M: 18100 Subs Hosp L3
[2019-01-29 12:10] LABS: Bedside Glucose 195 mg/dL (70-110)
--- NOTE | 2019-01-29 12:25 | CASEMGMT ---
RN CM Assessment Presentation: CHF. IV Lasix, labs, echo Intro role of CM and purpose of RN CM assessment to patient in room. She is sitting in chair, alert, oriented and willing to participate in RN CM assessment. Demographics, PCP and Pharmacy verified. PCP: Dr. Cornell Specialists: Dr. Lee Preferred [facility]acy: [facility] Insurance: [facility] Prescription Benefit: yes LNOK: daughter, Marcy Ruiz is POA Living Arrangements:Lives in [facility], one story. Ramp to enter [place]. Pt states she is independent in ADL's cooking, cleaning, however daughter often brings meals over for her. Transportation: drives DME: shower chair, raised toilet seat, grab bars. HHC: none Patient DC goals: Home DC PLAN: Home. No needs identified @ this time. Rick CARTERN RN ACM
[2019-01-29 16:25] LABS: Bedside Glucose 205 mg/dL (70-110)
--- NOTE | 2019-01-29 17:38 | PCM.CONS.C ---
Problem List (1) Cardiac enzymes elevated Status: Chronic (2) CHF (congestive heart failure) Status: Acute (3) Hyperlipidemia Status: Chronic Qualifiers: Hyperlipidemia type: unspecified Qualified Code(s): E78.5 - Hyperlipidemia, unspecified (4) Hypertension Status: Chronic Qualifiers: Hypertension type: essential hypertension Qualified Code(s): I10 - Essential (primary) hypertension (5) Type II diabetes mellitus Status: Chronic Qualifiers: Diabetes mellitus alf insulin use: without clerical aide teacher use Diabetes mellitus complication status: with unspecified complications Qualified Code(s): E11.8 - Type 2 diabetes mellitus with unspecified complications (6) CKD (chronic kidney disease) stage 3, GFR 30-59 ml/min Status: Chronic (7) Carotid disease, bilateral Status: Chronic Qualifiers: Carotid artery disease type: unspecified Qualified Code(s): I77.9 - Disorder of arteries and arterioles, unspecified Reason for Consult Date of Consultation: 01/29/19 History of Present Illness: The patient is a 83 year old female with a past cardiovascular history which is included hyperlipidemia and hypertension superimposed upon a history of diabetes mellitus, chronic renal insufficiency, and bilateral carotid endarterectomies at these x2), who now presents for concerns of abnormal cardiac enzymes and CHF. The patient states that she has been progressively short of breath and dyspneic. She has noted some evidence of orthopnea as well as lower extremity peripheral pitting edema. There has been chest discomfort with her shortness of breath and dyspnea. There has been no obvious nausea, emesis, or diaphoresis. There is been no loss of consciousness. She presented to the [facility] emergency department for further evaluation care. She was thought based upon her clinical status, her objective markers such as BNP and chest x-ray etc. to have evidence of CHF/pulmonary edema. She was placed in the PCU for further evaluation and care. She has been undergoing medical management including IV diuretics. She states she is feeling somewhat better. During her hospitalization she has been followed. Her cardiac enzyme levels have increased. The concern has been given regarding an acute non-ST segment elevation MO. Thus cardiology was consulted to evaluate the patient. She has been evaluated by cardiology in the past. She was evaluated by Henrique Valentin MD on 11-25-15. This evaluation was for concerns of abnormal cardiac enzymes in the setting of a TIA/CVA. She was recommended at the time for conservative medical management with future consideration for diagnostic cardiac catheterization once her neurologic event stabilized. However she never presented for such evaluation. She was also evaluated by nephrology in the past. She states that she stopped her nephrology appointments as well. She has had a previous transthoracic echocardiogram performed on 07-30-18. At that time the left ventricle was thought to be normal with an LVEF 55% with mild to moderate MR, mild TR, mild focal aortic valve thickening and calcification, and an estimated RV systolic pressure 46 mmHg. She had a previous pharmacologic stress nuclear imaging study performed on 11-25-15. At that time her pharmacologic myocardial perfusion study was considered negative for inducible myocardial ischemia and her gated LVEF was reported at 72%. [] Past Medical History Allergies/Adverse Reactions: Allergies metformin Allergy (Verified 01/28/19 21:00) Other BODY ACHES epinephrine Adverse Reaction (Verified 01/28/19 21:00) Other SHAKING Gadolinium-MRI Contrast Medium [CONTRAST] Adverse Reaction (Verified 01/28/19 21:00) Other SHAKING Home Medications: Ambulatory Orders Medication Instructions Recorded Benazepril HCl 40 mg PO BID 11/24/15 Glimepiride [Amaryl] 4 mg PO DAILY PRN 11/24/15 Pioglitazone [Actos] 30 mg PO DAILY PRN 11/24/15 Amlodipine [Norvasc] 10 mg PO DAILY #0 11/26/15 lactobacillus combination no.8 3 3,000 mmu cells PO QDAY 10/10/17 billion cell capsule Doxazosin Mesylate [Cardura] 2 mg PO DAILY 07/28/18 Gemfibrozil [Lopid] 600 mg PO BID 07/29/18 Lorazepam [Ativan] 0.5 mg PO QHS PRN PRN 07/29/18 Metoprolol Tartrate 50 mg PO BID 07/29/18 Past Medical History (Chronic Problems): Chronic Problems (Last Updated 10/10/17 @ 14:27 by Taryn Galindo) TIA (transient ischemic attack) (Chronic) Cardiac enzymes elevated (Chronic) Carotid disease, bilateral (Chronic) CKD (chronic kidney disease) stage 3, GFR 30-59 ml/min (Chronic) Hypertension (Chronic) Hyperlipidemia (Chronic) Type II diabetes mellitus (Chronic) Surgical History: cataract, - - BL carotid artery surgery x 2, hysterectemy, rectal surgery for benign growth. 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 - *Family History Maternal Family History: Family History (Last Updated 10/10/17 @ 14:30 by Taryn Galindo) Mother Diabetes Hypertension CVA (cerebral vascular accident) Cancer Brother Diabetes Hypertension Sister Diabetes Hypertension History Items: Diabetes, High Cholesterol Paternal Family History: Family History (Last Updated 10/10/17 @ 14:30 by Taryn Galindo) Mother Diabetes Hypertension CVA (cerebral vascular accident) Cancer Brother Diabetes Hypertension Sister Diabetes Hypertension History Items: Unknown Sibling Family History: Family History (Last Updated 10/10/17 @ 14:30 by Taryn Galindo) Mother Diabetes Hypertension CVA (cerebral vascular accident) Cancer Brother Diabetes Hypertension Sister Diabetes Hypertension History Items: Diabetes, Hypertension Lives: Spouse/ Significant Other Smoking Status: Never smoker Tobacco Use: Non-smoker Alcohol: None Drugs: None Review of Systems - Review of Systems General: Denies: Fever, Night Sweats, Fatigue Cardiovascular: Reports: Chest Discomfort, Shortness of Breath, Orthopnea, Peripheral Edema. Denies: PND, Palpitations, Lightheadedness, Dizziness, Near Syncope, Syncope Respiratory: Reports: Shortness of Breath. Denies: Cough, Sputum Production, Hemoptysis Gastrointestinal: Denies: Hematemesis, Hematochezia, Melena Genitourinary: Denies: Dysuria, Hematuria Skin: Denies: Rash Subjectve: This is an 83-year-old white female who appears to be resting comfortably at the moment in no acute distress. Objective: Vital Signs Temp Pulse Resp BP Pulse Ox 97.6 F L 76 18 154/89 H 94 01/29/19 15:20 01/29/19 15:20 01/29/19 15:20 01/29/19 15:20 01/29/19 15:20 Oxygen Flow Rate (L/min) 2 Oxygen Delivery Method Room Air Weight: 118 lb 9.739 oz Body Mass Index (BMI) 23.1 Finger Stick Blood Glucose 252 Intake and Output for Last 24 Hours 01/27/19 01/28/19 01/29/19 23:59 23:59 23:59 Intake Total 440 / 440 Output Total 200 / 200 2300 / 2300 Balance -200 / -200 -1860 / -1860 General: Awake, Alert, Oriented x 3, Cooperative, No Acute Distress HEENT: Atraumatic, Normocephalic, PERRL, EOMI, Sclera Non Icteric Oral: Moist Mucosa Neck: Supple, Good ROM, No JVD Lungs: Diminished Pilo Bases Cardiovascular: Regular Rhythm, Normal S1, Normal S2 Murmur Murmur: Grade 2/6, Soft, Mid Systolic, LLSB, LVOT, Sternal Notch Vascular: L Carotid Artery Bruits Abdomen: Bowel Sounds Present, Soft, Non Tender Extremities: Trace RLE Edema, Trace LLE Edema Psych/Mental Status: Appropriate 01/28/19 21:35: WBC 9.4, RBC 3.29 L, Hgb 9.5 L, Hct 28.5 L, MCV 86.6, MCH 28.9, MCHC 33.3, RDW 15.3 H, RDW Differential 48.8 H, Plt Count 210, MPV 10.3, Immature Gran % (Auto) 0.200, Neut % (Auto) 71.0 H, Lymph % (Auto) 15.3 L, Carlton % (Auto) 11.5 H, Eos % (Auto) 1.8, Baso % (Auto) 0.2, Absolute Neuts (auto) 6.7, Total Counted Not Reportable 01/28/19 21:35: Sodium 136, Potassium 4.8, Chloride 109 H, Carbon Dioxide 17.0 L, Anion Gap 10, BUN 41 H, Creatinine 2.21 H, Est GFR (MDRD) Af Amer 27 L, Est GFR (MDRD) Non-Af 23 L, BUN/Creatinine Ratio 18.6, Glucose 267 H, Calcium 10.4 H, Troponin I 0.147 H 01/28/19 21:35: Lactic Acid 0.9 01/28/19 21:35: B-Natriuretic Peptide 3256.5 H 01/29/19 00:26: Troponin I 1.990 H* 01/29/19 03:26: Sodium 140, Potassium 4.8, Chloride 111 H, Carbon Dioxide 19.0 L, Anion Gap 10, BUN 43 H, Creatinine 2.24 H, Est GFR (MDRD) Af Amer 27 L, Est GFR (MDRD) Non-Af 22 L, BUN/Creatinine Ratio 19.2, Glucose 222 H, Calcium 10.4 H, Iron 20 L, TIBC 215 L, Iron Saturation 9.3 L, Troponin I 5.660 H* 01/29/19 07:04: Troponin I 5.760 H* 01/29/19 10:10: Troponin I 3.900 H* Rhythm: Sinus rhythm EKG: Sinus rhythm; ST and T wave abnormality: Consider myocardial ischemia-lateral ECHO: Interpretation Summary Moderate segmental systolic dysfunction (see wall motion). The estimated ejection fraction is 35 %. Mild concentric left ventricular hypertrophy. The left atrium is mildly enlarged. Mild diffuse mitral valve thickening. Mild-Moderate (1-2+) eccentric mitral valve insufficiency. Trivial tricuspid valve insufficiency. Mild focal aortic valve calcification. Trivial pulmonic valve insufficiency. Trivial pericardial effusion. There are no echocardiographic indications of cardiac tamponade. Echolucency c/w a pleural effusion. Diastolic function is indeterminate. CXR: Preliminary evaluation: Increased pulmonary vascularity: Bilateral pleural effusions: Please see official report Assessment/Plan 1. Abnormal cardiac enzymes The patient does have abnormal cardiac enzymes. The concern is an acute non-ST segment elevation MO. Thus far there is been no obvious other explanation such as an acute neurologic event or an acute thromboembolic event or an acute sepsis type event to explain her abnormal cardiac enzymes. She does have chronic renal insufficiency which may be a contributing factor. She has undergone noninvasive evaluation. This has included a follow-up transthoracic echocardiogram. The results are as noted above. Based on this finding it does appear she has diminished LV systolic function. This could be secondary to CAD and could contribute to her findings of CHF/pulmonary edema. At the moment she will continue medical management. This will include agents such as aspirin, antiplatelets, anticoagulants, nitrates as needed, beta blockers, afterload reducing agents as able, lipid-lowering agents, etc. Ideally should be considered for further evaluation with diagnostic cardiac catheterization. However there is some concern in proceeding in such a manner based upon her underlying renal insufficiency and the concern of a contrast related nephropathy occurring. Thus at the moment she will continue conservative medical management. 2. CHF She will continue evaluation care. She will continue medical therapy/diuretic therapy. Her clinical status and renal function will need to be followed. 3. Hyperlipidemia She will continue risk factor evaluation and care. 4. Hypertension Her blood pressure will need to be adjusted to control her blood pressure and avoid issues with respect to her renal insufficiency. 5. Diabetes mellitus She will continue evaluation care per internal medicine. 6. Chronic renal insufficiency She may need to be reevaluated by nephrology. Again this has to be taken into consideration with any invasive procedures that could lead to an IV contrast related nephropathy. 7. Carotid artery disease She states she has had both carotid arteries operated on twice once in [place] and once in [place]. She has a left carotid artery bruit. She may need further noninvasive evaluation of her carotid artery disease. Comment: The patient's case was discussed reviewed with the patient and previously with Drs. Grider and Jeimy. This note was generated with [employer] dictation software. It may contain incorrect words, spelling, and punctuation that were not noted in checking the note before signing.
--- NOTE | 2019-01-29 17:43 | CON.PCM_ITS ---
Problem List (1) Cardiac enzymes elevated Status: Chronic (2) CHF (congestive heart failure) Status: Acute (3) Hyperlipidemia Status: Chronic Qualifiers: Hyperlipidemia type: unspecified Qualified Code(s): E78.5 - Hyperlipidemia, unspecified (4) Hypertension Status: Chronic Qualifiers: Hypertension type: essential hypertension Qualified Code(s): I10 - Essential (primary) hypertension (5) Type II diabetes mellitus Status: Chronic Qualifiers: Diabetes mellitus jail insulin use: without longwall foreman use Diabetes mellitus complication status: with unspecified complications Qualified Code(s): E11.8 - Type 2 diabetes mellitus with unspecified complications (6) CKD (chronic kidney disease) stage 3, GFR 30-59 ml/min Status: Chronic (7) Carotid disease, bilateral Status: Chronic Qualifiers: Carotid artery disease type: unspecified Qualified Code(s): I77.9 - Disorder of arteries and arterioles, unspecified Reason for Consult Date of Consultation: 01/29/19 History of Present Illness: The patient is a 83 year old female with a past cardiovascular history which is included hyperlipidemia and hypertension superimposed upon a history of diabetes mellitus, chronic renal insufficiency, and bilateral carotid endarterectomies at these x2), who now presents for concerns of abnormal cardiac enzymes and CHF. The patient states that she has been progressively short of breath and dyspneic. She has noted some evidence of orthopnea as well as lower extremity peripheral pitting edema. There has been chest discomfort with her shortness of breath and dyspnea. There has been no obvious nausea, emesis, or diaphoresis. There is been no loss of consciousness. She presented to the [facility] emergency department for further evaluation care. She was thought based upon her clinical status, her objective markers such as BNP and chest x- ray etc. to have evidence of CHF/pulmonary edema. She was placed in the PCU for further evaluation and care. She has been undergoing medical management including IV diuretics. She states she is feeling somewhat better. During her hospitalization she has been followed. Her cardiac enzyme levels have increased. The concern has been given regarding an acute non-ST segment elevation LA. Thus cardiology was consulted to evaluate the patient. She has been evaluated by cardiology in the past. She was evaluated by Henrique Valentin MD on 11-25-15. This evaluation was for concerns of abnormal cardiac enzymes in the setting of a TIA/CVA. She was recommended at the time for conservative medical management with future consideration for diagnostic cardiac catheterization once her neurologic event stabilized. However she never presented for such evaluation. She was also evaluated by nephrology in the past. She states that she stopped her nephrology appointments as well. She has had a previous transthoracic echocardiogram performed on 07-30-18. At that time the left ventricle was thought to be normal with an LVEF 55% with mild to moderate MR, mild TR, mild focal aortic valve thickening and calcification, and an estimated RV systolic pressure 46 mmHg. She had a previous pharmacologic stress nuclear imaging study performed on 11-25-15. At that time her pharmacologic myocardial perfusion study was considered negative for inducible myocardial ischemia and her gated LVEF was reported at 72%. [] Past Medical History Allergies/Adverse Reactions: Allergies metformin Allergy (Verified 01/28/19 21:00) Other BODY ACHES epinephrine Adverse Reaction (Verified 01/28/19 21:00) Other SHAKING Gadolinium-MRI Contrast Medium [CONTRAST] Adverse Reaction (Verified 01/28/19 21:00) Other SHAKING Home Medications: Ambulatory Orders Medication Instructions Recorded Benazepril HCl 40 mg PO BID 11/24/15 Glimepiride [Amaryl] 4 mg PO DAILY PRN 11/24/15 Pioglitazone [Actos] 30 mg PO DAILY PRN 11/24/15 Amlodipine [Norvasc] 10 mg PO DAILY #0 11/26/15 lactobacillus combination no.8 3 3,000 mmu cells PO QDAY 10/10/17 billion cell capsule Doxazosin Mesylate [Cardura] 2 mg PO DAILY 07/28/18 Gemfibrozil [Lopid] 600 mg PO BID 07/29/18 Lorazepam [Ativan] 0.5 mg PO QHS PRN PRN 07/29/18 Metoprolol Tartrate 50 mg PO BID 07/29/18 Past Medical History (Chronic Problems): Chronic Problems (Last Updated 10/10/17 @ 14:27 by Taryn Galindo) TIA (transient ischemic attack) (Chronic) Cardiac enzymes elevated (Chronic) Carotid disease, bilateral (Chronic) CKD (chronic kidney disease) stage 3, GFR 30-59 ml/min (Chronic) Hypertension (Chronic) Hyperlipidemia (Chronic) Type II diabetes mellitus (Chronic) Surgical History: cataract, - - BL carotid artery surgery x 2, hysterectemy, rectal surgery for benign growth. Psychiatric History: No pertinent psych hx ORAL AND MAXILLOFACIAL SURGERY History: No pertinent ORAL AND MAXILLOFACIAL SURGERY history - *Family History Maternal Family History: Family History (Last Updated 10/10/17 @ 14:30 by Taryn Galindo) Mother Diabetes Hypertension CVA (cerebral vascular accident) Cancer Brother Diabetes Hypertension Sister Diabetes Hypertension History Items: Diabetes, High Cholesterol Paternal Family History: Family History (Last Updated 10/10/17 @ 14:30 by Taryn Galindo) Mother Diabetes Hypertension CVA (cerebral vascular accident) Cancer Brother Diabetes Hypertension Sister Diabetes Hypertension History Items: Unknown Sibling Family History: Family History (Last Updated 10/10/17 @ 14:30 by Taryn Galindo) Mother Diabetes Hypertension CVA (cerebral vascular accident) Cancer Brother Diabetes Hypertension Sister Diabetes Hypertension History Items: Diabetes, Hypertension Lives: Spouse/ Significant Other Smoking Status: Never smoker Tobacco Use: Non-smoker Alcohol: None Drugs: None Review of Systems - Review of Systems General: Denies: Fever, Night Sweats, Fatigue Cardiovascular: Reports: Chest Discomfort, Shortness of Breath, Orthopnea, Peripheral Edema. Denies: PND, Palpitations, Lightheadedness, Dizziness, Near Syncope, Syncope Respiratory: Reports: Shortness of Breath. Denies: Cough, Sputum Production, Hemoptysis Gastrointestinal: Denies: Hematemesis, Hematochezia, Melena Genitourinary: Denies: Dysuria, Hematuria Skin: Denies: Rash Subjectve: This is an 83-year-old white female who appears to be resting comfortably at the moment in no acute distress. Objective: Vital Signs Temp Pulse Resp BP Pulse Ox 97.6 F L 76 18 154/89 H 94 01/29/19 15:20 01/29/19 15:20 01/29/19 15:20 01/29/19 15:20 01/29/19 15:20 Oxygen Flow Rate (L/min) 2 Oxygen Delivery Method Room Air Weight: 118 lb 9.739 oz Body Mass Index (BMI) 23.1 Finger Stick Blood Glucose 252 Intake and Output for Last 24 Hours 01/27/19 01/28/19 01/29/19 23:59 23:59 23:59 Intake Total 440 / 440 Output Total 200 / 200 2300 / 2300 Balance -200 / -200 -1860 / -1860 General: Awake, Alert, Oriented x 3, Cooperative, No Acute Distress HEENT: Atraumatic, Normocephalic, PERRL, EOMI, Sclera Non Icteric Oral: Moist Mucosa Neck: Supple, Good ROM, No JVD Lungs: Diminished Pilo Bases Cardiovascular: Regular Rhythm, Normal S1, Normal S2 Murmur Murmur: Grade 2/6, Soft, Mid Systolic, LLSB, LVOT, Sternal Notch Vascular: L Carotid Artery Bruits Abdomen: Bowel Sounds Present, Soft, Non Tender Extremities: Trace RLE Edema, Trace LLE Edema Psych/Mental Status: Appropriate 01/28/19 21:35: WBC 9.4, RBC 3.29 L, Hgb 9.5 L, Hct 28.5 L, MCV 86.6, MCH 28.9, MCHC 33.3, RDW 15.3 H, RDW Differential 48.8 H, Plt Count 210, MPV 10.3, Immature Gran % (Auto) 0.200, Neut % (Auto) 71.0 H, Lymph % (Auto) 15.3 L, Cole % (Auto) 11.5 H, Eos % (Auto) 1.8, Baso % (Auto) 0.2, Absolute Neuts (auto) 6.7, Total Counted Not Reportable 01/28/19 21:35: Sodium 136, Potassium 4.8, Chloride 109 H, Carbon Dioxide 17.0 L , Anion Gap 10, BUN 41 H, Creatinine 2.21 H, Est GFR (MDRD) Af Amer 27 L, Est GFR (MDRD) Non-Af 23 L, BUN/Creatinine Ratio 18.6, Glucose 267 H, Calcium 10.4 H , Troponin I 0.147 H 01/28/19 21:35: Lactic Acid 0.9 01/28/19 21:35: B-Natriuretic Peptide 3256.5 H 01/29/19 00:26: Troponin I 1.990 H* 01/29/19 03:26: Sodium 140, Potassium 4.8, Chloride 111 H, Carbon Dioxide 19.0 L , Anion Gap 10, BUN 43 H, Creatinine 2.24 H, Est GFR (MDRD) Af Amer 27 L, Est GFR (MDRD) Non-Af 22 L, BUN/Creatinine Ratio 19.2, Glucose 222 H, Calcium 10.4 H , Iron 20 L, TIBC 215 L, Iron Saturation 9.3 L, Troponin I 5.660 H* 01/29/19 07:04: Troponin I 5.760 H* 01/29/19 10:10: Troponin I 3.900 H* Rhythm: Sinus rhythm EKG: Sinus rhythm; ST and T wave abnormality: Consider myocardial ischemia- lateral ECHO: Interpretation Summary Moderate segmental systolic dysfunction (see wall motion). The estimated ejection fraction is 35 %. Mild concentric left ventricular hypertrophy. The left atrium is mildly enlarged. Mild diffuse mitral valve thickening. Mild-Moderate (1-2+) eccentric mitral valve insufficiency. Trivial tricuspid valve insufficiency. Mild focal aortic valve calcification. Trivial pulmonic valve insufficiency. Trivial pericardial effusion. There are no echocardiographic indications of cardiac tamponade. Echolucency c/w a pleural effusion. Diastolic function is indeterminate. CXR: Preliminary evaluation: Increased pulmonary vascularity: Bilateral pleural effusions: Please see official report Assessment/Plan 1. Abnormal cardiac enzymes The patient does have abnormal cardiac enzymes. The concern is an acute non-ST segment elevation LA. Thus far there is been no obvious other explanation such as an acute neurologic event or an acute thromboembolic event or an acute sepsis type event to explain her abnormal cardiac enzymes. She does have chronic renal insufficiency which may be a contributing factor. She has undergone noninvasive evaluation. This has included a follow-up transthoracic echocardiogram. The results are as noted above. Based on this finding it does appear she has diminished LV systolic function. This could be secondary to CAD and could contribute to her findings of CHF/pulmonary edema. At the moment she will continue medical management. This will include agents such as aspirin, antiplatelets, anticoagulants, nitrates as needed, beta blo ckers, afterload reducing agents as able, lipid-lowering agents, etc. Ideally should be considered for further evaluation with diagnostic cardiac catheterization. However there is some concern in proceeding in such a manner based upon her underlying renal insufficiency and the concern of a contrast related nephropathy occurring. Thus at the moment she will continue conservative medical management. 2. CHF She will continue evaluation care. She will continue medical therapy/diuretic therapy. Her clinical status and renal function will need to be followed. 3. Hyperlipidemia She will continue risk factor evaluation and care. 4. Hypertension Her blood pressure will need to be adjusted to control her blood pressure and avoid issues with respect to her renal insufficiency. 5. Diabetes mellitus She will continue evaluation care per internal medicine. 6. Chronic renal insufficiency She may need to be reevaluated by nephrology. Again this has to be taken into consideration with any invasive procedures that could lead to an IV contrast related nephropathy. 7. Carotid artery disease She states she has had both carotid arteries operated on twice once in [place] and once in [place]. She has a left carotid artery bruit. She may need further noninvasive evaluation of her carotid artery disease. Comment: The patient's case was discussed reviewed with the patient and prev iously with Drs. Grider and Jeimy. This note was generated with [employer] dictation software. It may contain incorrect words, spelling, and punctuation that were not noted in checking the note befo re signing.
[2019-01-29] MEDS: Atorvastatin Calcium 40 MG Tablet PO (21:16)
[2019-01-29] MEDS: Doxazosin 4 MG Tablet PO (21:17)
[2019-01-29] MEDS: LORazepam 0.5 MG Tablet PO (21:21)
[2019-01-29] MEDS: hydrALAZINE 25 MG Tablet PO (21:23)
[2019-01-29] MEDS: Isosorbide DN 10 MG Tablet PO (21:23)
[2019-01-29] MEDS: Glimepiride 2 MG Tablet PO (21:23)
[2019-01-29 22:20] LABS: Bedside Glucose 272 mg/dL (70-110)
[2019-01-30] VITALS (15 sets, daily range): BP systolic 137–167; BP diastolic 53–79; PULSE 72–88; RESP 16–18; TEMP 36.5–36.8; O2SAT 93–97
[2019-01-30] MEDS: Furosemide 40 MG/4 ML Vial IV ×2 (05:42→17:32)
[2019-01-30] MEDS: Heparin Injection (Vial) 5,000 UNIT/ML VIAL 5000 UNIT SC ×3 (05:42→21:06)
[2019-01-30] MEDS: hydrALAZINE 25 MG Tablet PO ×3 (05:42→21:06)
[2019-01-30] MEDS: 0.9% NaCl Peripheral Flush Adult/Peds IV ×2 (05:43→17:32)
[2019-01-30] MEDS: Isosorbide DN 10 MG Tablet PO ×3 (05:43→21:05)
--- NOTE | 2019-01-30 05:55 | EKG12_ITS ---
Test Reason : AM EKG Blood Pressure : / mmHG Vent. Rate : 079 BPM Atrial Rate : 079 BPM P-R Int : 146 ms QRS Dur : 096 ms QT Int : 382 ms P-R-T Axes : 063 041 137 degrees QTc Int : 438 ms Normal sinus rhythm ST & T wave abnormality, consider anterolateral ischemia Abnormal ECG When compared with ECG of 29-JAN-2019 05:50, MANUAL COMPARISON REQUIRED, DATA IS UNCONFIRMED Confirmed by JASON CLOUD, KISHOR ([id number]), manuscript editor CHUY TREVIZO ([id number]) on 02/04/2019 2:34:06 PM Referred By: Kb Grider Confirmed By:KISHOR GOMEZ MD
[2019-01-30 06:46] LABS: Anion Gap 11 (5-15); BUN 49 mg/dL (7-18); BUN/Creat Ratio 20.2 RATIO (10-20); Calcium,Total 10.6 mg/dL (8.5-10.1); Chloride 108 mmol/L (98-107); Creatinine, Serum 2.43 mg/dL (0.55-1.02); EST Glomerular Filtration Rate 20 mL/min (>60); Est Glom Filt Rate - Afr Amer 24 mL/min (>60); Estimated Creatinine Clearance 12.38 ml/min; Glucose 127 mg/dL (74-106); Potassium 4.3 mmol/L (3.5-5.1); Sodium Level 139 mmol/L (136-145)
[2019-01-30 06:51] LABS: Bedside Glucose 144 mg/dL (70-110)
--- NOTE | 2019-01-30 07:32 | NURSING ---
INSIDE SALES PROFESSIONAL assisting pt to bathroom. according to INSIDE SALES PROFESSIONAL pt became very lightheaded and weak when returning to bed. This RN in room at this time. pt lethargic. VSS. blood glucose 151. after about 2 min pt said she started to feel better. will cont to monitor
[2019-01-30 07:36] LABS: Bedside Glucose 151 mg/dL (70-110)
[2019-01-30] MEDS: Aspirin 81 MG TAB.CHEW PO (08:27)
[2019-01-30] MEDS: Metoprolol Tartrate 50 MG Tablet PO ×2 (08:28→21:06)
[2019-01-30] MEDS: amLODIPine 10 MG Tablet PO (08:28)
[2019-01-30] MEDS: Clopidogrel Bisulfate 75 MG Tablet PO (08:29)
--- NOTE | 2019-01-30 09:05 | PN.CARD_ITS ---
Subjectve: The patient is awake and alert. She denies any ongoing chest discomfort. She states her breathing has improved. She noted when she was up and ambulating to and from the restroom this morning she felt somewhat dizzy . She did not lose consciousness. According to the nursing staff she had no significant change with respect to her heart rate or blood pressure or cardiac rhythm. Objective: Vital Signs Temp Pulse Resp BP Pulse Ox 97.7 F L 87 16 151/79 H 96 01/30/19 07:30 01/30/19 08:28 01/30/19 07:30 01/30/19 07:30 01/30/19 07:30 Oxygen Flow Rate (L/min) 2 Oxygen Delivery Method Room Air Weight: 113 lb 12.136 oz Body Mass Index (BMI) 23.1 Finger Stick Blood Glucose 252 Intake and Output for Last 24 Hours 01/28/19 01/29/19 01/30/19 23:59 23:59 23:59 Intake Total 1040 / 1040 120 / 120 Output Total 200 / 200 4950 / 4950 525 / 525 Balance -200 / -200 -3910 / -3910 -405 / -405 General: Awake, Alert, Oriented x 3, Cooperative, No Acute Distress HEENT: Atraumatic, Normocephalic, PERRL, EOMI, Sclera Non Icteric Oral: Moist Mucosa Neck: Supple, Good ROM, No JVD Lungs: Diminished Pilo Bases Cardiovascular: Regular Rhythm, Premature Ectopic Beats, Normal S1, Normal S2 Vascular: L Carotid Artery Bruits Abdomen: Bowel Sounds Present, Soft, Non Tender Extremities: No edema Psych/Mental Status: Appropriate 01/29/19 10:10: Troponin I 3.900 H* 01/30/19 05:20: Sodium 139, Potassium 4.3, Chloride 108 H, Carbon Dioxide 20.0 L , Anion Gap 11, BUN 49 H, Creatinine 2.43 H, Est GFR (MDRD) Af Amer 24 L, Est GFR (MDRD) Non-Af 20 L, BUN/Creatinine Ratio 20.2 H, Glucose 127 H, Calcium 10.6 H Rhythm: Sinus rhythm; one episode of an irregular narrow complex tachydysrhythmia appearing compatible with an ectopic atrial tachycardia-brief Echocardiogram: Interpretation Summary Moderate segmental systolic dysfunction (see wall motion). The estimated ejection fraction is 35 %. Mild concentric left ventricular hypertrophy. The left atrium is mildly enlarged. Mild diffuse mitral valve thickening. Mild-Moderate (1-2+) eccentric mitral valve insufficiency. Trivial tricuspid valve insufficiency. Mild focal aortic valve calcification. Trivial pulmonic valve insufficiency. Trivial pericardial effusion. There are no echocardiographic indications of cardiac tamponade. Echolucency c/w a pleural effusion. Diastolic function is indeterminate. Medical Necessity - Tobacco Use Smoking Status: Never smoker Tobacco Use: Non-smoker Assessment/Plan 1. Abnormal cardiac enzymes The patient does have abnormal cardiac enzymes. The concern is an acute non-ST segment elevation WI. Thus far there is been no obvious other explanation such as an acute neurologic event or an acute thromboembolic event or an acute sepsis type event to explain her abnormal cardiac enzymes. She does have chronic renal insufficiency which may be a contributing factor. She has undergone noninvasive evaluation. This has included a follow-up transthoracic echocardiogram. The results are as noted above. Based on this finding it does appear she has diminished LV systolic function. This could be secondary to CAD and could contribute to her findings of CHF/pulmonary edema. At the moment she will continue medical management. This will include agents such as aspirin, antiplatelets, anticoagulants, nitrates as needed, beta blockers, afterload reducing agents as able, lipid-lowering agents, etc. Ideally should be considered for further evaluation with diagnostic cardiac catheterization. However there is some concern in proceeding in such a manner based upon her underlying renal insufficiency and the concern of a contrast related nephropathy occurring. Thus at the moment she will continue conservative medical management. 2. CHF She will continue evaluation care. She will continue medical therapy/diuretic therapy. Her symptoms have improved. Creatinine level has increased. At the present time her diuretics will be adjusted from 3 times daily to twice daily. She will continue to be followed from a clinical standpoint with respect to her symptoms, hemodynamics, and renal function. 3. Hyperlipidemia She will continue risk factor evaluation and care. 4. Hypertension Her blood pressure will need to be adjusted to control her blood pressure and avoid issues with respect to her renal insufficiency. 5. Diabetes mellitus She will continue evaluation care per internal medicine. 6. Chronic renal insufficiency She may need to be reevaluated by nephrology. Again this has to be taken into consideration with any invasive procedures that could lead to an IV contrast related nephropathy. 7. Carotid artery disease She states she has had both carotid arteries operated on twice once in [place] and once in [place]. She has a left carotid artery bruit. She may need further noninvasive evaluation of her carotid artery disease. Comment: The patient's case was discussed reviewed with the patient. This note was generated with [employer] dictation software. It may contain incorrect words, spelling, and punctuation that were not noted in checking the note before signing.
--- NOTE | 2019-01-30 11:05 | CASEMGMT ---
Per tech, pt would like to see this RN CM regarding insurance. This RN CM to room to speak with pt. Pt states that application support manager told her that [facility] and [facility] are not in-network with pt's insurance at this time. This RN CM checked [facility] website and is states that [facility] and the [place] [facility] are in-network at this time. Call to Geraldine at [facility] billing and she states that they are in-network with [facility] at this time. Pt updated at this time and provided with in-network hospital and application support manager lists at this time, voices understanding. Pt states that this is 'a huge relief' and voices no further questions/concerns/needs at this time. SStaten RN CM
[2019-01-30] MEDS: Glimepiride 2 MG Tablet PO (11:38)
[2019-01-30 11:51] LABS: Bedside Glucose 234 mg/dL (70-110)
--- NOTE | 2019-01-30 13:45 | PCM.PN.HOSP ---
Patient Problems: Active and Suspected Problems (Last Updated 10/10/17 @ 14:27 by Taryn Galindo) CHF (congestive heart failure) (Acute) Shortness of breath (Acute) Subjective: Patient seen and examined. He complains of feeling dizzy and lightheaded when she got up and was going to the bathroom. She denies passing out. Review of systems otherwise negative. Labs and vitals reviewed. Creatinine noted to have trended up slightly. Vitals/I&O's: Vital Signs Temp Pulse Resp BP Pulse Ox 97.8 F 84 16 152/73 H 97 01/30/19 09:30 01/30/19 09:30 01/30/19 09:30 01/30/19 09:30 01/30/19 09:30 Oxygen Flow Rate (L/min) 2 Oxygen Delivery Method Room Air Weight: 113 lb 12.136 oz Body Mass Index (BMI) 23.1 Finger Stick Blood Glucose 252 Intake and Output for Last 24 Hours 01/28/19 01/29/19 01/30/19 23:59 23:59 23:59 Intake Total 1040 / 1040 360 / 360 Output Total 200 / 200 4950 / 4950 1085 / 1085 Balance -200 / -200 -3910 / -3910 -725 / -725 General: Alert, Oriented x3, Cooperative, No apparent distress HEENT: Atraumatic, PERRLA, EOMI, Normocephalic Oral: Moist Mucosa Neck: Supple, No JVD, Negative Carotid Bruits Lungs: Clear to auscultation, Normal air movement, No rhonchi, No wheeze, No rales Cardiovascular: Regular rate, Regular Rhythm, Normal S1, Normal S2, No murmurs Abdomen: Bowel Sounds Present, Soft, Non Tender, Non-Distended, No Hepato-splenomegaly Extremities: No clubbing, No cyanosis, Capillary Refill Less than 3 Seconds, - - 1+ bipedal pitting edema Skin: No rashes, No breakdown Musculoskeletal: No Tenderness to Palpation of Joints or Extremities Lymphatic: No Cervical, Supraclavicular, or Inguinal Adenopathy Neurological: Cranial nerves II-XII grossly intact, Neuro grossly intact, Motor Exam 5/5 strength throughout Psych/Mental Status: Normal Affect, Appropriate, Alert and oriented to time, place, person, mood and affect Laboratory Results 01/29/19 16:16: POC Glucose 205 H 01/29/19 21:18: POC Glucose 272 H 01/30/19 05:20: Sodium 139, Potassium 4.3, Chloride 108 H, Carbon Dioxide 20.0 L, Anion Gap 11, BUN 49 H, Creatinine 2.43 H, Estim Creat Clear Calc 12.38, Est GFR (MDRD) Af Amer 24 L, Est GFR (MDRD) Non-Af 20 L, BUN/Creatinine Ratio 20.2 H, Glucose 127 H, Calcium 10.6 H 01/30/19 06:46: POC Glucose 144 H 01/30/19 07:30: POC Glucose 151 H 01/30/19 11:31: POC Glucose 234 H Current Medications Acetaminophen (Tylenol) 650 mg PO Q6H PRN PRN PRN Reason: Mild pain 1-3/Temp > 100.7 F Amlodipine Besylate (Norvasc) 10 mg PO DAILY [facility] Last Admin: 01/30/19 08:28 Dose: 10 mg Aspirin (Aspirin, Baby) 81 mg PO DAILY@0800 [facility] Last Admin: 01/30/19 08:27 Dose: 81 mg Atorvastatin Calcium (Lipitor) 40 mg PO QHS [facility] Last Admin: 01/29/19 21:16 Dose: 40 mg Clopidogrel Bisulfate (Plavix) 75 mg PO DAILY [facility] Last Admin: 01/30/19 08:29 Dose: 75 mg Dextrose (D50w Syringe) 0 gm IV X1 PRN; Protocol PRN Reason: Hypoglycemia Doxazosin Mesylate (Cardura) 4 mg PO QHS [facility] Last Admin: 01/29/19 21:17 Dose: 4 mg Furosemide (Lasix) 40 mg IV BID@1000,1800 [facility] Glimepiride (Amaryl) 2 mg PO DAILY PRN PRN Reason: for blood glucose >160 Last Admin: 01/30/19 11:38 Dose: 2 mg Glucagon () 1 mg IM .X1 PRN PRN Reason: Hypoglycemia Heparin Sodium (Porcine) (Heparin Na) 5,000 unit SC Q8 [facility] Last Admin: 01/30/19 05:42 Dose: 5,000 unit Hydralazine HCl (Apresoline) 25 mg PO TID [facility] Last Admin: 01/30/19 05:42 Dose: 25 mg Insulin Human Lispro (Humalog Kwikpen (Bkc)) 0 unit SQ ACHS [facility]; Protocol Last Admin: 01/30/19 11:39 Dose: Not Given Isosorbide Dinitrate (Isordil) 10 mg PO TID [facility] Last Admin: 01/30/19 05:43 Dose: 10 mg Lorazepam (Ativan) 0.5 mg PO QHS PRN PRN PRN Reason: sleep Last Admin: 01/29/19 21:21 Dose: 0.5 mg Metoprolol Tartrate (Lopressor (Beta Bobby)) 50 mg PO BID [facility] Last Admin: 01/30/19 08:28 Dose: 50 mg Sodium Chloride () 5 - 15 ml IV UD PRN PRN Reason: SALINE FLUSH Last Admin: 01/30/19 05:43 Dose: 10 ml Medical Necessity - Tobacco Use Smoking Status: Never smoker Tobacco Use: Non-smoker Assessment/Plan All Active Problems (Last Updated 10/10/17 @ 14:27 by Taryn Galindo) CHF (congestive heart failure) (Acute) Shortness of breath (Acute) Acute respiratory failure with hypoxia (Resolved) PNA (pneumonia) (Resolved) Left sided numbness (Resolved) 1. Acute on chronic heart failure with preserved EF BNP was >3000 on admission being diuresed with IV lasix. lasix decreased from 40mg tid to 40mg bid in negative balance by 4.8L since admission. monitor input output; restrict IVF to 1500cc daily. 2D echo: EF of 35%, with moderate segmental systolic dysfunction and indeterminate diastolic function with hypokinesia and akinesia. Also has mild left ventricular hypertrophy and trivial pericardial effusion. cardiology on board 2. Nonstemi troponin was initially 0.147, and trended up to 5.760 cardiology on board on aspirin and plavix and metoprolol as well as high intensity statin due to kidney impairment, there is concern for contrast nephropathy if she undergoes cardiac cath and requires IV contrast. per cardiology, to continue with medical management. 3. JUVENTINO on CKD IV: Cr is up to 2.43 today. Baseline is ~ 2. LIkely due to lasix she is receiving. Will monitor. Lasix frequency decreased. to bid. 4. TYpe 2 diabetes mellitus: on actos and amaryl at home. Amsryl resumed; atos dc'd o/a of heart failure. ISS> Accuchecks ACHS 5. Hypertension: control has improved slightly. on amlodipine, metoprolol and cardura. Losartan on hold. 6. Anemia: stable. Likely due to CKD. Will monitor. DVT prophylaxis:heparin Code Visit Inpatient E&M: 32402 Subs Hosp L3
--- NOTE | 2019-01-30 13:50 | PN_ITS ---
Patient Problems: Active and Suspected Problems (Last Updated 10/10/17 @ 14:27 by Taryn Galindo) CHF (congestive heart failure) (Acute) Shortness of breath (Acute) Subjective: Patient seen and examined. He complains of feeling dizzy and lightheaded when she got up and was going to the bathroom. She denies passing out. Review of systems otherwise negative. Labs and vitals reviewed. Creatinine noted to have trended up slightly. Vitals/I&O's: Vital Signs Temp Pulse Resp BP Pulse Ox 97.8 F 84 16 152/73 H 97 01/30/19 09:30 01/30/19 09:30 01/30/19 09:30 01/30/19 09:30 01/30/19 09:30 Oxygen Flow Rate (L/min) 2 Oxygen Delivery Method Room Air Weight: 113 lb 12.136 oz Body Mass Index (BMI) 23.1 Finger Stick Blood Glucose 252 Intake and Output for Last 24 Hours 01/28/19 01/29/19 01/30/19 23:59 23:59 23:59 Intake Total 1040 / 1040 360 / 360 Output Total 200 / 200 4950 / 4950 1085 / 1085 Balance -200 / -200 -3910 / -3910 -725 / -725 General: Alert, Oriented x3, Cooperative, No apparent distress HEENT: Atraumatic, PERRLA, EOMI, Normocephalic Oral: Moist Mucosa Neck: Supple, No JVD, Negative Carotid Bruits Lungs: Clear to auscultation, Normal air movement, No rhonchi, No wheeze, No rales Cardiovascular: Regular rate, Regular Rhythm, Normal S1, Normal S2, No murmurs Abdomen: Bowel Sounds Present, Soft, Non Tender, Non-Distended, No Hepato- splenomegaly Extremities: No clubbing, No cyanosis, Capillary Refill Less than 3 Seconds, - - 1+ bipedal pitting edema Skin: No rashes, No breakdown Musculoskeletal: No Tenderness to Palpation of Joints or Extremities Lymphatic: No Cervical, Supraclavicular, or Inguinal Adenopathy Neurological: Cranial nerves II-XII grossly intact, Neuro grossly intact, Motor Exam 5/5 strength throughout Psych/Mental Status: Normal Affect, Appropriate, Alert and oriented to time, place, person, mood and affect Laboratory Results 01/29/19 16:16: POC Glucose 205 H 01/29/19 21:18: POC Glucose 272 H 01/30/19 05:20: Sodium 139, Potassium 4.3, Chloride 108 H, Carbon Dioxide 20.0 L , Anion Gap 11, BUN 49 H, Creatinine 2.43 H, Estim Creat Clear Calc 12.38, Est GFR (MDRD) Af Amer 24 L, Est GFR (MDRD) Non-Af 20 L, BUN/Creatinine Ratio 20.2 H , Glucose 127 H, Calcium 10.6 H 01/30/19 06:46: POC Glucose 144 H 01/30/19 07:30: POC Glucose 151 H 01/30/19 11:31: POC Glucose 234 H Current Medications Acetaminophen (Tylenol) 650 mg PO Q6H PRN PRN PRN Reason: Mild pain 1-3/Temp > 100.7 F Amlodipine Besylate (Norvasc) 10 mg PO DAILY [facility] Last Admin: 01/30/19 08:28 Dose: 10 mg Aspirin (Aspirin, Baby) 81 mg PO DAILY@0800 [facility] Last Admin: 01/30/19 08:27 Dose: 81 mg Atorvastatin Calcium (Lipitor) 40 mg PO QHS [facility] Last Admin: 01/29/19 21:16 Dose: 40 mg Clopidogrel Bisulfate (Plavix) 75 mg PO DAILY [facility] Last Admin: 01/30/19 08:29 Dose: 75 mg Dextrose (D50w Syringe) 0 gm IV X1 PRN; Protocol PRN Reason: Hypoglycemia Doxazosin Mesylate (Cardura) 4 mg PO QHS [facility] Last Admin: 01/29/19 21:17 Dose: 4 mg Furosemide (Lasix) 40 mg IV BID@1000,1800 [facility] Glimepiride (Amaryl) 2 mg PO DAILY PRN PRN Reason: for blood glucose >160 Last Admin: 01/30/19 11:38 Dose: 2 mg Glucagon () 1 mg IM .X1 PRN PRN Reason: Hypoglycemia Heparin Sodium (Porcine) (Heparin Na) 5,000 unit SC Q8 [facility] Last Admin: 01/30/19 05:42 Dose: 5,000 unit Hydralazine HCl (Apresoline) 25 mg PO TID [facility] Last Admin: 01/30/19 05:42 Dose: 25 mg Insulin Human Lispro (Humalog Kwikpen (Bkc)) 0 unit SQ ACHS [facility]; Protocol Last Admin: 01/30/19 11:39 Dose: Not Given Isosorbide Dinitrate (Isordil) 10 mg PO TID [facility] Last Admin: 01/30/19 05:43 Dose: 10 mg Lorazepam (Ativan) 0.5 mg PO QHS PRN PRN PRN Reason: sleep Last Admin: 01/29/19 21:21 Dose: 0.5 mg Metoprolol Tartrate (Lopressor (Beta Bobby)) 50 mg PO BID [facility] Last Admin: 01/30/19 08:28 Dose: 50 mg Sodium Chloride () 5 - 15 ml IV UD PRN PRN Reason: SALINE FLUSH Last Admin: 01/30/19 05:43 Dose: 10 ml Medical Necessity - Tobacco Use Smoking Status: Never smoker Tobacco Use: Non-smoker Assessment/Plan All Active Problems (Last Updated 10/10/17 @ 14:27 by Taryn Galindo) CHF (congestive heart failure) (Acute) Shortness of breath (Acute) Acute respiratory failure with hypoxia (Resolved) PNA (pneumonia) (Resolved) Left sided numbness (Resolved) 1. Acute on chronic heart failure with preserved EF * BNP was >3000 on admission * being diuresed with IV lasix. lasix decreased from 40mg tid to 40mg bid * in negative balance by 4.8L since admission. * monitor input output; restrict IVF to 1500cc daily. * 2D echo: EF of 35%, with moderate segmental systolic dysfunction and indeterminate diastolic function with hypokinesia and akinesia. Also has mild left ventricular hypertrophy and trivial pericardial effusion. * cardiology on board 2. Nonstemi * troponin was initially 0.147, and trended up to 5.760 * cardiology on board * on aspirin and plavix and metoprolol as well as high intensity statin * due to kidney impairment, there is concern for contrast nephropathy if she undergoes cardiac cath and requires IV contrast. * per cardiology, to continue with medical management. * * 3. JUVENTINO on CKD IV: Cr is up to 2.43 today. Baseline is ~ 2. LIkely due to lasix she is receiving. Will monitor. Lasix frequency decreased. to bid. 4. TYpe 2 diabetes mellitus: on actos and amaryl at home. Amsryl resumed; atos dc'd o/a of heart failure. ISS> Accuchecks ACHS 5. Hypertension: * control has improved slightly. * on amlodipine, metoprolol and cardura. * Losartan on hold. * 6. Anemia: stable. Likely due to CKD. Will monitor. DVT prophylaxis:heparin Code Visit Inpatient E&M: 66972 Subs Hosp L3
--- NOTE | 2019-01-30 15:28 | CASEMGMT ---
Patient has a Healthcare Power of Automobile Rental Representative and a Healthcare Living Will. She is aware they are not on file at [facility]. Tigist VALENTINO
[2019-01-30 15:55] LABS: Bedside Glucose 157 mg/dL (70-110)
[2019-01-30] MEDS: LORazepam 0.5 MG Tablet PO (21:05)
[2019-01-30] MEDS: Doxazosin 4 MG Tablet PO (21:06)
[2019-01-30] MEDS: Atorvastatin Calcium 40 MG Tablet PO (21:06)
[2019-01-30 23:31] LABS: Bedside Glucose 225 mg/dL (70-110)
[2019-01-31] VITALS (16 sets, daily range): BP systolic 143–169; BP diastolic 49–62; PULSE 71–83; RESP 17–18; TEMP 36.5–36.9; O2SAT 94–99
[2019-01-31 06:24] LABS: Absolute Lymphocyte Count 1.22 X10^3/ul (0.83-4.51); Absolute Neutrophil Count 3.7 X10^3/uL (2.0-7.7); Anion Gap 12 (5-15); BUN 59 mg/dL (7-18); BUN/Creat Ratio 23.3 RATIO (10-20); Basophil# 0.02 X10^3/uL; Basophil% 0.3 % (0-1); Calcium,Total 10.1 mg/dL (8.5-10.1); Chloride 107 mmol/L (98-107); Creatinine, Serum 2.53 mg/dL (0.55-1.02); EST Glomerular Filtration Rate 19 mL/min (>60); Eosinophil# 0.25 X10^3/uL; Eosinophils% 4.1 % (0-5); Est Glom Filt Rate - Afr Amer 23 mL/min (>60); Estimated Creatinine Clearance 11.89 ml/min; Glucose 150 mg/dL (74-106); Hematocrit 23.9 % (37-47); Hemoglobin 8.1 g/dl (12.0-15.0); Lymphocyte # 1.22 X10^3/ul (4.0); Lymphocyte % 19.9 % (19-41); Mean Corp Hgb Conc 33.9 g/gl (32-36); Mean Corpuscular Hgb 29.1 pg (27.0-32.0); Mean Platelet Vol. 10.7 fl (6.2-12.0); Monocyte# 0.92 X10^3/uL; Neutrophil # 3.69 X10^3/uL (2.7-7.7); Neutrophil % 60.4 % (47-70); Platelet Count 230 K/mm3 (150-450); Potassium 4.1 mmol/L (3.5-5.1); RBC Distribution Width CV 15.3 % (11.6-14.6); RBC Distribution Width SD 48.6 fl (35.1-43.9); Red Blood Count 2.78 M/mm3 (4.2-5.4); Sodium Level 137 mmol/L (136-145); White Blood Count 6.1 K/mm3 (4.4-11.0)
[2019-01-31 06:31] LABS: POSITIVE COUNT NO; POSITIVE DIFFERENTIAL NO; POSITIVE MORPHOLOGY NO
[2019-01-31] MEDS: Heparin Injection (Vial) 5,000 UNIT/ML VIAL 5000 UNIT SC ×3 (07:01→21:31)
[2019-01-31] MEDS: hydrALAZINE 25 MG Tablet PO ×3 (07:01→21:30)
[2019-01-31] MEDS: Isosorbide DN 10 MG Tablet PO ×3 (07:01→21:31)
[2019-01-31 07:10] LABS: Bedside Glucose 140 mg/dL (70-110)
[2019-01-31] MEDS: amLODIPine 10 MG Tablet PO (09:33)
[2019-01-31] MEDS: Aspirin 81 MG TAB.CHEW PO (09:33)
[2019-01-31] MEDS: Clopidogrel Bisulfate 75 MG Tablet PO (09:34)
[2019-01-31] MEDS: Metoprolol Tartrate 50 MG Tablet PO ×2 (09:34→21:30)
[2019-01-31] MEDS: Furosemide 40 MG/4 ML Vial IV (09:36)
[2019-01-31] MEDS: 0.9% NaCl Peripheral Flush Adult/Peds IV (09:37)
[2019-01-31 11:25] LABS: Bedside Glucose 253 mg/dL (70-110)
--- NOTE | 2019-01-31 11:48 | CASEMGMT ---
This RN CM to room to discuss discharge plan with pt at this time and pt states no concerns with going home at time of discharge. Pt declines HHC/OP therapy at this time. Pt voices no further questions/concerns/needs at this time. SStaten RN CM
[2019-01-31] MEDS: Glimepiride 2 MG Tablet PO (12:12)
--- NOTE | 2019-01-31 12:16 | PCM.PN.HOSP ---
Patient Problems: Active and Suspected Problems (Last Updated 10/10/17 @ 14:27 by Taryn Galindo) CHF (congestive heart failure) (Acute) Shortness of breath (Acute) Subjective: Patient seen and examined. She feels well today and has no complaints. Review of systems otherwise negative. Labs and vitals reviewed. Creatinine noted to have trended up some more to 2.53. Patient is otherwise very asymptomatic. Vitals/I&O's: Vital Signs Temp Pulse Resp BP Pulse Ox 98.1 F 76 17 143/59 H 94 01/31/19 09:28 01/31/19 10:56 01/31/19 09:28 01/31/19 09:28 01/31/19 09:28 Oxygen Flow Rate (L/min) 2 Oxygen Delivery Method Room Air Weight: 111 lb 15.917 oz Body Mass Index (BMI) 23.1 Finger Stick Blood Glucose 252 Intake and Output for Last 24 Hours 01/29/19 01/30/19 01/31/19 23:59 23:59 23:59 Intake Total 1040 / 1040 720 / 720 785 / 785 Output Total 4950 / 4950 1285 / 1285 550 / 550 Balance -3910 / -3910 -565 / -565 235 / 235 General: Alert, Oriented x3, Cooperative, No apparent distress HEENT: Atraumatic, PERRLA, EOMI, Normocephalic Oral: Moist Mucosa Neck: Supple, No JVD, Negative Carotid Bruits Lungs: Clear to auscultation, Normal air movement, No rhonchi, No wheeze, No rales Cardiovascular: Regular rate, Regular Rhythm, Normal S1, Normal S2, No murmurs Abdomen: Bowel Sounds Present, Soft, Non Tender, Non-Distended, No Hepato-splenomegaly Extremities: No clubbing, No cyanosis, Capillary Refill Less than 3 Seconds, - - minimal pitting edema Skin: No rashes, No breakdown Musculoskeletal: No Tenderness to Palpation of Joints or Extremities Lymphatic: No Cervical, Supraclavicular, or Inguinal Adenopathy Neurological: Cranial nerves II-XII grossly intact, Neuro grossly intact, Motor Exam 5/5 strength throughout Psych/Mental Status: Normal Affect, Appropriate, Alert and oriented to time, place, person, mood and affect Laboratory Results 01/30/19 15:47: POC Glucose 157 H 01/30/19 21:01: POC Glucose 225 H 01/31/19 05:22: Sodium 137, Potassium 4.1, Chloride 107, Carbon Dioxide 18.0 L, Anion Gap 12, BUN 59 H, Creatinine 2.53 H, Estim Creat Clear Calc 11.89, Est GFR (MDRD) Af Amer 23 L, Est GFR (MDRD) Non-Af 19 L, BUN/Creatinine Ratio 23.3 H, Glucose 150 H, Calcium 10.1 01/31/19 05:22: WBC 6.1, RBC 2.78 L, Hgb 8.1 L, Hct 23.9 L, MCV 86.0, MCH 29.1, MCHC 33.9, RDW 15.3 H, RDW Differential 48.6 H, Plt Count 230, MPV 10.7, Immature Gran % (Auto) 0.300, Neut % (Auto) 60.4, Lymph % (Auto) 19.9, [place] % (Auto) 15.0 H, Eos % (Auto) 4.1, Baso % (Auto) 0.3, Absolute Neuts (auto) 3.7, Absolute Lymphs (auto) 1.22, Total Counted Not Reportable 01/31/19 07:08: POC Glucose 140 H 01/31/19 11:20: POC Glucose 253 H Current Medications Acetaminophen (Tylenol) 650 mg PO Q6H PRN PRN PRN Reason: Mild pain 1-3/Temp > 100.7 F Amlodipine Besylate (Norvasc) 10 mg PO DAILY [facility] Last Admin: 01/31/19 09:33 Dose: 10 mg Aspirin (Aspirin, Baby) 81 mg PO DAILY@0800 [facility] Last Admin: 01/31/19 09:33 Dose: 81 mg Atorvastatin Calcium (Lipitor) 40 mg PO QHS [facility] Last Admin: 01/30/19 21:06 Dose: 40 mg Clopidogrel Bisulfate (Plavix) 75 mg PO DAILY [facility] Last Admin: 01/31/19 09:34 Dose: 75 mg Dextrose (D50w Syringe) 0 gm IV X1 PRN; Protocol PRN Reason: Hypoglycemia Doxazosin Mesylate (Cardura) 4 mg PO QHS [facility] Last Admin: 01/30/19 21:06 Dose: 4 mg Furosemide (Lasix) 40 mg IV DAILY [facility] Last Admin: 01/31/19 09:36 Dose: 40 mg Glimepiride (Amaryl) 2 mg PO DAILY PRN PRN Reason: for blood glucose >160 Last Admin: 01/31/19 12:12 Dose: 2 mg Glucagon () 1 mg IM .X1 PRN PRN Reason: Hypoglycemia Heparin Sodium (Porcine) (Heparin Na) 5,000 unit SC Q8 [facility] Last Admin: 01/31/19 07:01 Dose: 5,000 unit Hydralazine HCl (Apresoline) 25 mg PO TID [facility] Last Admin: 01/31/19 07:01 Dose: 25 mg Insulin Human Lispro (Humalog Kwikpen (Bkc)) 0 unit SQ ACHS [facility]; Protocol Last Admin: 01/31/19 11:26 Dose: Not Given Isosorbide Dinitrate (Isordil) 10 mg PO TID [facility] Last Admin: 01/31/19 07:01 Dose: 10 mg Lorazepam (Ativan) 0.5 mg PO QHS PRN PRN PRN Reason: sleep Last Admin: 01/30/19 21:05 Dose: 0.5 mg Metoprolol Tartrate (Lopressor (Beta Bobby)) 50 mg PO BID [facility] Last Admin: 01/31/19 09:34 Dose: 50 mg Sodium Chloride () 5 - 15 ml IV UD PRN PRN Reason: SALINE FLUSH Last Admin: 01/31/19 09:37 Dose: 10 ml Medical Necessity - Tobacco Use Smoking Status: Never smoker Tobacco Use: Non-smoker Assessment/Plan All Active Problems (Last Updated 10/10/17 @ 14:27 by Taryn Galindo) CHF (congestive heart failure) (Acute) Shortness of breath (Acute) Acute respiratory failure with hypoxia (Resolved) PNA (pneumonia) (Resolved) Left sided numbness (Resolved) 1. Acute on chronic heart failure with preserved EF BNP was >3000 on admission being diuresed with IV lasix. lasix decreased from 40mg tid to 40mg bid, and now to 40mg daily o/a of her increasing Cr in negative balance by 4.4L since admission. monitor input output; restrict IVF to 1500cc daily. 2D echo: EF of 35%, with moderate segmental systolic dysfunction and indeterminate diastolic function with hypokinesia and akinesia. Also has mild left ventricular hypertrophy and trivial pericardial effusion. cardiology on board 2. Nonstemi troponin was initially 0.147, and trended up to 5.760 cardiology on board on aspirin and plavix and metoprolol as well as high intensity statin due to kidney impairment, there is concern for contrast nephropathy if she undergoes cardiac cath and requires IV contrast. per cardiology, to continue with medical management. 3. JUVENTINO on CKD IV: Cr is up to 2.53 today. Baseline is ~ 2. LIkely due to lasix she is receiving. lasix frequency decreased to daily. Nephrology on board, also think it is due to lasix, and should improve once patient is on PO lasix. to monitor patient for one more day and assess Cr levels 4. TYpe 2 diabetes mellitus: on actos and amaryl at home. Amsryl resumed; atos dc'd o/a of heart failure. ISS> Accuchecks ACHS 5. Hypertension: control has improved slightly. on amlodipine, metoprolol and cardura. Losartan on hold. 6. Anemia of chronic disease : stable. Likely due to CKD. Iron level was 20 but TIBC was low and low iron saturation. Will monitor. To follow-up with primary care doctor and nephrology. DVT prophylaxis:heparin Disposition: for dc tomorrow Code Visit Inpatient E&M: 68905 Subs Hosp L2
--- NOTE | 2019-01-31 12:22 | PN_ITS ---
Patient Problems: Active and Suspected Problems (Last Updated 10/10/17 @ 14:27 by Taryn Galindo) CHF (congestive heart failure) (Acute) Shortness of breath (Acute) Subjective: Patient seen and examined. She feels well today and has no complaints. Review of systems otherwise negative. Labs and vitals reviewed. Creatinine noted to have trended up some more to 2.53. Patient is otherwise very asymptomatic. Vitals/I&O's: Vital Signs Temp Pulse Resp BP Pulse Ox 98.1 F 76 17 143/59 H 94 01/31/19 09:28 01/31/19 10:56 01/31/19 09:28 01/31/19 09:28 01/31/19 09:28 Oxygen Flow Rate (L/min) 2 Oxygen Delivery Method Room Air Weight: 111 lb 15.917 oz Body Mass Index (BMI) 23.1 Finger Stick Blood Glucose 252 Intake and Output for Last 24 Hours 01/29/19 01/30/19 01/31/19 23:59 23:59 23:59 Intake Total 1040 / 1040 720 / 720 785 / 785 Output Total 4950 / 4950 1285 / 1285 550 / 550 Balance -3910 / -3910 -565 / -565 235 / 235 General: Alert, Oriented x3, Cooperative, No apparent distress HEENT: Atraumatic, PERRLA, EOMI, Normocephalic Oral: Moist Mucosa Neck: Supple, No JVD, Negative Carotid Bruits Lungs: Clear to auscultation, Normal air movement, No rhonchi, No wheeze, No rales Cardiovascular: Regular rate, Regular Rhythm, Normal S1, Normal S2, No murmurs Abdomen: Bowel Sounds Present, Soft, Non Tender, Non-Distended, No Hepato- splenomegaly Extremities: No clubbing, No cyanosis, Capillary Refill Less than 3 Seconds, - - minimal pitting edema Skin: No rashes, No breakdown Musculoskeletal: No Tenderness to Palpation of Joints or Extremities Lymphatic: No Cervical, Supraclavicular, or Inguinal Adenopathy Neurological: Cranial nerves II-XII grossly intact, Neuro grossly intact, Motor Exam 5/5 strength throughout Psych/Mental Status: Normal Affect, Appropriate, Alert and oriented to time, place, person, mood and affect Laboratory Results 01/30/19 15:47: POC Glucose 157 H 01/30/19 21:01: POC Glucose 225 H 01/31/19 05:22: Sodium 137, Potassium 4.1, Chloride 107, Carbon Dioxide 18.0 L, Anion Gap 12, BUN 59 H, Creatinine 2.53 H, Estim Creat Clear Calc 11.89, Est GFR (MDRD) Af Amer 23 L, Est GFR (MDRD) Non-Af 19 L, BUN/Creatinine Ratio 23.3 H, Glucose 150 H, Calcium 10.1 01/31/19 05:22: WBC 6.1, RBC 2.78 L, Hgb 8.1 L, Hct 23.9 L, MCV 86.0, MCH 29.1, MCHC 33.9, RDW 15.3 H, RDW Differential 48.6 H, Plt Count 230, MPV 10.7, Immature Gran % (Auto) 0.300, Neut % (Auto) 60.4, Lymph % (Auto) 19.9, [place] % (Auto) 15.0 H, Eos % (Auto) 4.1, Baso % (Auto) 0.3, Absolute Neuts (auto) 3.7, Absolute Lymphs (auto) 1.22, Total Counted Not Reportable 01/31/19 07:08: POC Glucose 140 H 01/31/19 11:20: POC Glucose 253 H Current Medications Acetaminophen (Tylenol) 650 mg PO Q6H PRN PRN PRN Reason: Mild pain 1-3/Temp > 100.7 F Amlodipine Besylate (Norvasc) 10 mg PO DAILY [facility] Last Admin: 01/31/19 09:33 Dose: 10 mg Aspirin (Aspirin, Baby) 81 mg PO DAILY@0800 [facility] Last Admin: 01/31/19 09:33 Dose: 81 mg Atorvastatin Calcium (Lipitor) 40 mg PO QHS [facility] Last Admin: 01/30/19 21:06 Dose: 40 mg Clopidogrel Bisulfate (Plavix) 75 mg PO DAILY [facility] Last Admin: 01/31/19 09:34 Dose: 75 mg Dextrose (D50w Syringe) 0 gm IV X1 PRN; Protocol PRN Reason: Hypoglycemia Doxazosin Mesylate (Cardura) 4 mg PO QHS [facility] Last Admin: 01/30/19 21:06 Dose: 4 mg Furosemide (Lasix) 40 mg IV DAILY [facility] Last Admin: 01/31/19 09:36 Dose: 40 mg Glimepiride (Amaryl) 2 mg PO DAILY PRN PRN Reason: for blood glucose >160 Last Admin: 01/31/19 12:12 Dose: 2 mg Glucagon () 1 mg IM .X1 PRN PRN Reason: Hypoglycemia Heparin Sodium (Porcine) (Heparin Na) 5,000 unit SC Q8 [facility] Last Admin: 01/31/19 07:01 Dose: 5,000 unit Hydralazine HCl (Apresoline) 25 mg PO TID [facility] Last Admin: 01/31/19 07:01 Dose: 25 mg Insulin Human Lispro (Humalog Kwikpen (Bkc)) 0 unit SQ ACHS [facility]; Protocol Last Admin: 01/31/19 11:26 Dose: Not Given Isosorbide Dinitrate (Isordil) 10 mg PO TID [facility] Last Admin: 01/31/19 07:01 Dose: 10 mg Lorazepam (Ativan) 0.5 mg PO QHS PRN PRN PRN Reason: sleep Last Admin: 01/30/19 21:05 Dose: 0.5 mg Metoprolol Tartrate (Lopressor (Beta Bobby)) 50 mg PO BID [facility] Last Admin: 01/31/19 09:34 Dose: 50 mg Sodium Chloride () 5 - 15 ml IV UD PRN PRN Reason: SALINE FLUSH Last Admin: 01/31/19 09:37 Dose: 10 ml Medical Necessity - Tobacco Use Smoking Status: Never smoker Tobacco Use: Non-smoker Assessment/Plan All Active Problems (Last Updated 10/10/17 @ 14:27 by Taryn Galindo) CHF (congestive heart failure) (Acute) Shortness of breath (Acute) Acute respiratory failure with hypoxia (Resolved) PNA (pneumonia) (Resolved) Left sided numbness (Resolved) 1. Acute on chronic heart failure with preserved EF * BNP was >3000 on admission * being diuresed with IV lasix. lasix decreased from 40mg tid to 40mg bid, and now to 40mg daily o/a of her increasing Cr * in negative balance by 4.4L since admission. * monitor input output; restrict IVF to 1500cc daily. * 2D echo: EF of 35%, with moderate segmental systolic dysfunction and indeterminate diastolic function with hypokinesia and akinesia. Also has mild left ventricular hypertrophy and trivial pericardial effusion. * cardiology on board 2. Nonstemi * troponin was initially 0.147, and trended up to 5.760 * cardiology on board * on aspirin and plavix and metoprolol as well as high intensity statin * due to kidney impairment, there is concern for contrast nephropathy if she undergoes cardiac cath and requires IV contrast. * per cardiology, to continue with medical management. * * 3. 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 Baseline is ~ 2. * LIkely due to lasix she is receiving. lasix frequency decreased to daily. * Nephrology on board, also think it is due to lasix, and should improve once patient is on PO lasix. * to monitor patient for one more day and assess Cr levels 4. TYpe 2 diabetes mellitus: on actos and amaryl at home. Amsryl resumed; atos dc'd o/a of heart failure. ISS> Accuchecks ACHS 5. Hypertension: * control has improved slightly. * on amlodipine, metoprolol and cardura. * Losartan on hold. * 6. Anemia of chronic disease : * stable. Likely due to CKD. Iron level was 20 but TIBC was low and low iron saturation. Will monitor. * To follow-up with primary care doctor and nephrology. * DVT prophylaxis:heparin Disposition: for dc tomorrow Code Visit Inpatient E&M: 94021 Subs Hosp L2
--- NOTE | 2019-01-31 12:34 | PCM.CONS.R ---
Problem List (1) CHF (congestive heart failure) Status: Acute (2) CKD (chronic kidney disease) stage 3, GFR 30-59 ml/min Status: Chronic Consultation - Renal 01/31/19 PCP/ Referring MD: Requesting physician: Dr Munson Primary care physician: Jenni Cornell DO Reason for Consultation:: JUVENTINO CKD 3 - History of Present Illness History of Present Illness: The patient is a 83 year old F known to us from prior office visits 2 years ago. we saw her for CKD stage 3 with baseline creatinine values around 1.6 to 1.8. she had poorly controlled HTN back then. we made multiple adjustments to her meds in 2017 and early 2018. was lost to follow up since then. she presented to hospital now with fluid overload, was diuresed. now feels better. no urinary complaints. cardiology note reviewed. med list as below - Allergies Allergies: Allergies metformin Allergy (Verified 01/28/19 21:00) Other BODY ACHES epinephrine Adverse Reaction (Verified 01/28/19 21:00) Other SHAKING Gadolinium-MRI Contrast Medium [CONTRAST] Adverse Reaction (Verified 01/28/19 21:00) Other SHAKING - Current Medications Current Medications: Current Medications Acetaminophen (Tylenol) 650 mg PO Q6H PRN PRN PRN Reason: Mild pain 1-3/Temp > 100.7 F Amlodipine Besylate (Norvasc) 10 mg PO DAILY [facility] Last Admin: 01/31/19 09:33 Dose: 10 mg Aspirin (Aspirin, Baby) 81 mg PO DAILY@0800 [facility] Last Admin: 01/31/19 09:33 Dose: 81 mg Atorvastatin Calcium (Lipitor) 40 mg PO QHS [facility] Last Admin: 01/30/19 21:06 Dose: 40 mg Clopidogrel Bisulfate (Plavix) 75 mg PO DAILY [facility] Last Admin: 01/31/19 09:34 Dose: 75 mg Dextrose (D50w Syringe) 0 gm IV X1 PRN; Protocol PRN Reason: Hypoglycemia Doxazosin Mesylate (Cardura) 4 mg PO QHS [facility] Last Admin: 01/30/19 21:06 Dose: 4 mg Furosemide (Lasix) 40 mg IV DAILY [facility] Last Admin: 01/31/19 09:36 Dose: 40 mg Glimepiride (Amaryl) 2 mg PO DAILY PRN PRN Reason: for blood glucose >160 Last Admin: 01/31/19 12:12 Dose: 2 mg Glucagon () 1 mg IM .X1 PRN PRN Reason: Hypoglycemia Heparin Sodium (Porcine) (Heparin Na) 5,000 unit SC Q8 [facility] Last Admin: 01/31/19 07:01 Dose: 5,000 unit Hydralazine HCl (Apresoline) 25 mg PO TID [facility] Last Admin: 01/31/19 07:01 Dose: 25 mg Insulin Human Lispro (Humalog Kwikpen (Bkc)) 0 unit SQ ACHS [facility]; Protocol Last Admin: 01/31/19 11:26 Dose: Not Given Isosorbide Dinitrate (Isordil) 10 mg PO TID [facility] Last Admin: 01/31/19 07:01 Dose: 10 mg Lorazepam (Ativan) 0.5 mg PO QHS PRN PRN PRN Reason: sleep Last Admin: 01/30/19 21:05 Dose: 0.5 mg Metoprolol Tartrate (Lopressor (Beta Bobby)) 50 mg PO BID [facility] Last Admin: 01/31/19 09:34 Dose: 50 mg Sodium Chloride () 5 - 15 ml IV UD PRN PRN Reason: SALINE FLUSH Last Admin: 01/31/19 09:37 Dose: 10 ml - Past Medical History Past Medical History (Chronic Problems): Chronic Problems (Last Updated 10/10/17 @ 14:27 by Taryn Galindo) TIA (transient ischemic attack) (Chronic) Cardiac enzymes elevated (Chronic) Carotid disease, bilateral (Chronic) CKD (chronic kidney disease) stage 3, GFR 30-59 ml/min (Chronic) Hypertension (Chronic) Hyperlipidemia (Chronic) Type II diabetes mellitus (Chronic) - Past Surgical History Surgical History: cataract, - - BL carotid artery surgery x 2, hysterectemy, rectal surgery for benign growth. - Social History Smoking Status: Never smoker Alcohol: None Drugs: None - Family History Maternal Family History: Family History (Last Updated 10/10/17 @ 14:30 by Taryn Galindo) Mother Diabetes Hypertension CVA (cerebral vascular accident) Cancer Brother Diabetes Hypertension Sister Diabetes Hypertension History Items: Diabetes, High Cholesterol Paternal Family History: Family History (Last Updated 10/10/17 @ 14:30 by Taryn Galindo) Mother Diabetes Hypertension CVA (cerebral vascular accident) Cancer Brother Diabetes Hypertension Sister Diabetes Hypertension History Items: Unknown Sibling Family History: Family History (Last Updated 10/10/17 @ 14:30 by Taryn Galindo) Mother Diabetes Hypertension CVA (cerebral vascular accident) Cancer Brother Diabetes Hypertension Sister Diabetes Hypertension History Items: Diabetes, Hypertension Review of Systems Constitutional: Denies: Chills, Fever, Weight Change HEENT: Denies: Head Aches, Sinus Congestion, Sinus Drainage Cardiovascular: Denies: Chest Pain, Palpitations Respiratory: Denies: Cough, Shortness of breath at rest, Sputum production Gastrointestinal: Denies: Abdominal Pain, Nausea, Vomiting Genitourinary: Denies: Dysuria Musculoskeletal: Denies: Joint Pain, Joint Tenderness Skin: Denies: Rash, Wounds Neurological: Denies: Numbness, Tingling, Focal weakness Psychiatric: Denies: Anxiety, Depression, Homicidal Ideations, Suicidal Ideations Hematologic/ Lymphatic: Denies: Easy Bruising, Easy Bleeding Patient Problems: Active and Suspected Problems (Last Updated 10/10/17 @ 14:27 by Taryn Galindo) CHF (congestive heart failure) (Acute) Shortness of breath (Acute) - Physical Exam General: Alert, Oriented x3, Cooperative HEENT: Atraumatic, PERRLA, EOMI, Normocephalic Neck: Supple, No JVD, Negative Carotid Bruits Lungs: Clear to auscultation, Normal air movement Cardiovascular: Regular rate, No murmurs Abdomen: Bowel Sounds Present, Soft, Non Tender Extremities: No edema, Capillary Refill Less than 3 Seconds Skin: No rashes, No breakdown Musculoskeletal: No Tenderness to Palpation of Joints or Extremities Neurological: Cranial nerves II-XII grossly intact Psych/Mental Status: Normal Affect, Appropriate Vital Signs Temp Pulse Resp BP Pulse Ox 98.1 F 76 17 143/59 H 94 01/31/19 09:28 01/31/19 10:56 01/31/19 09:28 01/31/19 09:28 01/31/19 09:28 Oxygen Flow Rate (L/min) 2 Oxygen Delivery Method Room Air Weight: 50.8 kg Body Mass Index (BMI) 23.1 Finger Stick Blood Glucose 252 Intake and Output for Last 24 Hours 01/29/19 01/30/19 01/31/19 23:59 23:59 23:59 Intake Total 1040 / 1040 720 / 720 785 / 785 Output Total 4950 / 4950 1285 / 1285 550 / 550 Balance -3910 / -3910 -565 / -565 235 / 235 Laboratory Tests Past 24 Hrs 01/31/19 01/31/19 05:22 05:22 WBC 6.1 RBC 2.78 L Hgb 8.1 L Hct 23.9 L MCV 86.0 MCH 29.1 MCHC 33.9 RDW 15.3 H RDW Differential 48.6 H Plt Count 230 MPV 10.7 Immature Gran % (Auto) 0.300 Neut % (Auto) 60.4 Lymph % (Auto) 19.9 [place] % (Auto) 15.0 H Eos % (Auto) 4.1 Baso % (Auto) 0.3 Absolute Neuts (auto) 3.7 Absolute Lymphs (auto) 1.22 Total Counted Not Reportable Sodium 137 Potassium 4.1 Chloride 107 Carbon Dioxide 18.0 L Anion Gap 12 BUN 59 H Creatinine 2.53 H Estim Creat Clear Calc 11.89 Est GFR (MDRD) Af Amer 23 L Est GFR (MDRD) Non-Af 19 L BUN/Creatinine Ratio 23.3 H Glucose 150 H Calcium 10.1 POC Glucose 01/31/19 01/31/19 01/30/19 11:20 07:08 21:01 POC Glucose 253 H 140 H 225 H 01/30/19 15:47 POC Glucose 157 H Assessment/Plan All Active Problems (Last Updated 10/10/17 @ 14:27 by Taryn Galindo) CHF (congestive heart failure) (Acute) Shortness of breath (Acute) Acute respiratory failure with hypoxia (Resolved) PNA (pneumonia) (Resolved) Left sided numbness (Resolved) JUVENTINO CKD 3. Baseline creatinine about 2 years ago was 1.6 to 1.8. now creatinine is higher, likely due to progression of kidney disease vs diuresis related. creatinine today is at 2.5 compared to 2.4 yesterday. Bp is better. likely hemodynamic. lasix decreased today by cardiology. will wait for labs tomorrow. should stabilize now since she is on lower doses of lasix now HTN. we did extensive work up in the past. renal dopplers were negative. renin yassine ratio was non diagnostic. multiple med changes and intolerances in the past. current BP values are ok. will continue titration as needed. change lasix to 40 mg PO at the time of dc CHF. clinically better Thank you
--- NOTE | 2019-01-31 12:40 | CON.PCM_ITS ---
Problem List (1) CHF (congestive heart failure) Status: Acute (2) CKD (chronic kidney disease) stage 3, GFR 30-59 ml/min Status: Chronic Consultation - Renal 01/31/19 PCP/ Referring MD: Requesting physician: Dr Munson Primary care physician: Jenni Cornell DO Reason for Consultation:: JUVENTINO CKD 3 - History of Present Illness History of Present Illness: The patient is a 83 year old F known to us from prior office visits 2 years ago. we saw her for CKD stage 3 with baseline creatinine values around 1.6 to 1.8. she had poorly controlled HTN back then. we made multiple adjustments to her meds in 2017 and early 2018. was lost to follow up since then. she presented to hospital now with fluid overload, was diuresed. now feels better. no urinary complaints. cardiology note reviewed. med list as below - Allergies Allergies: Allergies metformin Allergy (Verified 01/28/19 21:00) Other BODY ACHES epinephrine Adverse Reaction (Verified 01/28/19 21:00) Other SHAKING Gadolinium-MRI Contrast Medium [CONTRAST] Adverse Reaction (Verified 01/28/19 21:00) Other SHAKING - Current Medications Current Medications: Current Medications Acetaminophen (Tylenol) 650 mg PO Q6H PRN PRN PRN Reason: Mild pain 1-3/Temp > 100.7 F Amlodipine Besylate (Norvasc) 10 mg PO DAILY [facility] Last Admin: 01/31/19 09:33 Dose: 10 mg Aspirin (Aspirin, Baby) 81 mg PO DAILY@0800 [facility] Last Admin: 01/31/19 09:33 Dose: 81 mg Atorvastatin Calcium (Lipitor) 40 mg PO QHS [facility] Last Admin: 01/30/19 21:06 Dose: 40 mg Clopidogrel Bisulfate (Plavix) 75 mg PO DAILY [facility] Last Admin: 01/31/19 09:34 Dose: 75 mg Dextrose (D50w Syringe) 0 gm IV X1 PRN; Protocol PRN Reason: Hypoglycemia Doxazosin Mesylate (Cardura) 4 mg PO QHS [facility] Last Admin: 01/30/19 21:06 Dose: 4 mg Furosemide (Lasix) 40 mg IV DAILY [facility] Last Admin: 01/31/19 09:36 Dose: 40 mg Glimepiride (Amaryl) 2 mg PO DAILY PRN PRN Reason: for blood glucose >160 Last Admin: 01/31/19 12:12 Dose: 2 mg Glucagon () 1 mg IM .X1 PRN PRN Reason: Hypoglycemia Heparin Sodium (Porcine) (Heparin Na) 5,000 unit SC Q8 [facility] Last Admin: 01/31/19 07:01 Dose: 5,000 unit Hydralazine HCl (Apresoline) 25 mg PO TID [facility] Last Admin: 01/31/19 07:01 Dose: 25 mg Insulin Human Lispro (Humalog Kwikpen (Bkc)) 0 unit SQ ACHS [facility]; Protocol Last Admin: 01/31/19 11:26 Dose: Not Given Isosorbide Dinitrate (Isordil) 10 mg PO TID [facility] Last Admin: 01/31/19 07:01 Dose: 10 mg Lorazepam (Ativan) 0.5 mg PO QHS PRN PRN PRN Reason: sleep Last Admin: 01/30/19 21:05 Dose: 0.5 mg Metoprolol Tartrate (Lopressor (Beta Bobby)) 50 mg PO BID [facility] Last Admin: 01/31/19 09:34 Dose: 50 mg Sodium Chloride () 5 - 15 ml IV UD PRN PRN Reason: SALINE FLUSH Last Admin: 01/31/19 09:37 Dose: 10 ml - Past Medical History Past Medical History (Chronic Problems): Chronic Problems (Last Updated 10/10/17 @ 14:27 by Taryn Galindo) TIA (transient ischemic attack) (Chronic) Cardiac enzymes elevated (Chronic) Carotid disease, bilateral (Chronic) CKD (chronic kidney disease) stage 3, GFR 30-59 ml/min (Chronic) Hypertension (Chronic) Hyperlipidemia (Chronic) Type II diabetes mellitus (Chronic) - Past Surgical History Surgical History: cataract, - - BL carotid artery surgery x 2, hysterectemy, rectal surgery for benign growth. - Social History Smoking Status: Never smoker Alcohol: None Drugs: None - Family History Maternal Family History: Family History (Last Updated 10/10/17 @ 14:30 by Taryn Galindo) Mother Diabetes Hypertension CVA (cerebral vascular accident) Cancer Brother Diabetes Hypertension Sister Diabetes Hypertension History Items: Diabetes, High Cholesterol Paternal Family History: Family History (Last Updated 10/10/17 @ 14:30 by Taryn Galindo) Mother Diabetes Hypertension CVA (cerebral vascular accident) Cancer Brother Diabetes Hypertension Sister Diabetes Hypertension History Items: Unknown Sibling Family History: Family History (Last Updated 10/10/17 @ 14:30 by Taryn Galindo) Mother Diabetes Hypertension CVA (cerebral vascular accident) Cancer Brother Diabetes Hypertension Sister Diabetes Hypertension History Items: Diabetes, Hypertension Review of Systems Constitutional: Denies: Chills, Fever, Weight Change HEENT: Denies: Head Aches, Sinus Congestion, Sinus Drainage Cardiovascular: Denies: Chest Pain, Palpitations Respiratory: Denies: Cough, Shortness of breath at rest, Sputum production Gastrointestinal: Denies: Abdominal Pain, Nausea, Vomiting Genitourinary: Denies: Dysuria Musculoskeletal: Denies: Joint Pain, Joint Tenderness Skin: Denies: Rash, Wounds Neurological: Denies: Numbness, Tingling, Focal weakness Psychiatric: Denies: Anxiety, Depression, Homicidal Ideations, Suicidal Ideations Hematologic/ Lymphatic: Denies: Easy Bruising, Easy Bleeding Patient Problems: Active and Suspected Problems (Last Updated 10/10/17 @ 14:27 by Taryn Galindo) CHF (congestive heart failure) (Acute) Shortness of breath (Acute) - Physical Exam General: Alert, Oriented x3, Cooperative HEENT: Atraumatic, PERRLA, EOMI, Normocephalic Neck: Supple, No JVD, Negative Carotid Bruits Lungs: Clear to auscultation, Normal air movement Cardiovascular: Regular rate, No murmurs Abdomen: Bowel Sounds Present, Soft, Non Tender Extremities: No edema, Capillary Refill Less than 3 Seconds Skin: No rashes, No breakdown Musculoskeletal: No Tenderness to Palpation of Joints or Extremities Neurological: Cranial nerves II-XII grossly intact Psych/Mental Status: Normal Affect, Appropriate Vital Signs Temp Pulse Resp BP Pulse Ox 98.1 F 76 17 143/59 H 94 01/31/19 09:28 01/31/19 10:56 01/31/19 09:28 01/31/19 09:28 01/31/19 09:28 Oxygen Flow Rate (L/min) 2 Oxygen Delivery Method Room Air Weight: 50.8 kg Body Mass Index (BMI) 23.1 Finger Stick Blood Glucose 252 Intake and Output for Last 24 Hours 01/29/19 01/30/19 01/31/19 23:59 23:59 23:59 Intake Total 1040 / 1040 720 / 720 785 / 785 Output Total 4950 / 4950 1285 / 1285 550 / 550 Balance -3910 / -3910 -565 / -565 235 / 235 Laboratory Tests Past 24 Hrs 01/31/19 01/31/19 05:22 05:22 WBC 6.1 RBC 2.78 L Hgb 8.1 L Hct 23.9 L MCV 86.0 MCH 29.1 MCHC 33.9 RDW 15.3 H RDW Differential 48.6 H Plt Count 230 MPV 10.7 Immature Gran % (Auto) 0.300 Neut % (Auto) 60.4 Lymph % (Auto) 19.9 [place] % (Auto) 15.0 H Eos % (Auto) 4.1 Baso % (Auto) 0.3 Absolute Neuts (auto) 3.7 Absolute Lymphs (auto) 1.22 Total Counted Not Reportable Sodium 137 Potassium 4.1 Chloride 107 Carbon Dioxide 18.0 L Anion Gap 12 BUN 59 H Creatinine 2.53 H Estim Creat Clear Calc 11.89 Est GFR (MDRD) Af Amer 23 L Est GFR (MDRD) Non-Af 19 L BUN/Creatinine Ratio 23.3 H Glucose 150 H Calcium 10.1 POC Glucose 01/31/19 01/31/19 01/30/19 11:20 07:08 21:01 POC Glucose 253 H 140 H 225 H 01/30/19 15:47 POC Glucose 157 H Assessment/Plan All Active Problems (Last Updated 10/10/17 @ 14:27 by Taryn Galindo) CHF (congestive heart failure) (Acute) Shortness of breath (Acute) Acute respiratory failure with hypoxia (Resolved) PNA (pneumonia) (Resolved) Left sided numbness (Resolved) JUVENTINO CKD 3. Baseline creatinine about 2 years ago was 1.6 to 1.8. now creatinine is higher, likely due to progression of kidney disease vs diuresis related. creatinine today is at 2.5 compared to 2.4 yesterday. Bp is better. likely hemodynamic. lasix decreased today by cardiology. will wait for labs tomorrow. should stabilize now since she is on lower doses of lasix now HTN. we did extensive work up in the past. renal dopplers were negative. renin yassine ratio was non diagnostic. multiple med changes and intolerances in the past. current BP values are ok. will continue titration as needed. change lasix to 40 mg PO at the time of dc CHF. clinically better Thank you
[2019-01-31 17:26] LABS: Bedside Glucose 192 mg/dL (70-110)
--- NOTE | 2019-01-31 19:08 | PN.CARD_ITS ---
Subjectve: The patient was evaluated earlier this day. She stated she was feeling better overall. Objective: Vital Signs Temp Pulse Resp BP Pulse Ox 98.2 F 78 17 147/49 H 99 01/31/19 18:24 01/31/19 18:24 01/31/19 18:24 01/31/19 18:24 01/31/19 18:24 Oxygen Flow Rate (L/min) 2 Oxygen Delivery Method Room Air Weight: 111 lb 15.917 oz Body Mass Index (BMI) 23.1 Finger Stick Blood Glucose 252 Intake and Output for Last 24 Hours 01/29/19 01/30/19 01/31/19 23:59 23:59 23:59 Intake Total 1040 / 1040 720 / 720 1335 / 1335 Output Total 4950 / 4950 1285 / 1285 750 / 750 Balance -3910 / -3910 -565 / -565 585 / 585 General: Awake, Alert, Oriented x 3, Cooperative, No Acute Distress HEENT: Atraumatic, Normocephalic Oral: Moist Mucosa Neck: Supple, Good ROM, No JVD Lungs: Diminished [place] Bases, - - Improved compared to previous evaluation Cardiovascular: Regular Rhythm, Normal S1, Normal S2 Abdomen: Bowel Sounds Present, Soft, Non Tender Extremities: No edema Psych/Mental Status: Appropriate 01/31/19 05:22: Sodium 137, Potassium 4.1, Chloride 107, Carbon Dioxide 18.0 L, Anion Gap 12, BUN 59 H, Creatinine 2.53 H, Est GFR (MDRD) Af Amer 23 L, Est GFR (MDRD) Non-Af 19 L, BUN/Creatinine Ratio 23.3 H, Glucose 150 H, Calcium 10.1 01/31/19 05:22: WBC 6.1, RBC 2.78 L, Hgb 8.1 L, Hct 23.9 L, MCV 86.0, MCH 29.1, MCHC 33.9, RDW 15.3 H, RDW Differential 48.6 H, Plt Count 230, MPV 10.7, Immature Gran % (Auto) 0.300, Neut % (Auto) 60.4, Lymph % (Auto) 19.9, [place] % (Auto) 15.0 H, Eos % (Auto) 4.1, Baso % (Auto) 0.3, Absolute Neuts (auto) 3.7, Total Counted Not Reportable Rhythm: Sinus rhythm Medical Necessity - Tobacco Use Smoking Status: Never smoker Tobacco Use: Non-smoker Assessment/Plan 1. Abnormal cardiac enzymes The patient does have abnormal cardiac enzymes. The concern is an acute non-ST segment elevation RI. Thus far there is been no obvious other explanation such as an acute neurologic event or an acute thromboembolic event or an acute sepsis type event to explain her abnormal cardiac enzymes. She does have chronic renal insufficiency which may be a contributing factor. She has undergone noninvasive evaluation. This has included a follow-up transthoracic echocardiogram. The results are as noted above. Based on this finding it does appear she has diminished LV systolic function. This could be secondary to CAD and could contribute to her findings of CHF/pulmonary edema. At the moment she will continue medical management. This will include agents such as aspirin, antiplatelets, anticoagulants, nitrates as needed, beta blockers, afterload reducing agents as able, lipid-lowering agents, etc. Ideally should be considered for further evaluation with diagnostic cardiac catheterization. However there is some concern in proceeding in such a manner based upon her underlying renal insufficiency and the concern of a contrast related nephropathy occurring. Thus at the moment she will continue conservative medical management. 2. CHF She will continue evaluation care. She will continue medical therapy/diuretic therapy. Her symptoms have improved. Her creatinine level has increased. At the present time her diuretics will be adjusted from 2 times daily to once daily. She will continue to be followed from a clinical standpoint with respect to her symptoms, hemodynamics, and renal function. She will also have follow-up of her radiologic studies with chest x-ray to reassess her pleural effusions. 3. Hyperlipidemia She will continue risk factor evaluation and care. 4. Hypertension Her blood pressure will need to be adjusted to control her blood pressure and avoid issues with respect to her renal insufficiency. 5. Diabetes mellitus She will continue evaluation care per internal medicine. 6. Chronic renal insufficiency She may need to be reevaluated by nephrology. Again this has to be taken into consideration with any invasive procedures that could lead to an IV contrast related nephropathy. 7. Carotid artery disease She states she has had both carotid arteries operated on twice once in [place] and once in [place]. She has a left carotid artery bruit. She may need further noninvasive evaluation of her carotid artery disease. Comment: The patient's case was discussed reviewed with the patient. This note was generated with Dragon dictation software. It may contain incorrect words, spelling, and punctuation that were not noted in checking the note before signing.
[2019-01-31] MEDS: Doxazosin 4 MG Tablet PO (21:30)
[2019-01-31] MEDS: Atorvastatin Calcium 40 MG Tablet PO (21:30)
[2019-01-31] MEDS: LORazepam 0.5 MG Tablet PO (21:37)
[2019-01-31] MEDS: Insulin Lispro 100 UNIT/ML INSULN.PEN SQ (21:38)
[2019-01-31 21:40] LABS: Bedside Glucose 256 mg/dL (70-110)
[2019-02-01] VITALS (16 sets, daily range): BP systolic 141–161; BP diastolic 43–72; PULSE 67–88; RESP 16–18; TEMP 36.6–36.9; O2SAT 93–98
[2019-02-01 03:06] LABS: Bedside Glucose 155 mg/dL (70-110)
[2019-02-01] MEDS: hydrALAZINE 25 MG Tablet PO ×3 (05:19→21:06)
[2019-02-01] MEDS: Isosorbide DN 10 MG Tablet PO ×3 (05:19→21:06)
[2019-02-01] MEDS: Heparin Injection (Vial) 5,000 UNIT/ML VIAL 5000 UNIT SC ×2 (05:20→14:16)
[2019-02-01 05:36] LABS: Bedside Glucose 139 mg/dL (70-110)
--- NOTE | 2019-02-01 06:30 | RAD_ITS ---
STUDY: X-RAY CHEST REASON FOR EXAM: Female, 83 years old. Follow-up for pleural effusion. TECHNIQUE: AP and lateral views of the chest. COMPARISON: Comparison is made with prior study dated January 28, 2019. FINDINGS: EKG electrodes are seen. There are small residual bilateral pleural effusions slightly more prominent on the left side with mild left basilar atelectasis. There has been moderate degree of improvement as compared to prior study. There is borderline cardiomegaly. Normal mediastinum and vilma. Normal visualized pulmonary arteries. There is atherosclerotic calcification of the aortic arch with tortuosity. There are degenerative changes of the visualized thoracic spine. Normal visualized ribs, clavicles, and shoulders. There is no demonstrated abnormality of the visualized soft tissue structures of the upper abdomen. RAD/Chest PA and Lateral IMPRESSION: Small residual bilateral pleural effusions slightly more prominent on the left side with left basilar atelectasis. Electronically Signed: Wilner Bruce, at 8:43 EDT , Service support ,
[2019-02-01 06:32] LABS: Anion Gap 11 (5-15); BUN 68 mg/dL (7-18); BUN/Creat Ratio 26.2 RATIO (10-20); Calcium,Total 9.8 mg/dL (8.5-10.1); Chloride 109 mmol/L (98-107); EST Glomerular Filtration Rate 19 mL/min (>60); Est Glom Filt Rate - Afr Amer 23 mL/min (>60); Estimated Creatinine Clearance 11.57 ml/min; Glucose 139 mg/dL (74-106); Potassium 4.2 mmol/L (3.5-5.1); Sodium Level 138 mmol/L (136-145)
[2019-02-01] MEDS: Metoprolol Tartrate 50 MG Tablet PO ×2 (08:17→21:06)
[2019-02-01] MEDS: Aspirin 81 MG TAB.CHEW PO (08:17)
[2019-02-01] MEDS: Furosemide 40 MG/4 ML Vial IV (08:17)
[2019-02-01] MEDS: amLODIPine 10 MG Tablet PO (08:17)
[2019-02-01] MEDS: Clopidogrel Bisulfate 75 MG Tablet PO (08:17)
[2019-02-01] MEDS: 0.9% NaCl Peripheral Flush Adult/Peds IV (08:23)
[2019-02-01] MEDS: Insulin Lispro 100 UNIT/ML INSULN.PEN SQ ×2 (11:26→21:06)
[2019-02-01 11:31] LABS: Bedside Glucose 248 mg/dL (70-110)
--- NOTE | 2019-02-01 11:57 | PCM.PN.REN ---
Patient Problems: Active and Suspected Problems (Last Updated 10/10/17 @ 14:27 by Taryn Galindo) CHF (congestive heart failure) (Acute) Shortness of breath (Acute) Subjective: No new complaints - Physical Exam General: Alert, Oriented x3, Cooperative HEENT: Atraumatic, PERRLA, EOMI, Normocephalic Neck: Supple, No JVD, Negative Carotid Bruits Lungs: Clear to auscultation, Normal air movement Cardiovascular: Regular rate, No murmurs Abdomen: Bowel Sounds Present, Soft, Non Tender Extremities: No edema, Capillary Refill Less than 3 Seconds Skin: No rashes, No breakdown Musculoskeletal: No Tenderness to Palpation of Joints or Extremities Neurological: Cranial nerves II-XII grossly intact Psych/Mental Status: Normal Affect, Appropriate Vital Signs Temp Pulse Resp BP Pulse Ox 97.9 F 81 18 153/55 H 93 02/01/19 08:15 02/01/19 08:17 02/01/19 08:15 02/01/19 08:17 02/01/19 08:15 Oxygen Flow Rate (L/min) 2 Oxygen Delivery Method Room Air Weight: 52.6 kg Body Mass Index (BMI) 23.1 Finger Stick Blood Glucose 252 Intake and Output for Last 24 Hours 01/30/19 01/31/19 02/01/19 23:59 23:59 23:59 Intake Total 720 / 720 1575 / 1575 120 / 120 Output Total 1285 / 1285 750 / 750 300 / 300 Balance -565 / -565 825 / 825 -180 / -180 Microbiology Past 72 Hours 01/28/19 21:25 Blood Culture - Preliminary Blood Culture (Wb) #2 - Right Hand No growth in 48 hours. 01/28/19 21:35 Blood Culture - Preliminary Blood Culture (Wb) - Left Forearm No growth in 48 hours. Laboratory Tests Past 24 Hrs 02/01/19 06:00 Sodium 138 Potassium 4.2 Chloride 109 H Carbon Dioxide 18.0 L Anion Gap 11 BUN 68 H Creatinine 2.60 H Estim Creat Clear Calc 11.57 Est GFR (MDRD) Af Amer 23 L Est GFR (MDRD) Non-Af 19 L BUN/Creatinine Ratio 26.2 H Glucose 139 H Calcium 9.8 POC Glucose 02/01/19 02/01/19 02/01/19 11:19 05:29 01:50 POC Glucose 248 H 139 H 155 H 01/31/19 01/31/19 21:27 16:10 POC Glucose 256 H 192 H Medical Necessity - Tobacco Use Smoking Status: Never smoker Tobacco Use: Non-smoker Assessment/Plan All Active Problems (Last Updated 10/10/17 @ 14:27 by Taryn Galindo) CHF (congestive heart failure) (Acute) Shortness of breath (Acute) Acute respiratory failure with hypoxia (Resolved) PNA (pneumonia) (Resolved) Left sided numbness (Resolved) JUVENTINO CKD 3. Baseline creatinine about 2 years ago was 1.6 to 1.8. now creatinine is higher, likely due to progression of kidney disease vs diuresis related. Creatinine is even higher today. Hold Lasix and assess. HTN. we did extensive work up in the past. renal dopplers were negative. renin yassine ratio was non diagnostic. multiple med changes and intolerances in the past. current BP values are ok. CHF. clinically better Admitted with elevated troponins. May need a coronary angiogram. Prior baseline creatinine was around 2.0. Current creatinines are around 2.6. Risk of contrast-induced nephropathy is not a whole lot different between these 2 numbers. Will hold Lasix for today and assess. If creatinine stabilizes she has to accept the risk for contrast nephropathy and proceed with coronary angiogram.
--- NOTE | 2019-02-01 12:43 | PCM.PN.HOSP ---
Patient Problems: Active and Suspected Problems (Last Updated 10/10/17 @ 14:27 by Taryn Galindo) CHF (congestive heart failure) (Acute) Shortness of breath (Acute) Subjective: Patient shortness of breath is better. Leg swelling, dyspnea on exertion has much improved. Creatinine will worsen on account of Lasix and that is being held. Patient wants to go home. Discussed with patient's son and her daughter near the bedside. Vitals/I&O's: Vital Signs Temp Pulse Resp BP Pulse Ox 97.9 F 78 18 153/55 H 93 02/01/19 08:15 02/01/19 12:09 02/01/19 08:15 02/01/19 08:17 02/01/19 08:15 Oxygen Flow Rate (L/min) 2 Oxygen Delivery Method Room Air Weight: 115 lb 15.41 oz Body Mass Index (BMI) 23.1 Finger Stick Blood Glucose 252 Intake and Output for Last 24 Hours 01/30/19 01/31/19 02/01/19 23:59 23:59 23:59 Intake Total 720 / 720 1575 / 1575 120 / 120 Output Total 1285 / 1285 750 / 750 300 / 300 Balance -565 / -565 825 / 825 -180 / -180 General: Alert, Oriented x3, Cooperative HEENT: Atraumatic, PERRLA, EOMI, Normocephalic Neck: Supple, No JVD, Negative Carotid Bruits Lungs: Clear to auscultation, No rhonchi, No wheeze, No rales, Diminished Cardiovascular: Regular rate, Regular Rhythm, Normal S1, Normal S2, No murmurs Abdomen: Bowel Sounds Present, Soft, Non Tender, Non-Distended Extremities: No edema, Capillary Refill Less than 3 Seconds Skin: No rashes, No breakdown Musculoskeletal: No Tenderness to Palpation of Joints or Extremities, Arthritic Changes Neurological: Cranial nerves II-XII grossly intact, Deep Tendon Reflexes 2+/4 and Symmetrical, Neuro grossly intact Psych/Mental Status: Normal Affect, Appropriate Microbiology Past 72 Hours 01/28/19 21:25 Blood Culture (Wb) #2 - Right Hand Blood Culture - Preliminary No growth in 48 hours. 01/28/19 21:35 Blood Culture (Wb) - Left Forearm Blood Culture - Preliminary No growth in 48 hours. Laboratory Results 01/31/19 16:10: POC Glucose 192 H 01/31/19 21:27: POC Glucose 256 H 02/01/19 01:50: POC Glucose 155 H 02/01/19 05:29: POC Glucose 139 H 02/01/19 06:00: Sodium 138, Potassium 4.2, Chloride 109 H, Carbon Dioxide 18.0 L, Anion Gap 11, BUN 68 H, Creatinine 2.60 H, Estim Creat Clear Calc 11.57, Est GFR (MDRD) Af Amer 23 L, Est GFR (MDRD) Non-Af 19 L, BUN/Creatinine Ratio 26.2 H, Glucose 139 H, Calcium 9.8 02/01/19 11:19: POC Glucose 248 H Current Medications Acetaminophen (Tylenol) 650 mg PO Q6H PRN PRN PRN Reason: Mild pain 1-3/Temp > 100.7 F Amlodipine Besylate (Norvasc) 10 mg PO DAILY [facility] Last Admin: 02/01/19 08:17 Dose: 10 mg Aspirin (Aspirin, Baby) 81 mg PO DAILY@0800 [facility] Last Admin: 02/01/19 08:17 Dose: 81 mg Atorvastatin Calcium (Lipitor) 40 mg PO QHS [facility] Last Admin: 01/31/19 21:30 Dose: 40 mg Clopidogrel Bisulfate (Plavix) 75 mg PO DAILY [facility] Last Admin: 02/01/19 08:17 Dose: 75 mg Dextrose (D50w Syringe) 0 gm IV X1 PRN; Protocol PRN Reason: Hypoglycemia Doxazosin Mesylate (Cardura) 4 mg PO QHS [facility] Last Admin: 01/31/19 21:30 Dose: 4 mg Ferrous Sulfate (Ferrous Sulfate) 325 mg PO TIDCM [facility] Glucagon () 1 mg IM .X1 PRN PRN Reason: Hypoglycemia Heparin Sodium (Porcine) (Heparin Na) 5,000 unit SC Q8 [facility] Last Admin: 02/01/19 05:20 Dose: 5,000 unit Hydralazine HCl (Apresoline) 25 mg PO TID [facility] Last Admin: 02/01/19 05:19 Dose: 25 mg Insulin Human Lispro (Humalog Kwikpen (Bkc)) 0 unit SQ ACHS [facility]; Protocol Last Admin: 02/01/19 11:26 Dose: 2 u Isosorbide Dinitrate (Isordil) 10 mg PO TID [facility] Last Admin: 02/01/19 05:19 Dose: 10 mg Lorazepam (Ativan) 0.5 mg PO QHS PRN PRN PRN Reason: sleep Last Admin: 01/31/19 21:37 Dose: 0.5 mg Metoprolol Tartrate (Lopressor (Beta Bobby)) 50 mg PO BID [facility] Last Admin: 02/01/19 08:17 Dose: 50 mg Sodium Chloride () 5 - 15 ml IV UD PRN PRN Reason: SALINE FLUSH Last Admin: 02/01/19 08:23 Dose: 10 ml Medical Necessity - Tobacco Use Smoking Status: Never smoker Tobacco Use: Non-smoker Assessment/Plan All Active Problems (Last Updated 10/10/17 @ 14:27 by Taryn Galindo) CHF (congestive heart failure) (Acute) Shortness of breath (Acute) Acute respiratory failure with hypoxia (Resolved) PNA (pneumonia) (Resolved) Left sided numbness (Resolved) This 83-year-old female with multiple comorbidities admitted with progressive worsening of shortness of breath for more than 2 days along with chest discomfort consistent with acute on chronic heart failure with. EF and high troponin history of non-STEMI. 1. Acute on chronic heart failure with preserved EF BNP was >3000 on admission Patient was diuresed initially and now is on hold on account of worsening creatinine. Total net negative fluid about 5 L since admission. 2D echo: EF of 35%, with moderate segmental systolic dysfunction and indeterminate diastolic function with hypokinesia and akinesia. Also has mild left ventricular hypertrophy and trivial pericardial effusion. cardiology on board 2. Nonstemi troponin was initially 0.147, and trended up to 5.760 cardiology on board on aspirin and plavix and metoprolol as well as high intensity statin due to kidney impairment, there is concern for contrast nephropathy if she undergoes cardiac cath and requires IV contrast. per cardiology, to continue with medical management until creatinine is back to baseline. 3. JUVENTINO on CKD IV: Cr is up to 2.53, 2.63, baseline around 2.0. LIkely due to lasix she is receiving. lasix frequency decreased to daily. Creatinine is still trending up Patient wants to go home and advised to monitor at least [place] or downward trend before discharge and then monitoring of BMP as an outpatient and if creatinine goes to baseline then schedule diagnostic cardiac cath. 4. TYpe 2 diabetes mellitus: on actos and amaryl at home. Amsryl resumed; craig dc'd o/a of heart failure. ISS> Accuchecks ACHS 5. Hypertension: control has improved slightly. on amlodipine, metoprolol and cardura. Losartan on hold. 6. Anemia of chronic disease : stable. Likely due to CKD. Iron level was 20 but TIBC was low and low iron saturation. monitor. To follow-up with primary care doctor and nephrology. DVT prophylaxis:heparin Code Visit Inpatient E&M: 43666 Subs Hosp L3
[2019-02-01] MEDS: Ferrous Sulfate 325 MG Tablet PO ×2 (14:16→19:09)
[2019-02-01 16:35] LABS: Bedside Glucose 191 mg/dL (70-110)
--- NOTE | 2019-02-01 16:38 | PCM.PN.CARD ---
Subjectve: The patient states that she is without any acute chest discomfort or acute shortness of breath or dyspnea. She has been up in her chair. She has had no adverse events with being up and ambulating. Objective: Vital Signs Temp Pulse Resp BP Pulse Ox 98.4 F 78 18 145/50 H 95 02/01/19 14:15 02/01/19 15:42 02/01/19 14:15 02/01/19 14:16 02/01/19 14:15 Oxygen Flow Rate (L/min) 2 Oxygen Delivery Method Room Air Weight: 115 lb 15.41 oz Body Mass Index (BMI) 23.1 Finger Stick Blood Glucose 252 Intake and Output for Last 24 Hours 01/30/19 01/31/19 02/01/19 23:59 23:59 23:59 Intake Total 720 / 720 1575 / 1575 120 / 120 Output Total 1285 / 1285 750 / 750 1000 / 1000 Balance -565 / -565 825 / 825 -880 / -880 General: Awake, Alert, Oriented x 3, Cooperative, No Acute Distress HEENT: Atraumatic, Macrocephalic, PERRL Oral: Moist Mucosa Neck: Supple, Good ROM, No JVD Lungs: Diminished Pilo Bases - Minimal Cardiovascular: Regular Rhythm, Normal S1, Normal S2 Murmur Murmur: Grade 2/6, Soft, Mid Systolic, LLSB, LVOT, Sternal Notch Abdomen: Bowel Sounds Present, Soft, Non Tender Extremities: No edema Psych/Mental Status: Appropriate 02/01/19 06:00: Sodium 138, Potassium 4.2, Chloride 109 H, Carbon Dioxide 18.0 L, Anion Gap 11, BUN 68 H, Creatinine 2.60 H, Est GFR (MDRD) Af Amer 23 L, Est GFR (MDRD) Non-Af 19 L, BUN/Creatinine Ratio 26.2 H, Glucose 139 H, Calcium 9.8 Rhythm: Sinus rhythm CXR: Preliminary evaluation: In comparison to the previous chest x-ray the bilateral pleural effusions appear to be less prominent at this time: Please see the official report Medical Necessity - Tobacco Use Smoking Status: Never smoker Tobacco Use: Non-smoker Assessment/Plan 1. Abnormal cardiac enzymes The patient does have abnormal cardiac enzymes. The concern is an acute non-ST segment elevation [place]. Thus far there is been no obvious other explanation such as an acute neurologic event or an acute thromboembolic event or an acute sepsis type event to explain her abnormal cardiac enzymes. She does have chronic renal insufficiency which may be a contributing factor. She has undergone noninvasive evaluation. This has included a follow-up transthoracic echocardiogram. The results are as noted above. Based on this finding it does appear she has diminished LV systolic function. This could be secondary to CAD and could contribute to her findings of CHF/pulmonary edema. At the moment she will continue medical management. This will include agents such as aspirin, antiplatelets, anticoagulants, nitrates as needed, beta blockers, afterload reducing agents as able, lipid-lowering agents, etc. Ideally should be considered for further evaluation with diagnostic cardiac catheterization. However there is some concern in proceeding in such a manner based upon her underlying renal insufficiency and the concern of a contrast related nephropathy occurring. Thus at the moment she will continue conservative medical management. 2. CHF She will continue evaluation care. She will continue medical therapy/diuretic therapy. Her symptoms have improved. Her creatinine level has continued to increase. Based upon her symptomatic improvement and radiologic improvement her diuretics have now been placed on hold. She will continue to be followed from a clinical standpoint with respect to her symptoms, hemodynamics, and renal function. 3. Hyperlipidemia She will continue risk factor evaluation and care. 4. Hypertension Her blood pressure will need to be adjusted to control her blood pressure and avoid issues with respect to her renal insufficiency. 5. Diabetes mellitus She will continue evaluation care per internal medicine. 6. Chronic renal insufficiency She may need to be reevaluated by nephrology. Again this has to be taken into consideration with any invasive procedures that could lead to an IV contrast related nephropathy. 7. Carotid artery disease She states she has had both carotid arteries operated on twice once in [place] and once in [place]. She has a left carotid artery bruit. She may need further noninvasive evaluation of her carotid artery disease. Overall, at the present time, she will continue medical management with adjustment as deemed appropriate and follow-up of her symptoms, vital signs, and her renal function. Hopefully her renal function will improve and at some point in time she will be able to undergo further evaluation with diagnostic cardiac catheterization. Comment: The patient's case was discussed reviewed with the patient and the [facility] staff. This note was generated with [employer] software. It may contain incorrect words, spelling, and punctuation that were not noted in checking the note before signing.
--- NOTE | 2019-02-01 16:41 | PN.CARD_ITS ---
Subjectve: The patient states that she is without any acute chest discomfort or acute shortness of breath or dyspnea. She has been up in her chair. She has had no adverse events with being up and ambulating. Objective: Vital Signs Temp Pulse Resp BP Pulse Ox 98.4 F 78 18 145/50 H 95 02/01/19 14:15 02/01/19 15:42 02/01/19 14:15 02/01/19 14:16 02/01/19 14:15 Oxygen Flow Rate (L/min) 2 Oxygen Delivery Method Room Air Weight: 115 lb 15.41 oz Body Mass Index (BMI) 23.1 Finger Stick Blood Glucose 252 Intake and Output for Last 24 Hours 01/30/19 01/31/19 02/01/19 23:59 23:59 23:59 Intake Total 720 / 720 1575 / 1575 120 / 120 Output Total 1285 / 1285 750 / 750 1000 / 1000 Balance -565 / -565 825 / 825 -880 / -880 General: Awake, Alert, Oriented x 3, Cooperative, No Acute Distress HEENT: Atraumatic, Macrocephalic, PERRL Oral: Moist Mucosa Neck: Supple, Good ROM, No JVD Lungs: Diminished Pilo Bases - Minimal Cardiovascular: Regular Rhythm, Normal S1, Normal S2 Murmur Murmur: Grade 2/6, Soft, Mid Systolic, LLSB, LVOT, Sternal Notch Abdomen: Bowel Sounds Present, Soft, Non Tender Extremities: No edema Psych/Mental Status: Appropriate 02/01/19 06:00: Sodium 138, Potassium 4.2, Chloride 109 H, Carbon Dioxide 18.0 L , Anion Gap 11, BUN 68 H, Creatinine 2.60 H, Est GFR (MDRD) Af Amer 23 L, Est GFR (MDRD) Non-Af 19 L, BUN/Creatinine Ratio 26.2 H, Glucose 139 H, Calcium 9.8 Rhythm: Sinus rhythm CXR: Preliminary evaluation: In comparison to the previous chest x-ray the bilateral pleural effusions appear to be less prominent at this time: Please see the official report Medical Necessity - Tobacco Use Smoking Status: Never smoker Tobacco Use: Non-smoker Assessment/Plan 1. Abnormal cardiac enzymes The patient does have abnormal cardiac enzymes. The concern is an acute non-ST segment elevation [place]. Thus far there is been no obvious other explanation such as an acute neurologic event or an acute thromboembolic event or an acute sepsis type event to explain her abnormal cardiac enzymes. She does have chronic renal insufficiency which may be a contributing factor. She has undergone noninvasive evaluation. This has included a follow-up transthoracic echocardiogram. The results are as noted above. Based on this finding it does appear she has diminished LV systolic function. This could be secondary to CAD and could contribute to her findings of CHF/pulmonary edema. At the moment she will continue medical management. This will include agents such as aspirin, antiplatelets, anticoagulants, nitrates as needed, beta blockers, afterload reducing agents as able, lipid-lowering agents, etc. Ideally should be considered for further evaluation with diagnostic cardiac catheterization. However there is some concern in proceeding in such a manner based upon her underlying renal insufficiency and the concern of a contrast related nephropathy occurring. Thus at the moment she will continue conservative medical management. 2. CHF She will continue evaluation care. She will continue medical therapy/diuretic therapy. Her symptoms have improved. Her creatinine level has continued to increase. Based upon her symptomatic improvement and radiologic improvement her diuretics have now been placed on hold. She will continue to be followed from a clinical standpoint with respect to her symptoms, hemodynamics, and renal function. 3. Hyperlipidemia She will continue risk factor evaluation and care. 4. Hypertension Her blood pressure will need to be adjusted to control her blood pressure and avoid issues with respect to her renal insufficiency. 5. Diabetes mellitus She will continue evaluation care per internal medicine. 6. Chronic renal insufficiency She may need to be reevaluated by nephrology. Again this has to be taken into consideration with any invasive procedures that could lead to an IV contrast related nephropathy. 7. Carotid artery disease She states she has had both carotid arteries operated on twice once in [place] and once in [place]. She has a left carotid artery bruit. She may need further noninvasive evaluation of her carotid artery disease. Overall, at the present time, she will continue medical management with adjustment as deemed appropriate and follow-up of her symptoms, vital signs, and her renal function. Hopefully her renal function will improve and at some point in time she will be able to undergo further evaluation with diagnostic cardiac catheterization. Comment: The patient's case was discussed reviewed with the patient and the [facility] staff. This note was generated with [employer] software. It may contain incorrect words, spelling, and punctuation that were not noted in checking the note before signing.
[2019-02-01] MEDS: Atorvastatin Calcium 40 MG Tablet PO (21:06)
[2019-02-01] MEDS: Doxazosin 4 MG Tablet PO (21:06)
[2019-02-01] MEDS: LORazepam 0.5 MG Tablet PO (21:08)
[2019-02-01 23:40] LABS: Bedside Glucose 270 mg/dL (70-110)
[2019-02-02] VITALS (7 sets, daily range): BP systolic 142–151; BP diastolic 54–65; PULSE 69–78; RESP 16–18; TEMP 36.9–37.4; O2SAT 94
[2019-02-02 02:51] LABS: Bedside Glucose 190 mg/dL (70-110)
[2019-02-02] MEDS: hydrALAZINE 25 MG Tablet PO (06:18)
[2019-02-02] MEDS: Isosorbide DN 10 MG Tablet PO (06:18)
[2019-02-02 06:45] LABS: Bedside Glucose 154 mg/dL (70-110)
[2019-02-02 07:00] LABS: Absolute Lymphocyte Count 1.19 X10^3/ul (0.83-4.51); Absolute Neutrophil Count 4.3 X10^3/uL (2.0-7.7); Basophil# 0.03 X10^3/uL; Basophil% 0.4 % (0-1); Eosinophil# 0.28 X10^3/uL; Eosinophils% 4.1 % (0-5); Hematocrit 25.6 % (37-47); Hemoglobin 8.5 g/dl (12.0-15.0); Lymphocyte # 1.19 X10^3/ul (4.0); Lymphocyte % 17.5 % (19-41); Mean Corp Hgb Conc 33.2 g/gl (32-36); Mean Corpuscular Hgb 28.8 pg (27.0-32.0); Mean Corpuscular Volume 86.8 fL (81-99); Mean Platelet Vol. 11.2 fl (6.2-12.0); Monocyte# 0.96 X10^3/uL; Monocyte% 14.1 % (0-10); Neutrophil # 4.29 X10^3/uL (2.7-7.7); Platelet Count 244 K/mm3 (150-450); RBC Distribution Width CV 14.9 % (11.6-14.6); RBC Distribution Width SD 44.8 fl (35.1-43.9); Red Blood Count 2.95 M/mm3 (4.2-5.4); White Blood Count 6.8 K/mm3 (4.4-11.0)
[2019-02-02 07:08] LABS: POSITIVE COUNT NO; POSITIVE DIFFERENTIAL NO; POSITIVE MORPHOLOGY NO
[2019-02-02 07:18] LABS: Anion Gap 10 (5-15); BUN 70 mg/dL (7-18); Calcium,Total 10.2 mg/dL (8.5-10.1); Chloride 106 mmol/L (98-107); EST Glomerular Filtration Rate 20 mL/min (>60); Est Glom Filt Rate - Afr Amer 24 mL/min (>60); Estimated Creatinine Clearance 12.03 ml/min; Glucose 173 mg/dL (74-106); Potassium 4.6 mmol/L (3.5-5.1); Sodium Level 134 mmol/L (136-145)
[2019-02-02] MEDS: Aspirin 81 MG TAB.CHEW PO (09:13)
[2019-02-02] MEDS: Metoprolol Tartrate 50 MG Tablet PO (09:14)
[2019-02-02] MEDS: amLODIPine 10 MG Tablet PO (09:15)
[2019-02-02] MEDS: Clopidogrel Bisulfate 75 MG Tablet PO (09:15)
[2019-02-02] MEDS: Ferrous Sulfate 325 MG Tablet PO ×2 (09:16→11:09)
[2019-02-02] MEDS: Insulin Lispro 100 UNIT/ML INSULN.PEN SQ (11:05)
--- NOTE | 2019-02-02 11:09 | DCINST_ITS ---
- Discharge Diagnoses Current Active Problems: Current Active and Chronic Problems (Last Updated 10/10/17 @ 14:27 by Taryn Galidno) CHF (congestive heart failure) (Acute) Shortness of breath (Acute) You will use the following diet at home:: Calorie/Carbohydrate Controlled (specify 1200, 1400, etc) - 1800 ADA diet, Cardiac Your food should be the consistency of: Regular Discharge Activity: May Not Drive Call your doctor if you observe: Fever of 101 or Higher, Inability to urinate, Inability to have a bowel movement, Shortness of breath, Dizziness, Fainting spells, Swelling in the ankles, Chest pain, Increased palpitations (irregular h eartbeat) Allergies/Adverse Reactions: Allergies metformin Allergy (Verified 01/28/19 21:00) Other BODY ACHES epinephrine Adverse Reaction (Verified 01/28/19 21:00) Other SHAKING Gadolinium-MRI Contrast Medium [CONTRAST] Adverse Reaction (Verified 01/28/19 21:00) Other SHAKING Medications to take at Discharge Amlodipine [Norvasc] 10 mg PO DAILY #0 11/26/15 lactobacillus combination no.8 3 billion cell capsule 3,000 mmu cells PO QDAY 10/10/17 Doxazosin Mesylate [Cardura] 2 mg PO DAILY 07/28/18 Lorazepam [Ativan] 0.5 mg PO QHS PRN PRN 07/29/18 Metoprolol Tartrate 50 mg PO BID 07/29/18 Aspirin [Aspirin, Baby] 81 mg PO DAILY@0800 #30 tab.chew 02/02/19 Atorvastatin Calcium [Lipitor] 40 mg PO QHS #30 tablet 02/02/19 Clopidogrel Bisulfate [Plavix] 75 mg PO DAILY #30 tablet 02/02/19 Ferrous Sulfate 325 mg PO TIDCM #90 tablet 02/02/19 Glimepiride [Amaryl] 1 mg PO BREAKFAST #30 tablet 02/02/19 Isosorbide DN [Isordil] 10 mg PO TID #90 tablet 02/02/19 Pioglitazone [Actos] 15 mg PO DAILY PRN #0 02/02/19 hydrALAZINE [Apresoline] 25 mg PO TID #90 tablet 02/02/19 The following prescriptions were given: Aspirin [Aspirin, Baby] 81 mg PO DAILY@0800 #30 tab.chew Atorvastatin Calcium [Lipitor] 40 mg PO QHS #30 tablet Clopidogrel Bisulfate [Plavix] 75 mg PO DAILY #30 tablet Glimepiride [Amaryl] 1 mg PO BREAKFAST #30 tablet Ferrous Sulfate 325 mg PO TIDCM #90 tablet hydrALAZINE [Apresoline] 25 mg PO TID #90 tablet Isosorbide DN [Isordil] 10 mg PO TID #90 tablet Primary Care Physician: Jenni Cornell DO [Primary Care Provider] - Please follow up with your Primary Care Physician in: in 1-2 week Test Results: Test results from this visit will be discussed in further detail at your follow- up appointment, if applicable. Follow up BMP on 02/04/19 Please Follow Up With: Phill Lee MD When: in 1-2 weeks Please Follow Up With: Augustus Vera MD When: in 2 weeks for JUVENTINO On CKD
--- NOTE | 2019-02-02 11:10 | DS.PCM_ITS ---
Discharge Date and Diagnosis Date of Admission: 01/28/19 Date of Discharge: 02/02/19 - Primary Discharge Diagnosis Active and Suspected Problems (Last Updated 10/10/17 @ 14:27 by Taryn Galindo) CHF (congestive heart failure) (Acute) Shortness of breath (Acute) - Secondary Discharge Diagnosis Chronic Problems (Last Updated 10/10/17 @ 14:27 by Taryn Galindo) TIA (transient ischemic attack) (Chronic) Cardiac enzymes elevated (Chronic) Carotid disease, bilateral (Chronic) CKD (chronic kidney disease) stage 3, GFR 30-59 ml/min (Chronic) Hypertension (Chronic) Hyperlipidemia (Chronic) Type II diabetes mellitus (Chronic) Hospital Course and Treatment Operations: None Summary of Care Provided: [] This 83-year-old female with multiple comorbidities admitted with progressive worsening of shortness of breath for more than 2 days along with chest discomfort consistent with acute on chronic heart failure with. EF and high troponin history of non-STEMI. 1. Acute on chronic heart failure with preserved EF * BNP was >3000 on admission * Patient was diuresed initially and now is on hold on account of worsening creatinine. * Total net negative fluid about 5 L since admission. * 2D echo: EF of 35%, with moderate segmental systolic dysfunction and indeterminate diastolic function with hypokinesia and akinesia. Also has mild left ventricular hypertrophy and trivial pericardial effusion. * Dr. Lee advised to continue Lasix 20 mg daily otherwise her heart failure symptoms will worsen. Discharged on Lasix 20 mg daily. 2. Nonstemi * troponin was initially 0.147, and trended up to 5.760 * cardiology on board * on aspirin and plavix and metoprolol as well as high intensity statin * due to kidney impairment, there is concern for contrast nephropathy if she undergoes cardiac cath and requires IV contrast. * per cardiology, to continue with medical management until creatinine is back to baseline. Call Dr. Lee after kidney function back to baseline to schedule cardiac cath. 3. JUVENTINO on CKD IV: * Cr is up to 2.53, 2.63, 2.5 baseline around 2.0. BUN 70. Lasix was held during hospital course. * BMP as an outpatient on 02/2019 and if creatinine goes to baseline then schedule diagnostic cardiac cath. 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 4. TYpe 2 diabetes mellitus: on actos and amaryl at home. Actos discontinued on account of heart failure, leg edema and kidney failure. Glimepiride decreased to 1 mg daily. Advised to check fasting glucose before breakfast and if it is less than 120 mg/dL, hold glimepiride. 5. Hypertension: * control has improved slightly. * on amlodipine, metoprolol and cardura. * Losartan on hold. * 6. Anemia of chronic disease : * stable. Likely due to CKD. Iron level was 20 but TIBC was low and low iron saturation. monitor. * To follow-up with primary care doctor and nephrology. * DVT prophylaxis:heparin Discharge medication reconciliation done. Discharge follow-up instructions completed. Discharge process discussed with the patient and all questions were answered to patient's satisfaction.. Total time spent, exact 35 minutes on discharge meds reconciliation, examination, review of imaging and blood test and discussion with the patient on follow-up instructions. Subjective: Patient denies shortness of breath or chest pressure. No overnight acute events. Patient wants to go home Objective: General: Alert, Oriented x3, Cooperative HEENT: Atraumatic, PERRLA, EOMI, Normocephalic Neck: Supple, No JVD, Negative Carotid Bruits Lungs: Clear to auscultation, No rhonchi, No wheeze, No rales, Diminished Cardiovascular: Regular rate, Regular Rhythm, Normal S1, Normal S2, No murmurs Abdomen: Bowel Sounds Present, Soft, Non Tender, Non-Distended Extremities: No edema, Capillary Refill Less than 3 Seconds Skin: No rashes, No breakdown Musculoskeletal: No Tenderness to Palpation of Joints or Extremities, Arthritic Changes Neurological: Cranial nerves II-XII grossly intact, Deep Tendon Reflexes 2+/4 and Symmetrical, Neuro grossly intact Psych/Mental Status: Normal Affect, Appropriate - Physical Exam Vital Signs Temp Pulse Resp BP Pulse Ox 98.4 F 69 16 151/65 H 94 02/02/19 06:16 02/02/19 09:14 02/02/19 06:16 02/02/19 06:16 02/02/19 06:16 Oxygen Flow Rate (L/min) 2 Oxygen Delivery Method Room Air Weight: 117 lb 1.047 oz Body Mass Index (BMI) 23.1 Finger Stick Blood Glucose 252 Intake and Output for Last 24 Hours 01/31/19 02/01/1902/02/19 23:59 23:59 23:59 Intake Total 1575 / 1575 480 / 480 240 / 240 Output Total 750 / 750 1100 / 1100 925 / 925 Balance 825 / 825 -620 / -620 -685 / -685 Microbiology Past 72 Hours 01/28/19 21:25 Blood Culture - Preliminary Blood Culture (Wb) #2 - Right Hand No growth in 48 hours. 01/28/19 21:35 Blood Culture - Preliminary Blood Culture (Wb) - Left Forearm No growth in 48 hours. Laboratory Tests Past 24 Hrs 02/02/19 02/02/19 06:24 06:24 WBC 6.8 RBC 2.95 L Hgb 8.5 L Hct 25.6 L MCV 86.8 MCH 28.8 MCHC 33.2 RDW 14.9 H RDW Differential 44.8 H Plt Count 244 MPV 11.2 Immature Gran % (Auto) 0.900 Neut % (Auto) 63.0 Lymph % (Auto) 17.5 L Wilkes % (Auto) 14.1 H Eos % (Auto) 4.1 Baso % (Auto) 0.4 Absolute Neuts (auto) 4.3 Absolute Lymphs (auto) 1.19 Total Counted Not Reportable Sodium 134 L Potassium 4.6 Chloride 106 Carbon Dioxide 18.0 L Anion Gap 10 BUN 70 H Creatinine 2.50 H Estim Creat Clear Calc 12.03 Est GFR (MDRD) Af Amer 24 L Est GFR (MDRD) Non-Af 20 L BUN/Creatinine Ratio 28.0 H Glucose 173 H Calcium 10.2 H POC Glucose 02/02/19 02/02/19 02/01/19 06:22 02:45 21:02 POC Glucose 154 H 190 H 270 H 02/01/19 02/01/19 16:29 11:19 POC Glucose 191 H 248 H Discharge Activity: May Not Drive Call your doctor if you observe: Fever of 101 or Higher, Inability to urinate, Inability to have a bowel movement, Shortness of breath, Dizziness, Fainting spells, Swelling in the ankles, Chest pain, Increased palpitations (irregular heartbeat) Home Medications: Medications to take at Discharge Amlodipine [Norvasc] 10 mg PO DAILY #0 11/26/15 lactobacillus combination no.8 3 billion cell capsule 3,000 mmu cells PO QDAY 10/10/17 Doxazosin Mesylate [Cardura] 2 mg PO DAILY 07/28/18 Lorazepam [Ativan] 0.5 mg PO QHS PRN PRN 07/29/18 Metoprolol Tartrate 50 mg PO BID 07/29/18 Aspirin [Aspirin, Baby] 81 mg PO DAILY@0800 #30 tab.chew 02/02/19 Atorvastatin Calcium [Lipitor] 40 mg PO QHS #30 tablet 02/02/19 Clopidogrel Bisulfate [Plavix] 75 mg PO DAILY #30 tablet 02/02/19 Ferrous Sulfate 325 mg PO TIDCM #90 tablet 02/02/19 Furosemide [Lasix] 20 mg PO DAILY #30 tablet 02/02/19 Glimepiride [Amaryl] 1 mg PO BREAKFAST #30 tablet 02/02/19 Isosorbide DN [Isordil] 10 mg PO TID #90 tablet 02/02/19 Pioglitazone [Actos] 15 mg PO DAILY PRN #0 02/02/19 hydrALAZINE [Apresoline] 25 mg PO TID #90 tablet 02/02/19 Following Prescrptions Were Given to Patient: Aspirin [Aspirin, Baby] 81 mg PO DAILY@0800 #30 tab.chew Atorvastatin Calcium [Lipitor] 40 mg PO QHS #30 tablet Clopidogrel Bisulfate [Plavix] 75 mg PO DAILY #30 tablet Furosemide [Lasix] 20 mg PO DAILY #30 tablet Glimepiride [Amaryl] 1 mg PO BREAKFAST #30 tablet Ferrous Sulfate 325 mg PO TIDCM #90 tablet hydrALAZINE [Apresoline] 25 mg PO TID #90 tablet Isosorbide DN [Isordil] 10 mg PO TID #90 tablet Other Amb Orders: Basic Metabolic Profile (BMP) Time Frame: 02/04/19, Location: Laboratory Primary Care Physician: Jenni Cornell DO [Primary Care Provider] - Please follow up with your Primary Care Physician in: in 1-2 week Please Follow Up With: Phill Lee MD When: in 1-2 weeks Please Follow Up With: Augustus Vera MD When: in 2 weeks for JUVENTINO On CKD Medical Necessity - Tobacco Use Smoking Status: Never smoker Tobacco Use: Non-smoker Meaningful Use Info Meaningful Use Diagnoses (Choose all that apply): None applicable Code Visit Inpatient E&M: 06794 Disch Hosp
[2019-02-02 11:11] LABS: Bedside Glucose 261 mg/dL (70-110)
--- NOTE | 2019-02-02 13:16 | PN.CARD_ITS ---
Subjectve: The patient states she continues to feel better. She has been up and ambulating. She denies ongoing chest discomfort. There is been no worsening sh ortness of breath or dyspnea or peripheral pitting edema. Objective: Vital Signs Temp Pulse Resp BP Pulse Ox 99.4 F H 69 18 149/54 H 94 02/02/19 09:00 02/02/19 09:14 02/02/19 09:00 02/02/19 09:00 02/02/19 09:00 Oxygen Flow Rate (L/min) 2 Oxygen Delivery Method Room Air Weight: 117 lb 1.047 oz Body Mass Index (BMI) 23.1 Finger Stick Blood Glucose 252 Intake and Output for Last 24 Hours 01/31/19 02/01/19 02/02/19 23:59 23:59 23:59 Intake Total 1575 / 1575 480 / 480 600 / 600 Output Total 750 / 750 1100 / 1100 1175 / 1175 Balance 825 / 825 -620 / -620 -575 / -575 General: Awake, Alert, Oriented x 3, Cooperative, No Acute Distress HEENT: Atraumatic, Normocephalic, PERRL, EOMI, Sclera Non Icteric Oral: Moist Mucosa Neck: Supple, Good ROM, No JVD Lungs: Clear to auscultation Cardiovascular: Regular Rhythm, Normal S1, Normal S2 Abdomen: Bowel Sounds Present, Soft, Non Tender Extremities: No edema Neurological: No Focal Motor or Sensory Deficit Psych/Mental Status: Appropriate 02/02/19 06:24: WBC 6.8, RBC 2.95 L, Hgb 8.5 L, Hct 25.6 L, MCV 86.8, MCH 28.8, MCHC 33.2, RDW 14.9 H, RDW Differential 44.8 H, Plt Count 244, MPV 11.2, Immature Gran % (Auto) 0.900, Neut % (Auto) 63.0, Lymph % (Auto) 17.5 L, [place] % (Auto) 14.1 H, Eos % (Auto) 4.1, Baso % (Auto) 0.4, Absolute Neuts (auto) 4.3, Total Counted Not Reportable 02/02/19 06:24: Sodium 134 L, Potassium 4.6, Chloride 106, Carbon Dioxide 18.0 L , Anion Gap 10, BUN 70 H, Creatinine 2.50 H, Est GFR (MDRD) Af Amer 24 L, Est GFR (MDRD) Non-Af 20 L, BUN/Creatinine Ratio 28.0 H, Glucose 173 H, Calcium 10.2 H Rhythm: Sinus rhythm Medical Necessity - Tobacco Use Smoking Status: Never smoker Tobacco Use: Non-smoker Assessment/Plan 1. Abnormal cardiac enzymes The patient does have abnormal cardiac enzymes. The concern is an acute non-ST segment elevation MS. Thus far there is been no obvious other explanation such as an acute neurologic event or an acute thromboembolic event or an acute sepsis type event to explain her abnormal cardiac enzymes. She does have chronic renal insufficiency which may be a contributing factor. She has undergone noninvasive evaluation. This has included a follow-up transthoracic echocardiogram. Based on this finding it does appear she has diminished LV systolic function. This could be secondary to CAD and could contribute to her findings of CHF/pulmonary edema. At the moment she will continue medical management. This will include agents such as aspirin, antiplatelets, anticoagulants, nitrates as needed, beta blockers, afterload reducing agents as able, lipid-lowering agents, etc. Ideally should be considered for further evaluation with diagnostic cardiac catheterization. However there is some concern in proceeding in such a manner based upon her underlying renal insufficiency and the concern of a contrast related nephropathy occurring. Thus at the moment she will continue conservative medical management. 2. CHF She will continue evaluation care. She will continue medical therapy/diuretic therapy. Her symptoms have improved. Her creatinine level has continued to increase. She will be placed back on low-dose diuretic therapy to hopefully avoid future volume overload. She will continue to be followed from a clinical standpoint with respect to her symptoms, hemodynamics, and renal function. 3. Hyperlipidemia She will continue risk factor evaluation and care. 4. Hypertension Her blood pressure will need to be adjusted to control her blood pressure and avoid issues with respect to her renal insufficiency. 5. Diabetes mellitus She will continue evaluation care per internal medicine. 6. Chronic renal insufficiency Her creatinine level has started to decrease. She will continue medical management. She will need future follow-up of her renal function. Hopefully her renal function will continue to improve and will eventually be considered stable to undergo further evaluation with diagnostic cardiac catheterization. 7. Carotid artery disease She states she has had both carotid arteries operated on twice once in [place] and once in [place]. She has a left carotid artery bruit. She may need further noninvasive evaluation of her carotid artery disease. Overall, at the present time, she will continue medical management with adjustment as deemed appropriate and follow-up of her symptoms, vital signs, and her renal function. Hopefully her renal function will improve and at some point in time she will be able to undergo further evaluation with diagnostic cardiac catheterization. In the interim, as she appears to remain symptomatically and hemodynamically stable on her current medical therapy, it was felt not unreasonable that the patient could be released home for continued outpatient follow-up. Comment: The patient's case was discussed reviewed with the patient and the [facility] staff. This note was generated with [employer] dictation software. It may contain incorrect words, spelling, and punctuation that were not noted in checking the note before signing.
--- NOTE | 2019-02-04 14:25 | CASEMGMT ---
CECELIA ALEGRE DC PHONE CALL DC DATE: 02/02/19 DC Disposition: Home LACE/STRATA: 08/07 Intro role of CM to patient via phone. Pt stated she did not feel like talking today and CM ended call after inquiring if there was anything she could assist pt with. Pt declined. Rick RAI CM ACM
== END 2019-02-02 12:31 | disposition home or self-care (01) | DRG 280 ==
LOC: ED 21:38 → PCU 22:45
PROVIDERS: Internal Medicine Cardiovascular Disease; Student in an Organized Health Care Education/Training Program; Admitting Provider Internal Medicine; Emergency Provider Emergency Medicine; Family Provider Family Medicine; PCP Family Medicine; Referring Provider Internal Medicine; Visit Provider Internal Medicine
DX: I13.0 Hypertensive heart and chronic kidney disease with heart failure and stage 1 through stage 4 chronic kidney disease, or unspecified chronic kidney disease (principal); I50.33 Acute on chronic diastolic (congestive) heart failure; I21.4 Non-ST elevation (NSTEMI) myocardial infarction; N18.4 Chronic kidney disease, stage 4 (severe); N17.9 Acute kidney failure, unspecified; I31.3 Pericardial effusion (noninflammatory); Z91.19 Patient's noncompliance with other medical treatment and regimen; E11.51 Type 2 diabetes mellitus with diabetic peripheral angiopathy without gangrene; D63.1 Anemia in chronic kidney disease; I65.29 Occlusion and stenosis of unspecified carotid artery; R09.89 Other specified symptoms and signs involving the circulatory and respiratory systems; E78.5 Hyperlipidemia, unspecified; E11.22 Type 2 diabetes mellitus with diabetic chronic kidney disease; Z86.73 Personal history of transient ischemic attack (TIA), and cerebral infarction without residual deficits
CPT/HCPCS: 36415; 71046; 80048; 82962; 83540; 83550; 83605; 83880; 84484; 85025; 87040; 93005; 93306; 97161; 97166; 97530; 97802; 99285; A4216; J1940

== ENCOUNTER → 2019-02-07 | Outpatient (CLI) | payer MEDICARE, SELFPAY ==
[2019-01-28 23:15] VITALS: BMI 23.1
[2019-02-07 15:48] LABS: Hematocrit 28.1 % (37-47); Hemoglobin 9.2 g/dl (12.0-15.0); Mean Corp Hgb Conc 32.7 g/gl (32-36); Mean Corpuscular Hgb 28.8 pg (27.0-32.0); Mean Corpuscular Volume 88.1 fL (81-99); Mean Platelet Vol. 10.7 fl (6.2-12.0); Platelet Count 296 K/mm3 (150-450); RBC Distribution Width CV 15.6 % (11.6-14.6); RBC Distribution Width SD 50.5 fl (35.1-43.9); Red Blood Count 3.19 M/mm3 (4.2-5.4); White Blood Count 9.1 K/mm3 (4.4-11.0)
[2019-02-07 15:51] LABS: Scan Indicated on CBC? Y/N NO
[2019-02-07 16:06] LABS: Albumin, Serum 3.1 g/dL (3.2-5.0); BUN 62 mg/dL (7-18); BUN/Creat Ratio 27.2 RATIO (10-20); Calcium,Total 11.2 mg/dL (8.5-10.1); Chloride 107 mmol/L (98-107); Creatinine, Serum 2.28 mg/dL (0.55-1.02); EST Glomerular Filtration Rate 22 mL/min (>60); Est Glom Filt Rate - Afr Amer 26 mL/min (>60); Glucose 293 mg/dL (74-106); Phosphorus 3.7 mg/dL (2.5-4.9); Potassium 5.3 mmol/L (3.5-5.1); Sodium Level 134 mmol/L (136-145)
== END | disposition home or self-care (01) ==
PROVIDERS: Family Provider Family Medicine; PCP Family Medicine; Visit Provider Internal Medicine Nephrology
DX: N18.3 Chronic kidney disease, stage 3 (moderate) (principal); E55.9 Vitamin D deficiency, unspecified; Z13.0 Encounter for screening for diseases of the blood and blood-forming organs and certain disorders involving the immune mechanism
CPT/HCPCS: 36415; 80069; 82306; 83970; 85027

== ENCOUNTER 2019-02-10 11:03 | Inpatient (IN) | payer MEDICARE, SELFPAY ==
[2019-02-10] VITALS (19 sets, daily range): BP systolic 134–175; BP diastolic 57–81; PULSE 81–125; RESP 12–35; TEMP 36.6–36.9; O2SAT 92–98; BMI 22.4; BMI 23.2
--- NOTE | 2019-02-10 11:36 | RAD_ITS ---
STUDY: X-RAY CHEST REASON FOR EXAM: Female, 83 years old. Shortness of breath and dyspnea. TECHNIQUE: Single AP portable view of the chest. COMPARISON: 02/01/2019. FINDINGS: There is diffuse prominence of the pulmonary vasculature and interstitial markings new since the previous examination. There are small bilateral pleural effusions larger on the right side. There is mild cardiac enlargement. Normal mediastinum and vilma. Normal visualized pulmonary arteries. There is atherosclerotic calcification of the aortic arch with tortuosity. The bony structures are unchanged. There is no demonstrated abnormality of the visualized soft tissue structures of the upper abdomen. RAD/Chest 1 View (Portable) IMPRESSION: Findings consistent with congestive heart failure and interstitial pulmonary edema. Follow-up exam is recommended. Electronically Signed: Madi Pace MD at 11:53 EDT Tel , Service support ,
--- NOTE | 2019-02-10 11:36 | EKG12_ITS ---
Test Reason : SOB Blood Pressure : / mmHG Vent. Rate : 109 BPM Atrial Rate : 109 BPM P-R Int : 122 ms QRS Dur : 102 ms QT Int : 330 ms P-R-T Axes : 065 035 109 degrees QTc Int : [address] & T wave abnormality, consider lateral ischemia Abnormal ECG Confirmed by JASON CLOUD, KISHOR ([id number]), scientific editor EZEKIEL ROE ([id number]) on 02/12/2019 8:04:59 AM Referred By: MICHAEL Confirmed By:KISHOR GOMEZ MD
[2019-02-10 12:26] LABS: Absolute Lymphocyte Count 0.92 X10^3/ul (0.83-4.51); Basophil# 0.01 X10^3/uL; Basophil% 0.1 % (0-1); Eosinophil# 0.01 X10^3/uL; Eosinophils% 0.1 % (0-5); Hematocrit 28.6 % (37-47); Hemoglobin 9.5 g/dl (12.0-15.0); Lymphocyte # 0.92 X10^3/ul (4.0); Mean Corp Hgb Conc 33.2 g/gl (32-36); Mean Corpuscular Hgb 28.8 pg (27.0-32.0); Mean Corpuscular Volume 86.7 fL (81-99); Mean Platelet Vol. 10.3 fl (6.2-12.0); Monocyte# 0.25 X10^3/uL; Monocyte% 2.4 % (0-10); Neutrophil # 8.99 X10^3/uL (2.7-7.7); Neutrophil % 88.1 % (47-70); Platelet Count 263 K/mm3 (150-450); RBC Distribution Width CV 15.2 % (11.6-14.6); RBC Distribution Width SD 47.3 fl (35.1-43.9); White Blood Count 10.2 K/mm3 (4.4-11.0)
--- NOTE | 2019-02-10 12:27 | ED.RN ---
PT COMPLAINS OF CONTINUED SHORTNESS OF BREATH, DR. RODRIGUEZ MADE AWARE. ORDERS OBTAINED FOR BIPAP, RESPIRATORY MADE AWARE.
[2019-02-10 12:29] LABS: POSITIVE COUNT NO; POSITIVE DIFFERENTIAL NO; POSITIVE MORPHOLOGY NO
[2019-02-10 12:32] LABS: Anion Gap 11 (5-15); BUN 64 mg/dL (7-18); BUN/Creat Ratio 25.8 RATIO (10-20); Calcium,Total 11.5 mg/dL (8.5-10.1); Chloride 108 mmol/L (98-107); Creatinine, Serum 2.48 mg/dL (0.55-1.02); EST Glomerular Filtration Rate 20 mL/min (>60); Est Glom Filt Rate - Afr Amer 24 mL/min (>60); Estimated Creatinine Clearance 12.13 ml/min; Glucose 299 mg/dL (74-106); Potassium 4.8 mmol/L (3.5-5.1); Sodium Level 134 mmol/L (136-145)
--- NOTE | 2019-02-10 12:56 | ED.VISSUMM ---
- ER Visit Summary Date of Service: 02/10/19 Chief Complaint: Short of breath History of Present Illness: The patient is a 83 F admitted January 28 through February 02 for congestive heart failure. She had significant diuresis during that visit but her creatinine did increase. She had an NSTEMI at that time and cardiology was hoping to get her creatinine back down to baseline of 2.0 before performing a heart cath. Patient was discharged on 20 mg of Lasix daily. Over the past 2 to 3 days she has had increasing shortness of breath, swelling in both feet, and decreased urine output. She does have chest discomfort that she states gets worse when her breathing gets worse. Physical Examination: Blood pressure is 158/65, temperature 97.8, heart rate 108, respiratory rate 24, pulse ox 92% on room air. Nursing staff states oxygen sat was 88% on room air in the room and she was placed on 2 L nasal cannula. The time of my examination her O2 sat was 93%. Patient sitting upright in bed no acute distress. She is mildly tachypneic. She is able to answer questions appropriately. Heart is slightly tachycardic. Lung sounds are diminished. Abdomen is soft and slightly distended. No focal tenderness noted. Lower extremity examination reveals 2+ bilateral edema in her feet. Test Results: EKG is sinus at [address] depression in the lateral leads that is more pronounced when compared to prior visit. Portable chest x-ray is consistent with CHF. CBC was normal white count with hemoglobin 9.5. Chemistry studies reveal glucose of 299, BUN 64, creatinine 2.48. Troponin is 0.386. BNP is 3876. Emergency Department Course and Treatment: Patient continued to complain of shortness of breath although her oxygen saturations were good. She was placed on BiPAP and is tolerating this well. She is given 40 mg of IV Lasix. She will be admitted for further treatment. Treatment Plan: [] Disposition: Admit Impression: 1. CHF 2. Elevated troponin This note was generated with [employer] dictation software. It may contain incorrect words, spelling, and punctuation that were not noted in review of the chart prior to signing ED Disposition - Plan for ED Patient:
[2019-02-10] MEDS: Furosemide 40 MG/4 ML Vial IV (13:04)
--- NOTE | 2019-02-10 13:24 | PCM.HP.STD ---
History of Present Illness Date of Admission: 02/10/19 Chief Complaint: shortness of breath The patient is a 83 year old F with an extensive past medical history as listed. She was admitted through the ED on 02/10/2019 with a complaint of shortness of breath which had worsened over the past 2 to 3 days prior to admission. Patient was admitted from Jan 28 2918 through February 02, 2019 for similar symptoms and managed for acute exacerbation of systolic heart failure with known EF of 35%.. She also had a non-STEMI during that time. On account of elevated creatinine, a cardiac cath was not done as cardiology wanted a creatinine to get back down to around 2 before doing it. She was discharged home with Lasix but shortness of breath recurred and over the past 2 to 3 days it has been worsening with associated lower extremity swelling and decreased urine output. She also had chest discomfort which has been worsening. Review of systems otherwise negative. She came into the ED today with vitals showed heart rate of 108 and respiratory to 24. She was saturating at around 88% on room air and required oxygen by nasal cannula which was subsequently transitioned to BiPAP. EKG showed sinus tachycardia with heart rate of [address] depression in the lateral leads. Chest x-ray was compatible with pulmonary edema and CHF. BNP was 3876 and troponin was 0.386. Creatinine was 2.48. She has been admitted to be managed for acute exacerbation of CHF and non-STEMI. 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 Carotid artery stenosis I65.29 Contact dermatitis L25.9 Diabetes type 2, controlled E11.9 Fatigue R53.83 Hemangioma D18.00 Hyperlipidemia E78.5 Peripheral vascular disease I73.9 Postmenopausal state Z78.0 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 TIA (transient ischemic attack) G45.9 Vertigo R42 Allergies metformin Allergy (Verified 02/10/19 11:05) Other BODY ACHES epinephrine Adverse Reaction (Verified 02/10/19 11:05) Other SHAKING Gadolinium-MRI Contrast Medium [CONTRAST] Adverse Reaction (Verified 02/10/19 11:05) Other SHAKING Home Medications: Ambulatory Orders Medication Instructions Recorded Amlodipine [Norvasc] 10 mg PO DAILY #0 11/26/15 Doxazosin Mesylate [Cardura] 2 mg PO DAILY 07/28/18 Lorazepam [Ativan] 0.5 mg PO QHS PRN PRN 07/29/18 Metoprolol Tartrate 50 mg PO BID 07/29/18 Aspirin [Aspirin, Baby] 81 mg PO DAILY@0800 #30 tab.chew 02/02/19 Atorvastatin Calcium [Lipitor] 40 mg PO QHS #30 tablet 02/02/19 Clopidogrel Bisulfate [Plavix] 75 mg PO DAILY #30 tablet 02/02/19 Ferrous Sulfate 325 mg PO TIDCM #90 tablet 02/02/19 Furosemide [Lasix] 20 mg PO DAILY #30 tablet 02/02/19 Glimepiride [Amaryl] 1 mg PO BREAKFAST #30 tablet 02/02/19 Isosorbide DN [Isordil] 10 mg PO TID #90 tablet 02/02/19 hydrALAZINE [Apresoline] 25 mg PO TID #90 tablet 02/02/19 Surgical History: Surgical History (Last Updated 10/10/17 @ 14:28 by Taryn Galindo) H/O total hysterectomy Z98.890, Z90.710 Status post carotid surgery Z98.890 Surgical History: cataract, - - BL carotid artery surgery x 2, hysterectemy, rectal surgery for benign growth. Lives: Alone Smoking Status: Former smoker Alcohol: None Drugs: None - *Family History Maternal Family History: Family History (Last Updated 10/10/17 @ 14:30 by Taryn Galindo) Mother Diabetes Hypertension CVA (cerebral vascular accident) Cancer Brother Diabetes Hypertension Sister Diabetes Hypertension History Items: Diabetes, High Cholesterol Paternal Family History: Family History (Last Updated 10/10/17 @ 14:30 by Taryn Galindo) Mother Diabetes Hypertension CVA (cerebral vascular accident) Cancer Brother Diabetes Hypertension Sister Diabetes Hypertension History Items: Unknown Sibling Family History: Family History (Last Updated 10/10/17 @ 14:30 by Taryn Galindo) Mother Diabetes Hypertension CVA (cerebral vascular accident) Cancer Brother Diabetes Hypertension Sister Diabetes Hypertension History Items: Diabetes, Hypertension Review of Systems Constitutional: Reports: Malaise, Weakness, Fatigue. Denies: Anorexia, Chills, Fever Eyes: Denies: Blurred vision HEENT: Denies: Head Aches, Sinus Congestion, Sinus Drainage Cardiovascular: Reports: Chest Pain, Chest Pressure, Edema, Orthopnea, Palpitations. Denies: Chest Tightness, Heaviness, Light Headedness, Paroxysmal Noc. Dyspnea, Syncope Respiratory: Reports: Shortness of Breath, Shortness of breath at rest, Shortness of breath upon exertion. Denies: Cough, Sputum production, Wheezing Gastrointestinal: Denies: Abdominal Pain, Nausea, Vomiting Genitourinary: Denies: Dysuria Musculoskeletal: Denies: Joint Pain, Joint Tenderness Skin: Denies: Rash, Wounds Neurological: Denies: Numbness, Tingling, Focal weakness Psychiatric: Denies: Anxiety, Depression, Homicidal Ideations, Suicidal Ideations Hematologic/ Lymphatic: Denies: Easy Bruising, Easy Bleeding VTE Information - Inpt Only VTE Present on Admission: No VTE Pharm Prophylaxis ordered?: Yes - Physical Exam General: Alert, Oriented x3, Cooperative HEENT: Atraumatic, PERRLA, EOMI, Normocephalic Oral: Dry Mucosa Neck: Supple, No JVD, Negative Carotid Bruits Lungs: - - mildly decreased breath sounds bibasally, no wheezes or crackles. on BIPAP Cardiovascular: Regular Rhythm, Normal S1, Normal S2, Tachycardic Abdomen: Bowel Sounds Present, Soft, Non Tender Extremities: No clubbing, No cyanosis, Edema - bilateral 2+ pitting edema of LEs Skin: No rashes, No breakdown Musculoskeletal: No Tenderness to Palpation of Joints or Extremities Lymphatic: No Cervical, Supraclavicular, or Inguinal Adenopathy Neurological: Cranial nerves II-XII grossly intact, Neuro grossly intact, Motor Exam 5/5 strength throughout Psych/Mental Status: Normal Affect, Appropriate, Alert and oriented to time, place, person, mood and affect Vital Signs Temp Pulse Resp BP Pulse Ox 97.8 F 109 H 23 H 175/81 H 96 02/10/19 11:05 02/10/19 13:05 02/10/19 13:05 02/10/19 13:05 02/10/19 13:05 Oxygen Flow Rate (L/min) 2 Oxygen Delivery Method Nasal Cannula Weight: 115 lb Body Mass Index (BMI) 22.4 Finger Stick Blood Glucose 252 Laboratory Tests Past 24 Hrs 02/10/19 02/10/19 02/10/19 12:00 12:00 12:00 WBC 10.2 RBC 3.30 L Hgb 9.5 L Hct 28.6 L MCV 86.7 MCH 28.8 MCHC 33.2 RDW 15.2 H RDW Differential 47.3 H Plt Count 263 MPV 10.3 Immature Gran % (Auto) 0.300 Neut % (Auto) 88.1 H Lymph % (Auto) 9.0 L [place] % (Auto) 2.4 Eos % (Auto) 0.1 Baso % (Auto) 0.1 Absolute Neuts (auto) 9.0 H Absolute Lymphs (auto) 0.92 Total Counted Not Reportable Sodium 134 L Potassium 4.8 Chloride 108 H Carbon Dioxide 15.0 L Anion Gap 11 BUN 64 H Creatinine 2.48 H Estim Creat Clear Calc 12.13 Est GFR (MDRD) Af Amer 24 L Est GFR (MDRD) Non-Af 20 L BUN/Creatinine Ratio 25.8 H Glucose 299 H Calcium 11.5 H Troponin I 0.386 H B-Natriuretic Peptide 3876.3 H Diagnostic Data Chest X-Ray 02/10/19 11:36 IMPRESSION: Findings consistent with congestive heart failure and interstitial pulmonary edema. Follow-up exam is recommended. Electronically Signed: Madi Pace MD at 11:53 EDT Tel , Service support , Assessment/Plan All Active Problems (Last Updated 10/10/17 @ 14:27 by Taryn Galindo) CHF (congestive heart failure) (Acute) Shortness of breath (Acute) Acute respiratory failure with hypoxia (Resolved) PNA (pneumonia) (Resolved) Left sided numbness (Resolved) 83-year-old female admitted with a complaint of shortness of breath and chest pain 1. Acute on chronic exacerbation of heart failure with reduced ejection fraction. Recently admitted for similar symptoms and discharged just about a week ago. Cardiac catheter done during that admission on account of elevated creatinine. BNP is 3876. Initial troponin is 0.386. Start diuresis with IV Lasix 40 mg twice daily. Will monitor and increase dose as needed on account of elevated creatinine of 2.48. 2D echo on 01/09/2019 showed EF of 35% with mild concentric left ventricular hypertrophy and moderate segmental systolic dysfunction as well as severe hypokinesia and akinesia. Will consult cardiology. 2. Non-STEMI Initial creatinine is 0.386. During this admission, troponins also trended up peaking at >5 will cycle troponins EKG showed T wave inversions in lateral leads 2D echo as under 1. cardiology consulted. 3. JUVENTINO on CKD: Creatinine is 2.42 today baseline is around 2. Was around 2.5 at time of discharge during last admission. I think this may likely be a worsening of her baseline creatinine. Will monitor creatinine for now and if cardiology decides on invasive procedure, will consult nephrology. 4. Type 2 diabetes mellitus: on amaryl. ISS. Accuchecks ACHS 5. Hypertension: on amlodipine, metoprolol and cardura 6. Anemia of chronic disease: Hb is 9.5 today.; Likely due to CKD. WIll monitor DVT prophylaxis: heparin CODE STATUS: DNR CCA Patient counseled extensively about different types of CODE STATUS including full code, DNR CCA and DNR CCA. Patient elects to be DNRCCA patient did state that even though she would want to be treated for an NV, she would not want to go on dialysis if that need came up. Total opkg-iu-njmi time 17 minutes. Code Visit Inpatient E&M: 15227 Init Hosp L3 Procedures: 96314 Advncd Care Plan 30 Min
--- NOTE | 2019-02-10 13:29 | HP.PCM_ITS ---
History of Present Illness Date of Admission: 02/10/19 Chief Complaint: shortness of breath The patient is a 83 year old F with an extensive past medical history as listed. She was admitted through the ED on 02/10/2019 with a complaint of shortness of breath which had worsened over the past 2 to 3 days prior to admission. Patient was admitted from Jan 28 2918 through February 02, 2019 for similar symptoms and managed for acute exacerbation of systolic heart failure with known EF of 35%.. She also had a non-STEMI during that time. On account of elevated creatinine, a cardiac cath was not done as cardiology wanted a creatinine to get back down to around 2 before doing it. She was discharged home with Lasix but shortness of breath recurred and over the past 2 to 3 days it has been worsening with associated lower extremity swelling and decreased urine output. She also had chest discomfort which has been worsening. Review of systems otherwise negative. She came into the ED today with vitals showed heart rate of 108 and respiratory to 24. She was saturating at around 88% on room air and required ox ygen by nasal cannula which was subsequently transitioned to BiPAP. EKG showed sinus tachycardia with heart rate of [address] depression in the lateral leads. Chest x-ray was compatible with pulmonary edema and CHF. BNP was 3876 and troponin was 0.386. Creatinine was 2.48. She has been admitted to be managed for acute exacerbation of CHF and non-STEMI. 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 Carotid artery stenosis I65.29 Contact dermatitis L25.9 Diabetes type 2, controlled E11.9 Fatigue R53.83 Hemangioma D18.00 Hyperlipidemia E78.5 Peripheral vascular disease I73.9 Postmenopausal state Z78.0 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 TIA (transient ischemic attack) G45.9 Vertigo R42 Allergies metformin Allergy (Verified 02/10/19 11:05) Other BODY ACHES epinephrine Adverse Reaction (Verified 02/10/19 11:05) Other SHAKING Gadolinium-MRI Contrast Medium [CONTRAST] Adverse Reaction (Verified 02/10/19 11:05) Other SHAKING Home Medications: Ambulatory Orders Medication Instructions Recorded Amlodipine [Norvasc] 10 mg PO DAILY #0 11/26/15 Doxazosin Mesylate [Cardura] 2 mg PO DAILY 07/28/18 Lorazepam [Ativan] 0.5 mg PO QHS PRN PRN 07/29/18 Metoprolol Tartrate 50 mg PO BID 07/29/18 Aspirin [Aspirin, Baby] 81 mg PO DAILY@0800 #30 tab.chew 02/02/19 Atorvastatin Calcium [Lipitor] 40 mg PO QHS #30 tablet 02/02/19 Clopidogrel Bisulfate [Plavix] 75 mg PO DAILY #30 tablet 02/02/19 Ferrous Sulfate 325 mg PO TIDCM #90 tablet 02/02/19 Furosemide [Lasix] 20 mg PO DAILY #30 tablet 02/02/19 Glimepiride [Amaryl] 1 mg PO BREAKFAST #30 tablet 02/02/19 Isosorbide DN [Isordil] 10 mg PO TID #90 tablet 02/02/19 hydrALAZINE [Apresoline] 25 mg PO TID #90 tablet 02/02/19 Surgical History: Surgical History (Last Updated 10/10/17 @ 14:28 by Taryn Galindo) H/O total hysterectomy Z98.890, Z90.710 Status post carotid surgery Z98.890 Surgical History: cataract, - - BL carotid artery surgery x 2, hysterectemy, rectal surgery for benign growth. Lives: Alone Smoking Status: Former smoker Alcohol: None Drugs: None - *Family History Maternal Family History: Family History (Last Updated 10/10/17 @ 14:30 by Taryn Galindo) Mother Diabetes Hypertension CVA (cerebral vascular accident) Cancer Brother Diabetes Hypertension Sister Diabetes Hypertension History Items: Diabetes, High Cholesterol Paternal Family History: Family History (Last Updated 10/10/17 @ 14:30 by Taryn Galindo) Mother Diabetes Hypertension CVA (cerebral vascular accident) Cancer Brother Diabetes Hypertension Sister Diabetes Hypertension History Items: Unknown Sibling Family History: Family History (Last Updated 02/06/18 @ 14:30 by Taryn Galindo) Mother Diabetes Hypertension CVA (cerebral vascular accident) Cancer Brother Diabetes Hypertension Sister Diabetes Hypertension History Items: Diabetes, Hypertension Review of Systems Constitutional: Reports: Malaise, Weakness, Fatigue. Denies: Anorexia, Chills, Fever Eyes: Denies: Blurred vision HEENT: Denies: Head Aches, Sinus Congestion, Sinus Drainage Cardiovascular: Reports: Chest Pain, Chest Pressure, Edema, Orthopnea, Palpitations. Denies: Chest Tightness, Heaviness, Light Headedness, Paroxysmal Noc. Dyspnea, Syncope Respiratory: Reports: Shortness of Breath, Shortness of breath at rest, Shortness of breath upon exertion. Denies: Cough, Sputum production, Wheezing Gastrointestinal: Denies: Abdominal Pain, Nausea, Vomiting Genitourinary: Denies: Dysuria Musculoskeletal: Denies: Joint Pain, Joint Tenderness Skin: Denies: Rash, Wounds Neurological: Denies: Numbness, Tingling, Focal weakness Psychiatric: Denies: Anxiety, Depression, Homicidal Ideations, Suicidal Ideations Hematologic/ Lymphatic: Denies: Easy Bruising, Easy Bleeding VTE Information - Inpt Only VTE Present on Admission: No VTE Pharm Prophylaxis ordered?: Yes - Physical Exam General: Alert, Oriented x3, Cooperative HEENT: Atraumatic, PERRLA, EOMI, Normocephalic Oral: Dry Mucosa Neck: Supple, No JVD, Negative Carotid Bruits Lungs: - - mildly decreased breath sounds bibasally, no wheezes or crackles. on BIPAP Cardiovascular: Regular Rhythm, Normal S1, Normal S2, Tachycardic Abdomen: Bowel Sounds Present, Soft, Non Tender Extremities: No clubbing, No cyanosis, Edema - bilateral 2+ pitting edema of LEs Skin: No rashes, No breakdown Musculoskeletal: No Tenderness to Palpation of Joints or Extremities Lymphatic: No Cervical, Supraclavicular, or Inguinal Adenopathy Neurological: Cranial nerves II-XII grossly intact, Neuro grossly intact, Motor Exam 5/5 strength throughout Psych/Mental Status: Normal Affect, Appropriate, Alert and oriented to time, place, person, mood and affect Vital Signs Temp Pulse Resp BP Pulse Ox 97.8 F 109 H 23 H 175/81 H 96 02/10/19 11:05 02/10/19 13:05 02/10/19 13:05 02/10/19 13:05 02/10/19 13:05 Oxygen Flow Rate (L/min) 2 Oxygen Delivery Method Nasal Cannula Weight: 115 lb Body Mass Index (BMI) 22.4 Finger Stick Blood Glucose 252 Laboratory Tests Past 24 Hrs 02/10/19 02/10/19 02/10/19 12:00 12:00 12:00 WBC 10.2 RBC 3.30 L Hgb 9.5 L Hct 28.6 L MCV 86.7 MCH 28.8 MCHC 33.2 RDW 15.2 H RDW Differential 47.3 H Plt Count 263 MPV 10.3 Immature Gran % (Auto) 0.300 Neut % (Auto) 88.1 H Lymph % (Auto) 9.0 L [place] % (Auto) 2.4 Eos % (Auto) 0.1 Baso % (Auto) 0.1 Absolute Neuts (auto) 9.0 H Absolute Lymphs (auto) 0.92 Total Counted Not Reportable Sodium 134 L Potassium 4.8 Chloride 108 H Carbon Dioxide 15.0 L Anion Gap 11 BUN 64 H Creatinine 2.48 H Estim Creat Clear Calc 12.13 Est GFR (MDRD) Af Amer 24 L Est GFR (MDRD) Non-Af 20 L BUN/Creatinine Ratio 25.8 H Glucose 299 H Calcium 11.5 H Troponin I 0.386 H B-Natriuretic Peptide 3876.3 H Diagnostic Data Chest X-Ray 02/10/19 11:36 IMPRESSION: Findings consistent with congestive heart failure and interstitial pulmonary edema. Follow-up exam is recommended. Electronically Signed: Madi Pace MD at 11:53 EDT Tel , Service support , Assessment/Plan All Active Problems (Last Updated 10/10/17 @ 14:27 by Taryn Galindo) CHF (congestive heart failure) (Acute) Shortness of breath (Acute) Acute respiratory failure with hypoxia (Resolved) PNA (pneumonia) (Resolved) Left sided numbness (Resolved) 83-year-old female admitted with a complaint of shortness of breath and chest pain 1. Acute on chronic exacerbation of heart failure with reduced ejection fraction. * Recently admitted for similar symptoms and discharged just about a week ago. * Cardiac catheter done during that admission on account of elevated creatinine. * BNP is 3876. Initial troponin is 0.386. * Start diuresis with IV Lasix 40 mg twice daily. Will monitor and increase dose as needed on account of elevated creatinine of 2.48. * 2D echo on 01/09/2019 showed EF of 35% with mild concentric left ventricular hypertrophy and moderate segmental systolic dysfunction as well as severe hypokinesia and akinesia. * Will consult cardiology. * 2. Non-STEMI * Initial creatinine is 0.386. During this admission, troponins also trended up peaking at >5 * will cycle troponins * EKG showed T wave inversions in lateral leads * 2D echo as under 1. * cardiology consulted. * 3. JUVENTINO on CKD: * Creatinine is 2.42 today baseline is around 2. * Was around 2.5 at time of discharge during last admission. * I think this may likely be a worsening of her baseline creatinine. * Will monitor creatinine for now and if cardiology decides on invasive procedure, will consult nephrology. * 4. Type 2 diabetes mellitus: on amaryl. ISS. Accuchecks ACHS 5. Hypertension: on amlodipine, metoprolol and cardura 6. Anemia of chronic disease: Hb is 9.5 today.; Likely due to CKD. WIll monitor DVT prophylaxis: heparin CODE STATUS: DNR CCA * Patient counseled extensively about different types of CODE STATUS including full code, DNR CCA and DNR CCA. Patient elects to be DNRCCA * patient did state that even though she would want to be treated for an VT, she would not want to go on dialysis if that need came up. * Total [id number] time 17 minutes. Code Visit Inpatient E&M: 95648 Init Hosp L3 Procedures: 04689 Advncd Care Plan 30 Min
[2019-02-10] MEDS: Isosorbide DN 10 MG Tablet PO (15:40)
[2019-02-10] MEDS: hydrALAZINE 25 MG Tablet PO ×2 (15:40→21:04)
--- NOTE | 2019-02-10 15:56 | PCM.CONS.C ---
Reason for Consult Date of Consultation: 02/10/19 Reason for Consultation: Shortness of breath and abnormal cardiac enzymes History of Present Illness: The patient is a 83 year old F, with a past medical history significant for hypertension, presumed coronary artery disease, left ventricular systolic dysfunction, carotid artery disease who was recently discharged from the hospital after presenting with shortness of breath. She was admitted through the ED on 02/10/2019 with a complaint of shortness of breath which had worsened over the past 2 to 3 days prior to admission. Patient was admitted from Jan 28 2918 through February 02, 2019 for similar symptoms and managed for acute exacerbation of systolic heart failure with known EF of 35%.. She also had a non-STEMI during that time. On account of elevated creatinine, a cardiac cath was not done as cardiology wanted a creatinine to get back down to around 2 before doing it. She was discharged home with Lasix but shortness of breath recurred and over the past 2 to 3 days it has been worsening with associated lower extremity swelling and decreased urine output. She also had chest discomfort which has been worsening. Review of systems otherwise negative. She came into the ED today with vitals showed heart rate of 108 and respiratory to 24. She was saturating at around 88% on room air and required oxygen by nasal cannula which was subsequently transitioned to BiPAP. EKG showed sinus tachycardia with heart rate of [address] depression in the lateral leads. This did not appear to be significantly different from before chest x-ray was compatible with pulmonary edema and CHF. BNP was 3876 and troponin was 0.386. Creatinine was 2.48. She has been admitted to be managed for acute exacerbation of CHF and non-STEMI. Cardiology was called for further evaluation and management [] Past Medical History Allergies/Adverse Reactions: Allergies metformin Allergy (Verified 02/10/19 11:05) Other BODY ACHES epinephrine Adverse Reaction (Verified 02/10/19 11:05) Other SHAKING Gadolinium-MRI Contrast Medium [CONTRAST] Adverse Reaction (Verified 02/10/19 11:05) Other SHAKING Home Medications: Ambulatory Orders Medication Instructions Recorded Amlodipine [Norvasc] 10 mg PO DAILY #0 11/26/15 Doxazosin Mesylate [Cardura] 2 mg PO DAILY 07/28/18 Lorazepam [Ativan] 0.5 mg PO QHS PRN PRN 07/29/18 Metoprolol Tartrate 50 mg PO BID 07/29/18 Aspirin [Aspirin, Baby] 81 mg PO DAILY@0800 #30 tab.chew 02/02/19 Atorvastatin Calcium [Lipitor] 40 mg PO QHS #30 tablet 02/02/19 Clopidogrel Bisulfate [Plavix] 75 mg PO DAILY #30 tablet 02/02/19 Ferrous Sulfate 325 mg PO TIDCM #90 tablet 02/02/19 Furosemide [Lasix] 20 mg PO DAILY #30 tablet 02/02/19 Glimepiride [Amaryl] 1 mg PO BREAKFAST #30 tablet 02/02/19 Isosorbide DN [Isordil] 10 mg PO TID #90 tablet 02/02/19 hydrALAZINE [Apresoline] 25 mg PO TID #90 tablet 02/02/19 Past Medical History (Chronic Problems): Chronic Problems (Last Updated 10/10/17 @ 14:27 by Taryn Galindo) TIA (transient ischemic attack) (Chronic) Cardiac enzymes elevated (Chronic) Carotid disease, bilateral (Chronic) CKD (chronic kidney disease) stage 3, GFR 30-59 ml/min (Chronic) Hypertension (Chronic) Hyperlipidemia (Chronic) Type II diabetes mellitus (Chronic) Surgical History: cataract, - - BL carotid artery surgery x 2, hysterectemy, rectal surgery for benign growth. - *Family History Maternal Family History: Family History (Last Updated 10/10/17 @ 14:30 by Taryn Galindo) Mother Diabetes Hypertension CVA (cerebral vascular accident) Cancer Brother Diabetes Hypertension Sister Diabetes Hypertension History Items: Diabetes, High Cholesterol Paternal Family History: Family History (Last Updated 10/10/17 @ 14:30 by Taryn Galindo) Mother Diabetes Hypertension CVA (cerebral vascular accident) Cancer Brother Diabetes Hypertension Sister Diabetes Hypertension History Items: Unknown Sibling Family History: Family History (Last Updated 10/10/17 @ 14:30 by Taryn Galindo) Mother Diabetes Hypertension CVA (cerebral vascular accident) Cancer Brother Diabetes Hypertension Sister Diabetes Hypertension History Items: Diabetes, Hypertension Lives: Alone Smoking Status: Former smoker Alcohol: None Drugs: None Review of Systems - Review of Systems General: Denies: Fever, Night Sweats, Fatigue HEENT: Denies: Vision Change Cardiovascular: Reports: Shortness of Breath, Shortness of Breath at Rest, Shortness of Breath with Exertion, Orthopnea. Denies: Chest Discomfort, PND, Peripheral Edema, Palpitations, Lightheadedness, Dizziness, Near Syncope, Syncope Respiratory: Denies: Cough, Sputum Production, Hemoptysis Gastrointestinal: Denies: Hematemesis, Hematochezia, Melena Genitourinary: Denies: Dysuria, Hematuria Muscoloskeletal: Denies: Myalgias Skin: Denies: Rash Neurological: Denies: Dizziness Psychiatric: Denies: Anxiety Endocrine: Denies: Unexplained Weight Loss Hematologic/ Lymphatic: Reports: Anemia Subjectve: Pleasant elderly lady in no distress Objective: Vital Signs Temp Pulse Resp BP Pulse Ox 98.4 F 104 H 20 H 161/68 H 95 02/10/19 15:44 02/10/19 15:44 02/10/19 15:44 02/10/19 15:44 02/10/19 15:44 Oxygen Flow Rate (L/min) 4 Oxygen Delivery Method Nasal Cannula Weight: 119 lb Body Mass Index (BMI) 23.2 Finger Stick Blood Glucose 252 General: Awake, Alert, Oriented x 3 HEENT: PERRL, EOMI, Sclera Non Icteric Neck: Supple, Good ROM, No Lymph Node Enlargement Lungs: Diminished Pilo Bases Cardiovascular: Regular Rhythm, Normal S1, Normal S2, No Murmurs, No Rubs, No Gallops Vascular: L Carotid Artery Bruits, Normal Femoral Pulses, Normal Radial Pulses, Normal Dorsalis Pedal Pulse, Normal Posterior Tibial Pulses Abdomen: Bowel Sounds Present, Soft, Non Tender, No HSM, No Organomegaly Extremities: No Cyanosis, No Clubbing, Bilateral Edema +1 Musculoskeletal: No Erythema Skin: No Rashes Lymphatic: No Lymph Node Enlargement Neurological: No Focal Motor or Sensory Deficit Psych/Mental Status: Appropriate 02/10/19 12:00: WBC 10.2, RBC 3.30 L, Hgb 9.5 L, Hct 28.6 L, MCV 86.7, MCH 28.8, MCHC 33.2, RDW 15.2 H, RDW Differential 47.3 H, Plt Count 263, MPV 10.3, Immature Gran % (Auto) 0.300, Neut % (Auto) 88.1 H, Lymph % (Auto) 9.0 L, Wheeler % (Auto) 2.4, Eos % (Auto) 0.1, Baso % (Auto) 0.1, Absolute Neuts (auto) 9.0 H, Total Counted Not Reportable 02/10/19 12:00: Sodium 134 L, Potassium 4.8, Chloride 108 H, Carbon Dioxide 15.0 L, Anion Gap 11, BUN 64 H, Creatinine 2.48 H, Est GFR (MDRD) Af Amer 24 L, Est GFR (MDRD) Non-Af 20 L, BUN/Creatinine Ratio 25.8 H, Glucose 299 H, Calcium 11.5 H, Troponin I 0.386 H 02/10/19 12:00: B-Natriuretic Peptide 3876.3 H Rhythm: EKG: Sinus tachycardia with a rate of 109 bpm and lateral T wave changes ECHO: Estimated ejection fraction of 35% with segmental wall motion abnormalities and mild mitral and tricuspid regurgitation Assessment/Plan 1. Congestive heart failure acute on chronic systolic- Patient presents with worsening shortness of breath, pedal edema, orthopnea and elevated natruretic peptide. She still continues to have abnormal renal function likely contributing to the worsening of her heart failure. Recommendation would be to diurese preferably with intravenous Lasix while monitoring her renal function. The underlying etiology is likely secondary to coronary artery disease however it appears that she will be at a significant risk if cardiac catheterization is performed for further renal dysfunction and likely eventual dialysis. Will continue beta-meredith for now Continue to control blood pressure with hydralazine isosorbide combination 2. Hypertension Her blood pressure does not appear to be ideally controlled Would recommend increasing her beta-meredith Continue amlodipine Continue hydralazine isosorbide 3. Abnormal cardiac enzymes Patient likely has coronary artery disease as evidenced by her abnormal echocardiogram as well as her EKG changes. As noted above I do not think that she is most appropriate candidate for revascularization as this may lead to significant worsening in her renal function. This would need to be discussed further with the patient and her family before it is undertaken. In the meantime should be treated aggressively for coronary artery disease with risk factor modification without isosorbide. Would suggest the addition of Ranexa to her regimen Continue beta-meredith Continue risk factor modification. Thank you for allowing me to participate in the care of your patient. Please don't hesitate to call if any issues arise
--- NOTE | 2019-02-10 16:02 | CON.PCM_ITS ---
Reason for Consult Date of Consultation: 02/10/19 Reason for Consultation: Shortness of breath and abnormal cardiac enzymes History of Present Illness: The patient is a 83 year old F, with a past medical history significant for hypertension, presumed coronary artery disease, left ventricular systolic dysfunction, carotid artery disease who was recently discharged from the hospital after presenting with shortness of breath. She was admitted through the ED on 02/10/2019 with a complaint of shortness of breath which had worsened over the past 2 to 3 days prior to admission. Patient was admitted from Jan 28 2918 through February 02, 2019 for similar symptoms and managed for acute exace rbation of systolic heart failure with known EF of 35%.. She also had a non- STEMI during that time. On account of elevated creatinine, a cardiac cath was not done as cardiology wanted a creatinine to get back down to around 2 before doing it. She was discharged home with Lasix but shortness of breath recurred and over the past 2 to 3 days it has been worsening with associated lower extremity swelling and decreased urine output. She also had chest discomfort which has been worsening. Review of systems otherwise negative. She came into the ED today with vitals showed heart rate of 108 and respiratory to 24. She was saturating at around 88% on room air and required oxygen by nasal cannula which was subsequently transitioned to BiPAP. EKG showed sinus tachycardia with heart rate of [address] depression in the lateral leads. This did not appear to be significantly different from before chest x-ray was compatible with pulmonary edema and CHF. BNP was 3876 and troponin was 0.386. Creatinine was 2.48. She has been admitted to be managed for acute exacerbation of CHF and non-STEMI. Cardiology was called for further evaluation and management [] Past Medical History Allergies/Adverse Reactions: Allergies metformin Allergy (Verified 02/10/19 11:05) Other BODY ACHES epinephrine Adverse Reaction (Verified 02/10/19 11:05) Other SHAKING Gadolinium-MRI Contrast Medium [CONTRAST] Adverse Reaction (Verified 02/10/19 11:05) Other SHAKING Home Medications: Ambulatory Orders Medication Instructions Recorded Amlodipine [Norvasc] 10 mg PO DAILY #0 11/26/15 Doxazosin Mesylate [Cardura] 2 mg PO DAILY 07/28/18 Lorazepam [Ativan] 0.5 mg PO QHS PRN PRN 07/29/18 Metoprolol Tartrate 50 mg PO BID 07/29/18 Aspirin [Aspirin, Baby] 81 mg PO DAILY@0800 #30 tab.chew 02/02/19 Atorvastatin Calcium [Lipitor] 40 mg PO QHS #30 tablet 02/02/19 Clopidogrel Bisulfate [Plavix] 75 mg PO DAILY #30 tablet 02/02/19 Ferrous Sulfate 325 mg PO TIDCM #90 tablet 02/02/19 Furosemide [Lasix] 20 mg PO DAILY #30 tablet 02/02/19 Glimepiride [Amaryl] 1 mg PO BREAKFAST #30 tablet 02/02/19 Isosorbide DN [Isordil] 10 mg PO TID #90 tablet 02/02/19 hydrALAZINE [Apresoline] 25 mg PO TID #90 tablet 02/02/19 Past Medical History (Chronic Problems): Chronic Problems (Last Updated 10/10/17 @ 14:27 by Taryn Galindo) TIA (transient ischemic attack) (Chronic) Cardiac enzymes elevated (Chronic) Carotid disease, bilateral (Chronic) CKD (chronic kidney disease) stage 3, GFR 30-59 ml/min (Chronic) Hypertension (Chronic) Hyperlipidemia (Chronic) Type II diabetes mellitus (Chronic) Surgical History: cataract, - - BL carotid artery surgery x 2, hysterectemy, rectal surgery for benign growth. - *Family History Maternal Family History: Family History (Last Updated 10/10/17 @ 14:30 by Taryn Galindo) Mother Diabetes Hypertension CVA (cerebral vascular accident) Cancer Brother Diabetes Hypertension Sister Diabetes Hypertension History Items: Diabetes, High Cholesterol Paternal Family History: Family History (Last Updated 10/10/17 @ 14:30 by Taryn Galindo) Mother Diabetes Hypertension CVA (cerebral vascular accident) Cancer Brother Diabetes Hypertension Sister Diabetes Hypertension History Items: Unknown Sibling Family History: Family History (Last Updated 10/10/17 @ 14:30 by Taryn Galindo) Mother Diabetes Hypertension CVA (cerebral vascular accident) Cancer Brother Diabetes Hypertension Sister Diabetes Hypertension History Items: Diabetes, Hypertension Lives: Alone Smoking Status: Former smoker Alcohol: None Drugs: None Review of Systems - Review of Systems General: Denies: Fever, Night Sweats, Fatigue HEENT: Denies: Vision Change Cardiovascular: Reports: Shortness of Breath, Shortness of Breath at Rest, Shortness of Breath with Exertion, Orthopnea. Denies: Chest Discomfort, PND, Peripheral Edema, Palpitations, Lightheadedness, Dizziness, Near Syncope, Syncope Respiratory: Denies: Cough, Sputum Production, Hemoptysis Gastrointestinal: Denies: Hematemesis, Hematochezia, Melena Genitourinary: Denies: Dysuria, Hematuria Muscoloskeletal: Denies: Myalgias Skin: Denies: Rash Neurological: Denies: Dizziness Psychiatric: Denies: Anxiety Endocrine: Denies: Unexplained Weight Loss Hematologic/ Lymphatic: Reports: Anemia Subjectve: Pleasant elderly lady in no distress Objective: Vital Signs Temp Pulse Resp BP Pulse Ox 98.4 F 104 H 20 H 161/68 H 95 02/10/19 15:44 02/10/19 15:44 02/10/19 15:44 02/10/19 15:44 02/10/19 15:44 Oxygen Flow Rate (L/min) 4 Oxygen Delivery Method Nasal Cannula Weight: 119 lb Body Mass Index (BMI) 23.2 Finger Stick Blood Glucose 252 General: Awake, Alert, Oriented x 3 HEENT: PERRL, EOMI, Sclera Non Icteric Neck: Supple, Good ROM, No Lymph Node Enlargement Lungs: Diminished [place] Bases Cardiovascular: Regular Rhythm, Normal S1, Normal S2, No Murmurs, No Rubs, No Gallops Vascular: L Carotid Artery Bruits, Normal Femoral Pulses, Normal Radial Pulses, Normal Dorsalis Pedal Pulse, Normal Posterior Tibial Pulses Abdomen: Bowel Sounds Present, Soft, Non Tender, No HSM, No Organomegaly Extremities: No Cyanosis, No Clubbing, Bilateral Edema +1 Musculoskeletal: No Erythema Skin: No Rashes Lymphatic: No Lymph Node Enlargement Neurological: No Focal Motor or Sensory Deficit Psych/Mental Status: Appropriate 02/10/19 12:00: WBC 10.2, RBC 3.30 L, Hgb 9.5 L, Hct 28.6 L, MCV 86.7, MCH 28.8, MCHC 33.2, RDW 15.2 H, RDW Differential 47.3 H, Plt Count 263, MPV 10.3, Immature Gran % (Auto) 0.300, Neut % (Auto) 88.1 H, Lymph % (Auto) 9.0 L, [place] % (Auto) 2.4, Eos % (Auto) 0.1, Baso % (Auto) 0.1, Absolute Neuts (auto) 9.0 H, Total Counted Not Reportable 02/10/19 12:00: Sodium 134 L, Potassium 4.8, Chloride 108 H, Carbon Dioxide 15.0 L, Anion Gap 11, BUN 64 H, Creatinine 2.48 H, Est GFR (MDRD) Af Amer 24 L, Est GFR (MDRD) Non-Af 20 L, BUN/Creatinine Ratio 25.8 H, Glucose 299 H, Calcium 11.5 H, Troponin I 0.386 H 02/10/19 12:00: B-Natriuretic Peptide 3876.3 H Rhythm: EKG: Sinus tachycardia with a rate of 109 bpm and lateral T wave changes ECHO: Estimated ejection fraction of 35% with segmental wall motion abnormalities and mild mitral and tricuspid regurgitation Assessment/Plan 1. Congestive heart failure acute on chronic systolic- * Patient presents with worsening shortness of breath, pedal edema, orthopnea and elevated natruretic peptide. She still continues to have abnormal renal function likely contributing to the worsening of her heart failure. * Recommendation would be to diurese preferably with intravenous Lasix while monitoring her renal function. * The underlying etiology is likely secondary to coronary artery disease however it appears that she will be at a significant risk if cardiac catheterization is performed for further renal dysfunction and likely eventual dialysis. * Will continue beta-meredith for now * Continue to control blood pressure with hydralazine isosorbide combination * 2. Hypertension * Her blood pressure does not appear to be ideally controlled * Would recommend increasing her beta-meredith * Continue amlodipine * Continue hydralazine isosorbide * 3. Abnormal cardiac enzymes * Patient likely has coronary artery disease as evidenced by her abnormal echocardiogram as well as her EKG changes. * As noted above I do not think that she is most appropriate candidate for revascularization as this may lead to significant worsening in her renal function. * This would need to be discussed further with the patient and her family before it is undertaken. In the meantime should be treated aggressively for coronary artery disease with risk factor modification without isosorbide. * Would suggest the addition of Ranexa to her regimen * Continue beta-meredith * Continue risk factor modification. Thank you for allowing me to participate in the care of your patient. Please don't hesitate to call if any issues arise
[2019-02-10 17:16] LABS: Bedside Glucose 196 mg/dL (70-110)
[2019-02-10] MEDS: Furosemide 500 MG in Empty Viaflex 50 mL 1 EACH CONT INF (18:18)
[2019-02-10] MEDS: Insulin Lispro 100 UNIT/ML INSULN.PEN SQ (18:20)
[2019-02-10] MEDS: Enoxaparin 60 MG/0.6 ML Syringe SC (21:04)
[2019-02-10] MEDS: Metoprolol Tartrate 50 MG Tablet PO (21:04)
[2019-02-10] MEDS: Atorvastatin Calcium 40 MG Tablet PO (21:06)
[2019-02-10] MEDS: Doxazosin 1 MG Tablet 2 MG PO (21:06)
[2019-02-10] MEDS: Isosorbide DN 20 MG Tablet PO (21:10)
[2019-02-10] MEDS: Ranolazine 500 MG Tablet PO (21:10)
[2019-02-10] MEDS: LORazepam 0.5 MG Tablet PO (22:17)
[2019-02-10 22:41] LABS: Bedside Glucose 134 mg/dL (70-110)
[2019-02-11] VITALS (27 sets, daily range): BP systolic 117–149; BP diastolic 50–66; PULSE 73–100; RESP 14–20; TEMP 36.5–36.9; O2SAT 92–96
[2019-02-11 00:18] LABS: Bacteria 0 SEEN /hpf (None Seen); Mucous, Urine 0 SEEN /hpf (<or=2+); Red Blood Cells-Urine 0 SEEN /hpf (0-5); Squamous Epithelial Cells - UA 0 SEEN /hpf (5-10); White Blood Cells 0 SEEN /hpf (0-5)
[2019-02-11 00:28] LABS: Color, Urine Yellow (Yellow); Glucose, Dipstick 250 mg/dl (Normal); Ketone-Dipstick Negative (Negative); Leukocyte Esterase-Dipstick Negative /ul (Negative); Nitrite-Dipstick Negative (Negative); Occult Blood-Urine 10 /ul (Negative); Protein-Dipstick 100 mg/dl (Negative); Urine Bilirubin Dipstick Negative (Negative); Urine Clarity Clear (Clear); Urine Urobilinogen Normal (Normal)
--- NOTE | 2019-02-11 05:55 | EKG12_ITS ---
Test Reason : AM EKG Blood Pressure : / mmHG Vent. Rate : 090 BPM Atrial Rate : 090 BPM P-R Int : 158 ms QRS Dur : 094 ms QT Int : 316 ms P-R-T Axes : 047 -02 120 degrees QTc Int : 386 ms Normal sinus rhythm Inferior infarct Age undetermined, connot be excluded ST & T wave abnormality, consider lateral ischemia Abnormal ECG Confirmed by JAYJAY CLOUD, DEVIN ([id number]), news editor JOSIAH QUIROZ ([id number]) on 02/13/2019 11:54:17 AM Referred By: JENNIFER Confirmed By:DEVIN RO MD
[2019-02-11 06:31] LABS: Absolute Lymphocyte Count 0.91 X10^3/ul (0.83-4.51); Absolute Neutrophil Count 9.7 X10^3/uL (2.0-7.7); Basophil# 0.02 X10^3/uL; Basophil% 0.2 % (0-1); Eosinophil# 0.07 X10^3/uL; Eosinophils% 0.6 % (0-5); Hematocrit 25.4 % (37-47); Hemoglobin 8.6 g/dl (12.0-15.0); Lymphocyte # 0.91 X10^3/ul (4.0); Lymphocyte % 7.9 % (19-41); Mean Corp Hgb Conc 33.9 g/gl (32-36); Mean Corpuscular Hgb 29.1 pg (27.0-32.0); Mean Corpuscular Volume 85.8 fL (81-99); Mean Platelet Vol. 10.3 fl (6.2-12.0); Monocyte# 0.76 X10^3/uL; Monocyte% 6.6 % (0-10); Neutrophil # 9.65 X10^3/uL (2.7-7.7); Neutrophil % 84.3 % (47-70); Platelet Count 265 K/mm3 (150-450); RBC Distribution Width CV 15.3 % (11.6-14.6); RBC Distribution Width SD 48.4 fl (35.1-43.9); Red Blood Count 2.96 M/mm3 (4.2-5.4); White Blood Count 11.5 K/mm3 (4.4-11.0)
[2019-02-11 06:35] LABS: POSITIVE COUNT NO; POSITIVE DIFFERENTIAL NO; POSITIVE MORPHOLOGY NO
[2019-02-11 06:36] LABS: International Normalized Ratio 1.2; Prothrombin Time (Protime)PT. 14.9 SECONDS (11.7-14.9)
[2019-02-11 06:45] LABS: Anion Gap 15 (5-15); BUN 66 mg/dL (7-18); BUN/Creat Ratio 25.9 RATIO (10-20); Calcium,Total 11.4 mg/dL (8.5-10.1); Chloride 109 mmol/L (98-107); Creatinine, Serum 2.55 mg/dL (0.55-1.02); EST Glomerular Filtration Rate 19 mL/min (>60); Est Glom Filt Rate - Afr Amer 23 mL/min (>60); Glucose 166 mg/dL (74-106); Potassium 4.5 mmol/L (3.5-5.1); Sodium Level 140 mmol/L (136-145)
[2019-02-11] MEDS: Isosorbide DN 20 MG Tablet PO ×3 (06:55→22:23)
[2019-02-11] MEDS: hydrALAZINE 25 MG Tablet PO ×3 (06:56→22:23)
[2019-02-11 07:05] LABS: Bedside Glucose 162 mg/dL (70-110)
[2019-02-11] MEDS: amLODIPine 10 MG Tablet PO (08:23)
[2019-02-11] MEDS: Aspirin 81 MG TAB.CHEW PO (08:23)
[2019-02-11] MEDS: Metoprolol Tartrate 50 MG Tablet PO ×2 (08:23→22:22)
[2019-02-11] MEDS: Clopidogrel Bisulfate 75 MG Tablet PO (08:23)
[2019-02-11] MEDS: Ranolazine 500 MG Tablet PO ×2 (08:23→22:22)
--- NOTE | 2019-02-11 09:54 | CASEMGMT ---
According to [employer] website, the following are in-network tertiary facilities: [facility], [facility], [facility], and . Rishabh RAI CM
--- NOTE | 2019-02-11 10:07 | PN_ITS ---
Subjective: Patient seen and examined. She looks better today. Shortness of breath has improved and patient states she feels much better. Chest pain and discomfort have also resolved. She denies any palpitations or dizziness, diarrhea vomiting. Labs and vitals reviewed. Troponins trended up to 12 overnight. Bicarb is down to 16 today and creatinine is 2.55 today. Per cardiology, she is to have a cardiac cath with very minimal amount of dye today. Vitals/I&O's: Vital Signs Temp Pulse Resp BP Pulse Ox 98.3 F 92 20 H 149/65 H 92 02/11/19 06:57 02/11/19 08:23 02/11/19 06:57 02/11/19 08:23 02/11/19 07:40 Oxygen Flow Rate (L/min) 3 Oxygen Delivery Method Nasal Cannula Weight: 111 lb 12.39 oz Body Mass Index (BMI) 23.2 Finger Stick Blood Glucose 252 Intake and Output for Last 24 Hours 02/09/19 02/10/19 02/11/19 23:59 23:59 23:59 Intake Total 120 / 120 252.4 / 252.4 Output Total 150 / 150 625 / 625 Balance -30 / -30 -372.6 / -372.6 General: Alert, Oriented x3, Cooperative HEENT: Atraumatic, PERRLA, EOMI, Normocephalic Oral: Dry Mucosa Neck: Supple, No JVD, Negative Carotid Bruits Lungs: - - mildly decreased breath sounds bibasally, no wheezes or crackles. on 3L of oxygen Cardiovascular: Regular Rhythm, Normal S1, Normal S2, Tachycardia has resolved. Abdomen: Bowel Sounds Present, Soft, Non Tender Extremities: No clubbing, No cyanosis, Edema - bilateral 2+ pitting edema of LEs Skin: No rashes, No breakdown Musculoskeletal: No Tenderness to Palpation of Joints or Extremities Lymphatic: No Cervical, Supraclavicular, or Inguinal Adenopathy Neurological: Cranial nerves II-XII grossly intact, Neuro grossly intact, Motor Exam 5/5 strength throughout Psych/Mental Status: Normal Affect, Appropriate, Alert and oriented to time, place, person, mood and affect Laboratory Results 02/10/19 12:00: WBC 10.2, RBC 3.30 L, Hgb 9.5 L, Hct 28.6 L, MCV 86.7, MCH 28.8, MCHC 33.2, RDW 15.2 H, RDW Differential 47.3 H, Plt Count 263, MPV 10.3, Immature Gran % (Auto) 0.300, Neut % (Auto) 88.1 H, Lymph % (Auto) 9.0 L, [place] % (Auto) 2.4, Eos % (Auto) 0.1, Baso % (Auto) 0.1, Absolute Neuts (auto) 9.0 H, Absolute Lymphs (auto) 0.92, Total Counted Not Reportable 02/10/19 12:00: Sodium 134 L, Potassium 4.8, Chloride 108 H, Carbon Dioxide 15.0 L, Anion Gap 11, BUN 64 H, Creatinine 2.48 H, Estim Creat Clear Calc 12.13, Est GFR (MDRD) Af Amer 24 L, Est GFR (MDRD) Non-Af 20 L, BUN/Creatinine Ratio 25.8 H , Glucose 299 H, Calcium 11.5 H, Troponin I 0.386 H 02/10/19 12:00: B-Natriuretic Peptide 3876.3 H 02/10/19 15:30: Troponin I 4.640 H* 02/10/19 17:06: POC Glucose 196 H 02/10/19 18:23: Troponin I 12.100 H* 02/10/19 21:03: POC Glucose 134 H 02/11/19 00:05: Urine Color Yellow, Urine Clarity Clear, Urine pH 5.0, Ur Specific [place] 1.010, Urine Protein 100 H, Urine Glucose (UA) 250 H, Urine Ketones Negative, Urine Occult Blood 10 H, Urine Nitrite Negative, Urine Bilirubin Negative, Urine Urobilinogen Normal, Ur Leukocyte Esterase Negative, Urine RBC 0 SEEN, Urine WBC 0 SEEN, Ur Squamous Epith Cells 0 SEEN, Urine Bacteria 0 SEEN, Urine Mucus 0 SEEN 02/11/19 06:15: WBC 11.5 H, RBC 2.96 L, Hgb 8.6 L, Hct 25.4 L, MCV 85.8, MCH 29.1, MCHC 33.9, RDW 15.3 H, RDW Differential 48.4 H, Plt Count 265, MPV 10.3, Immature Gran % (Auto) 0.400, Neut % (Auto) 84.3 H, Lymph % (Auto) 7.9 L, [place] % (Auto) 6.6, Eos % (Auto) 0.6, Baso % (Auto) 0.2, Absolute Neuts (auto) 9.7 H, Absolute Lymphs (auto) 0.91, Total Counted Not Reportable 02/11/19 06:15: Sodium 140, Potassium 4.5, Chloride 109 H, Carbon Dioxide 16.0 L , Anion Gap 15, BUN 66 H, Creatinine 2.55 H, Estim Creat Clear Calc 11.80, Est GFR (MDRD) Af Amer 23 L, Est GFR (MDRD) Non-Af 19 L, BUN/Creatinine Ratio 25.9 H , Glucose 166 H, Calcium 11.4 H 02/11/19 06:15: PT 14.9, INR 1.2, APTT 44.0 H 02/11/19 06:53: POC Glucose 162 H Current Medications Acetaminophen (Tylenol) 650 mg PO Q6H PRN PRN PRN Reason: Non-cardiac pain (mod-severe) Hydrocodone Bitart/Acetaminophen ([place] 5mg-325mg) 1 - 2 tablet PO Q6H PRN PRN PRN Reason: MOD-SEVERE PAIN (-06/13) Al Hydroxide/Mg Hydroxide ([place]yl[place] Ii) 15 - 30 ml PO Q4H PRN PRN PRN Reason: INDIGESTION Albuterol Sulfate (Ventolin Aerosols) 2.5 mg INHALATION Q2H PRN PRN PRN Reason: dyspnea, wheezing Amlodipine Besylate (Norvasc) 10 mg PO DAILY [facility] Last Admin: 02/11/19 08:23 Dose: 10 mg Aspirin (Aspirin, Baby) 81 mg PO DAILY@0800 [facility] Last Admin: 02/11/19 08:23 Dose: 81 mg Atorvastatin Calcium (Lipitor) 40 mg PO QHS [facility] Last Admin: 02/10/19 21:06 Dose: 40 mg Clopidogrel Bisulfate (Plavix) 75 mg PO DAILY [facility] Last Admin: 02/11/19 08:23 Dose: 75 mg Dextrose (D50w Syringe) 0 gm IV X1 PRN; Protocol PRN Reason: Hypoglycemia Doxazosin Mesylate (Cardura) 2 mg PO QHS [facility] Last Admin: 02/10/19 21:06 Dose: 2 mg Enoxaparin Sodium (Lovenox) 60 mg SC DAILY [facility] Last Admin: 02/11/19 09:22 Dose: Not Given Ferrous Sulfate (Ferrous Sulfate) 325 mg PO TIDCM [facility] Last Admin: 02/10/19 18:19 Dose: Not Given Glucagon () 1 mg IM .X1 PRN PRN Reason: Hypoglycemia Hydralazine HCl (Apresoline) 25 mg PO TID [facility] Last Admin: 02/11/19 06:56 Dose: 25 mg Hydralazine HCl (Apresoline Iv) 10 mg IV Q4H PRN PRN PRN Reason: SBP > 160 Furosemide 500 mg/ N/A 50 mls @ 1 mls/hr CONT INF .Q50H [facility] Last Admin: 02/10/19 18:18 Dose: 1 mls/hr Insulin Human Lispro (Humalog Kwikpen (Bkc)) 0 unit SQ ACHS [facility]; Protocol Last Admin: 02/11/19 08:22 Dose: Not Given Isosorbide Dinitrate (Isordil) 20 mg PO TID [facility] Last Admin: 02/11/19 06:55 Dose: 20 mg Lorazepam (Ativan) 0.5 mg PO QHS PRN PRN PRN Reason: sleep Last Admin: 02/10/19 22:17 Dose: 0.5 mg Metoprolol Tartrate (Lopressor (Beta Bobby)) 50 mg PO BID [facility] Last Admin: 02/11/19 08:23 Dose: 50 mg Morphine Sulfate () 1 - 2 mg IV Q4H PRN PRN PRN Reason: PAIN Nitroglycerin (Nitrostat) 0.4 mg SUBLINGUAL Q5M PRN PRN Reason: CARDIAC/CHEST PAIN Ondansetron HCl (Zofran) 4 mg IV Q8H PRN PRN PRN Reason: NAUSEA/VOMITING Ranolazine (Ranexa) 500 mg PO BID [facility] Last Admin: 02/11/19 08:23 Dose: 500 mg Medical Necessity - Tobacco Use Smoking Status: Former smoker Assessment/Plan All Active Problems (Last Updated 10/10/17 @ 14:27 by Taryn Galindo) CHF (congestive heart failure) (Acute) Shortness of breath (Acute) Acute respiratory failure with hypoxia (Resolved) PNA (pneumonia) (Resolved) Left sided numbness (Resolved) 83-year-old female admitted with a complaint of shortness of breath and chest pain 1. Acute on chronic exacerbation of heart failure with reduced ejection fraction. * feels better today. Ofr BIPAP and now on 3L of oxygen by nasal canula * on IV lasix drip * EF is known to be 35% * for cardiac cath per cardiology today * continue monitoring intake and output * fluid restriction to 1500cc daily * * 2. Non-STEMI * Initial creatinine is 0.386 and peaked at 12.1 overnight. * EKG showed T wave inversions in lateral leads * 2D echo as under 1. * cardiology on board; for cardiac cath today * 3. JUVENTINO on CKD: * Creatinine is up to 2.55 today. Likely due to effect of lasix; was 2.48 on admission yesterday. * will monitor Cr as she is having cardiac cath today * patient is not willing to consider renal replacement therapy if her kidney function worsens * 4. Type 2 diabetes mellitus: on amaryl. ISS. Accuchecks ACHS 5. Hypertension: on amlodipine, metoprolol and hydralazine as well as cardura 6. CAD: as under 2. On aspirin, plavix and Imdur. Ranexa added on per cardiology 6. Anemia of chronic disease: Hb is 8.6 today.; Likely due to CKD. WIll monitor DVT prophylaxis: lovenox CODE STATUS: DNR CCA * Code Visit Inpatient E&M: 31098 Subs Hosp L3
--- NOTE | 2019-02-11 10:12 | PN.CARD_ITS ---
Subjectve: Patient seen and evaluated. Underwent cardiac catheterization today. Objective: Vital Signs Temp Pulse Resp BP Pulse Ox 98.3 F 92 20 H 149/65 H 92 02/11/19 06:57 02/11/19 08:23 02/11/19 06:57 02/11/19 08:23 02/11/19 07:40 Oxygen Flow Rate (L/min) 3 Oxygen Delivery Method Nasal Cannula Weight: 111 lb 12.39 oz Body Mass Index (BMI) 23.2 Finger Stick Blood Glucose 252 Intake and Output for Last 24 Hours 02/09/19 02/10/19 02/11/19 23:59 23:59 23:59 Intake Total 120 / 120 252.4 / 252.4 Output Total 150 / 150 625 / 625 Balance -30 / -30 -372.6 / -372.6 General: Awake, Alert, Oriented x 3, Ill Appearing HEENT: PERRL, EOMI, Sclera Non Icteric Neck: Supple, Good ROM, No Lymph Node Enlargement Lungs: Clear to auscultation Cardiovascular: Regular Rhythm, Normal S1, Normal S2, No Murmurs, No Rubs, No Gallops Vascular: No Carotid Bruits, Normal Femoral Pulses, Normal Radial Pulses, Normal Dorsalis Pedal Pulse, Normal Posterior Tibial Pulses Abdomen: Bowel Sounds Present, Soft, Non Tender, No HSM, No Organomegaly Extremities: No Cyanosis, No Clubbing, No edema Musculoskeletal: No Erythema Skin: No Rashes Lymphatic: No Lymph Node Enlargement Neurological: No Focal Motor or Sensory Deficit Psych/Mental Status: Appropriate 02/10/19 12:00: WBC 10.2, RBC 3.30 L, Hgb 9.5 L, Hct 28.6 L, MCV 86.7, MCH 28.8, MCHC 33.2, RDW 15.2 H, RDW Differential 47.3 H, Plt Count 263, MPV 10.3, Immature Gran % (Auto) 0.300, Neut % (Auto) 88.1 H, Lymph % (Auto) 9.0 L, [place] % (Auto) 2.4, Eos % (Auto) 0.1, Baso % (Auto) 0.1, Absolute Neuts (auto) 9.0 H, Total Counted Not Reportable 02/10/19 12:00: Sodium 134 L, Potassium 4.8, Chloride 108 H, Carbon Dioxide 15.0 L, Anion Gap 11, BUN 64 H, Creatinine 2.48 H, Est GFR (MDRD) Af Amer 24 L, Est GFR (MDRD) Non-Af 20 L, BUN/Creatinine Ratio 25.8 H, Glucose 299 H, Calcium 11.5 H, Troponin I 0.386 H 02/10/19 12:00: B-Natriuretic Peptide 3876.3 H 02/10/19 15:30: Troponin I 4.640 H* 02/10/19 18:23: Troponin I 12.100 H* 02/11/19 00:05: Urine Color Yellow, Urine Clarity Clear, Urine pH 5.0, Ur Specific [place] 1.010, Urine Protein 100 H, Urine Glucose (UA) 250 H, Urine Ketones Negative, Urine Occult Blood 10 H, Urine Nitrite Negative, Urine Bilirubin Negative, Urine Urobilinogen Normal, Ur Leukocyte Esterase Negative, Urine RBC 0 SEEN, Urine WBC 0 SEEN 02/11/19 06:15: WBC 11.5 H, RBC 2.96 L, Hgb 8.6 L, Hct 25.4 L, MCV 85.8, MCH 29.1, MCHC 33.9, RDW 15.3 H, RDW Differential 48.4 H, Plt Count 265, MPV 10.3, Immature Gran % (Auto) 0.400, Neut % (Auto) 84.3 H, Lymph % (Auto) 7.9 L, [place] % (Auto) 6.6, Eos % (Auto) 0.6, Baso % (Auto) 0.2, Absolute Neuts (auto) 9.7 H, Total Counted Not Reportable 02/11/19 06:15: Sodium 140, Potassium 4.5, Chloride 109 H, Carbon Dioxide 16.0 L , Anion Gap 15, BUN 66 H, Creatinine 2.55 H, Est GFR (MDRD) Af Amer 23 L, Est GFR (MDRD) Non-Af 19 L, BUN/Creatinine Ratio 25.9 H, Glucose 166 H, Calcium 11.4 H 02/11/19 06:15: PT 14.9, INR 1.2, APTT 44.0 H Rhythm: EKG: ECHO: Stress Test: Cardiac Cath: PCI: CT Surgery: Holter monitor: EPS: PPM: CXR: Chest CT Scan: Medical Necessity - Tobacco Use Smoking Status: Former smoker Assessment/Plan 1. Congestive heart failure acute on chronic systolic- * Patient presents with worsening shortness of breath, pedal edema, orthopnea and elevated natruretic peptide. She still continues to have abnormal renal function likely contributing to the worsening of her heart failure. * Recommendation would be to diurese preferably with intravenous Lasix while monitoring her renal function. * The underlying etiology is likely secondary to coronary artery disease however it appears that she will be at a significant risk if cardiac catheterization is performed for further renal dysfunction and likely eventual dialysis. * Will continue beta-meredith for now * Continue to control blood pressure with hydralazine isosorbide combination * 2. Hypertension * Her blood pressure does not appear to be ideally controlled * Would recommend increasing her beta-meredith * Continue amlodipine * Continue hydralazine isosorbide * 3. Abnormal cardiac enzymes * Patient likely has coronary artery disease as evidenced by her abnormal echocardiogram as well as her EKG changes. * After extensive discussion with the patient and her son this morning it was decided that we should pursue cardiac catheterization. He was therefore performed this morning with 18 cc of contrast. The results were as follows. Mild calcified left main coronary artery. Left anterior descending artery which is totally occluded in the midsegment. Severe disease of the first diagonal vessel. Severe disease of the distal circumflex artery with subtotal occlusion. Nondominant right coronary artery subtotally occluded. Based on the above angiographic findings the patient will be continued on medical therapy. I do not think that surgical therapy here would be an appropriate therapeutic option and attempts to open the chronically occluded left anterior descending artery lesion and the severe distal disease would be fraught with difficulty complications and increase dye load We will suggest observation till a.m. and discharge for outpatient management. Continue risk factor modification. Thank you for allowing me to participate in the care of your patient. Please don't hesitate to call if any issues arise
--- NOTE | 2019-02-11 11:29 | CL.D_ITS ---
Patient Name: DEMETRIS COLEMAN Study Date: 02/11/2019 Performing: Rolando Beyer MD Ht: 60 inches 152 cm : 1935 Wt: 112.6 lbs 51 kg Age: 83 Gender: female BSA: 1.46 PROCEDURE(S) PERFORMED [id number] CLINICAL PROFILE AND INDICATIONS Indications: Suspected CAD Heart Failure: None Stress/Imaging Stress/Image Study Performed: No CAD Presentations: Unstable angina. CONCLUSIONS Severe triple-vessel disease involving a totally occluded left anterior descending artery with a larg e long segment, severe disease of the first diagonal branch, distal circumflex totally occluded domin ant circumflex artery. Total amount of contrast used 18 cc. RECOMMENDATIONS Medical therapy DESCRIPTION OF PROCEDURE The patient arrived to the procedure lab. The risks and benefits of the procedure as well as a full d escription of our services here and current unavailability of surgical backup were fully explained to the patient and/or their significant other prior to the catheterization. The Timeout was completed, verifying the correct patient and procedure. The patient's procedural site was prepped and draped in the usual fashion. Local anesthetic was given subcutaneously to right radial region with Lidocaine 2% . Using a modified Seldinger technique, arterial access was obtained via the right radial artery, a 6 Fr sheath was inserted. Left Coronary Artery selective angiography was performed in multiple views u sing a 5 Fr. 4.0 [place] catheter. Right Coronary Artery selective angiography was then performed in mu ltiple views using a 5 Fr. 4.0 [place] catheter.The arterial sheath was pulled and a TR Band was applie d for hemostasis CORONARY ANGIOGRAPHY DOMINANCE: Left Dominant LEFT HEART ASSESSMENT Left Ventricular Ejection Fraction: by Echo 35 % LEFT MAIN: Moderate calcification, Mild luminal irregularities LEFT ANTERIOR DESCENDING ARTERY: MID LAD: is occluded DIAGONAL 1: Proximal - Diffusely diseased up to 80 % CIRCUMFLEX ARTERY: Diffusely diseased up to 60 % DISTAL CIRC: subtotally occluded RIGHT CORONARY ARTERY: PROX RCA: is occluded COLLATERAL FLOW: Collateral flow from Left to Left COMPLICATIONS No Complications PROCEDURE MEDICATIONS Versed 0.5 mg IV Fentanyl 25 mcg IV Versed 0.5 mg IV Fentanyl 25 mcg IV Oxygen: 2 L/min via nasal cannula SUMMARY OF HEMODYNAMIC DATA Time AIR REST ECG 09:33:20 AO 109/43 (70) SA 09:54:21 Signed By Rolando Beyer MD On 02/11/2019 11:28:58 Rolando Beyer MD
[2019-02-11 11:35] LABS: Bedside Glucose 171 mg/dL (70-110)
[2019-02-11] MEDS: 0.9% Normal Saline 1,000 ML 60 ML IV (11:51)
[2019-02-11] MEDS: Ferrous Sulfate 325 MG Tablet PO ×2 (11:52→16:25)
--- NOTE | 2019-02-11 13:34 | CASEMGMT ---
Readmission chart review: Pt was initially admitted 01/28-02/02/19 for Diastolic CHF, NSTEMI. See assessment completed by Rick RAI CM on 01/29/19. Pt readmitted 02/10/19 for NSTEMI, Acute on chronic exac of Heart failure. Pt with heart cath scheduled for 02/11 as was not able to be completed last visit d/t increased creatinine at that time. CM to follow PT/OT notes and for any further discharge planning/needs. Rishabh RAI CM
[2019-02-11] MEDS: Insulin Lispro 100 UNIT/ML INSULN.PEN SQ (16:26)
[2019-02-11 17:06] LABS: Bedside Glucose 248 mg/dL (70-110)
[2019-02-11] MEDS: Atorvastatin Calcium 40 MG Tablet PO (22:22)
[2019-02-11] MEDS: Doxazosin 1 MG Tablet 2 MG PO (22:23)
[2019-02-11] MEDS: LORazepam 0.5 MG Tablet PO (22:23)
[2019-02-11 22:41] LABS: Bedside Glucose 162 mg/dL (70-110)
[2019-02-12] VITALS (17 sets, daily range): BP systolic 130–148; BP diastolic 46–62; PULSE 68–94; RESP 18–20; TEMP 36.6–37.1; O2SAT 92–93
[2019-02-12] MEDS: Furosemide 500 MG in Empty Viaflex 50 mL 1 EACH CONT INF (04:34)
[2019-02-12] MEDS: hydrALAZINE 25 MG Tablet PO ×3 (05:23→21:14)
[2019-02-12] MEDS: Isosorbide DN 20 MG Tablet PO (05:23)
[2019-02-12 05:56] LABS: Absolute Lymphocyte Count 0.81 X10^3/ul (0.83-4.51); Absolute Neutrophil Count 5.9 X10^3/uL (2.0-7.7); Basophil# 0.01 X10^3/uL; Basophil% 0.1 % (0-1); Eosinophil# 0.36 X10^3/uL; Eosinophils% 4.6 % (0-5); Hematocrit 26.3 % (37-47); Hemoglobin 8.7 g/dl (12.0-15.0); Lymphocyte # 0.81 X10^3/ul (4.0); Lymphocyte % 10.4 % (19-41); Mean Corp Hgb Conc 33.1 g/gl (32-36); Mean Corpuscular Hgb 28.6 pg (27.0-32.0); Mean Corpuscular Volume 86.5 fL (81-99); Mean Platelet Vol. 10.8 fl (6.2-12.0); Monocyte# 0.66 X10^3/uL; Monocyte% 8.5 % (0-10); Neutrophil % 75.8 % (47-70); Platelet Count 243 K/mm3 (150-450); RBC Distribution Width CV 14.9 % (11.6-14.6); RBC Distribution Width SD 44.9 fl (35.1-43.9); Red Blood Count 3.04 M/mm3 (4.2-5.4); White Blood Count 7.8 K/mm3 (4.4-11.0)
[2019-02-12 06:01] LABS: POSITIVE COUNT NO; POSITIVE DIFFERENTIAL NO; POSITIVE MORPHOLOGY NO
[2019-02-12 06:07] LABS: Anion Gap 11 (5-15); BUN 72 mg/dL (7-18); Calcium,Total 11.3 mg/dL (8.5-10.1); Chloride 109 mmol/L (98-107); Creatinine, Serum 2.88 mg/dL (0.55-1.02); EST Glomerular Filtration Rate 17 mL/min (>60); Est Glom Filt Rate - Afr Amer 20 mL/min (>60); Estimated Creatinine Clearance 10.44 ml/min; Glucose 188 mg/dL (74-106); Potassium 4.6 mmol/L (3.5-5.1); Sodium Level 139 mmol/L (136-145)
[2019-02-12] MEDS: Insulin Lispro 100 UNIT/ML INSULN.PEN SQ ×2 (06:33→12:14)
[2019-02-12 06:41] LABS: Bedside Glucose 206 mg/dL (70-110)
--- NOTE | 2019-02-12 08:49 | PCM.PN.CARD ---
Subjectve: Patient seen and evaluated. Appears to be doing better today. Objective: Vital Signs Temp Pulse Resp BP Pulse Ox 98.6 F 94 20 H 145/62 H 93 02/12/19 08:24 02/12/19 08:24 02/12/19 08:24 02/12/19 08:24 02/12/19 08:24 Oxygen Flow Rate (L/min) 3 Oxygen Delivery Method Nasal Cannula Weight: 110 lb 14.28 oz Body Mass Index (BMI) 23.2 Finger Stick Blood Glucose 252 Intake and Output for Last 24 Hours 02/10/19 02/11/19 02/12/19 23:59 23:59 23:59 Intake Total 120 / 120 1309.4 / 1309.4 66.6 / 66.6 Output Total 150 / 150 875 / 875 50 / 50 Balance -30 / -30 434.4 / 434.4 16.6 / 16.6 General: Awake, Alert, Oriented x 3, Ill Appearing HEENT: PERRL, EOMI, Sclera Non Icteric Neck: Supple, Good ROM, No Lymph Node Enlargement Lungs: Clear to auscultation Cardiovascular: Regular Rhythm, Normal S1, Normal S2, No Murmurs, No Rubs, No Gallops Vascular: No Carotid Bruits, Normal Femoral Pulses, Normal Radial Pulses, Normal Dorsalis Pedal Pulse, Normal Posterior Tibial Pulses Abdomen: Bowel Sounds Present, Soft, Non Tender, No HSM, No Organomegaly Extremities: No Cyanosis, No Clubbing, No edema Musculoskeletal: No Erythema Skin: No Rashes Lymphatic: No Lymph Node Enlargement Neurological: No Focal Motor or Sensory Deficit Psych/Mental Status: Appropriate 02/12/19 05:25: WBC 7.8, RBC 3.04 L, Hgb 8.7 L, Hct 26.3 L, MCV 86.5, MCH 28.6, MCHC 33.1, RDW 14.9 H, RDW Differential 44.9 H, Plt Count 243, MPV 10.8, Immature Gran % (Auto) 0.600, Neut % (Auto) 75.8 H, Lymph % (Auto) 10.4 L, [place] % (Auto) 8.5, Eos % (Auto) 4.6, Baso % (Auto) 0.1, Absolute Neuts (auto) 5.9, Total Counted Not Reportable 02/12/19 05:25: Sodium 139, Potassium 4.6, Chloride 109 H, Carbon Dioxide 19.0 L, Anion Gap 11, BUN 72 H, Creatinine 2.88 H, Est GFR (MDRD) Af Amer 20 L, Est GFR (MDRD) Non-Af 17 L, BUN/Creatinine Ratio 25.0 H, Glucose 188 H, Calcium 11.3 H Rhythm: EKG: ECHO: Stress Test: Cardiac Cath: PCI: CT Surgery: Holter monitor: EPS: PPM: CXR: Chest CT Scan: Medical Necessity - Tobacco Use Smoking Status: Former smoker Assessment/Plan 1. Congestive heart failure acute on chronic systolic- Patient presents with worsening shortness of breath, pedal edema, orthopnea and elevated natruretic peptide. She still continues to have abnormal renal function likely contributing to the worsening of her heart failure. With institute oral Lasix 40 mg twice a day Will continue beta-meredith for now Continue to control blood pressure with hydralazine isosorbide combination 2. Hypertension Her blood pressure does not appear to be ideally controlled Would recommend increasing her beta-meredith Continue amlodipine Continue hydralazine isosorbide the latter at a higher dose 3. Abnormal cardiac enzymes Patient likely has coronary artery disease as evidenced by her abnormal echocardiogram as well as her EKG changes. After extensive discussion with the patient and her son this morning it was decided that we should pursue cardiac catheterization. He was therefore performed with 18 cc of contrast. The results were as follows. Mild calcified left main coronary artery. Left anterior descending artery which is totally occluded in the midsegment. Severe disease of the first diagonal vessel. Severe disease of the distal circumflex artery with subtotal occlusion. Nondominant right coronary artery subtotally occluded. Based on the above angiographic findings the patient will be continued on medical therapy. I do not think that surgical therapy here would be an appropriate therapeutic option and attempts to open the chronically occluded left anterior descending artery lesion and the severe distal disease would be fraught with difficulty complications and increase dye load Renal function appears to be mildly worsened Will observe patient today and attempt to ambulate her. Discussed with patient and family about going home, Probably in a.m. We will suggest observation till a.m. and discharge for outpatient management. Continue risk factor modification. Thank you for allowing me to participate in the care of your patient. Please don't hesitate to call if any issues arise
--- NOTE | 2019-02-12 08:52 | PN.CARD_ITS ---
Subjectve: Patient seen and evaluated. Appears to be doing better today. Objective: Vital Signs Temp Pulse Resp BP Pulse Ox 98.6 F 94 20 H 145/62 H 93 02/12/19 08:24 02/12/19 08:24 02/12/19 08:24 02/12/19 08:24 02/12/19 08:24 Oxygen Flow Rate (L/min) 3 Oxygen Delivery Method Nasal Cannula Weight: 110 lb 14.28 oz Body Mass Index (BMI) 23.2 Finger Stick Blood Glucose 252 Intake and Output for Last 24 Hours 02/10/19 02/11/19 02/12/19 23:59 23:59 23:59 Intake Total 120 / 120 1309.4 / 1309.4 66.6 / 66.6 Output Total 150 / 150 875 / 875 50 / 50 Balance -30 / -30 434.4 / 434.4 16.6 / 16.6 General: Awake, Alert, Oriented x 3, Ill Appearing HEENT: PERRL, EOMI, Sclera Non Icteric Neck: Supple, Good ROM, No Lymph Node Enlargement Lungs: Clear to auscultation Cardiovascular: Regular Rhythm, Normal S1, Normal S2, No Murmurs, No Rubs, No Gallops Vascular: No Carotid Bruits, Normal Femoral Pulses, Normal Radial Pulses, Normal Dorsalis Pedal Pulse, Normal Posterior Tibial Pulses Abdomen: Bowel Sounds Present, Soft, Non Tender, No HSM, No Organomegaly Extremities: No Cyanosis, No Clubbing, No edema Musculoskeletal: No Erythema Skin: No Rashes Lymphatic: No Lymph Node Enlargement Neurological: No Focal Motor or Sensory Deficit Psych/Mental Status: Appropriate 02/12/19 05:25: WBC 7.8, RBC 3.04 L, Hgb 8.7 L, Hct 26.3 L, MCV 86.5, MCH 28.6, MCHC 33.1, RDW 14.9 H, RDW Differential 44.9 H, Plt Count 243, MPV 10.8, Immature Gran % (Auto) 0.600, Neut % (Auto) 75.8 H, Lymph % (Auto) 10.4 L, [place] % (Auto) 8.5, Eos % (Auto) 4.6, Baso % (Auto) 0.1, Absolute Neuts (auto) 5.9, Total Counted Not Reportable 02/12/19 05:25: Sodium 139, Potassium 4.6, Chloride 109 H, Carbon Dioxide 19.0 L , Anion Gap 11, BUN 72 H, Creatinine 2.88 H, Est GFR (MDRD) Af Amer 20 L, Est GFR (MDRD) Non-Af 17 L, BUN/Creatinine Ratio 25.0 H, Glucose 188 H, Calcium 11.3 H Rhythm: EKG: ECHO: Stress Test: Cardiac Cath: PCI: CT Surgery: Holter monitor: EPS: PPM: CXR: Chest CT Scan: Medical Necessity - Tobacco Use Smoking Status: Former smoker Assessment/Plan 1. Congestive heart failure acute on chronic systolic- * Patient presents with worsening shortness of breath, pedal edema, orthopnea and elevated natruretic peptide. She still continues to have abnormal renal function likely contributing to the worsening of her heart failure. * * With institute oral Lasix 40 mg twice a day * Will continue beta-meredith for now * Continue to control blood pressure with hydralazine isosorbide combination * 2. Hypertension * Her blood pressure does not appear to be ideally controlled * Would recommend increasing her beta-meredith * Continue amlodipine * Continue hydralazine isosorbide the latter at a higher dose * 3. Abnormal cardiac enzymes * Patient likely has coronary artery disease as evidenced by her abnormal echocardiogram as well as her EKG changes. * After extensive discussion with the patient and her son this morning it was decided that we should pursue cardiac catheterization. He was therefore performed with 18 cc of contrast. The results were as follows. Mild calcified left main coronary artery. Left anterior descending artery which is totally occluded in the midsegment. Severe disease of the first diagonal vessel. Severe disease of the distal circumflex artery with subtotal occlusion. Nondominant right coronary artery subtotally occluded. Based on the above angiographic findings the patient will be continued on medical therapy. I do not think that surgical therapy here would be an appropriate therapeutic option and attempts to open the chronically occluded left anterior descending artery lesion and the severe distal disease would be fraught with difficulty complications and increase dye load * Renal function appears to be mildly worsened * * Will observe patient today and attempt to ambulate her. Discussed with patient and family about going home, Probably in a.m. We will suggest observation till a.m. and discharge for outpatient management. Continue risk factor modification. Thank you for allowing me to participate in the care of your patient. Please don't hesitate to call if any issues arise
[2019-02-12] MEDS: Metoprolol Tartrate 50 MG Tablet PO ×2 (09:39→21:13)
[2019-02-12] MEDS: Aspirin 81 MG TAB.CHEW PO (09:39)
[2019-02-12] MEDS: Ferrous Sulfate 325 MG Tablet PO ×3 (09:39→16:19)
[2019-02-12] MEDS: Clopidogrel Bisulfate 75 MG Tablet PO (09:40)
[2019-02-12] MEDS: amLODIPine 10 MG Tablet PO (09:40)
[2019-02-12] MEDS: Enoxaparin 60 MG/0.6 ML Syringe SC (09:40)
[2019-02-12] MEDS: Ranolazine 500 MG Tablet PO ×2 (09:40→21:14)
--- NOTE | 2019-02-12 10:40 | CASEMGMT ---
Patient has a Healthcare POA and Healthcare LW. She was notified they are not on file. Tigist JOHNSON MSW
--- NOTE | 2019-02-12 11:02 | PCM.PN.HOSP ---
Subjective: Patient seen and examined. States shortness of breath is much better. She denies any chest pain or palpitations, dizziness, diarrhea vomiting. Review of systems otherwise negative. Labs and vitals reviewed. Vitals/I&O's: Vital Signs Temp Pulse Resp BP Pulse Ox 98.6 F 94 20 H 145/62 H 93 02/12/19 08:24 02/12/19 09:39 02/12/19 08:24 02/12/19 09:39 02/12/19 08:24 Oxygen Flow Rate (L/min) 3 Oxygen Delivery Method Nasal Cannula Weight: 110 lb 14.28 oz Body Mass Index (BMI) 23.2 Finger Stick Blood Glucose 252 Intake and Output for Last 24 Hours 02/10/19 02/11/19 02/12/19 23:59 23:59 23:59 Intake Total 120 / 120 1309.4 / 1309.4 66.6 / 66.6 Output Total 150 / 150 875 / 875 50 / 50 Balance -30 / -30 434.4 / 434.4 16.6 / 16.6 General: Alert, Oriented x3, Cooperative HEENT: Atraumatic, PERRLA, EOMI, Normocephalic Oral: Dry Mucosa Neck: Supple, No JVD, Negative Carotid Bruits Lungs: - - mildly decreased breath sounds bibasally, no wheezes or crackles. on 3L of oxygen Cardiovascular: Regular Rhythm, Normal S1, Normal S2, normal rate Abdomen: Bowel Sounds Present, Soft, Non Tender Extremities: No clubbing, No cyanosis, Edema - bilateral 2+ pitting edema of LEs Skin: No rashes, No breakdown Musculoskeletal: No Tenderness to Palpation of Joints or Extremities Lymphatic: No Cervical, Supraclavicular, or Inguinal Adenopathy Neurological: Cranial nerves II-XII grossly intact, Neuro grossly intact, Motor Exam 5/5 strength throughout Psych/Mental Status: Normal Affect, Appropriate, Alert and oriented to time, place, person, mood and affect Laboratory Results 02/11/19 11:18: POC Glucose 171 H 02/11/19 16:19: POC Glucose 248 H 02/11/19 22:11: POC Glucose 162 H 02/12/19 05:25: WBC 7.8, RBC 3.04 L, Hgb 8.7 L, Hct 26.3 L, MCV 86.5, MCH 28.6, MCHC 33.1, RDW 14.9 H, RDW Differential 44.9 H, Plt Count 243, MPV 10.8, Immature Gran % (Auto) 0.600, Neut % (Auto) 75.8 H, Lymph % (Auto) 10.4 L, [place] % (Auto) 8.5, Eos % (Auto) 4.6, Baso % (Auto) 0.1, Absolute Neuts (auto) 5.9, Absolute Lymphs (auto) 0.81 L, Total Counted Not Reportable 02/12/19 05:25: Sodium 139, Potassium 4.6, Chloride 109 H, Carbon Dioxide 19.0 L, Anion Gap 11, BUN 72 H, Creatinine 2.88 H, Estim Creat Clear Calc 10.44, Est GFR (MDRD) Af Amer 20 L, Est GFR (MDRD) Non-Af 17 L, BUN/Creatinine Ratio 25.0 H, Glucose 188 H, Calcium 11.3 H 02/12/19 06:30: POC Glucose 206 H Current Medications Acetaminophen (Tylenol) 650 mg PO Q6H PRN PRN PRN Reason: Non-cardiac pain (mod-severe) Hydrocodone Bitart/Acetaminophen (Freeburn 5mg-325mg) 1 - 2 tablet PO Q6H PRN PRN PRN Reason: MOD-SEVERE PAIN (4-10) Al Hydroxide/Mg Hydroxide (Mylanta Ii) 15 - 30 ml PO Q4H PRN PRN PRN Reason: INDIGESTION Albuterol Sulfate (Ventolin Aerosols) 2.5 mg INHALATION Q2H PRN PRN PRN Reason: dyspnea, wheezing Amlodipine Besylate (Norvasc) 10 mg PO DAILY [facility] Last Admin: 02/12/19 09:40 Dose: 10 mg Aspirin (Aspirin, Baby) 81 mg PO DAILY@0800 [facility] Last Admin: 02/12/19 09:39 Dose: 81 mg Atorvastatin Calcium (Lipitor) 40 mg PO QHS [facility] Last Admin: 02/11/19 22:22 Dose: 40 mg Clopidogrel Bisulfate (Plavix) 75 mg PO DAILY [facility] Last Admin: 02/12/19 09:40 Dose: 75 mg Dextrose (D50w Syringe) 0 gm IV X1 PRN; Protocol PRN Reason: Hypoglycemia Doxazosin Mesylate (Cardura) 2 mg PO QHS [facility] Last Admin: 02/11/19 22:23 Dose: 2 mg Enoxaparin Sodium (Lovenox) 60 mg SC DAILY [facility] Last Admin: 02/12/19 09:40 Dose: 60 mg Ferrous Sulfate (Ferrous Sulfate) 325 mg PO TIDCM [facility] Last Admin: 02/12/19 09:39 Dose: 325 mg Glucagon () 1 mg IM .X1 PRN PRN Reason: Hypoglycemia Hydralazine HCl (Apresoline) 25 mg PO TID [facility] Last Admin: 02/12/19 05:23 Dose: 25 mg Hydralazine HCl (Apresoline Iv) 10 mg IV Q4H PRN PRN PRN Reason: SBP > 160 Insulin Human Lispro (Humalog Kwikpen (Bkc)) 0 unit SQ ACHS [facility]; Protocol Last Admin: 02/12/19 06:33 Dose: 4 u Isosorbide Dinitrate (Isordil) 40 mg PO TID [facility] Lorazepam (Ativan) 0.5 mg PO QHS PRN PRN PRN Reason: sleep Last Admin: 02/11/19 22:23 Dose: 0.5 mg Metoprolol Tartrate (Lopressor (Beta Bobby)) 50 mg PO BID [facility] Last Admin: 02/12/19 09:39 Dose: 50 mg Morphine Sulfate () 1 - 2 mg IV Q4H PRN PRN PRN Reason: PAIN Nitroglycerin (Nitrostat) 0.4 mg SUBLINGUAL Q5M PRN PRN Reason: CARDIAC/CHEST PAIN Ondansetron HCl (Zofran) 4 mg IV Q8H PRN PRN PRN Reason: NAUSEA/VOMITING Ranolazine (Ranexa) 500 mg PO BID [facility] Last Admin: 02/12/19 09:40 Dose: 500 mg Medical Necessity - Tobacco Use Smoking Status: Former smoker Assessment/Plan All Active Problems (Last Updated 02/11/19 @ 11:35 by Michelle Mcintyre) CHF (congestive heart failure) (Acute) Shortness of breath (Acute) Acute respiratory failure with hypoxia (Resolved) PNA (pneumonia) (Resolved) Left sided numbness (Resolved) 83-year-old female admitted with a complaint of shortness of breath and chest pain 1. Acute on chronic exacerbation of heart failure with reduced ejection fraction. feels better today. Ofr BIPAP and now on 3L of oxygen by nasal canula still on IV lasix drip EF is known to be 35% continue monitoring intake and output fluid restriction to 1500cc daily 2. Non-STEMI Initial creatinine is 0.386 and peaked at 12.1 EKG showed T wave inversions in lateral leads 2D echo as under 1. 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 3. Acute hypoxic respiratory insufficiency due to acute on chronic heart failure on 3L of oxygen. Now off BIPAP. Feels better will need walking pulse ox prior to discharge to see if she qualifies for home oxygen. titrate oxygen to maintain sats>90% 4. JUVENTINO on CKD: Creatinine up to 2.88 today. Only 18 cc of dye was used so it is unlikely that this is the cause of it kidney impairment. She is on lasix drip, and this is likely the cause. will monitor Cr. Patient not willing to have renal replacement therapy if needed. will monitor. If it worsens further, to consult nephrology. 5. Type 2 diabetes mellitus: on amaryl. ISS. Accuchecks ACHS 6. Hypertension: on amlodipine, metoprolol and hydralazine as well as cardura 7. CAD: as under 2. On aspirin, plavix and Imdur. Ranexa added on per cardiology 8. Anemia of chronic disease: Hb is 8.7 today. WIll monitor DVT prophylaxis: lovenox CODE STATUS: DNR CCA Code Visit Inpatient E&M: 91912 [facility] L[facility]
--- NOTE | 2019-02-12 11:07 | PN_ITS ---
Subjective: Patient seen and examined. States shortness of breath is much better. She denies any chest pain or palpitations, dizziness, diarrhea vomiting. Review of systems otherwise negative. Labs and vitals reviewed. Vitals/I&O's: Vital Signs Temp Pulse Resp BP Pulse Ox 98.6 F 94 20 H 145/62 H 93 02/12/19 08:24 02/12/19 09:39 02/12/19 08:24 02/12/19 09:39 02/12/19 08:24 Oxygen Flow Rate (L/min) 3 Oxygen Delivery Method Nasal Cannula Weight: 110 lb 14.28 oz Body Mass Index (BMI) 23.2 Finger Stick Blood Glucose 252 Intake and Output for Last 24 Hours 02/10/19 02/11/19 02/12/19 23:59 23:59 23:59 Intake Total 120 / 120 1309.4 / 1309.4 66.6 / 66.6 Output Total 150 / 150 875 / 875 50 / 50 Balance -30 / -30 434.4 / 434.4 16.6 / 16.6 General: Alert, Oriented x3, Cooperative HEENT: Atraumatic, PERRLA, EOMI, Normocephalic Oral: Dry Mucosa Neck: Supple, No JVD, Negative Carotid Bruits Lungs: - - mildly decreased breath sounds bibasally, no wheezes or crackles. on 3L of oxygen Cardiovascular: Regular Rhythm, Normal S1, Normal S2, normal rate Abdomen: Bowel Sounds Present, Soft, Non Tender Extremities: No clubbing, No cyanosis, Edema - bilateral 2+ pitting edema of LEs Skin: No rashes, No breakdown Musculoskeletal: No Tenderness to Palpation of Joints or Extremities Lymphatic: No Cervical, Supraclavicular, or Inguinal Adenopathy Neurological: Cranial nerves II-XII grossly intact, Neuro grossly intact, Motor Exam 5/5 strength throughout Psych/Mental Status: Normal Affect, Appropriate, Alert and oriented to time, place, person, mood and affect Laboratory Results 02/11/19 11:18: POC Glucose 171 H 02/11/19 16:19: POC Glucose 248 H 02/11/19 22:11: POC Glucose 162 H 02/12/19 05:25: WBC 7.8, RBC 3.04 L, Hgb 8.7 L, Hct 26.3 L, MCV 86.5, MCH 28.6, MCHC 33.1, RDW 14.9 H, RDW Differential 44.9 H, Plt Count 243, MPV 10.8, Immature Gran % (Auto) 0.600, Neut % (Auto) 75.8 H, Lymph % (Auto) 10.4 L, [place] % (Auto) 8.5, Eos % (Auto) 4.6, Baso % (Auto) 0.1, Absolute Neuts (auto) 5.9, Absolute Lymphs (auto) 0.81 L, Total Counted Not Reportable 02/12/19 05:25: Sodium 139, Potassium 4.6, Chloride 109 H, Carbon Dioxide 19.0 L , Anion Gap 11, BUN 72 H, Creatinine 2.88 H, Estim Creat Clear Calc 10.44, Est GFR (MDRD) Af Amer 20 L, Est GFR (MDRD) Non-Af 17 L, BUN/Creatinine Ratio 25.0 H , Glucose 188 H, Calcium 11.3 H 02/12/19 06:30: POC Glucose 206 H Current Medications Acetaminophen (Tylenol) 650 mg PO Q6H PRN PRN PRN Reason: Non-cardiac pain (mod-severe) Hydrocodone Bitart/Acetaminophen ([place] 5mg-325mg) 1 - 2 tablet PO Q6H PRN PRN PRN Reason: MOD-SEVERE PAIN (4-10) Al Hydroxide/Mg Hydroxide (Mylanta Ii) 15 - 30 ml PO Q4H PRN PRN PRN Reason: INDIGESTION Albuterol Sulfate (Ventolin Aerosols) 2.5 mg INHALATION Q2H PRN PRN PRN Reason: dyspnea, wheezing Amlodipine Besylate (Norvasc) 10 mg PO DAILY [facility] Last Admin: 02/12/19 09:40 Dose: 10 mg Aspirin (Aspirin, Baby) 81 mg PO DAILY@0800 [facility] Last Admin: 02/12/19 09:39 Dose: 81 mg Atorvastatin Calcium (Lipitor) 40 mg PO QHS [facility] Last Admin: 02/11/19 22:22 Dose: 40 mg Clopidogrel Bisulfate (Plavix) 75 mg PO DAILY [facility] Last Admin: 02/12/19 09:40 Dose: 75 mg Dextrose (D50w Syringe) 0 gm IV X1 PRN; Protocol PRN Reason: Hypoglycemia Doxazosin Mesylate (Cardura) 2 mg PO QHS [facility] Last Admin: 02/11/19 22:23 Dose: 2 mg Enoxaparin Sodium (Lovenox) 60 mg SC DAILY [facility] Last Admin: 02/12/19 09:40 Dose: 60 mg Ferrous Sulfate (Ferrous Sulfate) 325 mg PO TIDCM [facility] Last Admin: 02/12/19 09:39 Dose: 325 mg Glucagon () 1 mg IM .X1 PRN PRN Reason: Hypoglycemia Hydralazine HCl (Apresoline) 25 mg PO TID [facility] Last Admin: 02/12/19 05:23 Dose: 25 mg Hydralazine HCl (Apresoline Iv) 10 mg IV Q4H PRN PRN PRN Reason: SBP > 160 Insulin Human Lispro (Humalog Kwikpen (Bkc)) 0 unit SQ ACHS [facility]; Protocol Last Admin: 02/12/19 06:33 Dose: 4 u Isosorbide Dinitrate (Isordil) 40 mg PO TID [facility] Lorazepam (Ativan) 0.5 mg PO QHS PRN PRN PRN Reason: sleep Last Admin: 02/11/19 22:23 Dose: 0.5 mg Metoprolol Tartrate (Lopressor (Beta Bobby)) 50 mg PO BID [facility] Last Admin: 02/12/19 09:39 Dose: 50 mg Morphine Sulfate () 1 - 2 mg IV Q4H PRN PRN PRN Reason: PAIN Nitroglycerin (Nitrostat) 0.4 mg SUBLINGUAL Q5M PRN PRN Reason: CARDIAC/CHEST PAIN Ondansetron HCl (Zofran) 4 mg IV Q8H PRN PRN PRN Reason: NAUSEA/VOMITING Ranolazine (Ranexa) 500 mg PO BID [facility] Last Admin: 02/12/19 09:40 Dose: 500 mg Medical Necessity - Tobacco Use Smoking Status: Former smoker Assessment/Plan All Active Problems (Last Updated 02/11/19 @ 11:35 by Michelle Mcintyre) CHF (congestive heart failure) (Acute) Shortness of breath (Acute) Acute respiratory failure with hypoxia (Resolved) PNA (pneumonia) (Resolved) Left sided numbness (Resolved) 83-year-old female admitted with a complaint of shortness of breath and chest pain 1. Acute on chronic exacerbation of heart failure with reduced ejection fraction. * feels better today. Ofr BIPAP and now on 3L of oxygen by nasal canula * still on IV lasix drip * EF is known to be 35% * continue monitoring intake and output * fluid restriction to 1500cc daily * * 2. Non-STEMI * Initial creatinine is 0.386 and peaked at 12.1 * EKG showed T wave inversions in lateral leads * 2D echo as under 1. 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 * 3. Acute hypoxic respiratory insufficiency due to acute on chronic heart failure * on 3L of oxygen. Now off BIPAP. Feels better * will need walking pulse ox prior to discharge to see if she qualifies for home oxygen. * titrate oxygen to maintain sats>90% * 4. JUVENTINO on CKD: * Creatinine up to 2.88 today. Only 18 cc of dye was used so it is unlikely that this is the cause of it kidney impairment. She is on lasix drip, and this is likely the cause. * will monitor Cr. Patient not willing to have renal replacement therapy if needed. * will monitor. If it worsens further, to consult nephrology. * 5. Type 2 diabetes mellitus: on amaryl. ISS. [place] ACHS 6. Hypertension: on amlodipine, metoprolol and hydralazine as well as cardura 7. CAD: as under 2. On aspirin, plavix and Imdur. Ranexa added on per cardiology 8. Anemia of chronic disease: Hb is 8.7 today. WIll monitor DVT prophylaxis: lovenox CODE STATUS: DNR CCA * Code Visit Inpatient E&M: 48199 Subs Hosp L3
[2019-02-12 12:25] LABS: Bedside Glucose 350 mg/dL (70-110)
--- NOTE | 2019-02-12 13:25 | CASEMGMT ---
Addendum entered by Gena Kuo 02/12/19 13:43: This RN CM received call from Mindy CAMACHO/SIS at [facility] and she states concerns with pt going home at discharge d/t recent admissions and severity of illness. This RN CM updated Mindy on pt's preference at this time and that CM will continue to follow, voices understanding. Rishabh RN SIS Original Note: This RN CM to room to discuss discharge plan with pt at this time. This RN CM asked pt how she thought she did with therapy and pt states 'terrible.' This RN CM concurred with pt at this time and asked about pt going to SNF at discharge for rehab and pt adamantly refused at this time. Pt states 'when the dr discharges me, I will be going home with my .' Pt's family member states 'she definitely needs a couple more days here.' This RN CM will continue to follow for discharge planning/needs. Rishabh RAI CM
[2019-02-12] MEDS: Isosorbide DN 20 MG Tablet 40 MG PO ×2 (15:15→21:13)
--- NOTE | 2019-02-12 15:18 | NURSING ---
RT aware of patient's nosebleed earlier this am and placed on bubbled humidified air for same. No further nosebleeds.
[2019-02-12 17:05] LABS: Bedside Glucose 133 mg/dL (70-110)
[2019-02-12] MEDS: Doxazosin 1 MG Tablet 2 MG PO (21:13)
[2019-02-12] MEDS: Atorvastatin Calcium 40 MG Tablet PO (21:13)
[2019-02-12] MEDS: LORazepam 0.5 MG Tablet PO (21:15)
[2019-02-12] MEDS: Ondansetron 4 MG/2 ML Vial IV (21:25)
[2019-02-12 21:36] LABS: Bedside Glucose 190 mg/dL (70-110)
[2019-02-13] VITALS (22 sets, daily range): BP systolic 124–158; BP diastolic 46–68; PULSE 72–92; RESP 12–23; TEMP 36.3–37.3; O2SAT 6–96
[2019-02-13] MEDS: hydrALAZINE 25 MG Tablet PO ×2 (06:11→14:39)
[2019-02-13] MEDS: Isosorbide DN 20 MG Tablet 40 MG PO ×2 (06:11→14:39)
[2019-02-13] MEDS: Insulin Lispro 100 UNIT/ML INSULN.PEN SQ ×3 (06:31→17:52)
[2019-02-13 06:39] LABS: Absolute Lymphocyte Count 0.74 X10^3/ul (0.83-4.51); Absolute Neutrophil Count 6.4 X10^3/uL (2.0-7.7); Basophil# 0.01 X10^3/uL; Basophil% 0.1 % (0-1); Eosinophil# 0.13 X10^3/uL; Eosinophils% 1.6 % (0-5); Hematocrit 23.2 % (37-47); Hemoglobin 7.7 g/dl (12.0-15.0); Lymphocyte # 0.74 X10^3/ul (4.0); Lymphocyte % 9.3 % (19-41); Mean Corp Hgb Conc 33.2 g/gl (32-36); Mean Corpuscular Hgb 28.6 pg (27.0-32.0); Mean Corpuscular Volume 86.2 fL (81-99); Mean Platelet Vol. 10.1 fl (6.2-12.0); Monocyte% 8.8 % (0-10); Neutrophil # 6.35 X10^3/uL (2.7-7.7); Neutrophil % 79.8 % (47-70); Platelet Count 245 K/mm3 (150-450); RBC Distribution Width CV 15.3 % (11.6-14.6); RBC Distribution Width SD 48.6 fl (35.1-43.9); Red Blood Count 2.69 M/mm3 (4.2-5.4)
[2019-02-13 06:40] LABS: Bedside Glucose 181 mg/dL (70-110)
[2019-02-13 06:51] LABS: POSITIVE COUNT NO; POSITIVE DIFFERENTIAL NO; POSITIVE MORPHOLOGY NO
[2019-02-13 06:58] LABS: Anion Gap 12 (5-15); BUN 85 mg/dL (7-18); BUN/Creat Ratio 23.7 RATIO (10-20); Calcium,Total 10.9 mg/dL (8.5-10.1); Chloride 104 mmol/L (98-107); Creatinine, Serum 3.58 mg/dL (0.55-1.02); EST Glomerular Filtration Rate 13 mL/min (>60); Est Glom Filt Rate - Afr Amer 16 mL/min (>60); Glucose 193 mg/dL (74-106); Potassium 5.5 mmol/L (3.5-5.1); Sodium Level 134 mmol/L (136-145)
--- NOTE | 2019-02-13 09:12 | RAD_ITS ---
STUDY: X-RAY CHEST REASON FOR EXAM: Female, 83 years old. Shortness of breath/dyspnea. TECHNIQUE: Single AP portable view of the chest. COMPARISON: Comparison is made with prior study dated February 10, 2019. FINDINGS: EKG electrodes are seen. There is evidence of vascular congestion and CHF. Left pleural effusion with left basilar atelectasis and/or infiltrate. Follow-up is recommended. There is mild cardiac enlargement. Normal mediastinum and vilma. Normal visualized pulmonary arteries. There is atherosclerotic calcification of the aortic arch with tortuosity. Normal visualized thoracic spine. Normal visualized ribs, clavicles, and shoulders. There is no demonstrated abnormality of the visualized soft tissue structures of the upper abdomen. RAD/Chest 1 View (Portable) IMPRESSION: Findings in comparison with CHF. Small left pleural effusion with left basilar atelectasis and/or infiltrate. Electronically Signed: Wilner Bruce, at 11:16 EDT , Service support ,
--- NOTE | 2019-02-13 09:18 | PN.CARD_ITS ---
Subjectve: Patient seen and evaluated. Appears to be short of breath this morning. Objective: Vital Signs Temp Pulse Resp BP Pulse Ox 99 F 84 20 H 138/52 H 90 02/13/19 06:09 02/13/19 08:41 02/13/19 06:09 02/13/19 06:11 02/13/19 06:09 Oxygen Flow Rate (L/min) 3 Oxygen Delivery Method Nasal Cannula Weight: 110 lb 14.28 oz Body Mass Index (BMI) 23.2 Finger Stick Blood Glucose 252 Intake and Output for Last 24 Hours 02/11/19 02/12/19 02/13/19 23:59 23:59 23:59 Intake Total 1309.4 / 1309.4 600.8 / 600.8 120 / 120 Output Total 875 / 875 150 / 150 150 / 150 Balance 434.4 / 434.4 450.8 / 450.8 -30 / -30 General: Awake, Alert, Oriented x 3 HEENT: PERRL, EOMI, Sclera Non Icteric Neck: Supple, Good ROM, No Lymph Node Enlargement Lungs: Diminished [place] Bases Cardiovascular: Regular Rhythm, Normal S1, Normal S2, No Murmurs, No Rubs, No Gallops Vascular: No Carotid Bruits, Normal Femoral Pulses, Normal Radial Pulses, Normal Dorsalis Pedal Pulse, Normal Posterior Tibial Pulses Abdomen: Bowel Sounds Present, Soft, Non Tender, No HSM, No Organomegaly Extremities: No Cyanosis, No Clubbing, No edema Musculoskeletal: No Erythema Skin: No Rashes Lymphatic: No Lymph Node Enlargement Neurological: No Focal Motor or Sensory Deficit Psych/Mental Status: Appropriate 02/13/19 06:10: WBC 8.0, RBC 2.69 L, Hgb 7.7 L, Hct 23.2 L, MCV 86.2, MCH 28.6, MCHC 33.2, RDW 15.3 H, RDW Differential 48.6 H, Plt Count 245, MPV 10.1, Immature Gran % (Auto) 0.400, Neut % (Auto) 79.8 H, Lymph % (Auto) 9.3 L, [place] % (Auto) 8.8, Eos % (Auto) 1.6, Baso % (Auto) 0.1, Absolute Neuts (auto) 6.4, Total Counted Not Reportable 02/13/19 06:10: Sodium 134 L, Potassium 5.5 H, Chloride 104, Carbon Dioxide 18.0 L, Anion Gap 12, BUN 85 H, Creatinine 3.58 H, Est GFR (MDRD) Af Amer 16 L, Est GFR (MDRD) Non-Af 13 L, BUN/Creatinine Ratio 23.7 H, Glucose 193 H, Calcium 10.9 H Rhythm: EKG: ECHO: Stress Test: Cardiac Cath: PCI: CT Surgery: Holter monitor: EPS: PPM: CXR: Chest CT Scan: Medical Necessity - Tobacco Use Smoking Status: Former smoker Assessment/Plan 1. Congestive heart failure acute on chronic systolic- * Patient presents with worsening shortness of breath, pedal edema, orthopnea and elevated natruretic peptide. She still continues to have abnormal renal function likely contributing to the worsening of her heart failure. * Chest x-ray pending today * With institute oral Lasix 40 mg twice a day * Will continue beta-meredith for now * Continue to control blood pressure with hydralazine isosorbide combination * 2. Hypertension * Her blood pressure does not appear to be ideally controlled * Would recommend increasing her beta-meredith * Continue amlodipine * Continue hydralazine isosorbide the latter at a higher dose * 3. Abnormal cardiac enzymes * Patient likely has coronary artery disease as evidenced by her abnormal echocardiogram as well as her EKG changes. * After extensive discussion with the patient and her son this morning it was decided that we should pursue cardiac catheterization. He was therefore performed with 18 cc of contrast. The results were as follows. Mild calcified left main coronary artery. Left anterior descending artery which is totally occluded in the midsegment. Severe disease of the first diagonal vessel. Severe disease of the distal circumflex artery with subtotal occlusion. Nondominant right coronary artery subtotally occluded. Based on the above angiographic findings the patient will be continued on medical therapy. I do not think that surgical therapy here would be an appropriate therapeutic option and attempts to open the chronically occluded left anterior descending artery lesion and the severe distal disease would be fraught with difficulty complications and increase dye load * Renal function appears to be worsened * * Will observe patient today and attempt to ambulate her. Thank you for allowing me to participate in the care of your patient. Please don't hesitate to call if any issues arise
[2019-02-13] MEDS: Aspirin 81 MG TAB.CHEW PO (10:29)
[2019-02-13] MEDS: Ferrous Sulfate 325 MG Tablet PO (10:29)
[2019-02-13] MEDS: Metoprolol Tartrate 50 MG Tablet PO (10:30)
[2019-02-13] MEDS: amLODIPine 10 MG Tablet PO (10:31)
[2019-02-13] MEDS: Enoxaparin 60 MG/0.6 ML Syringe SC (10:31)
[2019-02-13] MEDS: Clopidogrel Bisulfate 75 MG Tablet PO (10:31)
[2019-02-13] MEDS: Ranolazine 500 MG Tablet PO (10:32)
[2019-02-13 11:30] LABS: Bedside Glucose 190 mg/dL (70-110)
--- NOTE | 2019-02-13 13:05 | CASEMGMT ---
SW completed a Palliative Care screening tool on patient. She would be a good candidate for Palliative Care. SW will talk with patient about this. Per physician patient is in agreement with placement at a [facility] facility for rehab. She would like TCU. [facility]I spoke with [facility] in TCU and they would have a bed for patient as long as she does not need dialysis. SW went to let patient know, but she was lightly sleeping and when SW said her name she asked that SW come back another time. Plan: Possibly TCU if no dialysis needed. Also, [facility]I will discuss Palliative Care with patient. Tigist JOHNSON SENIOR ACCOUNT DIRECTOR
[2019-02-13 16:31] LABS: Bedside Glucose 193 mg/dL (70-110)
--- NOTE | 2019-02-13 19:24 | NURSING ---
Dr. Grider at bedside discussing with patient whether or not she would want dialysis d/t her kidney function worsening. Dr. Camp states he will call patient's daughter Marcy before he leaves and that he will be back in the morning to see the patient.
--- NOTE | 2019-02-13 20:05 | PN_ITS ---
Patient Problems: Active and Suspected Problems (Last Updated 02/11/19 @ 11:35 by Michelle Mcintyre) Acute on chronic systolic (congestive) heart failure (Acute) Subjective: Patient was seen and examined today, I talked with her daughters who were in her room today, I also talked with cardiology and nephrology who I consulted this af ternoon-nephrology will see the patient tomorrow. I also talked to the patient later on today about whether she would want dialysis-the answer is that she would not want dialysis. I passed this on to the patient's POA-her daughter-so that she is aware of this. Patient has severe triple-vessel disease. - Physical Exam General: Alert, Oriented x3, Cooperative, No apparent distress, Well developed HEENT: Atraumatic, PERRLA, EOMI, Normocephalic Oral: Moist Mucosa Neck: Supple, No JVD, Trachea Midline, Thyroid Normal Size and Texture Lungs: No rhonchi, No wheeze, Diminished, Rales - Inspiratory rales are noted over the lower lung rogers bilaterally Cardiovascular: Regular rate, Regular Rhythm, Normal S1, Normal S2, No murmurs, No Ectopic Activity, PMI Normal Abdomen: Bowel Sounds Present, Soft, Non Tender, Non-Distended, No hernias noted Extremities: No edema, Capillary Refill Less than 3 Seconds Skin: No rashes, No breakdown Musculoskeletal: No Tenderness to Palpation of Joints or Extremities Neurological: Cranial nerves II-XII grossly intact, Neuro grossly intact, Sensory exam intact to light touch and pain, Coordination normal Psych/Mental Status: Normal Affect, Appropriate, Alert and oriented to time, place, person, mood and affect Vital Signs Temp Pulse Resp BP Pulse Ox 97.9 F 79 20 H 146/64 H 93 02/13/19 19:15 02/13/19 19:15 02/13/19 19:15 02/13/19 19:15 02/13/19 19:15 Oxygen Flow Rate (L/min) 9 Oxygen Delivery Method Nasal Cannula Weight: 50.3 kg Body Mass Index (BMI) 23.2 Finger Stick Blood Glucose 252 Intake and Output for Last 24 Hours 02/11/19 02/12/19 02/13/19 23:59 23:59 23:59 Intake Total 1309.4 / 1309.4 600.8 / 600.8 600 / 600 Output Total 875 / 875 150 / 150 400 / 400 Balance 434.4 / 434.4 450.8 / 450.8 200 / 200 Laboratory Tests Past 24 Hrs 02/13/19 02/13/19 06:10 06:10 WBC 8.0 RBC 2.69 L Hgb 7.7 L Hct 23.2 L MCV 86.2 MCH 28.6 MCHC 33.2 RDW 15.3 H RDW Differential 48.6 H Plt Count 245 MPV 10.1 Immature Gran % (Auto) 0.400 Neut % (Auto) 79.8 H Lymph % (Auto) 9.3 L [place] % (Auto) 8.8 Eos % (Auto) 1.6 Baso % (Auto) 0.1 Absolute Neuts (auto) 6.4 Absolute Lymphs (auto) 0.74 L Total Counted Not Reportable Sodium 134 L Potassium 5.5 H Chloride 104 Carbon Dioxide 18.0 L Anion Gap 12 BUN 85 H Creatinine 3.58 H Estim Creat Clear Calc 8.40 Est GFR (MDRD) Af Amer 16 L Est GFR (MDRD) Non-Af 13 L BUN/Creatinine Ratio 23.7 H Glucose 193 H Calcium 10.9 H POC Glucose 02/13/19 02/13/19 02/13/19 16:22 11:24 06:29 POC Glucose 193 H 190 H 181 H 02/12/19 21:07 POC Glucose 190 H Medical Necessity - Tobacco Use Smoking Status: Former smoker Assessment/Plan All Active Problems (Last Updated 02/11/19 @ 11:35 by Michelle Mcintyre) Acute on chronic systolic (congestive) heart failure (Acute) CHF (congestive heart failure) (Acute) Shortness of breath (Acute) Acute respiratory failure with hypoxia (Resolved) PNA (pneumonia) (Resolved) Left sided numbness (Resolved) #1 acute on chronic systolic congestive heart failure-patient is off Lasix at this time due to worsening renal function, nephrology will see the patient in consultation, patient is a DNR CC arrest #2 non-STEMI #3 acute renal failure on a backdrop of chronic kidney disease stage III- nephrology will see the patient, again the patient does not want to have dialysis if necessary #4 acute hypoxic respiratory failure secondary to #1-patient was on BiPAP earlier today, at the time of my dictation now, she is again on nasal cannula O2. #5 triple-vessel coronary artery disease-nonoperable #6 anemia of chronic kidney disease-recheck labs tomorrow #7 hyperkalemia-recheck labs tomorrow #8 type 2 diabetes #9 hypertension #10 ischemic cardiomyopathy-EF 35% Code Visit Inpatient E&M: 52386 Subs Hosp L2
[2019-02-13] MEDS: LORazepam 0.5 MG Tablet PO (21:14)
--- NOTE | 2019-02-13 21:20 | NURSING ---
patient refused all HS meds d/t feeling nauseous and not wanting to throw up. only med she said she would take was her sleeping pill.
[2019-02-13 21:26] LABS: Bedside Glucose 170 mg/dL (70-110)
[2019-02-14] VITALS (23 sets, daily range): BP systolic 145–165; BP diastolic 60–71; PULSE 82–110; RESP 17–28; TEMP 36.7–37.1; O2SAT 91–97
[2019-02-14] MEDS: Ondansetron 4 MG/2 ML Vial IV ×2 (04:14→14:36)
[2019-02-14] MEDS: 0.9% NaCl Peripheral Flush Adult/Peds IV ×4 (05:43→21:11)
[2019-02-14] MEDS: hydrALAZINE 25 MG Tablet PO ×3 (05:43→22:02)
[2019-02-14] MEDS: Isosorbide DN 20 MG Tablet 40 MG PO ×3 (05:43→22:02)
--- NOTE | 2019-02-14 05:55 | RAD_ITS ---
STUDY: X-RAY CHEST REASON FOR EXAM: Female, 83 years old. Shortness of breath/dyspnea. TECHNIQUE: Single AP portable view of the chest. COMPARISON: Comparison is made with prior study dated February 13, 2019. FINDINGS: EKG electrode traversing. CHF with superimposed atelectasis and/or infiltration in the left lower lobe. Small bilateral effusions slightly worse on the left side. There is mild cardiac enlargement. Normal mediastinum and vilma. Normal visualized pulmonary arteries. There is atherosclerotic calcification of the aortic arch with tortuosity. There are diffuse degenerative changes of the visualized thoracic spine. Normal visualized ribs, clavicles, and shoulders. There is no demonstrated abnormality of the visualized soft tissue structures of the upper abdomen. RAD/Chest 1 View (Portable) IMPRESSION: Slight progression in the CHF. Stable left lower lobe infiltration and/or atelectasis with bilateral effusions. Electronically Signed: Wilner Bruce, at 9:17 EDT , Service support ,
[2019-02-14 06:19] LABS: Absolute Lymphocyte Count 0.81 X10^3/ul (0.83-4.51); Absolute Neutrophil Count 8.1 X10^3/uL (2.0-7.7); Basophil# 0.01 X10^3/uL; Basophil% 0.1 % (0-1); Eosinophil# 0.12 X10^3/uL; Eosinophils% 1.2 % (0-5); Hematocrit 25.4 % (37-47); Hemoglobin 8.3 g/dl (12.0-15.0); Lymphocyte # 0.81 X10^3/ul (4.0); Lymphocyte % 8.1 % (19-41); Mean Corp Hgb Conc 32.7 g/gl (32-36); Mean Corpuscular Hgb 28.5 pg (27.0-32.0); Mean Corpuscular Volume 87.3 fL (81-99); Monocyte# 0.84 X10^3/uL; Monocyte% 8.4 % (0-10); Neutrophil % 81.4 % (47-70); Platelet Count 250 K/mm3 (150-450); RBC Distribution Width SD 46.3 fl (35.1-43.9); Red Blood Count 2.91 M/mm3 (4.2-5.4)
[2019-02-14 06:23] LABS: POSITIVE COUNT NO; POSITIVE DIFFERENTIAL NO; POSITIVE MORPHOLOGY NO
[2019-02-14 06:30] LABS: Anion Gap 14 (5-15); BUN 90 mg/dL (7-18); Calcium,Total 11.5 mg/dL (8.5-10.1); Chloride 103 mmol/L (98-107); Creatinine, Serum 4.29 mg/dL (0.55-1.02); EST Glomerular Filtration Rate 10 mL/min (>60); Est Glom Filt Rate - Afr Amer 13 mL/min (>60); Estimated Creatinine Clearance 7.01 ml/min; Glucose 198 mg/dL (74-106); Potassium 5.5 mmol/L (3.5-5.1); Sodium Level 134 mmol/L (136-145)
[2019-02-14] MEDS: Insulin Lispro 100 UNIT/ML INSULN.PEN SQ ×3 (06:41→22:05)
[2019-02-14 06:45] LABS: Bedside Glucose 216 mg/dL (70-110)
--- NOTE | 2019-02-14 10:28 | PCM.CONS.R ---
Problem List (1) JUVENTINO (acute kidney injury) Status: Acute Consultation - Renal 02/14/19 PCP/ Referring MD: Requesting physician: Dr Grider Primary care physician: Jenni Cornell DO Reason for Consultation:: JUVENTINO - History of Present Illness History of Present Illness: The patient is a 83 year old F well known to us. History of CKD stage 4 in setting of uncontrolled HTN. was recently admitted here with NSTEMI, fluid overload. discharged home and came back with another episode of NSTEMI. cath showed extensive atherosclerosis. creatinine has been worsening since admission. currently c/o dyspnea. K has been treated medically but still on higher side. denies any obstructive symptoms. - Allergies Allergies: Allergies metformin Allergy (Verified 02/10/19 11:05) Other BODY ACHES epinephrine Adverse Reaction (Verified 02/10/19 11:05) Other SHAKING Gadolinium-MRI Contrast Medium [CONTRAST] Adverse Reaction (Verified 02/10/19 11:05) Other SHAKING - Current Medications Current Medications: Current Medications Acetaminophen (Tylenol) 650 mg PO Q6H PRN PRN PRN Reason: Non-cardiac pain (mod-severe) Hydrocodone Bitart/Acetaminophen ([place] 5mg-325mg) 1 - 2 tablet PO Q6H PRN PRN PRN Reason: MOD-SEVERE PAIN (4-10/10) Al Hydroxide/Mg Hydroxide (Mylanta Ii) 15 - 30 ml PO Q4H PRN PRN PRN Reason: INDIGESTION Albuterol Sulfate (Ventolin Aerosols) 2.5 mg INHALATION Q2H PRN PRN PRN Reason: dyspnea, wheezing Amlodipine Besylate (Norvasc) 10 mg PO DAILY [facility] Last Admin: 02/13/19 10:31 Dose: 10 mg Aspirin (Aspirin, Baby) 81 mg PO DAILY@0800 [facility] Last Admin: 02/13/19 10:29 Dose: 81 mg Atorvastatin Calcium (Lipitor) 40 mg PO QHS [facility] Last Admin: 02/13/19 21:14 Dose: Not Given Clopidogrel Bisulfate (Plavix) 75 mg PO DAILY [facility] Last Admin: 02/13/19 10:31 Dose: 75 mg Dextrose (D50w Syringe) 0 gm IV X1 PRN; Protocol PRN Reason: Hypoglycemia Doxazosin Mesylate (Cardura) 2 mg PO QHS [facility] Last Admin: 02/13/19 21:14 Dose: Not Given Enoxaparin Sodium (Lovenox) 60 mg SC DAILY [facility] Last Admin: 02/13/19 10:31 Dose: 60 mg Ferrous Sulfate (Ferrous Sulfate) 325 mg PO TIDCM [facility] Last Admin: 02/13/19 17:55 Dose: Not Given Glucagon () 1 mg IM .X1 PRN PRN Reason: Hypoglycemia Hydralazine HCl (Apresoline) 25 mg PO TID [facility] Last Admin: 02/14/19 05:43 Dose: 25 mg Hydralazine HCl (Apresoline Iv) 10 mg IV Q4H PRN PRN PRN Reason: SBP > 160 Insulin Human Lispro (Humalog Kwikpen (Bkc)) 0 unit SQ ACHS [facility]; Protocol Last Admin: 02/14/19 06:41 Dose: 4 u Isosorbide Dinitrate (Isordil) 40 mg PO TID [facility] Last Admin: 02/14/19 05:43 Dose: 40 mg Lorazepam (Ativan) 0.5 mg PO QHS PRN PRN PRN Reason: sleep Last Admin: 02/13/19 21:14 Dose: 0.5 mg Metoprolol Tartrate (Lopressor (Beta Bobby)) 50 mg PO BID [facility] Last Admin: 02/13/19 21:14 Dose: Not Given Morphine Sulfate () 1 - 2 mg IV Q4H PRN PRN PRN Reason: PAIN Nitroglycerin (Nitrostat) 0.4 mg SUBLINGUAL Q5M PRN PRN Reason: CARDIAC/CHEST PAIN Ondansetron HCl (Zofran) 4 mg IV Q8H PRN PRN PRN Reason: NAUSEA/VOMITING Last Admin: 02/14/19 04:14 Dose: 4 mg Promethazine HCl (Phenergan) 6.25 mg IV Q6H PRN PRN PRN Reason: NAUSEA/VOMITING Ranolazine (Ranexa) 500 mg PO BID [facility] Last Admin: 02/13/19 21:14 Dose: Not Given Sodium Chloride () 5 - 15 ml IV UD PRN PRN Reason: SALINE FLUSH Last Admin: 02/14/19 05:44 Dose: 10 ml - Past Medical History Past Medical History (Chronic Problems): Chronic Problems (Last Updated 02/13/19 @ 20:05 by Kb Grider DO) Atherosclerosis of coronary artery without angina pectoris (Chronic) Ischemic cardiomyopathy (Chronic) TIA (transient ischemic attack) (Chronic) Cardiac enzymes elevated (Chronic) Carotid disease, bilateral (Chronic) CKD (chronic kidney disease) stage 3, GFR 30-59 ml/min (Chronic) Hypertension (Chronic) Hyperlipidemia (Chronic) Type II diabetes mellitus (Chronic) - Past Surgical History Surgical History: cataract, - - BL carotid artery surgery x 2, hysterectemy, rectal surgery for benign growth. - Social History Smoking Status: Former smoker Alcohol: None Drugs: None - Family History Maternal Family History: Family History (Last Updated 10/10/17 @ 14:30 by Taryn Galindo) Mother Diabetes Hypertension CVA (cerebral vascular accident) Cancer Brother Diabetes Hypertension Sister Diabetes Hypertension History Items: Diabetes, High Cholesterol Paternal Family History: Family History (Last Updated 10/10/17 @ 14:30 by Taryn Galindo) Mother Diabetes Hypertension CVA (cerebral vascular accident) Cancer Brother Diabetes Hypertension Sister Diabetes Hypertension History Items: Unknown Sibling Family History: Family History (Last Updated 10/10/17 @ 14:30 by Taryn Galindo) Mother Diabetes Hypertension CVA (cerebral vascular accident) Cancer Brother Diabetes Hypertension Sister Diabetes Hypertension History Items: Diabetes, Hypertension Review of Systems Constitutional: Denies: Chills, Fever, Weight Change HEENT: Denies: Head Aches, Sinus Congestion, Sinus Drainage Cardiovascular: Denies: Chest Pain, Palpitations Respiratory: Reports: Shortness of Breath. Denies: Shortness of breath at rest, Sputum production Gastrointestinal: Denies: Abdominal Pain, Nausea, Vomiting Genitourinary: Denies: Dysuria Musculoskeletal: Denies: Joint Pain, Joint Tenderness Skin: Denies: Rash, Wounds Neurological: Denies: Numbness, Tingling, Focal weakness Psychiatric: Denies: Anxiety, Depression, Homicidal Ideations, Suicidal Ideations Hematologic/ Lymphatic: Denies: Easy Bruising, Easy Bleeding Patient Problems: Active and Suspected Problems (Last Updated 02/13/19 @ 20:05 by Kb Grider DO) JUVENTINO (acute kidney injury) (Acute) Acute on chronic systolic (congestive) heart failure (Acute) - Physical Exam General: Alert, Oriented x3, Cooperative HEENT: Atraumatic, PERRLA, EOMI, Normocephalic Neck: Supple, No JVD, Negative Carotid Bruits Lungs: Clear to auscultation, Normal air movement Cardiovascular: Regular rate, No murmurs Abdomen: Bowel Sounds Present, Soft, Non Tender Extremities: No edema, Capillary Refill Less than 3 Seconds Skin: No rashes, No breakdown Musculoskeletal: No Tenderness to Palpation of Joints or Extremities Neurological: Cranial nerves II-XII grossly intact Psych/Mental Status: Normal Affect, Appropriate Vital Signs Temp Pulse Resp BP Pulse Ox 98.0 F 99 20 H 155/62 H 96 02/14/19 08:36 02/14/19 08:36 02/14/19 08:36 02/14/19 08:36 02/14/19 08:36 Oxygen Flow Rate (L/min) 9 Oxygen Delivery Method Nasal Cannula Weight: 50.8 kg Body Mass Index (BMI) 23.2 Finger Stick Blood Glucose 252 Intake and Output for Last 24 Hours 02/12/19 02/13/19 02/14/19 23:59 23:59 23:59 Intake Total 600.8 / 600.8 650 / 650 160 / 160 Output Total 150 / 150 400 / 400 60 / 60 Balance 450.8 / 450.8 250 / 250 100 / 100 Laboratory Tests Past 24 Hrs 02/14/19 02/14/19 05:45 05:45 WBC 10.0 RBC 2.91 L Hgb 8.3 L Hct 25.4 L MCV 87.3 MCH 28.5 MCHC 32.7 RDW 15.0 H RDW Differential 46.3 H Plt Count 250 MPV 11.0 Immature Gran % (Auto) 0.800 Neut % (Auto) 81.4 H Lymph % (Auto) 8.1 L [place] % (Auto) 8.4 Eos % (Auto) 1.2 Baso % (Auto) 0.1 Absolute Neuts (auto) 8.1 H Absolute Lymphs (auto) 0.81 L Total Counted Not Reportable Sodium 134 L Potassium 5.5 H Chloride 103 Carbon Dioxide 17.0 L Anion Gap 14 BUN 90 H Creatinine 4.29 H Estim Creat Clear Calc 7.01 Est GFR (MDRD) Af Amer 13 L Est GFR (MDRD) Non-Af 10 L BUN/Creatinine Ratio 21.0 H Glucose 198 H Calcium 11.5 H POC Glucose 02/14/19 02/13/19 02/13/19 06:37 21:17 16:22 POC Glucose 216 H 170 H 193 H 02/13/19 11:24 POC Glucose 190 H Assessment/Plan All Active Problems (Last Updated 02/13/19 @ 20:05 by Kb Grider DO) JUVENTINO (acute kidney injury) (Acute) Acute on chronic systolic (congestive) heart failure (Acute) CHF (congestive heart failure) (Acute) Shortness of breath (Acute) Acute respiratory failure with hypoxia (Resolved) PNA (pneumonia) (Resolved) Left sided numbness (Resolved) JUVENTINO CKD 4 CAD s/p angiogram showing extensive atherosclerosis CHF hyperkalemia minimal urine output. worsening creatinine. detailed discussion held with patient regarding ongoing events. I explained to her that with essentially complete kidney failure she has 2 options - choose dialysis or palliative care. She says she has suffered enough and thinks dialysis will be even more burdensome on her. not willing to go for dialysis. explained the implications of worsening renal failure including worsening respiratory status, worsening hyperkalemia which can be life threatening. She says I think its about time for me to go. I advised hospice evaluation to minimize symptoms from renal failure. she agrees. d.w hospitalist team and staff hospice consult to be placed today
--- NOTE | 2019-02-14 10:34 | CON.PCM_ITS ---
Problem List (1) JUVENTINO (acute kidney injury) Status: Acute Consultation - Renal 02/14/19 PCP/ Referring MD: Requesting physician: Dr Grider Primary care physician: Jenni Cornell DO Reason for Consultation:: JUVENTINO - History of Present Illness History of Present Illness: The patient is a 83 year old F well known to us. History of CKD stage 4 in setting of uncontrolled HTN. was recently admitted here with NSTEMI, fluid overload. discharged home and came back with another episode of NSTEMI. cath showed extensive atherosclerosis. creatinine has been worsening since admission. currently c/o dyspnea. K has been treated medically but still on higher side. denies any obstructive symptoms. - Allergies Allergies: Allergies metformin Allergy (Verified 02/10/19 11:05) Other BODY ACHES epinephrine Adverse Reaction (Verified 02/10/19 11:05) Other SHAKING Gadolinium-MRI Contrast Medium [CONTRAST] Adverse Reaction (Verified 02/10/19 11:05) Other SHAKING - Current Medications Current Medications: Current Medications Acetaminophen (Tylenol) 650 mg PO Q6H PRN PRN PRN Reason: Non-cardiac pain (mod-severe) Hydrocodone Bitart/Acetaminophen ([place] 5mg-325mg) 1 - 2 tablet PO Q6H PRN PRN PRN Reason: MOD-SEVERE PAIN (4-10/10) Al Hydroxide/Mg Hydroxide (Mylanta Ii) 15 - 30 ml PO Q4H PRN PRN PRN Reason: INDIGESTION Albuterol Sulfate (Ventolin Aerosols) 2.5 mg INHALATION Q2H PRN PRN PRN Reason: dyspnea, wheezing Amlodipine Besylate (Norvasc) 10 mg PO DAILY [facility] Last Admin: 02/13/19 10:31 Dose: 10 mg Aspirin (Aspirin, Baby) 81 mg PO DAILY@0800 [facility] Last Admin: 02/13/19 10:29 Dose: 81 mg Atorvastatin Calcium (Lipitor) 40 mg PO QHS [facility] Last Admin: 02/13/19 21:14 Dose: Not Given Clopidogrel Bisulfate (Plavix) 75 mg PO DAILY [facility] Last Admin: 02/13/19 10:31 Dose: 75 mg Dextrose (D50w Syringe) 0 gm IV X1 PRN; Protocol PRN Reason: Hypoglycemia Doxazosin Mesylate (Cardura) 2 mg PO QHS [facility] Last Admin: 02/13/19 21:14 Dose: Not Given Enoxaparin Sodium (Lovenox) 60 mg SC DAILY [facility] Last Admin: 02/13/19 10:31 Dose: 60 mg Ferrous Sulfate (Ferrous Sulfate) 325 mg PO TIDCM [facility] Last Admin: 02/13/19 17:55 Dose: Not Given Glucagon () 1 mg IM .X1 PRN PRN Reason: Hypoglycemia Hydralazine HCl (Apresoline) 25 mg PO TID [facility] Last Admin: 02/14/19 05:43 Dose: 25 mg Hydralazine HCl (Apresoline Iv) 10 mg IV Q4H PRN PRN PRN Reason: SBP > 160 Insulin Human Lispro (Humalog Kwikpen (Bkc)) 0 unit SQ ACHS [facility]; Protocol Last Admin: 02/14/19 06:41 Dose: 4 u Isosorbide Dinitrate (Isordil) 40 mg PO TID [facility] Last Admin: 02/14/19 05:43 Dose: 40 mg Lorazepam (Ativan) 0.5 mg PO QHS PRN PRN PRN Reason: sleep Last Admin: 02/13/19 21:14 Dose: 0.5 mg Metoprolol Tartrate (Lopressor (Beta Bobby)) 50 mg PO BID [facility] Last Admin: 02/13/19 21:14 Dose: Not Given Morphine Sulfate () 1 - 2 mg IV Q4H PRN PRN PRN Reason: PAIN Nitroglycerin (Nitrostat) 0.4 mg SUBLINGUAL Q5M PRN PRN Reason: CARDIAC/CHEST PAIN Ondansetron HCl (Zofran) 4 mg IV Q8H PRN PRN PRN Reason: NAUSEA/VOMITING Last Admin: 02/14/19 04:14 Dose: 4 mg Promethazine HCl (Phenergan) 6.25 mg IV Q6H PRN PRN PRN Reason: NAUSEA/VOMITING Ranolazine (Ranexa) 500 mg PO BID [facility] Last Admin: 02/13/19 21:14 Dose: Not Given Sodium Chloride () 5 - 15 ml IV UD PRN PRN Reason: SALINE FLUSH Last Admin: 02/14/19 05:44 Dose: 10 ml - Past Medical History Past Medical History (Chronic Problems): Chronic Problems (Last Updated 02/13/19 @ 20:05 by Kb Grider DO) Atherosclerosis of coronary artery without angina pectoris (Chronic) Ischemic cardiomyopathy (Chronic) TIA (transient ischemic attack) (Chronic) Cardiac enzymes elevated (Chronic) Carotid disease, bilateral (Chronic) CKD (chronic kidney disease) stage 3, GFR 30-59 ml/min (Chronic) Hypertension (Chronic) Hyperlipidemia (Chronic) Type II diabetes mellitus (Chronic) - Past Surgical History Surgical History: cataract, - - BL carotid artery surgery x 2, hysterectemy, rectal surgery for benign growth. - Social History Smoking Status: Former smoker Alcohol: None Drugs: None - Family History Maternal Family History: Family History (Last Updated 10/10/17 @ 14:30 by Taryn Galindo) Mother Diabetes Hypertension CVA (cerebral vascular accident) Cancer Brother Diabetes Hypertension Sister Diabetes Hypertension History Items: Diabetes, High Cholesterol Paternal Family History: Family History (Last Updated 10/10/17 @ 14:30 by Taryn Galindo) Mother Diabetes Hypertension CVA (cerebral vascular accident) Cancer Brother Diabetes Hypertension Sister Diabetes Hypertension History Items: Unknown Sibling Family History: Family History (Last Updated 10/10/17 @ 14:30 by Taryn Galindo) Mother Diabetes Hypertension CVA (cerebral vascular accident) Cancer Brother Diabetes Hypertension Sister Diabetes Hypertension History Items: Diabetes, Hypertension Review of Systems Constitutional: Denies: Chills, Fever, Weight Change HEENT: Denies: Head Aches, Sinus Congestion, Sinus Drainage Cardiovascular: Denies: Chest Pain, Palpitations Respiratory: Reports: Shortness of Breath. Denies: Shortness of breath at rest, Sputum production Gastrointestinal: Denies: Abdominal Pain, Nausea, Vomiting Genitourinary: Denies: Dysuria Musculoskeletal: Denies: Joint Pain, Joint Tenderness Skin: Denies: Rash, Wounds Neurological: Denies: Numbness, Tingling, Focal weakness Psychiatric: Denies: Anxiety, Depression, Homicidal Ideations, Suicidal Ideations Hematologic/ Lymphatic: Denies: Easy Bruising, Easy Bleeding Patient Problems: Active and Suspected Problems (Last Updated 02/13/19 @ 20:05 by Kb Grider DO) JUVENTINO (acute kidney injury) (Acute) Acute on chronic systolic (congestive) heart failure (Acute) - Physical Exam General: Alert, Oriented x3, Cooperative HEENT: Atraumatic, PERRLA, EOMI, Normocephalic Neck: Supple, No JVD, Negative Carotid Bruits Lungs: Clear to auscultation, Normal air movement Cardiovascular: Regular rate, No murmurs Abdomen: Bowel Sounds Present, Soft, Non Tender Extremities: No edema, Capillary Refill Less than 3 Seconds Skin: No rashes, No breakdown Musculoskeletal: No Tenderness to Palpation of Joints or Extremities Neurological: Cranial nerves II-XII grossly intact Psych/Mental Status: Normal Affect, Appropriate Vital Signs Temp Pulse Resp BP Pulse Ox 98.0 F 99 20 H 155/62 H 96 02/14/19 08:36 02/14/19 08:36 02/14/19 08:36 02/14/19 08:36 02/14/19 08:36 Oxygen Flow Rate (L/min) 9 Oxygen Delivery Method Nasal Cannula Weight: 50.8 kg Body Mass Index (BMI) 23.2 Finger Stick Blood Glucose 252 Intake and Output for Last 24 Hours 02/12/19 02/13/19 02/14/19 23:59 23:59 23:59 Intake Total 600.8 / 600.8 650 / 650 160 / 160 Output Total 150 / 150 400 / 400 60 / 60 Balance 450.8 / 450.8 250 / 250 100 / 100 Laboratory Tests Past 24 Hrs 02/14/19 02/14/19 05:45 05:45 WBC 10.0 RBC 2.91 L Hgb 8.3 L Hct 25.4 L MCV 87.3 MCH 28.5 MCHC 32.7 RDW 15.0 H RDW Differential 46.3 H Plt Count 250 MPV 11.0 Immature Gran % (Auto) 0.800 Neut % (Auto) 81.4 H Lymph % (Auto) 8.1 L [place] % (Auto) 8.4 Eos % (Auto) 1.2 Baso % (Auto) 0.1 Absolute Neuts (auto) 8.1 H Absolute Lymphs (auto) 0.81 L Total Counted Not Reportable Sodium 134 L Potassium 5.5 H Chloride 103 Carbon Dioxide 17.0 L Anion Gap 14 BUN 90 H Creatinine 4.29 H Estim Creat Clear Calc 7.01 Est GFR (MDRD) Af Amer 13 L Est GFR (MDRD) Non-Af 10 L BUN/Creatinine Ratio 21.0 H Glucose 198 H Calcium 11.5 H POC Glucose 02/14/19 02/13/19 02/13/19 06:37 21:17 16:22 POC Glucose 216 H 170 H 193 H 02/13/19 11:24 POC Glucose 190 H Assessment/Plan All Active Problems (Last Updated 02/13/19 @ 20:05 by Kb Grider DO) JUVENTINO (acute kidney injury) (Acute) Acute on chronic systolic (congestive) heart failure (Acute) CHF (congestive heart failure) (Acute) Shortness of breath (Acute) Acute respiratory failure with hypoxia (Resolved) PNA (pneumonia) (Resolved) Left sided numbness (Resolved) JUVENTINO CKD 4 CAD s/p angiogram showing extensive atherosclerosis CHF hyperkalemia minimal urine output. worsening creatinine. detailed discussion held with patient regarding ongoing events. I explained to her that with essentially complete kidney failure she has 2 options - choose dialysis or palliative care. She says she has suffered enough and thinks dialysis will be even more burde nsome on her. not willing to go for dialysis. explained the implications of worsening renal failure including worsening respiratory status, worsening hyperkalemia which can be life threatening. She says I think its about time for me to go. I advised hospice evaluation to minimize symptoms from renal failure. she agrees. d.w hospitalist team and staff hospice consult to be placed today
--- NOTE | 2019-02-14 10:42 | NURSING ---
pt updated on díaz catheter order. pt states that they are painful for her and she does not want the díaz catheter. this RN to update MD. Feng RAI
--- NOTE | 2019-02-14 10:44 | DCINST_ITS ---
- Discharge Diagnoses Current Active Problems: Current Active and Chronic Problems (Last Updated 02/13/19 @ 20:05 by Kb Grider DO) JUVENTINO (acute kidney injury) (Acute) Acute on chronic systolic (congestive) heart failure (Acute) Atherosclerosis of coronary artery without angina pectoris (Chronic) Ischemic cardiomyopathy (Chronic) You will use the following diet at home:: No restrictions Your food should be the consistency of: Regular Your liquids should be the consistency of: Regular/Thin Discharge Activity: Return to Normal Activity Additional Instructions: Activity to be directed by hospice. Allergies/Adverse Reactions: Allergies metformin Allergy (Verified 02/10/19 11:05) Other BODY ACHES epinephrine Adverse Reaction (Verified 02/10/19 11:05) Other SHAKING Gadolinium-MRI Contrast Medium [CONTRAST] Adverse Reaction (Verified 02/10/19 11:05) Other SHAKING Medications to take at Discharge Amlodipine [Norvasc] 10 mg PO DAILY #0 11/26/15 Doxazosin Mesylate [Cardura] 2 mg PO DAILY 07/28/18 Lorazepam [Ativan] 0.5 mg PO QHS PRN PRN 07/29/18 Metoprolol Tartrate 50 mg PO BID 07/29/18 Aspirin [Aspirin, Baby] 81 mg PO DAILY@0800 #30 tab.chew 02/02/19 Atorvastatin Calcium [Lipitor] 40 mg PO QHS #30 tablet 02/02/19 Clopidogrel Bisulfate [Plavix] 75 mg PO DAILY #30 tablet 02/02/19 Ferrous Sulfate 325 mg PO TIDCM #90 tablet 02/02/19 hydrALAZINE [Apresoline] 25 mg PO TID #90 tablet 02/02/19 Acetaminophen [Tylenol Tablet] 650 mg PO Q6H PRN PRN tablet 02/14/19 Albuterol Aerosols [Ventolin Aerosols] 2.5 mg INHALATION Q2H PRN PRN vial.neb. 02/14/19 Isosorbide DN [Isordil] 40 mg PO TID tablet 02/14/19 Mag Hydrox/Al Hydrox/Simeth [Mylanta II] 15 - 30 ml PO Q4H PRN PRN udc 02/14/19 Nitroglycerin (INPATIENT USE) [Nitrostat] 0.4 mg SUBLINGUAL Q5M PRN tab.subl 02/14/19 Ranolazine [Ranexa] 500 mg PO BID tablet 02/14/19 Primary Care Physician: Jenni Cornell DO [Primary Care Provider] - Please follow up with your Primary Care Physician in: as directed Test Results: Test results from this visit will be discussed in further detail at your follow- up appointment, if applicable. Proposed Discharge Date: 02/14/19
[2019-02-14 11:26] LABS: Bedside Glucose 185 mg/dL (70-110)
--- NOTE | 2019-02-14 13:55 | CASEMGMT ---
The physician spoke w/pt and family, at this time, they are not in agreement w/hospice, they would like palliative care. Physician plans to keep pt overnight and see how pt's kidney function is tomorrow. SW put pt back on the TCU list in the event pt does not need dialysis and can go to TCU. SW will follow up tomorrow, plan is still to be determined, hospice vs palliative, and will see if pt is in agreement w/dialysis if needed. LUIS Art
--- NOTE | 2019-02-14 14:51 | PN_ITS ---
Patient Problems: Active and Suspected Problems (Last Updated 02/13/19 @ 20:05 by Kb Grider DO) JUVENTINO (acute kidney injury) (Acute) Acute on chronic systolic (congestive) heart failure (Acute) Subjective: Patient resting upright in bed. Patient not interested in the dialysis. Patient agreeable to hospice per nephrology. She denies chest pain. She has no lower extremity edema. She has ongoing shortness of breath and nonproductive cough. No fevers or chills. Patient did have urinary retention and refused Díaz catheter. - Physical Exam General: Alert, Oriented x3, Cooperative HEENT: Atraumatic, PERRLA, EOMI, Normocephalic Neck: Supple, No JVD, Negative Carotid Bruits Lungs: Diminished, Rales Cardiovascular: Regular rate, No murmurs Abdomen: Bowel Sounds Present, Soft, Non Tender Extremities: No edema, Capillary Refill Less than 3 Seconds Skin: No rashes, No breakdown Musculoskeletal: No Tenderness to Palpation of Joints or Extremities Neurological: Cranial nerves II-XII grossly intact Psych/Mental Status: Depressed, Alert and oriented to time, place, person, mood and affect Vital Signs Temp Pulse Resp BP Pulse Ox 98.4 F 96 20 H 159/65 H 95 02/14/19 14:32 02/14/19 14:32 02/14/19 14:32 02/14/19 14:32 02/14/19 14:32 Oxygen Flow Rate (L/min) 9 Oxygen Delivery Method Nasal Cannula Weight: 111 lb 15.917 oz Body Mass Index (BMI) 23.2 Finger Stick Blood Glucose 252 Intake and Output for Last 24 Hours 02/12/19 02/13/19 02/14/19 23:59 23:59 23:59 Intake Total 600.8 / 600.8 650 / 650 235 / 235 Output Total 150 / 150 400 / 400 160 / 160 Balance 450.8 / 450.8 250 / 250 75 / 75 Laboratory Tests Past 24 Hrs 02/14/19 02/14/19 05:45 05:45 WBC 10.0 RBC 2.91 L Hgb 8.3 L Hct 25.4 L MCV 87.3 MCH 28.5 MCHC 32.7 RDW 15.0 H RDW Differential 46.3 H Plt Count 250 MPV 11.0 Immature Gran % (Auto) 0.800 Neut % (Auto) 81.4 H Lymph % (Auto) 8.1 L [place] % (Auto) 8.4 Eos % (Auto) 1.2 Baso % (Auto) 0.1 Absolute Neuts (auto) 8.1 H Absolute Lymphs (auto) 0.81 L Total Counted Not Reportable Sodium 134 L Potassium 5.5 H Chloride 103 Carbon Dioxide 17.0 L Anion Gap 14 BUN 90 H Creatinine 4.29 H Estim Creat Clear Calc 7.01 Est GFR (MDRD) Af Amer 13 L Est GFR (MDRD) Non-Af 10 L BUN/Creatinine Ratio 21.0 H Glucose 198 H Calcium 11.5 H POC Glucose 02/14/19 02/14/19 02/13/19 11:21 06:37 21:17 POC Glucose 185 H 216 H 170 H 02/13/19 16:22 POC Glucose 193 H Medical Necessity - Tobacco Use Smoking Status: Former smoker Assessment/Plan All Active Problems (Last Updated 02/13/19 @ 20:05 by Kb Grider, ) JUVENTINO (acute kidney injury) (Acute) Acute on chronic systolic (congestive) heart failure (Acute) CHF (congestive heart failure) (Acute) Shortness of breath (Acute) Acute respiratory failure with hypoxia (Resolved) PNA (pneumonia) (Resolved) Left sided numbness (Resolved) 1. JUVENTINO - worsening. Would need dialysis for tx. Refused. Hospice referral. Elevated K to 5.5. 2. Pleural effusion 2/2 Acute on chronic systolic CHF exacerbation - minimal to no urine output. Also not helping that she is retaining urine and refuses díaz. Ischemic CM with EF 35%. 3. NSTEMI - nonoperable triple vessel dz. s/p cath. 4. Acute hypoxic respiratory failure 2/2 #2 - High flow NC, Bipap at rest / qhs 5. T2DM - SSI 6. Normocytic anemia - trend. DVT ppx: stop lovenox. change to heparin DC planning: hospice. pt to discuss more with family. This patient was seen by Moises Trejo PA-C under the supervision of Dr. Grider
[2019-02-14 16:45] LABS: Bedside Glucose 195 mg/dL (70-110)
--- NOTE | 2019-02-14 19:44 | NURSING ---
Patient feeling sob, 91% on 9L, sat in high fowlers. Called respiratory therapy, they are coming to access and put on bipap.
[2019-02-14] MEDS: proMETHazine 25 MG/ML Syringe 6.25 MG IV (21:12)
[2019-02-14] MEDS: LORazepam 0.5 MG Tablet PO (22:02)
[2019-02-14] MEDS: Metoprolol Tartrate 50 MG Tablet PO (22:08)
[2019-02-14 22:15] LABS: Bedside Glucose 187 mg/dL (70-110)
[2019-02-15] VITALS (10 sets, daily range): BP systolic 147–162; BP diastolic 58–72; PULSE 80–114; RESP 12–26; TEMP 36.9–37.2; O2SAT 92–100
--- NOTE | 2019-02-15 04:57 | CPS ---
pt declines use of hospital bipap. RN aware
[2019-02-15] MEDS: hydrALAZINE 25 MG Tablet PO (06:29)
[2019-02-15] MEDS: Isosorbide DN 20 MG Tablet 40 MG PO (06:30)
[2019-02-15] MEDS: Acetaminophen 325 MG Tablet 650 MG PO (06:34)
[2019-02-15] MEDS: Heparin Injection (Vial) 5,000 UNIT/ML VIAL 5000 UNIT SC (06:35)
[2019-02-15] MEDS: Insulin Lispro 100 UNIT/ML INSULN.PEN SQ (06:39)
[2019-02-15 07:33] LABS: Absolute Lymphocyte Count 0.82 X10^3/ul (0.83-4.51); Absolute Neutrophil Count 10.4 X10^3/uL (2.0-7.7); Basophil# 0.01 X10^3/uL; Basophil% 0.1 % (0-1); Eosinophil# 0.14 X10^3/uL; Eosinophils% 1.1 % (0-5); Hematocrit 25.3 % (37-47); Hemoglobin 8.4 g/dl (12.0-15.0); Lymphocyte # 0.82 X10^3/ul (4.0); Lymphocyte % 6.5 % (19-41); Mean Corp Hgb Conc 33.2 g/gl (32-36); Mean Corpuscular Volume 87.2 fL (81-99); Mean Platelet Vol. 10.8 fl (6.2-12.0); Monocyte# 1.14 X10^3/uL; Monocyte% 9.1 % (0-10); Neutrophil # 10.36 X10^3/uL (2.7-7.7); Neutrophil % 82.7 % (47-70); Platelet Count 292 K/mm3 (150-450); RBC Distribution Width CV 15.5 % (11.6-14.6); RBC Distribution Width SD 49.9 fl (35.1-43.9); White Blood Count 12.5 K/mm3 (4.4-11.0)
[2019-02-15 07:42] LABS: POSITIVE COUNT NO; POSITIVE DIFFERENTIAL NO; POSITIVE MORPHOLOGY NO
[2019-02-15 07:45] LABS: Anion Gap 11 (5-15); BUN 99 mg/dL (7-18); Calcium,Total 11.6 mg/dL (8.5-10.1); Chloride 105 mmol/L (98-107); Creatinine, Serum 4.31 mg/dL (0.55-1.02); EST Glomerular Filtration Rate 10 mL/min (>60); Est Glom Filt Rate - Afr Amer 13 mL/min (>60); Estimated Creatinine Clearance 6.98 ml/min; Glucose 167 mg/dL (74-106); Potassium 5.4 mmol/L (3.5-5.1); Sodium Level 132 mmol/L (136-145)
[2019-02-15] MEDS: Metoprolol Tartrate 50 MG Tablet PO (09:07)
[2019-02-15] MEDS: HYDROcodone Bitartrate/Apap 5/325 Tablet PO (09:07)
--- NOTE | 2019-02-15 10:58 | CASEMGMT ---
liaison officer notified SW that patient and family agreed to Hospice Inpatient Unit. SW will notify Sheron in TCU. Plan: [facility]. Tigist JOHNSON MSW
[2019-02-15 11:11] LABS: Bedside Glucose 162 mg/dL (70-110)
--- NOTE | 2019-02-15 13:09 | DS.PCM_ITS ---
Discharge Date and Diagnosis - Problem List Patient Problems: Active and Suspected Problems (Last Updated 02/13/19 @ 20:05 by Kb Grider DO) JUVENTINO (acute kidney injury) (Acute) Acute on chronic systolic (congestive) heart failure (Acute) Date of Admission: 02/10/19 Date of Discharge: 02/15/19 - Primary Discharge Diagnosis Active and Suspected Problems (Last Updated 02/13/19 @ 20:05 by Kb Grider DO) JUVENTINO (acute kidney injury) (Acute), now ESRD Acute on chronic systolic (congestive) heart failure (Acute) with associated acute hypoxic respiratory failure Ischemic cardiomyopathy nonoperable CAD Non-STEMI T2DM HTN - Secondary Discharge Diagnosis Chronic Problems (Last Updated 02/13/19 @ 20:05 by Kb Grider DO) Atherosclerosis of coronary artery without angina pectoris (Chronic) Ischemic cardiomyopathy (Chronic) TIA (transient ischemic attack) (Chronic) Cardiac enzymes elevated (Chronic) Carotid disease, bilateral (Chronic) CKD (chronic kidney disease) stage 3, GFR 30-59 ml/min (Chronic) Hypertension (Chronic) Hyperlipidemia (Chronic) Type II diabetes mellitus (Chronic) Hospital Course and Treatment Imaging Results: RAD/Chest 1 View (Portable) IMPRESSION: Findings consistent with congestive heart failure and interstitial pulmonary edema. Follow-up exam is recommended. Left Heart Cath: CONCLUSIONS Severe triple-vessel disease involving a totally occluded left anterior descending artery with a large long segment, severe disease of the first diagonal branch, distal circumflex totally occluded dominant circumflex artery. Total amount of contrast used 18 cc. EF 35% RECOMMENDATIONS Medical therapy RAD/Chest 1 View (Portable) IMPRESSION: Findings in comparison with CHF. Small left pleural effusion with left basilar atelectasis and/or infiltrate. RAD/Chest 1 View (Portable) IMPRESSION: Slight progression in the CHF. Stable left lower lobe infiltration and/or atelectasis with bilateral effusions. Consults: Nephrology - [facility] Operations: None Procedures: Cardiac catheterization Summary of Care Provided: Hospital Course: The patient is a 83 year old F with pmhx of TIA, carotid artery dz, HLD, HTN, T2DM, CKDIII, systolic CHF with ischemic cardiomyopathy, who presented to the ER with c/o SOB and LE edema. EKG had some ST depression in the lateral leads, and troponin was elevated, BNP was elevated and CXR showed CHF. She was admitted for acute systolic CHF exacerbation and treated with lasix. Cardiology evaluated the patient for NSTEMI. She was taken for a heart cath and was found to have triple vessel CAD, nonoperable, and EF35%. Medical management was advised. Her renal function declined. Nephrology was consulted. Dialysis was recommended as she had very little urine output and no improvement in renal function. The patient was not interested in dialysis treatment. She had no improvement with lasix and her breathing did not improved. She required high flow NC O2 at 9lpm. She stated she was ready to , and physically exhausted. Hospice was consulted. She was taken to inpatient hospice in stable condition. This patient was seen by Moises Trejo PA-C under the supervision of Dr. Grider. [] Patient Problems: Active and Suspected Problems (Last Updated 02/13/19 @ 20:05 by Kb Grider DO) JUVENTINO (acute kidney injury) (Acute) Acute on chronic systolic (congestive) heart failure (Acute) - Physical Exam General: Alert, Oriented x3, Cooperative HEENT: Atraumatic, PERRLA, EOMI, Normocephalic Neck: Supple, No JVD, Negative Carotid Bruits Lungs: Diminished, Rales Cardiovascular: Regular rate, No murmurs Abdomen: Bowel Sounds Present, Soft, Non Tender Extremities: No edema, Capillary Refill Less than 3 Seconds Skin: No rashes, No breakdown Musculoskeletal: No Tenderness to Palpation of Joints or Extremities Neurological: Cranial nerves II-XII grossly intact Psych/Mental Status: Appropriate, Depressed Vital Signs Temp Pulse Resp BP Pulse Ox 98.7 F 80 20 H 147/64 H 92 02/15/19 11:00 02/15/19 11:30 02/15/19 11:00 02/15/19 11:00 02/15/19 11:00 Oxygen Flow Rate (L/min) 9 Oxygen Delivery Method Nasal Cannula Weight: 113 lb 8.609 oz Body Mass Index (BMI) 23.2 Finger Stick Blood Glucose 252 Intake and Output for Last 24 Hours 02/13/19 02/14/19 02/15/19 23:59 23:59 23:59 Intake Total 650 / 650 780 / 780 250 / 250 Output Total 400 / 400 180 / 180 100 / 100 Balance 250 / 250 600 / 600 150 / 150 Laboratory Tests Past 24 Hrs 02/15/19 02/15/19 06:45 06:45 WBC 12.5 H RBC 2.90 L Hgb 8.4 L Hct 25.3 L MCV 87.2 MCH 29.0 MCHC 33.2 RDW 15.5 H RDW Differential 49.9 H Plt Count 292 MPV 10.8 Immature Gran % (Auto) 0.500 Neut % (Auto) 82.7 H Lymph % (Auto) 6.5 L [place] % (Auto) 9.1 Eos % (Auto) 1.1 Baso % (Auto) 0.1 Absolute Neuts (auto) 10.4 H Absolute Lymphs (auto) 0.82 L Total Counted Not Reportable Sodium 132 L Potassium 5.4 H Chloride 105 Carbon Dioxide 16.0 L Anion Gap 11 BUN 99 H Creatinine 4.31 H Estim Creat Clear Calc 6.98 Est GFR (MDRD) Af Amer 13 L Est GFR (MDRD) Non-Af 10 L BUN/Creatinine Ratio 23.0 H Glucose 167 H Calcium 11.6 H POC Glucose 02/15/19 02/14/19 02/14/19 11:04 21:59 16:36 POC Glucose 162 H 187 H 195 H Discharge Diet: No Restrictions Discharge Activity: Return to Normal Activity Home Medications: Medications to take at Discharge Amlodipine [Norvasc] 10 mg PO DAILY #0 11/26/15 Doxazosin Mesylate [Cardura] 2 mg PO DAILY 07/28/18 Lorazepam [Ativan] 0.5 mg PO QHS PRN PRN 07/29/18 Metoprolol Tartrate 50 mg PO BID 07/29/18 Aspirin [Aspirin, Baby] 81 mg PO DAILY@0800 #30 tab.chew 02/02/19 Atorvastatin Calcium [Lipitor] 40 mg PO QHS #30 tablet 02/02/19 Clopidogrel Bisulfate [Plavix] 75 mg PO DAILY #30 tablet 02/02/19 Ferrous Sulfate 325 mg PO TIDCM #90 tablet 02/02/19 hydrALAZINE [Apresoline] 25 mg PO TID #90 tablet 02/02/19 Acetaminophen [Tylenol Tablet] 650 mg PO Q6H PRN PRN tablet 02/14/19 Albuterol Aerosols [Ventolin Aerosols] 2.5 mg INHALATION Q2H PRN PRN vial.neb. 06/13/19 Isosorbide DN [Isordil] 40 mg PO TID tablet 02/14/19 Mag Hydrox/Al Hydrox/Simeth [Mylanta II] 15 - 30 ml PO Q4H PRN PRN udc 02/14/19 Nitroglycerin (INPATIENT USE) [Nitrostat] 0.4 mg SUBLINGUAL Q5M PRN tab.subl 02/14/19 Ranolazine [Ranexa] 500 mg PO BID tablet 02/14/19 Primary Care Physician: Jenni Cornell DO [Primary Care Provider] - Please follow up with your Primary Care Physician in: as directed Additional Instructions: further care and activity as directed by hospice. Disposition: Hospice Medical Facility Minutes spent on discharge:: 35 Patient Condition:: Stable Medical Necessity - Tobacco Use Smoking Status: Former smoker Meaningful Use Info Meaningful Use Diagnoses (Choose all that apply): None applicable
[2019-02-16 00:36] LABS: Bedside Glucose 170 mg/dL (70-110)
== END 2019-02-15 15:07 | disposition hospice, inpatient (51) | DRG 280 ==
LOC: ED 11:55 → PCU 13:13
PROVIDERS: Physician Assistant; Admitting Provider Student in an Organized Health Care Education/Training Program; Emergency Provider Emergency Medicine; Family Provider Family Medicine; PCP Family Medicine; Visit Provider Internal Medicine
DX: I22.2 Subsequent non-ST elevation (NSTEMI) myocardial infarction (principal); I50.23 Acute on chronic systolic (congestive) heart failure; J96.01 Acute respiratory failure with hypoxia; N18.6 End stage renal disease; N17.9 Acute kidney failure, unspecified; I13.2 Hypertensive heart and chronic kidney disease with heart failure and with stage 5 chronic kidney disease, or end stage renal disease; I21.4 Non-ST elevation (NSTEMI) myocardial infarction; E11.22 Type 2 diabetes mellitus with diabetic chronic kidney disease; I25.10 Atherosclerotic heart disease of native coronary artery without angina pectoris; E87.5 Hyperkalemia; Z66 Do not resuscitate; D63.1 Anemia in chronic kidney disease; I25.5 Ischemic cardiomyopathy; Z51.5 Encounter for palliative care; E78.5 Hyperlipidemia, unspecified; Z87.891 Personal history of nicotine dependence; Z79.84 Long term (current) use of oral hypoglycemic drugs
CPT/HCPCS: 36415; 71045; 80048; 80069; 81001; 82306; 82962; 83880; 83970; 84484; 85025; 85027; 85610; 85730; 93005; 93454; 94002; 94003; 94762; 97162; 97166; 97530; 97802; 99152; 99285; J7030; Q9967; A4216; C1769; C1894; J1940; J2405